=== PATIENT | female | born 1955 | race Caucasian/White ===

== ENCOUNTER 2023-11-06 03:53 | Outpatient (CLI) | payer MEDICARE, SELFPAY ==
[2023-11-06 10:24] LABS: Abs Immature Grans 0.04 10^3/uL (0.0-0.06); Absolute Basophil Count 0.12 10^3/uL (0.0-0.2); Absolute Eosinophil Count 0.42 10^3/uL (0.0-0.7); Absolute Lymphocyte Count 1.88 10^3/uL (1.2-3.4); Absolute Monocyte Count 0.55 10^3/uL (0.1-0.8); Absolute Neutrophil Count 5.18 10^3/uL (1.2-6.7); Basophils % 1.5 %; Eosinophils % 5.1 %; HCT 47.5 % (36.0-46.0); HGB 14.5 g/dL (11.2-15.7); Immature Grans % 0.5 %; MCHC 30.5 % (32.0-36.0); MCV 85 fL (80-95); MPV 10.6 fL (8.0-11.0); Monocytes % 6.7 %; Neutrophils % 63.2 %; Platelet Count 261 10^3/uL (130-400); RBC 5.58 10^6/uL (3.93-5.22); RDW 15.4 % (11.7-14.6); WBC 8.19 10^3/uL (4.4-10.8)
[2023-11-06 10:46] LABS: ALT 14 U/L (14-59); AST 17 U/L (15-37); Albumin 3.2 g/dL (3.4-5.0); Alkaline Phosphatase 116 U/L (46-116); Anion Gap 9.7 mmol/L (3-11); BUN 10 mg/dL (7-18); Bilirubin, Total 0.35 mg/dL (0.2-1.0); CO2 23.3 mmol/L (21.0-32.0); CREATININE 1.1 mg/dL (0.55-1.02); Calcium 9.2 mg/dL (8.5-10.1); Chloride 108 mmol/L (98-107); Estimated GFR 55.07 (mL/min/1.73m2); FREE T4 1.18 ng/dL (0.76-1.46); Glucose 128 mg/dL (74-106); Magnesium 2.3 mg/dL (1.8-2.4); Potassium 4.4 mmol/L (3.5-5.1); Sodium 141 mmol/L (136-145); TSH 3.44 uIU/Ml (0.36-3.74); Total Protein 7.3 g/dL (6.4-8.2)
== END 2023-11-06 03:54 | disposition home or self-care (01) ==
LOC: LBO 03:53
PROVIDERS: Visit Provider Internal Medicine Medical Oncology
DX: Z79.899 Other long term (current) drug therapy (principal); C34.31 Malignant neoplasm of lower lobe, right bronchus or lung
CPT/HCPCS: 36415; 80053; 83735; 84439; 84443; 85025

== ENCOUNTER 2023-11-27 01:54 | Outpatient (CLI) | payer MEDICARE, SELFPAY ==
[2023-11-27 12:39] LABS: Abs Immature Grans 0.04 10^3/uL (0.0-0.06); Absolute Basophil Count 0.11 10^3/uL (0.0-0.2); Absolute Eosinophil Count 0.27 10^3/uL (0.0-0.7); Absolute Lymphocyte Count 1.73 10^3/uL (1.2-3.4); Absolute Monocyte Count 0.65 10^3/uL (0.1-0.8); Basophils % 1.6 %; Eosinophils % 3.9 %; HCT 43.8 % (36.0-46.0); HGB 13.3 g/dL (11.2-15.7); Immature Grans % 0.6 %; Lymphocytes % 25.1 %; MCH 26.2 pg (27.0-33.0); MCHC 30.4 % (32.0-36.0); MCV 86 fL (80-95); MPV 9.1 fL (8.0-11.0); Monocytes % 9.4 %; Neutrophils % 59.4 %; Platelet Count 280 10^3/uL (130-400); RBC 5.07 10^6/uL (3.93-5.22); RDW 15.7 % (11.7-14.6); RDW-SD 47.8 fL
[2023-11-27 13:15] LABS: ALT 22 U/L (14-59); AST 19 U/L (15-37); Alkaline Phosphatase 112 U/L (46-116); Anion Gap 6.7 mmol/L (3-11); BUN 12 mg/dL (7-18); Bilirubin, Total 0.29 mg/dL (0.2-1.0); CO2 27.3 mmol/L (21.0-32.0); CREATININE 1.1 mg/dL (0.55-1.02); Calcium 9.4 mg/dL (8.5-10.1); Chloride 103 mmol/L (98-107); Estimated GFR 55.07 (mL/min/1.73m2); FREE T4 1.12 ng/dL (0.76-1.46); Glucose 129 mg/dL (74-106); Magnesium 2.2 mg/dL (1.8-2.4); Potassium 4.3 mmol/L (3.5-5.1); Sodium 137 mmol/L (136-145); TSH 2.62 uIU/Ml (0.36-3.74); Total Protein 7.1 g/dL (6.4-8.2)
== END 2023-11-27 01:55 | disposition home or self-care (01) ==
LOC: LBO 01:54
PROVIDERS: Visit Provider Internal Medicine Medical Oncology
DX: Z79.899 Other long term (current) drug therapy (principal); C34.31 Malignant neoplasm of lower lobe, right bronchus or lung
CPT/HCPCS: 36415; 80053; 83735; 84439; 84443; 85025

== ENCOUNTER 2023-12-18 03:23 | Outpatient (CLI) | payer MEDICARE, SELFPAY ==
[2023-12-18 10:53] LABS: Abs Immature Grans 0.06 10^3/uL (0.0-0.06); Absolute Basophil Count 0.03 10^3/uL (0.0-0.2); Absolute Eosinophil Count 0.06 10^3/uL (0.0-0.7); Absolute Lymphocyte Count 1.58 10^3/uL (1.2-3.4); Absolute Monocyte Count 0.66 10^3/uL (0.1-0.8); Absolute Neutrophil Count 3.02 10^3/uL (1.2-6.7); Basophils % 0.6 %; Eosinophils % 1.1 %; HGB 12.7 g/dL (11.2-15.7); Immature Grans % 1.1 %; Lymphocytes % 29.2 %; MCH 27.2 pg (27.0-33.0); MCV 88 fL (80-95); MPV 8.4 fL (8.0-11.0); Monocytes % 12.2 %; Neutrophils % 55.8 %; Platelet Count 241 10^3/uL (130-400); RBC 4.67 10^6/uL (3.93-5.22); RDW 17.5 % (11.7-14.6); RDW-SD 50.6 fL; WBC 5.41 10^3/uL (4.4-10.8)
[2023-12-18 11:09] LABS: ALT 44 U/L (14-59); AST 35 U/L (15-37); Albumin 3.3 g/dL (3.4-5.0); Alkaline Phosphatase 126 U/L (46-116); Anion Gap 7.3 mmol/L (3-11); BUN 15 mg/dL (7-18); Bilirubin, Total 0.26 mg/dL (0.2-1.0); CO2 27.7 mmol/L (21.0-32.0); CREATININE 1.1 mg/dL (0.55-1.02); Calcium 9.3 mg/dL (8.5-10.1); Chloride 104 mmol/L (98-107); Estimated GFR 55.07 (mL/min/1.73m2); Glucose 111 mg/dL (74-106); Magnesium 2.1 mg/dL (1.8-2.4); Potassium 4.3 mmol/L (3.5-5.1); Sodium 139 mmol/L (136-145); Total Protein 7.5 g/dL (6.4-8.2)
[2023-12-18 11:19] LABS: FREE T4 0.96 ng/dL (0.76-1.46); TSH 2.92 uIU/Ml (0.36-3.74)
== END 2023-12-18 03:24 | disposition home or self-care (01) ==
LOC: LBO 03:23
PROVIDERS: Visit Provider Internal Medicine Medical Oncology
DX: Z79.899 Other long term (current) drug therapy (principal)
CPT/HCPCS: 36415; 80053; 83735; 84439; 84443; 85025

== ENCOUNTER 2024-01-08 11:22 | Outpatient (CLI) | payer MEDICARE, SELFPAY ==
--- OUTSIDE RECORDS SUMMARY | 2024-01-08 11:25 | XMS_ITS | Encounter Summary ---
Author Organization [facility] Address [address] [place] [id number] Care Team Providers Care Clerical Supervisor Name Role Phone Unavailable Primary Care Provider Unavailabl e Reason for Referral * (Routine/Next Available) - Receiving Office to Obtain Authorization Specialty Diagnoses / Procedures Referred By Contac t Referred To Contact Procedures CT OUTSIDE IMAGES CHEST Imaging, External Referral ID Status Reason Start Date Expiration Date Visits Requested Visits Authorized [id number] Receiving Office to Obtain Authorization 11/07/2023 1 1 Reason for Visit * (Routine/Next Available) - Receiving Office to Obtain Authorization Specialty Diagnoses / Procedures Referred By Contac t Referred To Contact Procedures CT OUTSIDE IMAGES CHEST Imaging, External Referral ID Status Reason Start Date Expiration Date Visits Requested Visits Authorized [id number] Receiving Office to Obtain Authorization 11/07/2023 1 1 Encounter Details Date Type Department Care Team (Latest Contact Info) Description 09/19/2023 - 09/19/2023 23:59 EDT Hospital Encounter [facility] Secondary Reads [place] Discharge Disposition: Home or Self Care Social History Tobacco Use Types Packs/Day Years Used Date Smoking Tobacco: Never Assessed Sex and Gender Information Value Date Recorded Sex Assigned at Not on file Gender Identity Female 11/30/2023 12:00 EDT Sexual Orientation Not on file documented as of this encounter Discharge Disposition Disposition Code Departure Means Destination Home or Self Care documented in this encounter Plan of Treatment Not on file documented as of this encounter Procedures Procedure Name Priority Date/Time Associated Diagnosis Comments CT OUTSIDE IMAGES CHEST Routine 09/19/2023 19:32 EDT documented in this encounter Results * CT OUTSIDE IMAGES CHEST (09/19/2023 19:32 EDT) Narrative 11/07/2023 19:33 EDT This is a non-reportable exam. External Imaging IMG OTHER IMAGING OR DERABLES documented in this encounter Visit Diagnoses Not on filedocumented in this encounter
--- OUTSIDE RECORDS SUMMARY | 2024-01-08 11:25 | XMS_ITS | Clinical Summary ---
Author Organization [facility] Address [facility] [place] [address] Care Team Providers Care Molding Machine Setter Name Role Phone Ariella Hollis APRN Primary Care Provide r Allergies No known active allergies Medications Medication Sig Dispensed Refills Start Date End Date Status albuteroL 90 mcg/actuation inhaler (HFA) Inhale 2 puffs into the lungs every 6 hours as needed for Wheezing or Shortness of Breath. Use with Spacer Active predniSONE (Deltasone) 5 mg tablet Take 5 mg by mouth as needed (takes when cough gets worse). Unsure of dosing off the top of her head Active umeclidinium-vilan teroL (Anoro Ellipta) 62.5-25 mcg/actuation inhaler (DPI) Inhale 1 puff into the lungs daily. 1 each 3 10/18/2023 Active prochlorperazine (Compazine) 10 mg tabletIndications: Chemotherapy-induc ed nausea Take 1 tablet by mouth every 6 hours as needed for Nausea. 30 tablet 3 11/06/2023 Active folic acid (Vitamin B9) 1 mg tabletIndications: Primary malignant neoplasm of right lower lobe of lung Take 1 tablet by mouth daily. 90 tablet 3 11/06/2023 Active apixaban (Eliquis) 5 mg tablet Take 1 tablet by mouth 2 times daily for 210 days. 60 tablet 6 11/27/2023 06/24/2024 Active hydrocortisone 2.5 % Cream Apply topically 2 times daily. 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 09/30/2023 Encounters Date Type Department Care Team Description 01/08/2024 1:30 PM EDT Infusion Hematology Oncology at [address] [phone] 01/08/2024 1:00 PM EDT Office Visit Hematology/Oncolo gy at [address] [phone] Antolin Croft MD LaRoza, Stephanie A, VENEER STAPLER Primary malignant neoplasm of right lower lobe of lung 01/07/2024 Travel 01/02/2024 2:00 PM EDT Ancillary Procedure Radiology Library at [facility] [place] [address] Candice Erickson, VENEER STAPLER 01/02/2024 Interpretation Only Radiology Library at [facility] [place] [address] Candice Erickson, VENEER STAPLER 12/28/2023 Orders [place] [address] Soto Gilbert MD 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; Primary malignant neoplasm of right lower lobe of lung 12/26/2023 Orders [place] [address] Soto Gilbert MD Primary malignant neoplasm of right lower lobe of lung; 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 12/18/2023 12:00 PM EDT Infusion Hematology Oncology at [address] [phone] High risk medication use; Primary malignant neoplasm of right lower lobe of lung 12/18/2023 11:30 AM EDT Office Visit Hematology/Oncolo gy at [address] [phone] Antolin Croft MD LaRoza, Stephanie A, APRN Primary malignant neoplasm of right lower lobe of lung 12/18/2023 Notes Only Hematology/Oncolo gy at [address] [phone] Jana Moore, RATE ANALYST 12/18/2023 Travel 11/27/2023 2:00 PM EDT Infusion Hematology Oncology at [address] [phone] High risk medication use; Primary malignant neoplasm of right lower lobe of lung 11/27/2023 1:30 PM EDT Office Visit Hematology/Oncolo gy at [address] [phone] Antolin Croft MD LaRoza, Stephanie A, CAROLEE Primary malignant neoplasm of right lower lobe of lung; Pulmonary embolus, right; Drug dermatitis 11/27/2023 Travel 11/17/2023 Notes Only Hematology [place] [address] Candice Freeman RN 11/10/2023 Telephone Hematology/Oncolo gy at [address] [phone] Juhi Lin RN 11/09/2023 2:55 PM EDT Ancillary Procedure Radiology Library at [facility] [place] [phone] Lenard Ramon MD 11/09/2023 Interpretation Only Radiology Library at [facility] [place] [phone] Lenard Ramon MD 11/09/2023 Telephone Hematology/Oncolo gy at [address] [phone] Juhi Lin, RN 11/06/2023 12:00 PM EDT Infusion Hematology Oncology at [address] [phone] High risk medication use; Primary malignant neoplasm of right lower lobe of lung 11/06/2023 11:30 AM EDT Office Visit Hematology/Oncolo gy at [address] [phone] Antolin Croft MD LaRoza, Stephanie A, CAROLEE Primary malignant neoplasm of right lower lobe of lung; 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; Chemotherapy-induced nausea 11/06/2023 Notes Only Hematology/Oncolo gy at [address] [phone] Jana Moore, LANNY 11/06/2023 Travel 11/03/2023 Telephone Revenue Management Division [place] [phone] Jayne Manriquez Prior Authorization (CGAT GENETIC TESTING) 11/03/2023 Telephone [place] [address] Jayne Manriquez Prior Authorization (CGAT GENETIC TESTING) 10/31/2023 Patient Outreach Hematology and Oncology at [place] [phone] Mary Kay Palomino 10/25/2023 Orders Only Hematology [place] [address] Antolin Croft MD Primary malignant neoplasm of right lower lobe of lung; High risk medication use 10/25/2023 Telephone Hematology [place] [address] Jihan Araujo, RN 10/23/2023 Telephone [place] [address] Eri Barreto MD 10/19/2023 2:00 PM EDT Office Visit Radiation Oncology at [address] [phone] Olegario King MD 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 10/19/2023 Travel 10/18/2023 6:14 AM EDT - 10/18/2023 11:59 PM EDT Hospital Encounter Laboratory [place] [phone] Discharge Disposition: Home 10/18/2023 Orders [place] [address] Gay Wong, RN 10/18/2023 Orders [place] [address] Lenard Ramon MD 10/18/2023 [place] [address] Gay Wong RN 10/17/2023 2:00 PM EDT Office Visit [place] [address] Soto Gilbert MD Primary malignant neoplasm of right lower lobe of lung; Essential hypertension; Dyspnea on exertion; 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 10/17/2023 Travel 10/16/2023 [place] [address] Reema Byers 10/10/2023 Telephone Radiation Oncology at [address] [phone] Ashley Kruger from Last 3 Months Family History Medical History Relation Comments Stomach Cancer Brother 1 Brain Cancer Brother 2 Myocardial Infarction Father Myocardial Infarction Sister Relation Status Comments Brother 1 Brother 2 Alive Father Sister Social History Tobacco Use Types Packs/Day Years Used Date Smoking Tobacco: Former Cigarettes 1 51 S tarted: 1970 Smokeless Tobacco: Never Tobacco Cessation:Counseling Given: Not Answered Alcohol Use Standard Drinks/Week Comments Not Currently 0 (1 standard drink = 0.6 oz pur e alcohol) B1300 Health Literacy Answer Date Recor ded How often do you need to hav e someone help you when you read instructions, pamphlets, or other written material from your doctor or pharmacy? Never 10/19/2023 [facility] Utilities Answer Date Recorded In the past 12 months has th e electric, gas, oil, or water company threatened to shut off services in your home? No 10/19/2023 Overall Financial Resource Strain (CARDIA) Answe r Date Recorded How hard is it for you to pa y for the very basics like food, housing, medical care, and heating? Somewhat hard 10/19/2023 Hunger Vital Sign Answer Date Recorded Within the past 12 months, y ou worried that your food would run out before you got the money to buy more. Sometimes true Within the past 12 months, t he food you bought just didn't last and you didn't have money to get more. Patient declined 03/2023 PRAPARE - Transportation Answer Date Re corded In the past 12 months, has l ack of transportation kept you from medical appointments or from getting medications? No 03/2023 In the past 12 months, has l ack of transportation kept you from meetings, work, or from getting things needed for daily living? No 10/19/2023 Housing Stability Vital Sign Answer Davon e Recorded In the last 12 months, was t here a time when you were not able to pay the mortgage or rent on time? No 10/19/2023 Number of Times Moved in the Last Year Not on fi le 10/19/2023 At any time in the past 12 m [facility], were you homeless or living in a fci (including now)? No 10/19/2023 IPV Inpatient Questions Answer Date Recorded Does Anyone Try to Keep You From Having Contact with Others or Doing Things Outside Your Home? no 09/25/2023 Feels Threatened by Someone no 10/2023 Feels Unsafe at Home or Work/School no 09/25/2023 Physical Signs of Abuse Present no 09/25/2023 Sex and Gender Information Value Date Recorded Sex Assigned at Not on file Gender Identity Not on file Sexual Orientation Not on file Last Filed Vital Signs Vital Sign Reading Time Taken Comments Blood Pressure 184/70 12/18/2023 11:29 AM EDT Pulse 74 12/18/2023 11:29 AM EDT Temperature 36.5 ??C (97.7 ??F) 12/18/2023 11:29 AM E DT Respiratory Rate 18 12/18/2023 11:29 AM EDT Oxygen Saturation 97% 12/18/2023 11:29 AM EDT Inhaled Oxygen Concentration - - Weight 89.4 kg (197 lb) 12/18/2023 11:29 AM EDT Height 164.1 cm (5' 4.61) 12/18/2023 11:29 AM E DT Body Mass Index 33.18 12/18/2023 11:29 AM EDT Plan of Treatment Upcoming Encounters Date Type Department Care Team (Late st Contact Info) Description 01/08/2024 1:00 PM EDT Office Visit Hematology/Oncology at [address] [phone] Antolin Croft MD [facility] DR HEMATOLOGY [place] [address] Candice Erickson APRN [address] [place] [address] DR HEMATOLOGY AND ONCOLOGY [place], [place] [phone] Primary malignant neoplasm of right lower lobe of lung 01/08/2024 1:30 PM EDT Infusion Hematology Oncology at [address] [phone] 01/30/2024 9:[address] [place] [phone] Soto Gilbert MD [facility] [place] [address] 01/30/2024 10:30 AM EST Appointment [place] [phone] Soto Gilbert MD [facility] [place] [address] 01/30/2024 11:00 AM EST Appointment [place] [phone] Soto Gilbert MD [facility] DR [place] [address] 01/30/2024 11:30 AM EST Appointment [place] [phone] Soto Gilbert MD [facility] [place] [address] 01/30/2024 12:00 PM EST Appointment [place] [phone] Soto Gilbert MD [facility] DR [place] [address] 01/30/2024 2:30 PM EST Appointment [place] [phone] Health Maintenance Due Date Last Done Comments CT Colonography 1955 Colonoscopy 1955 Colorectal Cancer Screening 1955 FIT DNA 1955 FIT 1955 Sigmoidoscopy (10 year) with FIT yearly 1955 Sigmoidoscopy 1955 Hepatitis C Screening 1974 Lipid Screening 1974 Tetanus/Diphtheria/Pertussis Vaccines (1 - Tdap) 10/20 Breast Cancer Share Decision Needed 1996 Breast Cancer screening 1996 Zoster vaccine (1 of 2) 2006 Bone Density Scan 2021 Pneumoccocal Vaccine: 65+ (1 of 1 - PCV) 2021 Covid-19 Vaccine (1 - 2022-24 season) 2023 Influenza (Flu) vaccine (1 o f 1 - Influenza standard series) 11/19/2023 Diabetes Screening (HgbA1C or Glucose) 08/28/2026 HPV test Discontinued 07/21/2014 PAP Smear Discontinued 07/21/2014 Procedures Procedure Name Priority Date/Time Associated Diagnosis Comments CT SCAN (SCAN) 01/08/2024 12:00 AM EDT FILM LIBRARY STORAGE ONLY CT CHEST Routine 01/02/2024 2:00 PM EDT LAB SCAN 12/18/2023 12:00 AM EDT LAB SCAN 12/18/2023 12:00 AM EDT LAB SCAN 11/27/2023 12:00 AM EDT FILM LIBRARY STORAGE ONLY CT CHEST Routine 11/09/2023 2:55 PM EDT EEG SCAN 11/09/2023 12:00 AM EDT LAB SCAN 11/09/2023 12:[address] SCAN (SCAN) 11/09/2023 12:[address] SCAN (SCAN) 11/09/2023 12:00 AM EDT LAB SCAN 11/06/2023 12:00 AM EDT PFT SCAN 10/09/2023 12:00 AM EDT PFT SCAN 10/09/2023 12:00 AM EDT COMPREHENSIVE METABOLIC PANEL STAT 08/29/2023 11:11 AM EDT Adenocarcinoma of right lung HPV Routine 07/21/2014 12:00 PM EDT HVAC ENGINEERING TECHNICIAN CYTOLOGY FINAL REPORT Routine 07/21/2014 12:00 PM EDT from Last 3 Months or Most Recently Relevant to Health Maintenance Results * Scan Doc: CT Scan (01/08/2024 12:00 AM EDT) Only the most recent of3 resultswithin the time period is included. Anatomical Region Laterality Modality Other Narrative 01/08/2024 12:00 AM EDT Ordered by an unspecified provider. Scanning Provider MEDIA MGR SCAN EXT O RDR/RSLT * Film Library- Storage Only CT Chest (01/02/2024 2:00 PM EDT) Only the most recent of2 resultswithin the time period is included. 01/06/2024 9:48 PM EDT Narrative RAD - 01/06/2024 9:48 PM EDT This exam is auto-finalizing. It's purpose is for storage only. Candice Erickson APRN IMG FILM LIBRARY ORDERABLES [place], [place] * Scan Doc: Lab (12/18/2023 12:00 AM EDT) Only the most recent of5 resultswithin the time period is included. Narrative 12/18/2023 12:00 AM EDT Ordered by an unspecified provider. Scanning Provider MEDIA MGR SCAN EXT O RDR/RSLT * Scan Doc: EEG (11/09/2023 12:00 AM EDT) Narrative 11/09/2023 12:00 AM EDT Ordered by an unspecified provider. Scanning Provider MEDIA MGR SCAN EXT O RDR/RSLT * Scan Doc: PFT (10/09/2023 12:00 AM EDT) Narrative 10/09/2023 12:00 AM EDT Ordered by an unspecified provider. Scanning Provider MEDIA MGR SCAN EXT O RDR/RSLT * Scan Doc: PFT (10/09/2023 12:00 AM EDT) Narrative 10/09/2023 12:00 AM EDT Ordered by an unspecified provider. Scanning Provider MEDIA MGR SCAN EXT O RDR/RSLT * Comprehensive metabolic panel (non-fasting) (08/29/2023 11:11 AM EDT) [facility] Signature Glucose 131 65 - 199 mg/dL [facility] Comment:Diabetes: >=200 mg/d L plus symptoms Blood Urea Nitrogen 14 8 - 18 mg/dL [facility] Creatinine 1.02 0.70 - 1.20 mg/dL [facility] Sodium 139 135 - 145 mmol/L [facility] Potassium 4.2 3.5 - 5.0 mmol/L [facility] Comment: Please note: ??Patients with WBC >100,000 may have falsely elevated Potassium levels. ??For accurate Potassium quantification in these patients send serum separator tube (gold top) for subsequent determinations. ??Contact the Clinical Chemistry Laboratory if there are any questions. Chloride 103 98 - 107 mmol/L [facility] Carbon Dioxide 25 22 - 31 mmol/L [facility] Anion Gap 11 5 - 15 mmol/L [facility] Calcium 9.2 8.5 - 10.5 mg/dL [facility] Protein, Total 7.1 6.1 - 8.0 g/dL [facility] Albumin 3.9 3.2 - 5.2 g/dL [facility] Aspartate Aminotransferase 17 0 - 30 unit/L [facility] Alanine Aminotransferase 16 0 - 30 unit/L [facility] Alkaline Phosphatase 99 35 - 105 unit/L [facility] Bilirubin, Total 0.3 0.2 - 1.3 mg/dL [facility] Est Glomerular Filtration Rate 61 >=60 mL/min/1. 73 m?? [facility] Comment: This patient's estimated GFR was calculated using the 2020 CKD-EPI equation. The estimated GFR can vary from the measured GFR by up to 30% in the absence of rapidly changing kidney function. Assessment of the estimated GFR is not appropriate when creatinine concentrations are rapidly changing. For clinical situations in which a more precise estimate of GFR is necessary, consider alternative methods of GFR estimation such as a 24-hour urine creatinine clearance. Assignment of CKD stage 1-5 for patients with an eGFR near the transition point between stages may be based on clinical assessment of muscle mass and symptoms in addition to eGFR. Blood 08/29/2023 11:1 1 AM EDT 08/29/2023 11:27 AM EDT Narrative Resulting Agency Comment Spec In Lab Erlinda Barreto APRN CHEMISTRY ORDERABL ES Performing Organization Address [facility] Co de Phone Number [facility] [place] [address] * HPV (07/21/2014 12:00 PM EDT) HPV16 NEGATIVE [facility] HPV 18 NEGATIVE [facility] HPV Other HR NEGATIVE [facility] HPV Interpretation Mercedes Lisette?? HPV test NEGATIVE for high-risk HPV *. It is recommended that patients with ASCUS cytology and a negative test for high-risk HPV undergo further evaluation according to current practice guidelines. ??* Testing negative for high risk HPV means that the specimen is negative for the following 14 types tested: ??types 16, 18, 31, 33, 35, 39, 45, 51, 52, 56, 58, 59, 66, and 68. ??The test is not intended to detect low risk HPV types. Specimen: HPV Testing - Cytology Liquid Based Prep [facility] Cervical swab (specimen) 07/21/2014 12:00 PM EDT 07/22/2014 2:21 PM EDT Narrative Resulting Agency Comment Spec In Lab Rose RAJAN PATHOLOGY/CYTOLOGY O RDERABLES Performing Organization Address [facility] Co de Phone Number [facility] * Research Test Engine Operator Cytology Final Report (07/21/2014 12:00 PM EDT) Research Test Engine Operator Cytology Final Report ? [facility] ? Provider: ?? ROSE BALDWIN ? Pt. Name: ?? ALTHEA SALMON ? Acc #: ?[id number] ?Pt. ? Col Date: ?? 07/21/2014 ?/Sex: ?1955,(58 years),Female ? Rec Date: ?? 07/21/2014 ?LOC: ?[facility] ? CYTOPATHOLOGY: ??HVAC ENGINEERING TECHNICIAN ? ---Adequacy--- ? Specimen submitted is satisfactory. ? Endocervical component present. ? ---Cytopathologic Diagnosis--- ? NORMAL ? Negative for Intraepithelial Lesion or Malignancy (NILM). ? 07/25/14 ?? Screened by: ??REP ? 07/25/14 ?? Verified by: ??Proskovec, CT(ASCP), Marie E. - Market Superintendent ? ---Comment--- ? Please also see concurrent HPV test result. ? ---Clinical Information--- ? HPV Option: ? Concurrent HPV ? Preparation: ?Liquid Based Pap ? Specimen Source: ?Cervical Endocervical LBP ? LMP: ?CASH MANAGER-approx 7 yrs ago ? Hormones?: ?No ? Hysterectomy?: ?No ?: ?No ?: ?No ? I.U.D.?: ?No ? Pelvic Radiation: ? No ? Prior HVAC ENGINEERING TECHNICIAN Therapy?: ? No ? Hist Abnl Pap/Biopsy?: ??No ? Hist of HPV Vaccine?: ?? (not provided) ? Hist of Smoking?: ? (not provided) ? Hist of DRE exposure?: ??(not provided) ? Clinical Data, Significant Therapy and Clinical Impression: ?Cervix is friable on exam ?No record of prior pap ?Pt estimates > 15yrs ago ? This Pap Test has been evaluated with the assistance of the ThinPrep Pap ? Test Imaging System. ? Note: ? The Pap test is a screening test for cervical cancer with an inherent ? false-negative rate dependent upon several variables. ??For further ? information please contact the [facility] Laboratory. ? [facility] ? Provider: ?? ROSE BALDWIN ? Pt. Name: ?? ALTHEA SALMON ? Acc #: ?[id number] ?Pt. ? Col Date: ?? 07/21/2014 ?/Sex: ?1955,(58 years),Female ? Rec Date: ?? 07/21/2014 ?LOC: ?[facility] ? CYTOPATHOLOGY: ??HVAC ENGINEERING TECHNICIAN ? Reference: ??Benedict CS. ??Edger Operator of Pap Smear Results. ??In: ? Shaina BS, Melo HH, ed. ??The Pap Smear. ??[place]: ??You, 2002: ? 71-77. DIEGO KOCH 07/21/2014 12:0 0 PM EDT Rose RAJAN PATHOLOGY/CYTOLOGY O RDERABLES DIEGO CHANDLERIUM from Last 3 Months or Most Recently Relevant to Health Maintenance Advance Directives Documents on File Type Date Recorded Patient Sole Leveling Machine Operator Expl anation Advance Directives and Living Will 10/25/2023 2:55 PM Personal Sole Leveling Machine Operator 10/24/2023 1:53 PM Isabelle Quiroz - Daughter Care Teams Molding Machine Setter Relationship Specialty Start Date End Date Ariella Hollis APRN [address] [place] [address] PCP - General Family Medicine 09/26/23
--- OUTSIDE RECORDS SUMMARY | 2024-01-08 11:25 | XMS_ITS | Encounter Summary ---
Author Organization [facility] [place] [address] Care Team Providers Care Performance Architect Name Role Phone BunnyAriella APRN Primary Care Provide r Encounter Details Date Type Department Care Team (Late st Contact Info) Description 01/02/2024 2:00 PM EDT Ancillary Procedure Radiology Library at [facility] ARNALDO Guerrero [phone] Candice Erickson APRN [address] [place] [address] DR [place] [address] Social History Tobacco Use Types Packs/Day Years Used Date Smoking Tobacco: Former Cigarettes 1 51 S tarted: 1970 Smokeless Tobacco: Never Alcohol Use Standard Drinks/Week Comments Not Currently 0 (1 standard drink = 0.6 oz pur e alcohol) B1300 Health Literacy Answer Date Recor ded How often do you need to hav e someone help you when you read instructions, pamphlets, or other written material from your doctor or pharmacy? Never 10/19/2023 [facility] Utilities Answer Date Recorded In the past 12 months has e electric, gas, oil, or water company [...] any time in the past 12 m onths, were you homeless or living in a skilled nursing (including now)? No 10/19/2023 IPV Inpatient Questions [...] on file Sexual Orientation Not on file documented as of this encounter Plan of Treatment Upcoming Encounters Date Type Department Care Team (Late st Contact Info) Description 01/08/2024 1:00 PM EDT Office Visit Hematology/Oncology at [address] [phone] Antolin Croft MD [facility] DR [place] [address] Candice Erickson APRN [address] [place] [address] DR HEMATOLOGY AND ONCOLOGY [place], [place] [id number] Primary malignant neoplasm of right lower lobe of lung 01/08/2024 1:30 PM EDT Infusion Hematology Oncology at [address] [address] 01/30/2024 9:[address] Scan at [place] [phone] Soto Gilbert MD [facility] [place] [address] 01/30/2024 10:30 AM EST Appointment Nuclear Medicine at [place] [phone] Soto Gilbert MD [facility] [place] [address] 01/30/2024 11:00 AM EST Appointment Nuclear Medicine at [place] [phone] Soto Gilbert MD [facility] [place] [address] 01/30/2024 11:30 AM EST Appointment [place] [phone] Soto Gilbert MD [facility] [place] [address] 01/30/2024 12:00 PM EST Appointment [place] [phone] Soto Gilbert MD [facility] [place] [address] 01/30/2024 2:30 PM EST Appointment Pulmonology [place] [phone] documented as of this encounter Procedures Procedure Name Priority Date/Time Associated Diagnosis Comments FILM LIBRARY STORAGE ONLY CT CHEST Routine 01/02/2024 2:00 PM EDT documented in this encounter Results * Film Library- Storage Only CT Chest (01/02/2024 2:00 PM EDT) 01/06/2024 9:48 PM EDT Narrative [facility] - 01/06/2024 9:48 PM EDT This exam is auto-finalizing. It's purpose is for storage only. Candice Erickson APRN IMFarooq FILM LIBRARY ORDERABLES Performing Organization Address City/State/[facility] Co de Phone Number [place], [place] documented in this encounter Visit Diagnoses Not on filedocumented in this encounter Care Teams Performance Architect Relationship Specialty Start Date End Date Ariella Hollis APRN [address] [place] [address] PCP - General Family Medicine 09/26/23 documented as of this encounter
--- OUTSIDE RECORDS SUMMARY | 2024-01-08 11:25 | XMS_ITS | Referral Summary ---
Author Organization [facility] Address [address] [place] [address] Care Team Providers Care Cytology Manager Name Role Phone Nancy Bo MD Primary Care Provider Carena ble Active Problems Patient Care Coordination No te Formatting of this note migh t be different from the original. Patient has given permission for [facility] to verbally discuss the following information with Isabelle Quiroz who has the following relationship to the patient is her daughter. Scheduling/Appt/Billing/Payment Information (does not include clinical information unless specifically indicated with separate option) Medical Information including symptoms, diagnosis, medications, test results and treatment plan (does not include Mental Health unless specifically indicated with separate option) Mental Health (Behavioral,Psychiatric,Chemical Dependency) health information, including my symptoms, diagnosis, medications and treatment plan Permission remains in effect until the patient elects to revoke it. No additional problems on file Social History Tobacco Use Types Packs/Day Years Used Date Smoking Tobacco: Never Assessed Sex and Gender Information Value Date Recorded Sex Assigned at Not on file Gender Identity Female 11/30/2023 12:00 EDT Sexual Orientation Not on file Plan of Treatment Not on file Care Teams Cytology Manager Relationship Specialty Start Date End Date Nancy Bo MD [place], [place] PCP - General 11/30/23
--- OUTSIDE RECORDS SUMMARY | 2024-01-08 11:25 | XMS_ITS | Encounter Summary ---
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 lower lobe of lung Procedures NM [place] PET CT Skull Base to Mid-thigh Soto Gilbert MD [facility] [place] [address] [place] [address] Referral ID Status Reason Start Date Expiration Date Visits Requested Visits Authorized [id number] New Request Specialty Service Requested 06/27/2025 1 1 Encounter Details Date Type Department Care Team (Late st Contact Info) Description 12/28/2023 Orders Only [place] [phone] Soto Gilbert MD [facility] [place] [address] 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 Never 10/19/2023 [facility] Utilities Answer Date Recorded In the past [...] any time in the past 12 m [facility], were you homeless or living in a mcc (including now)? No 10/19/2023 [facility] IPV Inpatient Questions Answer Date Recorded Does [...] 1:00 PM EDT Office Visit Hematology/Oncology at [address] [phone] Antolin Croft MD [facility] DR [place] [address] Candice Erickson APRN [address] [place] [address] DR HEMATOLOGY AND ONCOLOGY [place], [place] [address] Primary malignant neoplasm of right lower lobe of lung 01/08/2024 1:30 PM EDT Infusion Hematology Oncology at [address] [phone] 01/30/2024 9:[address] [place] [phone] Soto Gilbert MD [facility] [place] [address] 01/30/2024 10:30 AM EST Appointment [place] [phone] Soto Gilbert MD [facility] [place] [address] 01/30/2024 11:00 AM EST Appointment [place] [phone] Soto Gilbert MD [facility] [place] [address] 01/30/2024 11:30 AM EST Appointment [place] [phone] Soto Gilbert MD [facility] [place] [address] 01/30/2024 12:00 PM EST Appointment [place] [phone] Soto Gilbert MD [facility] [place] [address] 01/30/2024 2:30 PM EST Appointment [place] [phone] Scheduled Orders Name Type Priority Associated Diagnoses Orde r Schedule NM [place] PET CT Skull Base to Mid-thigh Imaging Routine 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 of right lower lobe of lung Expected: 12/28/2023, Expires: 06/28/2024 documented as of this encounter Visit Diagnoses Diagnosis 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
--- OUTSIDE RECORDS SUMMARY | 2024-01-08 11:25 | XMS_ITS | Encounter Summary ---
Author Organization [facility] Estela salazarabdirashid [place] [address] Care Team Providers Care Bell Clerk Name Role Phone Bunny, Ariellamonie Rodriguez APRN Primary Care Provide r Encounter Details Date Type Department Care Team (Late st Contact Info) Description 01/08/2024 1:00 PM EDT Office Visit Hematology/Oncology at [address] [phone] Antolin Croft MD [facility] DR HEMATOLOGY [place] [address] Candice Erickson APRN [address] [place] [address] DR HEMATOLOGY AND ONCOLOGY [place], [place] [id number] Primary malignant neoplasm of right lower lobe [...] from your doctor or pharmacy? Never 10/19/2023 [facility] Utilities Answer Date Recorded In the [...] any time in the past 12 m [facility], were you homeless or living in a snf (including now)? No 10/19/2023 IPV Inpatient Questions [...] Team (Late st Contact Info) Description 01/08/2024 1:30 PM EDT Infusion Hematology Oncology at [address] [phone] 01/30/2024 9:[address] [place] [address] Soto Gilbert MD [facility] DR [place] [address] 01/30/2024 10:30 AM EST Appointment [place] [phone] Soto Gilbert MD [facility] [place] [address] 01/30/2024 11:00 AM EST Appointment Nuclear Medicine at [place] [phone] Soto Gilbert MD [facility] DR [place] [address] 01/30/2024 11:30 AM EST Appointment [place] [phone] Soto Gilbert MD [facility] DR [place] [address] 01/30/2024 12:00 PM EST Appointment [place] [phone] Soto Gilbert MD [facility] DR [place] [address] 01/30/2024 2:30 PM EST Appointment [place] [phone] documented as of this encounter Visit Diagnoses Diagnosis Primary malignant neoplasm of right lower lobe of lung Malignant neoplasm of lower lobe, bronchus, or lung documented in this encounter Care Teams Bell Clerk Relationship Specialty Start Date End Date Ariella Hollis APRN [address] [place] [address] PCP - General Family Medicine 09/26/23 documented as of this encounter
--- OUTSIDE RECORDS SUMMARY | 2024-01-08 11:25 | XMS_ITS | Continuity of Care Document ---
Author Organization [facility] Address [address] [place] [address] Care Team Providers Care Employment Law Attorney Name Role Phone VARINDER RIVERA MD Primary Care Physician Encounter [facility] NBR [id number] Date(s): 10/05/23 - 10/05/[address] [phone] Encounter Diagnosis Malignant neoplasm of unspecified part of right bronchus or lung(Final) - Discharge Disposition: Home or Self Care Attending Physician: MAINOR WOODS Admitting Physician: MAINOR WOODS Referring Physician: MAINOR OWODS Patient Care team information Care Team Personnel Name: VARINDER RIVERA MD Position: No Access Member Role: Primary Care Physician Address: Address: [address] [place] [id number]
--- OUTSIDE RECORDS SUMMARY | 2024-01-08 11:25 | XMS_ITS | Encounter Summary ---
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 Procedures NM PET CT Skull Base to Mid-thigh Soto Gilbert MD [facility] [place] [address] [facility] [place] [address] Referral ID Status Reason Start Date Expiration Date Visits Requested Visits Authorized [id number] New Request Specialty Service Requested 12/26/2023 06/25/2025 1 1 * Diagnostic Test (Routine) - New Request Specialty Diagnoses / Procedures Referred By Contac t Referred To Contact Radiology Diagnoses 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 Procedures CT Chest w Contrast Soto Gilbert MD [facility] [place] [address] [facility] [place] [address] Referral ID Status Reason Start Date Expiration Date Visits Requested Visits Authorized [id number] New Request Specialty Service Requested 12/26/2023 06/25/2025 1 1 Encounter Details Date Type Department Care Team (Late st Contact Info) Description 12/26/2023 Orders Only Thoracic Surgery at [facility] [place] [address] Soto Gilbert MD [facility] [place] [address] Primary malignant neoplasm of right lower lobe of lung; 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 Never 10/19/2023 [facility] Utilities Answer Date Recorded In the [...] time in the past 12 m [facility], were you homeless or living in a fdc (including now)? No 10/19/2023 IPV Inpatient Questions [...] 1:00 PM EDT Office Visit Hematology/Oncology at [address] [phone] Antolin Croft MD [facility] DR HEMATOLOGY [place] [address] Candice Erickson APRN [address] [place] [address] DR HEM[place] [address] Primary malignant neoplasm of right lower lobe of lung 01/08/2024 1:30 PM EDT Infusion Hematology Oncology at [address] [phone] 01/30/2024 9:[address] [place] [phone] Soto Gilbert MD [facility] [place] [address] 01/30/2024 10:30 AM EST Appointment [place] [phone] Soto Gilbert MD [facility] [place] [address] 01/30/2024 11:00 AM EST Appointment [place] [address] Soto Gilbert MD [facility] [place] [address] 01/30/2024 11:30 AM EST Appointment [place] [address] Soto Gilbert MD [facility] [place] [address] 01/30/2024 12:00 PM EST Appointment [place] [address] Soto Gilbert MD [facility] [place] [address] 01/30/2024 2:30 PM EST Appointment [place] [address] Scheduled Orders Name Type Priority Associated Diagnoses Orde r Schedule CT Chest w Contrast Imaging Routine 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 Expected: 12/26/2023, Expires: 06/26/[address] Skull Base to Mid-thigh Imaging Routine 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 Expected: 12/26/2023, Expires: 06/26/2024 Common Pulmonary Function Test PFT Routine 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 Expected: 12/26/2023, Expires: 06/26/2024 CBC (with Diff) Lab Routine 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 Expected: 12/26/2023, Expires: 03/27/2024 Comprehensive metabolic panel Non-fasting Lab STAT 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 Expected: 12/26/2023, Expires: 03/27/2024 documented as of this encounter Visit Diagnoses Diagnosis Primary malignant neoplasm of right lower lobe of lung Malignant neoplasm of lower lobe, bronchus, or lung 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
--- OUTSIDE RECORDS SUMMARY | 2024-01-08 11:25 | XMS_ITS | Encounter Summary ---
Author Organization [facility] Address [facility] Estela [place] [address] Care Team Providers Care Building Insulation Supervisor Name Role Phone Ariella Hollis APRN Primary Care Provide r Reason for Visit * Treatment/Therapy Plan Authorization (Routine) - Authorized Specialty Diagnoses / Procedures Referred By Contac t Referred To Contact Hematology and Oncology Diagnoses High risk medication use Primary malignant neoplasm of right lower lobe of lung Procedures INFUSION Antolin Croft MD [facility] DR [place] [address] Stj Hem Onc Infusion [address] [place] [phone] Referral ID Status Reason Start Date Expiration Date V isits Requested Visits Authorized [id number] Authorized 10/25/2023 10/24/2024 1 99 Encounter Details Date Type Department Care Team (Late st Contact Info) Description 01/08/2024 1:30 PM EDT Infusion Hematology Oncology at [address] [phone] Social History Tobacco Use Types Packs/Day Years [...] from your doctor or pharmacy? Never 10/19/2023 [facility] Utilities Answer Date Recorded In the past [...] any time in the past 12 m [facility], were you homeless or living in a long term (including now)? No 10/19/2023 IPV Inpatient Questions [...] 1:00 PM EDT Office Visit Hematology/Oncology at [address] [phone] [facility] HEMATOLOGY AND ONCOLOGY [place] [phone] Candice Erickson MANAGER OF SECURITY [address] [place] [address] DR HEMATOLOGY [place] [address] Primary malignant neoplasm of right lower lobe of lung 01/30/2024 9:[address] [place] [place] [phone] [facility] [place] [address] 01/30/2024 10:30 AM EST Appointment Nuclear Medicine at [place] [phone] [facility] [place] [address] 01/30/2024 11:00 AM EST Appointment Nuclear Medicine at [place] [phone] [facility] [place] [address] 01/30/2024 11:30 AM EST Appointment [place] [phone] [facility] [place] [address] 01/30/2024 12:00 PM EST Appointment [place] [phone] [facility] [place] [address] 01/30/2024 2:30 PM EST Appointment [place] [address] documented as of this encounter Visit Diagnoses Not on filedocumented in this encounter Care Teams Building Insulation Supervisor Relationship Specialty Start Date End Date Ariella Hollis APRN [address] [place] [address] PCP - General Family Medicine 09/26/23 documented as of this encounter
--- OUTSIDE RECORDS SUMMARY | 2024-01-08 11:25 | XMS_ITS | Encounter Summary ---
Author Organization [facility] [place] [address] Care Team Providers Care Automotive Buyer Name Role Phone Bunny, Ariella Rodriguez APRN Primary Care Provide r Encounter Details Date Type Department Care Team (Late st Contact Info) Description 01/02/2024 Interpretation Only Radiology Library at [facility] [place] [phone] Candice Erickson APRN [address] [place] [address] DR HEMATOLOGY AND ONCOLOGY [place], [place] [address] Social History Tobacco Use Types Packs/Day Years [...] from your doctor or pharmacy? Never 10/19/2023 [facility] Utilities Answer Date Recorded In the past 12 months has [employer] electric, gas, oil, or water company threatened [...] were you homeless or living in a penitentiary (including now)? No 10/19/2023 IPV Inpatient Questions [...] 1:00 PM EDT Office Visit Hematology/Oncology at [address] [phone] Antolin Croft MD [facility] DR HEMATOLOGY [place] [address] Candice Erickson APRN [address] [place] [address] DR HEMATOLOGY AND ONCOLOGY [place], [place] [id number] Primary malignant neoplasm of right lower lobe of lung 01/08/2024 1:30 PM EDT Infusion Hematology Oncology at [address] [phone] 01/30/2024 9:[address] [place] [place] [phone] Soto Gilbert MD [facility] DR [place] [address] 01/30/2024 10:30 AM EST Appointment [place] [phone] Soto Gilbert MD [facility] DR [place] [address] 01/30/2024 11:00 AM EST Appointment [place] [phone] Soto Gilbert MD [facility] DR [place] [address] 01/30/2024 11:30 AM EST Appointment [place] [phone] Soto Gilbert MD [facility] DR [place] [address] 01/30/2024 12:00 PM EST Appointment [place] [phone] Soto Gilbert MD [facility] DR [place] [address] 01/30/2024 2:30 PM EST Appointment [place] [phone] documented as of this encounter Procedures Procedure Name Priority Date/Time Associated Diagnosis Comments FILM LIBRARY STORAGE ONLY CT CHEST Routine 01/02/2024 2:00 PM EDT documented in this encounter Results * Film Library- Storage Only CT Chest (01/02/2024 2:00 PM EDT) 01/06/2024 9:48 PM EDT Narrative [facility] - 01/06/2024 9:48 PM EDT This exam is auto-finalizing. It's purpose is for storage only. Candice Erickson CHART CHANGER IMG FILM LIBRARY ORDERABLES Performing Organization Address City/State/[facility] Co de Phone Number [place], [place] documented in this encounter Visit Diagnoses Not on filedocumented in this encounter Care Teams Automotive Buyer Relationship Specialty Start Date End Date Ariella Hollis APRN [address] [place] [address] PCP - General Family Medicine 09/26/23 documented as of this encounter
--- OUTSIDE RECORDS SUMMARY | 2024-01-08 11:25 | XMS_ITS ---
Author Organization [facility] [place] [address] Care Team Providers Care Center Lead Consultant Name Role Phone Ariella Hollis CAROLEE Primary Care Provide r Active Problems Problem Noted Date Diagnosed Date High risk medication use 10/25/2023 Dyspnea on exertion 10/19/2023 Primary malignant neoplasm of right lower lobe o f lung 09/30/2023 Cancer Staging:Clinical:Stage IA3(cT1c, cN0, cM0) - Signed by Eri Barreto MD on 10/19/2023 Pathologic:Stage IIIA(pT4, pN0, cM0) - Signed by Eri Barreto MD on 10/19/2023 Primary malignant neoplasm of bronchus of left u pper lobe 09/30/[address] [facility] AMB ONC NONSMALL CELL LUNG CANCER - CARBOplatin / PEMEtrexed / PEMBROLIZUMAB* Plan Start Date:11/06/2023 Plan Provider:Antolin Croft MD Linked Problems High risk medication usePrim poncho malignant neoplasm of right lower lobe of lung Treatment Medications Current Day (Day 1 , Cycle 4 - Planned for 01/08/2024) CARBOplatin (Paraplatin) in 150 mL infusionpembrolizumab (Keytruda) in sodium chloride 0.9% 100 mL infusionPEMEtrexed (Alimta) in sodium chloride 0.9% 100 mL infusion CARBOplatin (Paraplatin) 488 mg in dextrose 5% 298.8 mL infusionpembrolizumab (Keytruda) 200 mg in sodium chloride 0.9% 108 mL infusionPEMEtrexed disodium (Alimta) 1,000 mg in sodium chloride 0.9% 140 mL infusion Past Plans No past plan information found. Radiation Treatments * No radiation treatments are documented for this patient in [facility]. Treatments may have been administered in another system.
--- OUTSIDE RECORDS SUMMARY | 2024-01-08 11:25 | XMS_ITS | Encounter Summary ---
Author Organization [facility] Address [facility] [place] [address] Care Team Providers Care Sustainability Communicator Name Role Phone BunnyAriella mccarthy Michael ZARCO Primary Care Provide r Encounter Details Date Type Department Care Team (Latest Contact Info) Description 01/07/2024 Travel Social History Tobacco Use Types Packs/Day Years [...] doctor or pharmacy? Never 10/19/2023 [facility] Utilities Answer Date Recorded In the [...] any time in the past 12 m [facility], were you homeless or living [...] 1:00 PM EDT Office Visit Hematology/Oncology at [address] [phone] Antolin Croft MD [facility] [place] [address] Candice Erickson APRN [address] [place] [address] [place] [address] Primary malignant neoplasm of right lower lobe of lung 01/08/2024 1:30 PM EDT Infusion Hematology Oncology at [address] [phone] 01/30/2024 9:[address] [place] [place] [phone] Soto Gilbert MD [facility] [place] [address] 01/30/2024 10:30 AM EST Appointment Nuclear Medicine at [place] [phone] Soto Gilbert MD [facility] [place] [address] 01/30/2024 11:00 AM EST Appointment Nuclear Medicine at [place] [phone] Soto Gilbert MD [facility] [place] [address] 01/30/2024 11:30 AM EST Appointment Nuclear Medicine at [place] [phone] Soto Gilbert MD [facility] [place] [address] 01/30/2024 12:00 PM EST Appointment Nuclear Medicine at [place] [phone] Soto Gilbert MD [facility] [place] [address] 01/30/2024 2:30 PM EST Appointment Pulmonology at [place] [phone] documented as of this encounter Visit Diagnoses Not on filedocumented in this encounter Care Teams Sustainability Communicator Relationship Specialty Start Date End Date Ariella Hollis APRN [facility] [place] [address] PCP - General Family Medicine 09/26/23 documented as of this encounter
--- OUTSIDE RECORDS SUMMARY | 2024-01-08 11:25 | XMS_ITS | Clinical Summary ---
Author Organization [facility] Address [address] [place] [address] Care Team Providers Care Steward/Stewardess Room Name Role Phone Nancy Bo MD Primary Care Provider Unavaila ble Active Problems Patient Care Coordination No te Formatting of this note migh t be different from the original. Patient has given permission for [facility] to verbally discuss the following information with [...] Orientation Not on file Plan of Treatment Health Maintenance Due Date Last Done Comments Hepatitis C Screen 1955 RSV Immunization ( o r 60+ Years) (1 - 1-dose 60+ series) 2016 Fall Risk Screening 2021 COVID-19 Vaccine (2022-24 season) 2023 Care Teams Steward/Stewardess Room Relationship Specialty Start Date End Date Nancy Bo MD [place] PCP - General 11/30/23
--- OUTSIDE RECORDS SUMMARY | 2024-01-08 11:26 | XMS_ITS | Encounter Summary ---
Author Organization [facility] Address [facility] [place] [address] Care Team Providers Care Owner Oral Surgeon Name Role Phone Ariella Hollis CAROLEE Primary Care Provide r Encounter Details Date Type Department Care Team (Late st Contact Info) Description 10/18/2023 Orders [place] [phone] Lenard Ramon MD [facility] DR [place] [address] Social History Tobacco Use Types Packs/Day Years [...] from your doctor or pharmacy? Never 10/19/2023 [facility] Utilities Answer Date Recorded In the past [...] any time in the past 12 m ont, were you homeless or living in a retirement (including now)? No 10/19/2023 IPV Inpatient Questions [...] 1:00 PM EDT Office Visit Hematology/Oncology at [address] [phone] Antolin Croft MD [facility] DR HEMATOLOGY [place] [address] Candice Erickson APRN [address] [place] [address] DR HEMATOLOGY AND ONCOLOGY [place], [place] [id number] Primary malignant neoplasm of right lower lobe of lung 01/08/2024 1:30 PM EDT Infusion Hematology Oncology at [address] [phone] 01/30/2024 9:[address] Scan at [place] [phone] Soto Gilbert MD [facility] DR [place]AC[place] [address] 01/30/2024 10:30 AM EST Appointment Nuclear Medicine at [place] [phone] Soto Gilbert MD [facility] DR [place] [address] 01/30/2024 11:00 AM EST Appointment Nuclear Medicine at [place] [phone] Soto Gilbert MD [facility] DR [place] [address] 01/30/2024 11:30 AM EST Appointment [place] [phone] Soto Gilbert MD [facility] DR [place] [address] 01/30/2024 12:00 PM EST Appointment [place] [phone] Soto Gilbert MD [facility] DR [place] [address] 01/30/2024 2:30 PM EST Appointment [place] [phone] documented as of this encounter Visit Diagnoses Not on filedocumented in this encounter Care Teams Owner Oral Surgeon Relationship Specialty Start Date End Date Ariella Hollis APRN [address] [place] [id number] PCP - General Family Medicine 09/26/23 documented as of this encounter
--- OUTSIDE RECORDS SUMMARY | 2024-01-08 11:26 | XMS_ITS | Encounter Summary ---
Author Organization [facility] [place] [address] Care Team Providers Care Sheeter Helper Name Role Phone Ariella Hollis CAROLEE Primary Care Provide r Encounter Details Date Type Department Care Team (Late st Contact Info) Description 11/09/2023 2:55 PM EDT Ancillary Procedure Radiology Library at [place] [phone] Backer, Lenard Palmer MD [facility] [address] Social History Tobacco Use Types Packs/Day Years [...] from your doctor or pharmacy? Never 10/19/2023 [facility] Utilities Answer Date Recorded In [...] were you homeless or living in a group home (including now)? No 10/19/2023 [facility] IPV Inpatient [...] 1:00 PM EDT Office Visit Hematology/Oncology at [address] [phone] Antolin Croft MD [facility] [place] [address] Candice Erickson APRN [address] [place] [address] DR HEMATOLOGY AND ONCOLOGY [place], [place] [phone] Primary malignant neoplasm of right lower lobe of lung 01/08/2024 1:30 PM EDT Infusion Hematology Oncology at [address] [phone] 01/30/2024 9:[address] Scan at [place] [phone] Soto Gilbert MD [facility] [place] [address] 01/30/2024 10:30 AM EST Appointment Nuclear Medicine at [place] [phone] Soto Gilbert MD [facility] [place] [address] 01/30/2024 11:00 AM EST Appointment Nuclear Medicine at [place] [phone] Soto Gilbert MD [facility] [place] [address] 01/30/2024 11:30 AM EST Appointment [place] [phone] Soto Gilbert MD [facility] [place] [address] 01/30/2024 12:00 PM EST Appointment [place] [phone] Soto Gilbert MD [facility] [place] [address] 01/30/2024 2:30 PM EST Appointment [place] [phone] documented as of this encounter Procedures Procedure Name Priority Date/Time Associated Diagnosis Comments FILM LIBRARY STORAGE ONLY CT CHEST Routine 11/09/2023 2:55 PM EDT documented in this encounter Results * Film Library- Storage Only CT Chest (11/09/2023 2:55 PM EDT) 12/03/2023 7:03 AM EDT Narrative [facility] - 12/03/2023 7:03 AM EDT This exam is auto-finalizing. It's purpose is for storage only. Lenard Ramon MD IMG FILM LIBRARY ORD ERABLES Performing Organization Address City/State/[facility] Co de Phone Number [place], [place] documented in this encounter Visit Diagnoses Not on filedocumented in this encounter Care Teams Sheeter Helper Relationship Specialty Start Date End Date Ariella Hollis APRN [address] [place] [address] PCP - General Family Medicine 09/26/23 documented as of this encounter
--- OUTSIDE RECORDS SUMMARY | 2024-01-08 11:26 | XMS_ITS | Encounter Summary ---
Author Organization [facility] Address [facility] [place] [address] Care Team Providers Care Supervising Nurse Name Role Phone Ariella Hollis APRN Primary Care Provide r Reason for Visit * Reason Comments Chemotherapy [id number]-Kfv/Pem/Carbo + Vit B12 * Treatment/Therapy Plan Authorization (Routine) - Authorized Specialty Diagnoses / Procedures Referred By Contberny t Referred To Contact Hematology and Oncology Diagnoses High risk medication use Primary malignant neoplasm of right lower lobe of lung Procedures INFUSION Antolin Croft MD [facility] DR HEMATOLOGY [place] [address] Stj Hem Onc Infusion [address] [place] [phone] Referral ID Status Reason Start Date Expiration Date V isits Requested Visits Authorized [id number] Authorized 10/25/2023 10/24/2024 1 99 Encounter Details Date Type Department Care Team (Late st Contact Info) Description 11/06/2023 12:00 PM EDT Infusion Hematology Oncology at [address] [phone] High risk medication use; Primary malignant neoplasm [...] from your doctor or pharmacy? Never 10/19/2023 [facility] Utilities Answer Date Recorded In the [...] any time in the past 12 m [facility], were you homeless or living in a fpc (including now)? No 10/19/2023 IPV Inpatient Questions [...] on file documented as of this encounter Progress Notes * Audelia Peralta RN - 11/06/2023 12:00 PM EDT INFUSION THERAPY ADMINISTRATION NOTES DIAGNOSIS: Lung CA CYCLE #: C1D1- Carbo/Pem/Pem REASON FOR VISIT: Initiation of Chemotherapy SUBJECTIVE Althea offers no complaints. She is accompanied by her daughter, Isabelle. Althea was seen by CAROLEE Bynum prior to infusion and found ready to treat. OBJECTIVE LAB DATA: Drawn today at [facility] and [facility] for treatment. ANC 5.18; Plt 261; Cr 1.1 IV ACCESS: PIV Pre administration: Chemotherapy orders independently verified for drug name, route, and dosage per patient's height, weight and BSA by Audelia Peralta RN & on-site [facility]. REACTIONS (DESCRIPTION, TIME, INTERVENTION AND EFFECTIVENESS) none ASSESSMENT Althea was awake, alert and tolerated treatment well. PIV flushed with NS and discontinued prior to dismissal. Pt. chemo teaching instructions included: During clinic hours (8am-5pm Monday-Monday): pt. can call [phone] with questions or concerns. After clinic hours (5pm-8am Monday-Monday and weekends) pt can call [phone] and ask for the mangle catcher/oncologist building contractor. Althea Salmon verbalized understanding of potential chemotherapy side effects and home care including but not limited to- handwashing to prevent infection, signs and symptoms of low blood counts (fever, fatigue, bleeding), to call with a fever of 100.4 or greater, any significant constipation/diarrhea, importance of nutrition and fluid intake (drinking at least 32-64 ounces of non-caffeinated beverages/day), mouth care. Althea Salmon verbalized understanding of how to take prescription medications given for home use after chemotherapy. PLAN Return to clinic per routine. documented in this encounter Plan of Treatment Upcoming Encounters Date Type Department Care Team (Late st Contact Info) Description 01/08/2024 1:00 PM EDT Office Visit Hematology/Oncology at [address] [phone] Antolin Croft MD [facility] DR HEMATOLOGY [place] [address] [address] HEMATOLOGY AND ONCOLOGY [place], [place] [phone] Primary malignant neoplasm of right lower lobe of lung 01/08/2024 1:30 PM EDT Infusion Hematology Oncology at [address] [phone] 01/30/2024 9:[address] [place] [place] [phone] Soto Gilbert MD [facility] [place] [address] 01/30/2024 10:30 AM EST Appointment Nuclear Medicine at [place] [phone] Soto Gilbert MD [facility] [place] [address] 01/30/2024 11:00 AM EST Appointment Nuclear Medicine at [place] [phone] Soto Gilbert MD [facility] [place] [address] 01/30/2024 11:30 AM EST Appointment [place] [phone] Soto Gilbert MD [facility] [place] [address] 01/30/2024 12:00 PM EST Appointment [place] [phone] Soto Gilbert MD [facility] [place] [address] 01/30/2024 2:30 PM EST [place]ointment [place] [phone] documented as of this encounter Visit Diagnoses Diagnosis High risk medication use Encounter for long-term (current) use of other medications Primary malignant neoplasm of right lower lobe of lung Malignant neoplasm of lower lobe, bronchus, or lung Primary malignant neoplasm of right lower lobe of lung Malignant neoplasm of lower lobe, bronchus, or lung documented in this encounter Administered Medications Inactive Administered Medications - up to 3 most recent administrations Medication Order MAR Action Action Date Dose Rate Site aprepitant (Cinvanti) (7.2 mg/mL) injection emulsion 130 mg 130 mg, Intravenous, Administer over 2 Minutes, ONCE, 1 dose, On Mon11/06/23 at 1230, Alternative administration of IV push over 2 minutes is a recommendation from the rope cutter. Administer prior to chemotherapy., Routine Given 11/06/2023 1:16 PM EDT 130 mg CARBOplatin (Paraplatin) 488 mg in dextrose 5% 298.8 mL infusion 488 mg (rounded from 487.5 mg, Target AUC = 5), Intravenous, ONCE, 1 dose, On Mon11/06/23 at 1330, Administer over 30 Minutes, Warning Vesicant/Irritant Medication New Bag 11/06/2023 2:42 PM EDT 488 mg 597.6 mL/hr cyanocobalamin (Vitamin B-12) (1,000 mcg/mL) injection 1,000 mcg 1,000 mcg, Subcutaneous, ONCE, 1 dose, On Mon11/06/23 at 1230, Administer prior to PEMEtrexed. Recommended dose is 1,000 mcg every 9 weeks. Confirm last date of Vitamin B12 administration., Routine Given 11/06/2023 1:22 PM EDT 1,000 mcg Left Arm dexAMETHasone (Decadron) (10 mg/mL) injection 10 mg 10 mg, Intravenous, ONCE, 1 dose, On Mon11/06/23 at 1300, Administer prior to chemotherapy Given 11/06/2023 1:14 PM EDT 10 mg palonosetron (Aloxi) (0.05 mg/mL) injection 0.25 mg 0.25 mg, Intravenous, ONCE, 1 dose, On Mon11/06/23 at 1230, Administer over 30 seconds., Routine Given 11/06/2023 1:13 PM EDT 0.25 mg pembrolizumab (Keytruda) 200 mg in sodium chloride 0.9% 108 mL infusion 200 mg, Intravenous, ONCE, 1 dose, On Mon11/06/23 at 1330, Administer over 30 Minutes, Flush Line with NS after each dose, This agent is restricted to outpatient use. Is this drug being given as an outpatient? Yes New Bag 11/06/2023 1:45 PM EDT 200 mg 216 mL/hr PEMEtrexed disodium (Alimta) 1,000 mg in sodium chloride 0.9% 140 mL infusion 1,000 mg (rounded from 1,025 mg = 500 mg/m2/dose ? 2.05 m2 Treatment Plan BSA from Recorded weight), Intravenous, ONCE, 1 dose, On Mon11/06/23 at 1330, Administer over 10 Minutes New Bag 11/06/2023 2:25 PM EDT 1,000 mg 840 mL/hr documented in this encounter Care Teams Supervising Nurse Relationship Specialty Start Date End Date Ariella Hollis APRN [address] [place] [address] PCP - General Family Medicine 09/26/23 documented as of this encounter
--- OUTSIDE RECORDS SUMMARY | 2024-01-08 11:26 | XMS_ITS | Encounter Summary ---
Author Organization [facility] Address [facility] [place] [address] Care Team Providers Care Health Insurance Specialist Name Role Phone BunnyAriella APRN Primary Care Provide r Encounter Details Date Type Department Care Team (Late st Contact Info) Description 11/09/2023 Telephone Hematology/Oncology at [address] [phone] Juhi Lin, RN Social History Tobacco Use Types Packs/Day Years [...] from your doctor or pharmacy? Never 10/19/2023 [facility] Utilities Answer Date Recorded In the past 12 months has [employer] gas, oil, or water [employer] threatened to shut off services in your [...] any time in the past 12 m [facility], were you homeless or living in a usp (including now)? No 10/19/2023 [facility] IPV Inpatient [...] on file documented as of this encounter Miscellaneous Notes * Telephone Encounter - Jhui Lin RN - 11/09/2023 9:29 AM EDT ----- Message from Shanice Dooley RN sent at 11/06/2023 1:11 PM EDT ----- Regarding: check in Nursing, please check in to see how she tolerated C1 and ensure she's taking her folic acid as well. RN Follow-Up Note Diagnosis: NSCLC Treatment: Received C1D1 Carbo/Pemetrexed/Pembrolizumab on 11/05 Reason for Call: Post-chemo call Assessment: Spoke with Althea who reports that she is having a lot of right-sided pain, in her mid-back in the lung. Reports that it is worse with deep breath. Rates pain as 9/10, I have a hard time breathing. Pain is new, started last night. Previous pain has been heavy or aching but this pain is different sharp, feels like a andres horse. Worse when she lays down, some relief when she sits up. No fever. Reports a little bit of a cough, which is not new or worse. Some dyspnea at baseline, doesn't think it is worse but admits that she hasn't gotten up and walkedaround yet. Reports that she is taking Tylenol 500mg tablets - taking 3 (1500mg) every 4 hours starting last night. States that this helps some but minimally. No pain elsewhere. Denies nausea/vomiting. Appetite is ok. Bowels - no constipation or diarrhea. Recommendations/Plan: Discuss with Dr. Croft. Would like patient to go to ED for evaluation and rule out PE. Call to Althea and instructed to go to ED. She agrees and will go to [facility]. Call placed to [facility] ED, spoke with Eladia with hand off report, requested work-up including rule out PE. Faxed demographics, meds/allergies list, last MD note and this phone note to ED [phone]. Nursing to follow-up on ED evaluation and update Dr. Croft. documented in this encounter Plan of Treatment Upcoming Encounters Date Type Department Care Team (Late st Contact Info) Description 01/08/2024 1:00 PM EDT Office Visit Hematology/Oncology at [address] [phone] Antolin Croft MD [facility] DR [place] [address] Candice Erickson APRN [address] [place] [address] DR HEMATOLOGY [place] [address] Primary malignant neoplasm of right lower lobe of lung 01/08/2024 1:30 PM EDT Infusion Hematology Oncology at [address] [phone] 01/30/2024 9:[address] [place] [place] [phone] Soto Gilbert MD [facility] [place] [address] 01/30/2024 10:30 AM EST Appointment [place] [phone] Soto Gilbert MD [facility] [place] [address] 01/30/2024 11:00 AM EST Appointment [place] [phone] Soto Gilbert MD [facility] [place] [address] 01/30/2024 11:30 AM EST Appointment [place] [phone] Soto Gilbert MD [facility] [place] [address] 01/30/2024 12:00 PM EST Appointment [place] [phone] Soto Gilbert MD [facility] [place] [address] 01/30/2024 2:30 PM EST Appointment [place] [phone] documented as of this encounter Visit Diagnoses Not on filedocumented in this encounter Care Teams Health Insurance Specialist Relationship Specialty Start Date End Date Ariella Hollis APRN [address] [place] [id number] PCP - General Family Medicine 09/26/23 documented as of this encounter
--- OUTSIDE RECORDS SUMMARY | 2024-01-08 11:26 | XMS_ITS | Encounter Summary ---
[place] [address] Care Team Providers Care Telecommunications Cable Jointer Name Role Phone BunnyAriella mccarthy Michael ZARCO Primary Care Provide r Reason for Visit * Reason Onset Date Comments Prior Authorization 11/03/2023 [facility] GENETIC TESTING Encounter Details Date Type Department Care Team (Late st Contact Info) Description 11/03/2023 Telephone [place] [phone] Jayne Manriquez Prior Authorization ([facility] GENETIC TESTING) Social History Tobacco Use Types Packs/Day Years [...] from your doctor or pharmacy? Never 10/19/2023 [facility] Utilities Answer Date Recorded In the past 12 months has e CPower, gas, oil, or water [employer] threatened to shut off services in your [...] any time in the past 12 m [facility], were you homeless or living in a half-way (including now)? No 10/19/2023 [facility] IPV Inpatient [...] encounter Miscellaneous Notes * Telephone Encounter - Jayne Manriquez Lucero - 11/03/2023 1:45 PM EDT Images from the original note were not included. NO PATIENT ACTION NEEED_VOICEMAIL OR AUTHORIZATIOON_INFORMATIONAL ONLY Molecular cancer testing: CPT 77370 (covered or authorization or submitted). I received an e-mail from Jacklyn in [employer] ([facility]) requesting coverage review. Insurance Verified: MEDICARE/AARP SUPPLEMENT Insurance Effective To/From Dates: 06/18/2017 TO CURRENT [employer] Vendor: NA Authorization number: NOT NEEDED Validity Dates: NA CGAT list date: 09/26/23 Tissue Obtained On: 09/19/23 Ordered On: 09/22/23 Lab: [facility] CPT/Description: 91252 -greater than 51 ICD-10/Description: C34.91 NSCLC of right lung Ordering Provider: Lenard Ramon MD Call Reference Number: PRABHAKAR Spoke With: NA Phone Number: NA Financially Cleared: YES [employer] Insurance Contact Information [employer] Insurance Name: NA Insurance Phone Number: NA Insurance Fax Number: NA Additional Clinical Required Y/N?: N Notes - Response History shows Medicare coverage active and AARP supplemental. [employer] portal indicates no prior auth req for above CPT code completed outpatient. e-mail to Jacklyn with above info documented in this encounter Plan of Treatment Upcoming Encounters Date Type Department Care Team (Late st Contact Info) Description 01/08/2024 1:00 PM EDT Office Visit Hematology/Oncology at [address] [phone] Antolin Croft MD [facility] [place] [address] Candice Erickson APRN [address] [place] [address] DR HEMATOLOGY [place] [address] Primary malignant neoplasm of right lower lobe of lung 01/08/2024 1:30 PM EDT Infusion Hematology Oncology at [address] [phone] 01/30/2024 9:[address] [place] [phone] Soto Gilbert MD [facility] [place] [address] 01/30/2024 10:30 AM EST Appointment [place] [phone] Soto Gilbert MD [facility] [place] [address] 01/30/2024 11:00 AM EST Appointment [place] [phone] Soto Gilbert MD [facility] [place] [address] 01/30/2024 11:30 AM EST Appointment [place] [phone] Soto Gilbert MD [facility] [place] [address] 01/30/2024 12:00 PM EST Appointment [place] [phone] Soto Gilbert MD [facility] [place] [address] 01/30/2024 2:30 PM EST Appointment [place] [phone] documented as of this encounter Visit Diagnoses Not on filedocumented in this encounter Care Teams Telecommunications Cable Jointer Relationship Specialty Start Date End Date Ariella Hollis APRN [address] [place] [id number] PCP - General Family Medicine 09/26/23 documented as of this encounter
--- OUTSIDE RECORDS SUMMARY | 2024-01-08 11:26 | XMS_ITS | Encounter Summary ---
Author Organization [facility] Address [facility] [place]ran [place] [address] Care Team Providers Care It Communications Manager Name Role Phone BunnyAriella mccarthy Michael ZARCO Primary Care Provide r Encounter Details Date Type Department Care Team (Latest Contact Info) Description 12/18/2023 Travel Social History Tobacco Use Types Packs/Day [...] from your doctor or pharmacy? Never 10/19/2023 [facility] Utilities Answer Date Recorded In the past [...] any time in the past 12 m [facility], were you homeless or living in a custodial (including now)? No 10/19/2023 IPV Inpatient Questions [...] 1:00 PM EDT Office Visit Hematology/Oncology at [address] [phone] Antolin Croft MD [facility] [address] [place] [address] Candice Erickson APRN [address] [place] [address] [place] [address] Primary malignant neoplasm of right lower lobe of lung 01/08/2024 1:30 PM EDT Infusion Hematology Oncology at [address] [phone] 01/30/2024 9:[address] [place] [address] Soto Gilbert MD [facility] [place] [address] 01/30/2024 10:30 AM EST Appointment Nuclear Medicine at [place] [phone] Soto Gilbert MD [facility] [place] [address] 01/30/2024 11:00 AM EST Appointment Nuclear Medicine at [place] [phone] Soto Gilbert MD [facility] [place] [address] 01/30/2024 11:30 AM EST Appointment Nuclear Medicine at [place] [phone] Soto Gilbert MD [facility] [place] [address] 01/30/2024 12:00 PM EST Appointment Nuclear Medicine at [place] [phone] Soto Gilbert MD [facility] [place] [address] 01/30/2024 2:30 PM EST Appointment Pulmonology at [place] [address] documented as of this encounter Visit Diagnoses Not on filedocumented in this encounter Care Teams It Communications Manager Relationship Specialty Start Date End Date Ariella Hollis APRN [facility] [place] [address] PCP - General Family Medicine 09/26/23 documented as of this encounter
--- OUTSIDE RECORDS SUMMARY | 2024-01-08 11:26 | XMS_ITS | Encounter Summary ---
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 Procedures Simulation for Radiation Therapy Planning Eri Barreto MD [facility] [place] [address] [facility] Rad Onc Office [address] [place] [phone] Referral ID Status Reason Start Date Expiration Date Visits Requested Visits Authorized [id number] Authorized Consult, Test & Treat 10/19/2023 10/18/2024 2 2 Reason for Visit * Consultation (Routine) - Closed Specialty Diagnoses / Procedures Referred By Contac t Referred To Contact Radiation Oncology Diagnoses 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 Antolin Croft MD [facility] [place] [address] [facility] Rad Onc Treatment [address] [place] [phone] Referral ID Status Reason Start Date Expiration Date V isits Requested Visits Authorized [id number] Closed Consult, Test & Treat 10/05/2023 10/04/2024 1 1 Encounter Details Date Type Department Care Team (Late st Contact Info) Description 10/19/2023 2:00 PM EDT Office Visit Radiation Oncology at [address] [phone] Olegario King MD [facility] RADIATION ONCOLOGY [facility] [place] [address] Primary malignant neoplasm of bronchus [...] from your doctor or pharmacy? Never 10/19/2023 [facility] Utilities Answer Date Recorded In the past 12 months has th e [employer], gas, oil, or water [employer] threatened to shut off services in your [...] were you homeless or living in a detention (including now)? No 10/19/2023 [facility] IPV Inpatient [...] on file documented as of this encounter Last Filed Vital Signs Vital Sign Reading Time Taken Comments Blood Pressure 153/74 10/19/2023 1:47 PM EDT Pulse 76 10/19/2023 1:47 PM EDT Temperature 37 ??C (98.6 ??F) 10/19/2023 1:47 PM EDT Respiratory Rate 18 10/19/2023 1:47 PM EDT Oxygen Saturation 93% 10/19/2023 1:47 PM EDT Inhaled Oxygen Concentration - - Weight 92.5 kg (204 lb) 10/19/2023 1:47 PM EDT Height - - Body Mass Index 34.36 10/17/2023 1:59 PM EDT documented in this encounter Progress Notes * Eri Barreto MD - 10/19/2023 2:00 PM EDT Images from the original note were not included. Radiation Oncology Consult Note [facility] PATIENT IDENTIFICATION: PATIENT NAME: Althea Salmon DATE OF : 1955 REFERRING PROVIDER: Dr. Croft PRIMARY CARE PROVIDER: Ariella Hollis APRN REASON FOR CONSULTATION: Cancer Staging Primary malignant neoplasm of right lower lobe of lung Staging form: Lung, AJCC 8th Edition - Clinical: Stage IA3 (cT1c, cN0, cM0) - Signed by Eri Barreto MD on 10/19/2023 - Pathologic: Stage IIIA (pT4, pN0, cM0) - Signed by Eri Barreto MD on 10/19/2023 DATE OF SERVICE: 10/19/2023 HISTORY OF PRESENT ILLNESS: Althea Salmon is a 67 y.o. female with significant smoking history ([id number], quit 2020), nowpresenting with a 7.4cm RLL ([id number], stage IIIA) and a 2.5cm MARISSA NSCLC ([id number], stage IA3). She first presented in Spring 2023 with acute onset dyspnea and cough. She went to [facility] where she underwent chest x-ray which showed an abnormality in the RLL. CT chest showed a RLL lung mass and a left- sided lung nodule. Bronchoscopy EBUS/TBNA on 08/10/23 identified an obstructed RLL bronchus s/p debulking w/ pathology consistent with adenocarcinoma. At that time, 11L and 7 LN stations were negative, and 4R was non-diagnostic. PET/CT on 08/24/23 showed a large FDG-avid mass in the RLL and in the MARISSA. FDG- avid nodular left adrenal thickening was noted. She underwent EUS on 09/07/23 which sampled the left adrenal thickening, which did not identify malignancy. EBUS on 09/19/23 identified adenocarcinoma (TPS <1%) in the MARISSA lesion with lymph node stations 11L, 4L, and 7 negative for malignancy. MRI brain on 09/25/23 showed no evidence of metastatic disease. Her case was discussed at CTOP on 09/26/23 with impression that these two masses were likely synchronous primaries with recommendation fo induction chemoimmunotherpy with followed by surgery to addressthe right-sided tumor and consider SBRT to MARISSA lesion. Alternatively, if felt not to be operable can didate, could considered definitive chemo/RT to the RLL lesion. She met with Dr. Croft on 10/03/23, where they discussed CTOP recommendations and the role of systemic therapy. PFTs on 10/09/23 revealed as FEV1 of 51% and DLCO of 75%. The report noted the spirometry was consistent with moderate obstructive ventilatory defect and her diffusion capacity was mildly decreased. She met with Dr. Gilbert yesterday where they discussed surgery. Where she was told that at this time she is possibly a surgical candidate. They discussed losing weight and improving breathing while receiving induction therapy with revaluation for surgery following chemoimmunotherapy. REVIEW OF SYSTEMS: On further questioning, she reports feeling okay overall. She denies pain. She has shortness of breath with exercise, but at rest has no difficulty breathing. She has never been on oxygen. She thinks she could walk up a couple of flights of stairs, but would need a break due to SOB at the top. She has a productive cough for which she takes prednisone prn. She denies hemoptysis. She endorses good appetite. No recent weight loss. 10/19/2023 12:59 PM REVIEW OF SYSTEMS Constitutional Fatigue, lack of energy Ear / nose / throat / mouth Dry mouth Hoarseness Sore throat Eyes Blurry vision Respiratory Wheezing Cough Thick mucous or spit (Sputum or Phlegm) Shortness of breath Other respiratory symptoms (lungs, breathing) Cardiovascular Chest tightness Gastrointestinal Feeling bloated Skin, hair Sweats Musculoskeletal None of the above Neurological Muscular weakness Genitourinary Frequent urination A comprehensive 14 point review of systems was conducted with this patient and is otherwise negative except as documented above. PAST MEDICAL AND SURGICAL HISTORY: Past Medical History: Diagnosis Date Anemia COPD (chronic obstructive pulmonary disease) Past Surgical History: Procedure Laterality Date KNEE SURGERY PRG UNLISTED MRI PROCEDURE N/A 09/25/2023 MRI WITH ANESTHESIA (WRVU *) performed by MARA ANESTHESIAARABELLA at [facility] EBUS GUIDED SAMPL 3/> NODE STATION/STRUX N/A 08/10/2023 BRONCH, W ENDOBRONCHIAL ULTRASOUND (EBUS) GUIDED SAMPLING, 3+ NODES (WRVU 4.96) performed by Lenard Ramon MD at [facility] ENDOSCOPY PRO [facility] EBUS GUIDED SAMPL 3/> NODE STATION/STRUX N/A 09/19/2023 BRONCH, W ENDOBRONCHIAL ULTRASOUND (EBUS) GUIDED SAMPLING, 3+ NODES (WRVU 4.96) performed by Lenard Ramon MD at [facility] MAIN OR [facility] EBUS DX/TX INTERVENTION PERPH LES N/A 08/10/2023 BRONCH, W EBUS DURING INTERVENTION FOR PERIPH LESION (WRVU 1.4) performed by Lenard Ramon MD at [facility] ENDOSCOPY PRO BRONCHOSCOPY RIGID FLEX W COMPUTER ASSIST IMG NAVIGATION N/A 09/19/2023 BRONCHOSCOPY,RIGID OR FLEX,WITH IMAGE GUIDANCE ( ROBOT / ION ) (WRVU 2) performed by Yoseph Ramon MD at [facility] MAIN OR PRO BRONCHOSCOPY, TRANSBRON ASPIR BX N/A 08/10/2023 BRONCHOSCOPY W/TRANSBRONCHIAL NEEDLE ASPIRATION BX,FLEXIBLE (WRVU 3.75) performed by Yoseph Ramon MD at [facility] ENDOSCOPY PRO BRONCHOSCOPY, TRANSBRONCH BIOPSY N/A 08/10/2023 BRONCHOSCOPY (FLEXIBLE OR RIGID) W\TRANSBRONC BX (WRVU 3.55) performed by Lenard Ramon MD at [facility] ENDOSCOPY PRO BRONCHOSCOPY, TREAT STENOSIS 08/10/2023 BRONCHOSCOPY W/ DESTRUCTION TUMOR, RELIEF STENOSIS W/LASER, CRYOTHERAPY (WRVU 5.02) performed by Lenard Ramon MD at [facility] ENDOSCOPY PRO [facility] ENDOSCOPY W/US FN BX N/A 09/07/2023 EGD, W US GUIDED FINE NEEDLE ASPIRATION/BIOPSY (WRVU 4.16) performed by Ming Eldridge MD at [facility] ENDOSCOPY CONTRAINDICATIONS TO RADIATION THERAPY: None Prior Radiation to this Site: No Active Connective Tissue Disease (Lupus or Scleroderma) No No MEDICATIONS: Medications 10/19/23 1432 Medication Sig Taking? umeclidinium-vilanteroL (Anoro Ellipta) 62.5-25 mcg/actuation inhaler (DPI) Inhale 1 puff into the lungs daily. Yes predniSONE (Deltasone) 5 mg tablet Take 5 mg by mouth as needed (takes when cough gets worse). Unsure of dosing off the top of her head Yes albuteroL 90 mcg/actuation inhaler (HFA) Inhale 2 puffs into the lungs every 6 hours as needed for Wheezing or Shortness of Breath. 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 General: alert, appears stated age, and in no distress sitting in exam room with daughter (Isabelle) at side. Lungs: clear to auscultation, decreased breath sounds on the LEFT. No increased work of breathing. TODAY'S PERFORMANCE STATUS: KPS Score ECOG Grade Definition 90-100 0 Fully active, able to carry on all pre-disease performance without restriction XX 70-80 1 Restricted in physically strenuous activity but ambulatory and able to carry out work ofa light or sedentary nature, e.g., light house work, office work 50-60 2 Ambulatory and capable of all selfcare but unable to carry out any work activities; up and about more than 50% of waking hours 30-40 3 Capable of only limited selfcare; confined to bed or chair more than 50% of waking hours 10-20 4 Completely disabled; cannot carry on any selfcare; totally confined to bed or chair IMAGING REVIEW: 08/24/23 PET/CT 1. A large FDG-avid mass in the right lower lobe, most likely malignant. An additional FDG-avid mass in the left upper lobe, also likely malignant. Possible metastatic adenopathy in the subcarinal/right infrahilar station. 2. FDG-avid nodular left adrenal thickening, suspicious for adrenal metastasis. Right adrenal nodular thickening is seen to better on prior CT, and is probably too small to be resolved on PET. 3. Misregistration and motion reduces sensitivity. 4. Fibrous appearance of the uterus. Nonavid soft tissue in the left adnexa, nonspecific. Suggest correlation with pelvic ultrasound. Social Problems Specialist Images: CT chest 09/19/23 1. Similar appearance of a large right lower lobe mass which partially encases and narrows the right lower lobe bronchus, highly suspicious for malignancy. 2. Similar size and appearance of a left upper lobe lesion, which is also suspicious for malignancybut it is unclear if this is a second primary versus a site of metastatic disease. 3. Additional sub-5 mm left upper lobe pulmonary nodules. 4. Scattered groundglass opacities throughout the right lower lobe, concerning for malignant spreador postobstructive infection. Unchanged size and number of previously seen nonenlarged subcarinal FDG avid lymph nodes which could represent metastatic disease versus reactive nodes. 5. Similar bilateral adrenal gland hypertrophy, left greater than right. The left adrenal hypertrophy/nodularity was previously FDG avid and is suspicious for metastatic disease. Social Problems Specialist Images: 09/25/23 MRI brain No metastatic disease. PATHOLOGY REVIEW: Source: RLL mass Provider / Location: Dr. Muñoz/[facility] Date: 08/10/23 Histology / Grade Adenocarcinoma Other TPS 3-5%, TTF1 positive, p40 negative 11L and 7 negative, 4R non-diagnostic Source: MARISSA mass Provider / Location: Dr. Ramon/[facility] Date: 09/19/23 Histology / Grade Adenocarcinoma with glandular and focal papillary features Other TPS <1%, TTF1 positive, P40 negative 11L, 4L, 7 LN stations negative ASSESSMENT / PLAN: Althea Salmon is a 67 y.o. female with significant smoking h/o [id number] (quit in 2020), now presenting with a 7.4cm RLL ([id number], stage IIIA) and a 2.5cm MARISSA NSCLC ([id number], stage IA3). CTOP recommendations included SBRT to the MARISSA mass with either induction chemotherapy w/ surgery ordefinitive chemoradiotherapy to the RLL mass. Althea met with Dr. Gilbert yesterday to discuss the surgical option and understands that the plan will be to optimize her prior to surgery (while undergoing induction systemic therapy) with the goal to have her to lose weight and improve lung function prior to re-evaluation for surgery. We did discuss definitive chemoradiation as an alternative, but given that she lives 1.5 hours away from [facility], and this would require 6 weeks of treatment, she would prefer to do surgery if it possible. Dr. Gilbert also ordered a stress test to determine surgical candidacy. While she is finishing pre-operative testing, we can begin treatment of the MARISSA lesion. Given plansfor surgery, I agree with tumor board recommendations for SBRT to the MARISSA. We discussed the logistics of radiation planning and delivery including CT simulation at [facility] and delivering radiotherapy inone fraction. We discussed possible acute side-effects including, but not limited to, fatigue, cough, and SOB. We discussed possible late effects including, but not limited to, radiation pneumonitis,lung scaring with possible decrease in lung capacity, chronic cough, chest wall pain, rib fracture,and risk of secondary malignancy. Informed written consent was signed by Althea. Plan for CT simulation in the next week or two in [place]. Plan for SBRT to MARISSA lesion in [facility]. All of Althea's questions were answered to her fullest satisfaction, and we have provided her with our contact information should any further questions or concerns arise. SUMMARY OF PLAN / RECOMMENDATION: Intent of therapy: curative Clinical Trial Availability: No CT simulation next week or two SBRT to MARISSA Salvatore Barreto MD, MS PGY5 n Radiation Oncology Attestation of PGY-5 Resident Documentation I have seen the patient in person and reviewed the resident's accompanying history and physical examination, and I agree with the details as written. The assessment and plan were formulated in discussion with me and I agree with them as documented. Pertinent History: Althea Salmon is a 68 y.o. woman, current non-smoker (quit smoking in 2020) diagnosed with b/l lung cancers: large RLL lung cancer and smaller MARISSA lung cancer. Mediastinal and hilar Lns are negative for metastases so the two lesions are presumed to be separate primary cancers. Objectively she has good PFTs, but is likely deconditioned explaining her subjective report of moderate to severe MARIE. No prior radiation therapy. Discussion points: She has two cancers diagnosed simultaneously Treatment plan for RLL cancer is to get induction chemo/immunotherapy and then surgery (no radiation therapy planned) Treatment plan for MARISSA lung cancer is SBRT/SABR since she would not tolerate b/l lung surgery. Plan: Will arrange for simulation/treatment planning for the MARISSA cancer. Plan will be to do that treatment prior to chemo/immunotherapy start. Olegario King MD [facility] Radiation Oncology * Neema Balbuena RN - 10/19/2023 2:00 PM EDT RADIATION ONCOLOGY NURSING INITIAL NURSING ASSESSMENT Chief complaint: Lung CA NPW ADVANCE DIRECTIVES: did not discuss today PRESENTING SYSTEMS and PATHOLOGY: Cough, thick phlegm. Takes prednisone PRN for breathing REVIEW OF SYSTEMS: see questionnaire Medical history: Past Medical History: Diagnosis Date Anemia COPD (chronic obstructive pulmonary disease) Surgical history: Past Surgical History: Procedure Laterality Date KNEE SURGERY PRG UNLISTED MRI PROCEDURE N/A 09/25/2023 MRI WITH ANESTHESIA (WRVU *) performed by MARA, [facility] EBUS GUIDED SAMPL 3/> NODE STATION/STRUX N/A 08/10/2023 BRONCH, W ENDOBRONCHIAL ULTRASOUND (EBUS) GUIDED SAMPLING, 3+ NODES (WRVU 4.96) performed by Lenard Ramon MD at [facility] ENDOS[facility] EBUS GUIDED SAMPL 3/> NODE STATION/STRUX N/A 09/19/2023 BRONCH, W ENDOBRONCHIAL ULTRASOUND (EBUS) GUIDED SAMPLING, 3+ NODES (WRVU 4.96) performed by Lenard Ramon MD at [facility] MAIN OR [facility] EBUS DX/TX INTERVENTION PERPH LES N/A 08/10/2023 BRONCH, W EBUS DURING INTERVENTION FOR PERIPH LESION (WRVU 1.4) performed by Lenard Ramon MD at [facility] ENDOSCOPY PRO BRONCHOSCOPY RIGID FLEX W COMPUTER ASSIST IMG NAVIGATION N/A 09/19/2023 BRONCHOSCOPY,RIGID OR FLEX,WITH IMAGE GUIDANCE ( ROBOT / ION ) (WRVU 2) performed by Yoseph Ramon MD at [facility] MAIN OR PRO BRONCHOSCOPY, TRANSBRON ASPIR BX N/A 08/10/2023 BRONCHOSCOPY W/TRANSBRONCHIAL NEEDLE ASPIRATION BX,FLEXIBLE (WRVU 3.75) performed by Yoseph Ramon MD at [facility] ENDOSCOPY PRO BRONCHOSCOPY, TRANSBRONCH BIOPSY N/A 08/10/2023 BRONCHOSCOPY (FLEXIBLE OR RIGID) W\TRANSBRONC BX (WRVU 3.55) performed by Lenard Ramon MD at [facility] ENDOSCOPY PRO BRONCHOSCOPY, TREAT STENOSIS 08/10/2023 BRONCHOSCOPY W/ DESTRUCTION TUMOR, RELIEF STENOSIS W/LASER, CRYOTHERAPY (WRVU 5.02) performed by Lenard Ramon MD at [facility] ENDOSCOPY PRO [facility] ENDOSCOPY W/US FN BX N/A 09/07/2023 EGD, W US GUIDED FINE NEEDLE ASPIRATION/BIOPSY (WRVU 4.16) performed by Ming Eldridge MD at [facility] ENDOS[facility] Social History: Driving from [facility] (1.5 hours) Lives with - Roommate 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 Former smoker quit in 2020 Social History Socioeconomic History Marital status: Single Spouse name: Not on file Number of children: Not on file Years of education: Not on file Highest education level: Not on file Occupational History Not on file Tobacco Use Smoking status: Former Average packs/day: 1 pack/day for 51.0 years (51.0 ttl pk-yrs) Types: Cigarettes Start date: 1969 Smokeless tobacco: Never Vaping Use Vaping status: Never Used Substance and Sexual Activity Alcohol use: Not Currently Drug use: Never Sexual activity: Not on file Other Topics Concern Not on file Social History Narrative Not on file Social Determinants of Health Financial Resource Strain: Medium Risk (10/19/2023) Overall Financial Resource Strain (CARDIA) Difficulty of Paying Living Expenses: Somewhat hard Food Insecurity: Food Insecurity Present (10/19/2023) Hunger Vital Sign Worried About Running Out of Food in the Last Year: Sometimes true Ran Out of Food in the Last Year: Patient declined Transportation Needs: No Transportation Needs (10/19/2023) PRAPARE - Transportation Lack of Transportation (Medical): No Lack of Transportation (Non-Medical): No Physical Activity: Not on file Intimate Partner Violence: Not At Risk (09/25/2023) IPV Inpatient Questions Prevent Contact with Others: no Feels Threatened by Someone: no Feels Unsafe at Home: no Physical Signs of Abuse Present: no Housing Stability: Unknown (10/19/2023) Housing Stability Vital Sign Unable to Pay for Housing in the Last Year: No Number of Times Moved in the Last Year: Not on file Homeless in the Last Year: No Family History of cancer: Family History Problem Relation Age of Onset Myocardial Infarction Father Myocardial Infarction Sister Stomach Cancer Brother Brain Cancer Brother Prior Radiotherapy: No Site: Date: Facility: Prior Chemotherapy: No Drug: Oncologist- LastTreatment: RADIATION SPECIFIC REVIEW: NO: YES: Claustrophobia or requires sedation for MRIs X Allergy to CT or MRI contrast agent or iodine or shellfish X Diabetic and on metformin X Metal in body, implanted device, worked with metal, body piercings,braces X hearing device X Dentures X Pacemaker X Difficulty breathing while lying flat Sometimes H/O Sclera derma X Currently X Active lupus X Kidney problems/creatinine X Balance difficulty: No At risk for fall: No If yes, actions implemented to prevent fall: Patient/family instructed to avoid independent ambulation. Use wheelchair and ask for assistance of staff while in the clinic. ADL [ X ] no limits [ ] needs dressing assistance [ ] needs meal assistance Assistive device:[ X ]none [ ]cane [ ]walker [ ]wheelchair [ ]other: explain PAIN ASSESSMENT: [ 0 ] out of 10 Location: Description: [ ] Dull [ ] Sharp [ ] Burning [ ] Throbbing [ ] Radiating [ ] Continuous [ ]Intermittent Aggravating Factors: [ ] Movement [ ] Position [ ]Immobility [ ]Other Alleviating Factors: [ ]Medication [ ] Positioning [ ] Other Current Pain Management Plan: [ ]Satisfied [ ] Not satisfied SOCIAL ASSESSMENT: See EDH social assessment information entered. Support Systems: Daughter transportation plan: [X ]private vehicle [ ] RCT needs Social Work referral [ ] Unknown at this time needs Social Work referral Barriers to treatment: None Referrals/Interventions: Will see GAS SCRUBBER OPERATOR per routine during SIM appointment. TEACHING: Learning Assessment Does the primary learner have any barriers to learning?: No Barriers How does the primary learner prefer to learn new concepts?: Pictures/Video Education material provided: Will be provided during SIM appointment per routine documented in this encounter Plan of Treatment Upcoming Encounters Date Type Department Care Team (Late st Contact Info) Description 01/08/2024 1:00 PM EDT Office Visit Hematology/Oncology at [address] [phone] Antolin Croft MD [facility] DR [place] [address] Candice Erickson APRN [address] [place] [address] DR HEMATOLOGY AND ONCOLOGY [place], [place] [id number] Primary malignant neoplasm of right lower lobe of lung 01/08/2024 1:30 PM EDT Infusion Hematology Oncology at [address] [phone] 01/30/2024 9:[address] Scan at [place] [phone] Soto Gilbert MD [facility] [place] [address] 01/30/2024 10:30 AM EST Appointment Nuclear Medicine at [place] [phone] Soto Gilbert MD [facility] [place] [address] 01/30/2024 11:00 AM EST Appointment Nuclear Medicine at [place] [phone] Soto Gilbert MD [facility] [place] [address] 01/30/2024 11:30 AM EST Appointment [place] [phone] Soto Gilbert MD [facility] [place] [address] 01/30/2024 12:00 PM EST Appointment [place] [phone] Soto Gilbert MD [facility] [place] [address] 01/30/2024 2:30 PM EST Appointment [place] [phone] Scheduled Orders Name Type Priority Associated Diagnoses Orde r Schedule Simulation for Radiation Therapy Planning Radiation Oncology Routine 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
--- OUTSIDE RECORDS SUMMARY | 2024-01-08 11:26 | XMS_ITS | Encounter Summary ---
Author Organization [facility] [place] [address] Care Team Providers Care Sas Programmer Remote Name Role Phone BunnyAriella mccarthy Michael ZARCO Primary Care Provide r Encounter Details Date Type Department Care Team (Late st Contact Info) Description 11/17/2023 Notes Only Hematology and Oncology at [facility] [place] [phone] Candice Freeman RN Social History Tobacco Use Types Packs/Day [...] from your doctor or pharmacy? Never 10/19/2023 [facility] Utilities Answer Date Recorded In the past [address] [facility] [employer], gas, oil, or water [email or web address] threatened to shut off services in your [...] were you homeless or living in a alf (including now)? No 10/19/2023 [facility] IPV Inpatient [...] as of this encounter Progress Notes * Candice Freeman RN - 11/17/2023 12:14 PM EDT RESEARCH NURSE TELEPHONE NOTE [id number]: LEADER Neoadjuvant Screening Trial: LCMC4 Evaluation of Actionable EaRly Stage Lung Cancer Date: 11/17/2023 Time: 12:15 PM Reason for call: Incomplete consent form Telephone call to Althea to discuss trial eligibility. Althea was given leader consent form to take home and review on 10/16. Patient returned consent form to [facility] RN during chemotherapy visit. Consent was signed by patient, but not by anyone else. RN reviewed that we are required to witness consent form signatures in person. ICF needs to be signed by patient and MD student records specialist. Althea verbalizes understanding of this and is aware she was not enrolled on clinical trial. documented in this encounter Plan of Treatment Upcoming Encounters Date Type Department Care Team (Delmar nieves Contact Info) Description 01/08/2024 1:00 PM EDT Office Visit Hematology/Oncology at [address] [phone] Antolin Croft MD [facility] DR [place] [address] Candice Erickson APRN [address] [place] [address] DR HEMATOLOGY AND ONCOLOGY [place], [place] [id number] Primary malignant neoplasm of right lower lobe of lung 01/08/2024 1:30 PM EDT Infusion Hematology Oncology at [address] [phone] 01/30/2024 9:[address] [place] [place] [phone] Soto Gilbert MD [facility] [place] [address] 01/30/2024 10:30 AM EST Appointment [place] [phone] Soto Gilbert MD [facility] [place] [address] 01/30/2024 11:00 AM EST Appointment [place] [phone] Soto Gilbert MD [facility] [place] [address] 01/30/2024 11:30 AM EST Appointment [place] [phone] Soto Gilbert MD [facility] [place] [address] 01/30/2024 12:00 PM EST Appointment [place] [phone] Soto Gilbert MD [facility] DR THORACIC SURGERY [place], [place] [phone] 01/30/2024 2:30 PM EST [place] [phone] documented as of this encounter Visit Diagnoses Not on filedocumented in this encounter Care Teams Sas Programmer Remote Relationship Specialty Start Date End Date Ariella Hollis APRN [address] [place] [address] PCP - General Family Medicine 09/26/23 documented as of this encounter
--- OUTSIDE RECORDS SUMMARY | 2024-01-08 11:26 | XMS_ITS | Encounter Summary ---
Author Organization [facility] [place] [address] Care Team Providers Care Willow Machine Tender Name Role Phone Bunny, Ariella Rodriguez APRN Primary Care Provide r Encounter Details Date Type Department Care Team (Late st Contact Info) Description 11/06/2023 Notes Only Hematology/Oncology at [address] [phone] Jana Moore, FICTION AND NONFICTION AUTHOR OFFICE OF CARE MANAGEMENT Social History Tobacco Use Types Packs/Day Years [...] from your doctor or pharmacy? Never 10/19/2023 [facility] Utilities Answer Date Recorded In the past 12 months has [employer], gas, oil, or water [employer] threatened to shut off services in your [...] any time in the past 12 m [facility], were you homeless or living in [...] as of this encounter Progress Notes * Jana Moore, FICTION AND NONFICTION AUTHOR - 11/06/2023 1:43 PM EDT Reason for Referral: Brief assessment of social and emotional needs. Met with Althea and her daughter Isabelle during her first infusion today to introduce myself and role of high school social science teacher to assess/address barriers to getting to and through treatments; address support needs and connect with communityservices and resources as needed. Family/Social Supports: Althea identified her daughter Isabelle as her primary support. She also identified her roommate and her mother as other supports. Althea has 2 other daughters - one is local and the other is not. Living Situation/Daily Activities/Transportation: Althea indicated she is able to manage her daily chores and activities. Her daughter drives her to her appointment. Althea has mileage reimbursement through her Managed Medicaid and she has the information about this. Work/Finances/Insurance: Althea is retired from [email or web address]. She has Medicare and [facility] Managed Medicaid. She did not indicate and financial concerns. She may have some question/concerns re out f pocket medical expenses. Gave her the contact information to [employer] should she need to contact them. Advance Directives: Althea has completed her advance directive and a copy is in her record. Utilization of Community Resources: None at this time. Gave Althea information about the [employer] Yellow Pages that covers her area. Adjustment to Illness/Mental Health Concerns: Althea shared she has seen a counselor in the past. With the of her brother she shared bad memories have surfaced. Suggested she connect with the Behavioral Health Specialist at her PCP office as a first step. She is agreeable to this plan. Offeredsupport. Identified Needs: May have financial needs Referrals: Suggested the [employer] as a resource. Social Work Interventions: Brief assessment Supportive Counseling Financial resources Transportation resources Community Resource Plan: Informed Althea of FICTION AND NONFICTION AUTHOR availability and contact information. Will follow to assess/address psychosocial needs. LANNY Funk, LABORER [employer]ARN, OSW-C Vibrating Screed Operator [facility] documented in this encounter Plan of Treatment Upcoming Encounters Date Type Department Care Team (Late st Contact Info) Description 01/08/2024 1:00 PM EDT Office Visit Hematology/Oncology at [address] [phone] Antolin Croft MD [facility] DR [place] [address] Candice Erickson APRN [address] [place] [address] [place] [address] Primary malignant neoplasm of right lower lobe of lung 01/08/2024 1:30 PM EDT Infusion Hematology Oncology at [address] [phone] 01/30/2024 9:[address] Scan at [place] [phone] Soto Gilbert MD [facility] [place] [address] 01/30/2024 10:30 AM EST Appointment Nuclear Medicine at [place] [phone] Soto Gilbert MD [facility] [place] [address] 01/30/2024 11:00 AM EST Appointment Nuclear Medicine at [address] Soto Gilbert MD [facility] [place] [address] 01/30/2024 11:30 AM EST Appointment Nuclear Medicine at [place] [phone] Soto Gilbert MD [facility] [place] [address] 01/30/2024 12:00 PM EST Appointment Nuclear Medicine at [place] [phone] Soto Gilbert MD [facility] [place] [address] 01/30/2024 2:30 PM EST Appointment Pulmonology at [place] [phone] documented as of this encounter Visit Diagnoses Not on filedocumented in this encounter Care Teams Willow Machine Tender Relationship Specialty Start Date End Date Ariella Hollis APRN [address] [place] [id number] PCP - General Family Medicine 09/26/23 documented as of this encounter
--- OUTSIDE RECORDS SUMMARY | 2024-01-08 11:26 | XMS_ITS | Encounter Summary ---
Author Organization [facility] Address [facility] [place] [address] Care Team Providers Care Clerical Adviser Name Role Phone BunnyAriella APRN Primary Care Provide r Encounter Details Date Type Department Care Team (Late st Contact Info) Description 11/10/2023 Telephone Hematology/Oncology at [address] [phone] Juhi Lin, RN Social History [...] from your doctor or pharmacy? Never 10/19/2023 [facility] Utilities Answer Date Recorded In the past 12 months has [employer], gas, oil, or water [employer] threatened to shut off services in your [...] any time in the past 12 m [facility], were you homeless or living in a mcfp (including now)? No 10/19/2023 DH IPV Inpatient [...] encounter Miscellaneous Notes * Telephone Encounter - Shanice Block RN - 11/13/2023 12:50 PM EDT Call to Althea to see how she is feeling since starting eliquis. She states she is better. She stillhas a little bit of an ache in her chest but it is much better than before. She will follow up withus on 11/26. * Telephone Encounter - Juhi Lin RN - 11/10/2023 12:53 PM EDT Patient sent to ED yesterday at [facility] for new right-sided back/chest pain. RN follow-up with [facility], notes received and scanned into chart. Patient admitted for findings of multiple right-sided PEs. Per notes, patient started on Eliquis and admitted for observation. Dr. Croft updated. Nursing to call on Monday to check in and see how she is feeling. documented in this encounter Plan of Treatment Upcoming Encounters Date Type Department Care Team (Late st Contact Info) Description 01/08/2024 1:00 PM EDT Office Visit Hematology/Oncology at [address] [phone] Antolin Croft MD [facility] DR HEMATOLOGY [place] [address] Candice Erickson APRN [address] [place] [address] DR HEMATOLOGY AND ONCOLOGY [place], [place] [phone] Primary malignant neoplasm of right lower lobe of lung 01/08/2024 1:30 PM EDT Infusion Hematology Oncology at [address] [phone] 01/30/2024 9:[address] [place] [phone] Soto Gilbert MD [facility] [place] [address] 01/30/2024 10:30 AM EST Appointment [place] [phone] Soto Gilbert MD [facility] [place] [address] 01/30/2024 11:00 AM EST Appointment [place] [phone] Soto Gilbert MD [facility] [place] [address] 01/30/2024 11:30 AM EST Appointment [place] [phone] Soto Gilbert MD [facility] [place] [address] 01/30/2024 12:00 PM EST Appointment [place] [phone] Soto Gilbert MD [facility] [place] [address] 01/30/2024 2:30 PM EST Appointment [place] [phone] documented as of this encounter Visit Diagnoses Not on filedocumented in this encounter Care Teams Clerical Adviser Relationship Specialty Start Date End Date Ariella Hollis APRN [facility] [place] [address] PCP - General Family Medicine 09/26/23 documented as of this encounter
--- OUTSIDE RECORDS SUMMARY | 2024-01-08 11:26 | XMS_ITS | Encounter Summary ---
Author Organization [facility] [place] [address] Care Team Providers Care Epic Analyst Name Role Phone Bunny, Ariella Rodriguez APRN Primary Care Provide r Encounter Details Date Type Department Care Team (Late st Contact Info) Description 12/18/2023 Notes Only Hematology/Oncology at [address] [phone] Jana Moore, CHILD CARE COUNSELOR OFFICE OF CARE MANAGEMENT Social History Tobacco [...] from your doctor or pharmacy? Never 10/19/2023 [facility] Utilities Answer Date Recorded In the past 12 months has [id number], gas, oil, or water [employer] threatened to shut off services in your [...] any time in the past 12 m [facility], were you homeless or living in a care home (including now)? No 10/19/2023 DH IPV [...] of this encounter Progress Notes * Jana Moore MSW - 12/18/2023 1:44 PM EDT Follow up with Althea during he infusion visit today. She indicated she is managing day to day. She has support from her daughter Isabelle. LANNY inquired from initial visit discussion if she signed up for mileage reimbursement through her insurance and she stated she did. Inquired if she applied to the [employer] for her area and she did and was awarded financial assistance. (Generally $1250) Inquired if she looking into connecting with the behavioral health specialist at her PCP office and she said she did but is on a waiting list. Althea did not identify any other specific needs at this time. Reminded her of CHILD CARE COUNSELOR availability and will continue to follow for support and resources. Brief assessment Supportive Counseling Financial resources Transportation resources Community Resource documented in this encounter Plan of Treatment Upcoming Encounters Date Type Department Care Team (Late st Contact Info) Description 01/08/2024 1:00 PM EDT Office Visit Hematology/Oncology at [address] [phone] Antolin Croft MD [facility] [place] [address] Candice Erickson APRN [address] [place] [address] DR HEMATOLOGY AND ONCOLOGY [place], [place] [phone] Primary malignant neoplasm of right lower lobe of lung 01/08/2024 1:30 PM EDT Infusion Hematology Oncology at [address] [phone] 01/30/2024 9:[address] [place] [phone] Soto Gilbert MD [facility] [place] [address] 01/30/2024 10:30 AM EST Appointment [place] [phone] Soto Gilbert MD [facility] [place] [address] 01/30/2024 11:00 AM EST Appointment [place] [phone] Soto Gilbert MD [facility] [place] [address] 01/30/2024 11:30 AM EST Appointment [place] [phone] Soto Gilbert MD [facility] [place] [address] 01/30/2024 12:00 PM EST Appointment [place] [phone] Soto Gilbert MD [facility] [place] [address] 01/30/2024 2:30 PM EST Appointment [place] [phone] documented as of this encounter Visit Diagnoses Not on filedocumented in this encounter Care Teams Epic Analyst Relationship Specialty Start Date End Date Ariella Hollis APRN [address] [place] [address] PCP - General Family Medicine 09/26/23 documented as of this encounter
--- OUTSIDE RECORDS SUMMARY | 2024-01-08 11:26 | XMS_ITS | Encounter Summary ---
Author Organization [facility] Address [facility] [place]amran [place] [address] Care Team Providers Care Neurocritical Care Physician Name Role Phone BunnyAriella mccarthy Michael ZARCO Primary Care Provide r Encounter Details Date Type Department Care Team (Latest Contact Info) Description 11/06/2023 Travel Social History Tobacco Use Types Packs/Day [...] from your doctor or pharmacy? Never 10/19/[address] [facility] Utilities Answer Date Recorded In the [...] any time in the past 12 m [facility], were you homeless or living in a senior care (including now)? No 10/19/2023 IPV Inpatient Questions [...] 1:00 PM EDT Office Visit Hematology/Oncology at [address] [phone] Antolin Croft MD [facility] DR [place] [address] Candice Erickson APRN [address] [place] [address] DR [place] [address] Primary malignant neoplasm of right lower lobe of lung 01/08/2024 1:30 PM EDT Infusion Hematology Oncology at [address] [phone] 01/30/2024 9:[address] [place] [place] [address] Soto Gilbert MD [facility] [place] [address] 01/30/2024 10:30 AM EST Appointment Nuclear Medicine at [place] [phone] Soto Gilbert MD [facility] [place] [address] 01/30/2024 11:00 AM EST Appointment Nuclear Medicine at [place] [phone] Soto Gilbert MD [facility] [place] [address] 01/30/2024 11:30 AM EST Appointment Nuclear Medicine at [place] [phone] Soto Gilbert MD [facility] [place] [address] 01/30/2024 12:00 PM EST Appointment Nuclear Medicine at [place] [phone] Soto Gilbert MD [facility] [place] [address] 01/30/2024 2:30 PM EST Appointment Pulmonology at [place] [address] documented as of this encounter Visit Diagnoses Not on filedocumented in this encounter Care Teams Neurocritical Care Physician Relationship Specialty Start Date End Date Ariella Hollis APRN [facility] [place] [address] PCP - General Family Medicine 09/26/23 documented as of this encounter
--- OUTSIDE RECORDS SUMMARY | 2024-01-08 11:26 | XMS_ITS | Encounter Summary ---
Author Organization [facility] Address [facility] [place] [address] Care Team Providers Care Laborer Mine Name Role Phone Ariella Hollis APRN Primary Care Provide r Reason for Visit * Reason Comments Chemotherapy Pembrolizumab/pemetr exed/carboplatin * Treatment/Therapy Plan Authorization (Routine) - Authorized Specialty Diagnoses / Procedures Referred By Jimbo moffett Referred To Contact Hematology and Oncology Diagnoses High risk medication use Primary malignant neoplasm of right lower lobe of lung Procedures INFUSION Antolin Croft MD [facility] [place] [address] Stj Hem Onc Infusion [address] [place] [phone] Referral ID Status Reason Start Date Expiration Date V isits Requested Visits Authorized [id number] Authorized 10/25/2023 10/24/2024 1 99 Encounter Details Date Type Department Care Team (Late st Contact Info) Description 12/18/2023 12:00 PM EDT Infusion Hematology Oncology at [address] [phone] High risk medication use; Primary [...] from your doctor or pharmacy? Never 10/19/2023 [facility] Utilities Answer Date Recorded In the [...] any time in the past 12 m [facility], were you homeless or living in [...] as of this encounter Progress Notes * Neema Balbuena RN - 12/18/2023 12:00 PM EDT INFUSION THERAPY ADMINISTRATION NOTES DIAGNOSIS: Lung CA CYCLE #: [id number]- Carbo/Pem/Pem REASON FOR VISIT: Initiation of Chemotherapy SUBJECTIVE Althea offers no complaints. She is accompanied by her daughter, Isabelle. Althea was seen by provider prior to infusion and found ready to treat. OBJECTIVE LAB DATA: Drawn today at [facility] for treatment. ANC 3.02; Plt 241; Bun15, Cr 1.1 IV ACCESS: PIV - difficult stick Pre administration: Chemotherapy orders independently verified for drug name, route, and dosage per patient's height, weight and BSA by Neema Balbuena, RN & on-site [facility]. REACTIONS (DESCRIPTION, TIME, INTERVENTION AND EFFECTIVENESS) none ASSESSMENT Althea was awake, alert and tolerated treatment well. PIV flushed with NS and discontinued prior to dismissal. PLAN Return to clinic per routine. documented in this encounter Plan of Treatment Upcoming Encounters Date Type Department Care Team (Late st Contact Info) Description 01/08/2024 1:00 PM EDT Office Visit Hematology/Oncology at [address] [phone] [facility] [place] [address] Candice Erickson APRN [address] [place] [address] DR HEMATOLOGY [place] [address] Primary malignant neoplasm of right lower lobe of lung 01/08/2024 1:30 PM EDT Infusion Hematology Oncology at [address] [phone] 01/30/2024 9:[address] [place] [address] [facility] [place] [address] 01/30/2024 10:30 AM EST Appointment [place] [address] [facility] [place] [address] 01/30/2024 11:00 AM EST Appointment [place] [phone] [facility] [place] [address] 01/30/2024 11:30 AM EST Appointment [place] [phone] [facility] [place] [address] 01/30/2024 12:00 PM EST Appointment [place] [phone] [facility] [place] [address] 01/30/2024 2:30 PM EST Appointment [place] [phone] documented as of this encounter Visit Diagnoses [...] over 2 Minutes, ONCE, 1 dose, On Mon12/18/23 at 1230, Alternative administration of IV push over 2 minutes is a recommendation from the parts product analyst. Administer prior to chemotherapy., Routine Given 12/18/2023 1:04 PM EDT 130 mg CARBOplatin (Paraplatin) 488 mg in dextrose 5% 298.8 mL infusion 488 mg (rounded from 487.5 mg, Target AUC = 5), Intravenous, ONCE, 1 dose, On Mon12/18/23 at 1330, Administer over 30 Minutes, Warning Vesicant/Irritant Medication New Bag 12/18/2023 2:09 PM EDT 488 mg 597.6 mL/hr dexAMETHasone (Decadron) tablet 10 mg 10 mg, Oral, ONCE, 1 dose, On Mon12/18/23 at 1300, Administer prior to chemotherapy, Routine Given 12/18/2023 12:23 PM EDT 10 mg palonosetron (Aloxi) (0.05 mg/mL) injection 0.25 mg 0.25 mg, Intravenous, ONCE, 1 dose, On Mon12/18/23 at 1230, Administer over 30 seconds., Routine Given 12/18/2023 1:05 PM EDT 0.25 mg pembrolizumab (Keytruda) 200 mg in sodium chloride 0.9% 108 mL infusion 200 mg, Intravenous, ONCE, 1 dose, On Mon12/18/23 at 1330, Administer over 30 Minutes, Flush Line with NS after each dose, This agent is restricted to outpatient use. Is this drug being given as an outpatient? Yes New Bag 12/18/2023 1:16 PM EDT 200 mg 216 mL/hr PEMEtrexed disodium (Alimta) 1,000 mg in sodium chloride 0.9% 140 mL infusion 1,000 mg (rounded from 1,025 mg = 500 mg/m2/dose ? 2.05 m2 Treatment Plan BSA from Recorded weight), Intravenous, ONCE, 1 dose, On Mon12/18/23 at 1330, Administer over 10 Minutes New Bag 12/18/2023 1:49 PM EDT 1,000 mg 840 mL/hr documented in this encounter Care Teams Laborer Mine Relationship Specialty Start Date End Date Ariella Hollis APRN [address] [place] [address] PCP - General Family Medicine 09/26/23 documented as of this encounter
--- OUTSIDE RECORDS SUMMARY | 2024-01-08 11:26 | XMS_ITS | Encounter Summary ---
Author Organization [facility] Address [facility] [place] [address] Care Team Providers Care Bus Starter Name Role Phone BunnyAriella mccarthy Michael ZARCO Primary Care Provide r Encounter Details Date Type Department Care Team (Latest Contact Info) Description 11/27/2023 Travel Social History Tobacco Use Types Packs/Day [...] from your doctor or pharmacy? Never 10/19/2023 [facility] Utilities Answer Date Recorded In the [...] any time in the past 12 m [facility], were you homeless or living [...] PM EDT Office Visit Hematology/Oncology at [address] [phone] Antolin Crotf MD [facility] DR [place] [address] Candice Erickson APRN [address] [place] [address] [place] [address] Primary malignant neoplasm of right lower lobe of lung 01/08/2024 1:30 PM EDT Infusion Hematology Oncology at [address] [phone] 01/30/2024 9:[address] [place] [phone] Soto Gilbert MD [facility] [place] [address] 01/30/2024 10:30 AM EST Appointment Nuclear Medicine at [place] [phone] Soto Gilbert MD [facility] [place] [address] 01/30/2024 11:00 AM EST Appointment Nuclear Medicine at [place] [phone] Soto Gilbert MD [facility] [place] [address] 01/30/2024 11:30 AM EST Appointment Nuclear Medicine at [place] [phone] Soto Gilbert MD [facility] [place] [address] 01/30/2024 12:00 PM EST Appointment Nuclear Medicine at [place] [phone] Soto Gilbert MD [facility] [place] [address] 01/30/2024 2:30 PM EST Appointment Pulmonology at [place] [address] documented as of this encounter Visit Diagnoses Not on filedocumented in this encounter Care Teams Bus Starter Relationship Specialty Start Date End Date Ariella Hollis [place]N [facility] [place] [address] PCP - General Family Medicine 09/26/23 documented as of this encounter
--- OUTSIDE RECORDS SUMMARY | 2024-01-08 11:26 | XMS_ITS | Encounter Summary ---
Author Organization [facility] [place] [address] Care Team Providers Care Shear Operator Automatic Name Role Phone Ariella Hollis CAROLEE Primary Care Provide r Encounter Details Date Type Department Care Team (Late st Contact Info) Description 11/09/2023 Interpretation Only Radiology Library at [facility] [place] [phone] BackerLenard MD [facility] [place] [address] Social History Tobacco Use Types Packs/Day Years [...] from your doctor or pharmacy? Never 10/19/2023 [facility] Utilities Answer Date Recorded In the past 12 months has [employer] electric, gas, oil, or water [employer] threatened to shut off services in your [...] any time in the past 12 m [facility], were you homeless or living in [...] 1:00 PM EDT Office Visit Hematology/Oncology at [address] [phone] Antolin Croft MD [facility] DR HEMAT[place] [address] Candice Erickson APRN [address] [place] [address] DR HEMATOLOGY AND ONCOLOGY [place], [place] [phone] Primary malignant neoplasm of right lower lobe of lung 01/08/2024 1:30 PM EDT Infusion Hematology Oncology at [address] [phone] 01/30/2024 9:[address] [place] [phone] Soto Gilbert MD [facility] [place] [address] 01/30/2024 10:30 AM EST Appointment [place] [phone] Soto Gilbert MD [facility] [place] [address] 01/30/2024 11:00 AM EST Appointment [place] [phone] Soto Gilbert MD [facility] [place] [address] 01/30/2024 11:30 AM EST Appointment [place] [phone] Soto Gilbert MD [facility] [place] [address] 01/30/2024 12:00 PM EST Appointment [place] [phone] Soto Gilbert MD [facility] [place] [address] 01/30/2024 2:30 PM EST Appointment [place] [phone] documented as of this encounter Procedures Procedure Name Priority Date/Time Associated Diagnosis Comments FILM LIBRARY STORAGE ONLY CT CHEST Routine 11/09/2023 2:55 PM EDT documented in this encounter Results * Film Library- Storage Only CT Chest (11/09/2023 2:55 PM EDT) 12/03/2023 7:03 AM EDT Narrative [facility] - 12/03/2023 7:03 AM EDT This exam is auto-finalizing. It's purpose is for storage only. Lenard Ramon MD IMG FILM LIBRARY ORD ERABLES [place], [place] documented in this encounter Visit Diagnoses Not on filedocumented in this encounter Care Teams Shear Operator Automatic Relationship Specialty Start Date End Date Ariella oHllis APRN [address] [place] [address] PCP - General Family Medicine 09/26/23 documented as of this encounter
--- OUTSIDE RECORDS SUMMARY | 2024-01-08 11:26 | XMS_ITS | Encounter Summary ---
Author Organization [facility] [place] [address] Care Team Providers Care Necktie Maker Name Role Phone BunnyAriella negrete Michael ZARCO Primary Care Provide r Encounter Details Date Type Department Care Team (Late st Contact Info) Description 11/06/2023 11:30 AM EDT Office Visit Hematology/Oncology at [address] [phone] Antolin Croft MD [facility] DR HEMATOLOGY [place] [address] Candice Erickson APRN [address] [place] [address] DR HEMATOLOGY AND ONCOLOGY [place], [place] [phone] Primary malignant neoplasm of right lower lobe of lung; 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 Never 10/19/2023 [facility] Utilities Answer Date Recorded In the past 12 months has [employer] electric, gas, oil, or water company threatened [...] Sign Reading Time Taken Comments Blood Pressure 176/76 11/06/2023 11:26 AM EDT Pulse 74 11/06/2023 11:26 AM EDT Temperature 36.4 ??C (97.5 ??F) 11/06/2023 11:26 AM E DT Respiratory Rate 18 11/06/2023 11:26 AM EDT Oxygen Saturation 95% 11/06/2023 11:26 AM EDT Inhaled Oxygen Concentration - - Weight 91.8 kg (202 lb 6.4 oz) 11/06/2023 11:26 AM EDT Height 164.1 cm (5' 4.61) 11/06/2023 11:26 AM E DT Body Mass Index 34.09 11/06/2023 11:26 AM EDT documented in this encounter Progress Notes * Candice Erickson, HAND TUBE WINDER - 11/06/2023 11:30 AM EDT Images from the original note were not included. Thoracic Oncology [facility] [place] [address] [phone] Althea Salmon is being seen for the evaluation of lung cancer. Assessment & Plan: Althea Salmon is a 68 y.o. female patient with a past medical history significant for 15-rwng-muizmjdagzm history having quit in 2020, and no other previously diagnosed chronic medical conditions 7.6 cm right lower lobe adenocarcinoma of the lung (NGS without actionable mutations; TP53, BRAF D594G, STK 11 alterations noted; TPS 3-5%). She underwent Bronchoscopy EBUS-TBNA on 08/10/2023 which identified an obstructed right lower lobe bronchus status post debulking. At that time station 11 L was negative, 4R was nondiagnostic, and station 7 was negative. She subsequently had further diagnostics with an EUS on 09/07/23 to sample the left adrenal thickening which did not identify malignancy and then on 09.19.23 an EBUS which identified an adenocarcinoma (TPS PD-L1 <1%; NGS pending) in the MARISSA lesion with 11L, 4L and 7 sampled and negative for malignancy. Her case has been discussed at multidisciplinary tumor board and the impression is that these likely represent synchronous primaries given the lack of mediastinal anand involvement. The plan is to treat the R sided cancer first with Induction chemotherapy & immunotherapy x 3-4 cycles (CT chest after C2). She will be treated with carboplatin/pemetrexed/pembrolizumab. She will the be restaged about 4 weeks after completion of chemo (with CT chest and PET) with surgery planned about 4-8 weeks after completion of chemotherapy. SBRT to the L sided mass will be after surgery. Today we spent time reviewed the plan, schedule, and potential adverse effects of chemoimmunotherapy. Plan: - Labs and toxicities assessed and acceptable for treatment. Will start C1 today. - Begin folic acid daily - Reviewed to avoid ibuprofen for 24 hours before and 48 hours after chemotherapy, or avoid altogether. - RTC in 3 weeks for consideration of C2. Candice Dre, HAND TUBE WINDER 11/06/2023 Thoracic Oncology [facility] CC: HPI/Interval History/Subjective: Last seen: 10/03/23 Althea is here today with her daughter Isabelle Has some dyspnea and cough and feels like this may be gradually worsening. Occasionally she will feel her R lung is heavy and begins to ache, over the counter medication has been helpful. Baseline neuropathy in her feet. No recent fevers or infections. No diarrhea, constipation, nausea,or vomiting. No headaches or dizziness. Increasing her activity per Dr. Gilbert's recommendation. Did not get COVID vaccine Has had mammograms in the past. Never had colonoscopy. Social History/Support Network: Home situation: . Lives in mobile home. Roommate. 3 daughters. 8 grandchidlren. Drives. Lives in [place]. Closer to [facility]. 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 Tobacco use:Quit 2020. 45 pk year Alcohol use: None Drug use: None Financial Distress: Social Determinants of Health Financial Resource Strain: [...] (Non-Medical): No Physical Activity: Not on file Housing Stability: Unknown (10/19/2023) Housing Stability Vital Sign Unable to Pay for Housing in the Last Year: No Number of Times Moved in the Last Year: Not on file Homeless in the Last Year: No Intimate Partner Violence: Not At Risk (09/25/2023) DH IPV Inpatient Questions Prevent Contact with Others: no Feels Threatened by Someone: no Feels Unsafe at Home: no Physical Signs of Abuse Present: no Utilities: Not At Risk (10/19/2023) [facility] Utilities Threatened with loss of utilities: No Health Literacy: Adequate Health Literacy (10/19/2023) B1300 Health Literacy Frequency of need for help with medical instructions: Never Likes coin collecting. Likes Fishing. Artwork. service: N/A Family History: Mother- Alive. 89 Father- Dscd. Heart attack. No history of lung cancer Brother of stomach cancer at age 65. No known history of lung cancer Oncology Overview: Staging in progress Presentation: Althea Salmon is a 67 y.o. female patient with a past medical history significant for 82-fdpx-hwri smoking history having quit in 2020, and no other previously diagnosed chronic medical conditions who in the setting of progressive dyspnea and a cough in May presented to her local hospital with a chest x-ray which identified a right lower lobe abnormality which was revealed to be right lower lobe lung mass on subsequent imaging as detailed below. Staging/PreTx Eval: 07.14.23 CT Chest . 08.10.23 Bronchoscopy EBUS-TBNA A complete airway examination was performed from the distal trachea to the subsegmental level in each lobe of both lungs. Pertinent findings include patent distal trachea, RMSt bronchus, RUL bronchus, BI and RML bronchus. The RC1 garfield is rounded. The superior segment of the RLL is 100% obstructedby friable, exophytic, fungating endobronchial tumor. The posterior basilar segment of the RLL is 100% obstructed by extrinsic compression. The remainder of the observed RLL is grossly normal in appearance. EBUS-TBNA (4 sites): The Sam[employer]rico EBUS (EB-530US) scope was inserted, lymph node inspection undertaken and transbronchial needle aspiration obtained from the following sites using the Olympus ViziShot-1 22 gauge TBNA needle: 1) Station 11L (5-10 mm) with 3 passes obtained with KEVIN absent. 2) Station 4R (5 mm and poorly visualized) with 3 passes obtained with KEVIN absent. 3) Station 7 (5 mm) with 3 passes obtained with KEVIN absent. 4) The right lower lobe mass was identified (>20 mm) with 6 passes obtained (including 1 pass for flow) with KEVIN absent. Abundant material was collected in 10% neutral buffered formalin and sent for cytology review. Note, all mediastinal, hilar, lobar and segmental stations are evaluated during the procedure and those not listed were not biopsied due to small lymph node diameter, positive KEVIN on higher anand staging, alternative diagnosis or inability to continue with the procedure. Specifically, Station 4L was not identified, Station 11Rs(superior) was con tiguous with the right lung mass, and stations 11Ri(inferior) and 12R were likewise contiguous withthe right lung mass. Tumor/Tissue Debulking (02806): The superior segment of the right lower lobe (RB6) was accessed andtumor/tissue debulking was performed using 7F ERBE APC straight probe. This was utilized on the forced APC mode at a power of 15 abrams . Application durations were limited to 1-2 second increments. Argon gas flow was maintained at <1 L/min. Hemostasis was achieved post-debulking. Patency of the airway can not be achieved. Topical epinephrine was not administered. Topical cold saline was not administered. 08.24.23 PET scan 1. A large FDG-avid mass in the [...] adnexa, nonspecific. Suggest correlation with pelvic ultrasound. Unexpected finding. 09.07.23 EUS for FNA of the left adrenal 7 Bronchoscopy EBUS-TBNA A complete airway examination was performed from the distal trachea to the subsegmental level in each lobe of both lungs. Pertinent findings include endobronchial obstruction of the superior segment of the RLL as observe at the time of her 08/11/23/ bronchoscopy. No additional sites of endobronchialdisease. 09.25.23 MRI Brain 1. No evidence of metastatic disease. 2. Small left temporal occipital developmental venous anomaly with a small cluster of chronic microbleeds which may reflect associated cavernous malformations with adjacent T2 bright signal which can also be seen in association with a developmental venous anomaly. Pathology: 08/10/23 ADDENDUM DISCUSSION Tissue: Lung, right lower lobe (EBUS-guided FNA) Diagnosis: Adenocarcinoma, consistent with pulmonary primary Tumor Proportion Score (TPS): % Expression: 3-5% DIAGNOSIS Positive for Malignancy DISCUSSION Adenocarcinoma, consistent with pulmonary primary. Cell block was examined. See note. Note: RLL mass which is contiguous with 11R which was NSCLC (N1 disease). Her station 4R was non-diagnostic but small, station 7 lymphocytes and station 11L lymphocytes. 09.07.23 Left adrenal ISCUSSION Adrenal: left (EUS-guided FNA) - Adrenal cortical and medullary tissue present. Metastatic carcinoma is not seen. Sse note. Note: The possibility of a primary adrenal cortical or medullary neoplasm cannot be excluded on the basis of this small sample. The possibility of sampling of normal adrenal gland tissue is also not excluded 09.19.23 EBUS Left lung Tumor Proportion Score (TPS): % Expression: < 1 DISCUSSION Lung, left (EBUS-guided FNA): Compatible with adenocarcinoma. See also the concurrent surgical specimen, [id number]. Molecular testing and PD-L1 immunohistochemistry have been ordered on [id number]. 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 Pertinent details are noted above. Pertinent positives and negative from the Review of Systems are as summarized above in the HPI. Physical Exam: Wt Readings from Last 3 Encounters: 11/06/23 91.8 kg (202 lb 6.4 oz) 10/19/23 92.5 kg (204 lb) 10/17/23 93.3 kg (205 lb 11 oz) Temp Readings from Last 3 Encounters: 11/06/23 36.4 ??C (97.5 ??F) (Temporal) 10/19/23 37 ??C (98.6 ??F) (Temporal) 10/17/23 37.1 ??C (98.8 ??F) (Temporal) BP Readings from Last 3 Encounters: 11/06/23 176/76 10/19/23 153/74 10/17/23 (!) 174/94 Pulse Readings from Last 3 Encounters: 11/06/23 74 10/19/23 76 10/17/23 89 Body surface area is 2.05 meters squared. Wt Readings from Last 3 Encounters: 11/06/23 91.8 kg (202 lb 6.4 oz) 10/19/23 92.5 kg (204 lb) 10/17/23 93.3 kg (205 lb 11 oz) KPS Score ECOG Grade Definition 90-100 0 Fully active, able to carry on all pre-disease performance without restriction X 70-80 1 Restricted in physically strenuous activity but ambulatory and able to carry out work of a light or sedentary nature, e.g., light house [...] selfcare; totally confined to bed or chair Physical Exam Constitutional: General: Not in acute distress. Appearance: Normal appearance. Normal weight. Not ill-appearing, toxic-appearing or diaphoretic. HENT: Head: Atraumatic. Eyes: General: No conjunctival icterus. Right eye: No discharge. Left eye: No discharge. Conjunctiva/sclera: Conjunctivae normal. Pulmonary: Effort: Pulmonary effort is normal. Neurological: General: No focal deficit present. Mental Status: Alert and oriented to person, place, and time. Mental status is at baseline. Psychiatric: Mood and Affect: Mood normal. Behavior: Behavior normal. Thought Content: Thought content normal. Judgment: Judgment normal. Review of Laboratory Data: 11.06.23 WBC 8.19, H?H 14.5/47.5, plt 261,000, ANC 5180, Na 141, K 4.4, Cl 108, CO2 23.3, BUN 10, Creat 1.1,glucose 128, Ca 9.2, Mag 2.3, t bili 0.35, AST 17, ALT 14, alk phos 116, t protein 7.3, albumin 3.2, TSH 3.44, Free T4 1.18 Last 5 CBC Recent Labs 08/29/23 1111 WBC 7.2 HGB 13.8 MCV 85.2 PLATELET 276 NEUTROABS 3.89 Last 5 Lytes Recent Labs 08/29/23 1111 NA 139 K 4.2 CL 103 CO2 25 BUN 14 CREATININE 1.02 Last 5 LFTs Recent Labs 08/29/23 1111 AST 17 ALT 16 ALKPHOS 99 BILITOT 0.3 Last 5 Ca, Mg, Phos Recent Labs 08/29/23 1111 CALCIUM 9.2 Review of Imaging Data: No new data Review of Pathology Data: No new data documented in this encounter Plan of Treatment Upcoming Encounters Date Type Department Care Team (Late st Contact Info) Description 01/08/2024 1:00 PM EDT Office Visit Hematology/Oncology at [address] [phone] Antolin Croft MD [facility] DR HEMATOLOGY [place] [address] Candice Erickson APRN [address] [place] [address] DR HEMATOLOGY [place] [address] Primary malignant neoplasm of right lower lobe of lung 01/08/2024 1:30 PM EDT Infusion Hematology Oncology at [address] [phone] 01/30/2024 9:[address] [place] [place] [phone] Soto Gilbert MD [facility] [place] [address] 01/30/2024 10:30 AM EST Appointment Nuclear Medicine at [place] [phone] Soto Gilbert MD [facility] [place] [address] 01/30/2024 11:00 AM EST Appointment [place] [phone] Soto Gilbert MD [facility] DR [place] [address] 01/30/2024 11:30 AM EST Appointment [place] [phone] Soto Gilbert MD [facility] DR [place] [address] 01/30/2024 12:00 PM EST Appointment [place] [phone] Soto Gilbert MD [facility] [place] [address] 01/30/2024 2:30 PM EST Appointment [place] [phone] documented as of this encounter Visit Diagnoses Diagnosis Primary malignant neoplasm of right lower lobe of lung Malignant neoplasm of lower lobe, bronchus, or lung 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
--- OUTSIDE RECORDS SUMMARY | 2024-01-08 11:26 | XMS_ITS | Encounter Summary ---
Author Organization Formerly [facility] Address [facility] [place] [address] Care Team Providers Care Drier And Grinder Tender Name Role Phone Ariella Hollis APRN Primary Care Provide r Reason for Visit * Reason Comments Chemotherapy [id number]/Pem/Pem * Treatment/Therapy Plan Authorization (Routine) - Authorized Specialty Diagnoses / Procedures Referred By Contac t Referred To Contact Hematology and Oncology Diagnoses High risk medication use Primary malignant neoplasm of right lower lobe of lung Procedures INFUSION Antolin Croft MD [facility] [address] [place] [address] Stj Hem Onc Infusion [address] [place] [phone] Referral ID Status Reason Start Date Expiration Date V isits Requested Visits Authorized [id number] Authorized 10/25/2023 10/24/2024 1 99 Encounter Details Date Type Department Care Team (Late st Contact Info) Description 11/27/2023 2:00 PM EDT Infusion Hematology Oncology at [address] [phone] High risk medication use; Primary [...] from your doctor or pharmacy? Never 10/19/2023 [facility] Utilities Answer Date Recorded In [...] any time in the past 12 m [facility], were you homeless or living in [...] Progress Notes * Audelia Peralta RN - 11/27/2023 2:00 PM EDT INFUSION THERAPY ADMINISTRATION NOTES DIAGNOSIS: Lung CA CYCLE #: [id number] Carbo/Pem/Pem REASON FOR VISIT: Initiation of Chemotherapy SUBJECTIVE Althea offers no complaints. She is accompanied by her daughter, Isabelle. Althea was seen by provider prior to infusion and found ready to treat. OBJECTIVE LAB DATA: Drawn today at [facility] and [facility] for treatment. ANC 4.1; Plt 280; Cr 1.1 IV ACCESS: PIV Pre administration: Chemotherapy orders independently verified for drug name, route, and dosage per patient's height, weight and BSA by Audelia Peralta RN & on-site [facility]. REACTIONS (DESCRIPTION, TIME, INTERVENTION AND EFFECTIVENESS) none ASSESSMENT Althea was awake, alert and tolerated treatment well. PIV flushed with NS and discontinued prior to dismissal. PLAN Return to clinic per routine. documented in this encounter Plan of Treatment Upcoming Encounters Date Type Department Care Team (Late st Contact Info) Description 01/08/2024 1:00 PM EDT Office Visit Hematology/Oncology at [address] [phone] Antolin Croft MD [facility] DR [place] [address] Candice Erickson APRN [address] [place] [address] DR HEMATOLOGY [place] [address] Primary malignant neoplasm of right lower lobe of lung 01/08/2024 1:30 PM EDT Infusion Hematology Oncology at [address] [phone] 01/30/2024 9:[address] [place] [phone] Soto Gilbert MD [facility] [place] [address] 01/30/2024 10:30 AM EST Appointment [place] [address] Soto Gilbert MD [facility] [place] [address] 01/30/2024 11:00 AM EST Appointment [place] [phone] Soto Gilbert MD [facility] [place] [address] 01/30/2024 11:30 AM EST Appointment [place] [phone] Soto Gilbert MD [facility] [place] [address] 01/30/2024 12:00 PM EST Appointment [place] [phone] Soto Gilbert MD [facility] [place] [address] 01/30/2024 2:30 PM EST Appointment [place] [phone] documented as of this encounter Visit Diagnoses [...] over 2 Minutes, ONCE, 1 dose, On 11/27/23 at 1430, Alternative administration of IV push over 2 minutes is a recommendation from the branch operations coordinator. Administer prior to chemotherapy., Routine Given 11/27/2023 2:55 PM EDT 130 mg CARBOplatin (Paraplatin) 488 mg in dextrose 5% 298.8 mL infusion 488 mg (rounded from 487.5 mg, Target AUC = 5), Intravenous, ONCE, 1 dose, On Mon11/27/23 at 1530, Administer over 30 Minutes, Warning Vesicant/Irritant Medication New Bag 11/27/2023 3:54 PM EDT 488 mg 597.6 mL/hr dexAMETHasone (Decadron) tablet 10 mg 10 mg, Oral, ONCE, 1 dose, On Mon11/27/23 at 1500, Administer prior to chemotherapy, Routine Given 11/27/2023 2:54 PM EDT 10 mg palonosetron (Aloxi) (0.05 mg/mL) injection 0.25 mg 0.25 mg, Intravenous, ONCE, 1 dose, On Mon11/27/23 at 1430, Administer over 30 seconds., Routine Given 11/27/2023 2:55 PM EDT 0.25 mg pembrolizumab (Keytruda) 200 mg in sodium chloride 0.9% 108 mL infusion 200 mg, Intravenous, ONCE, 1 dose, On Mon11/27/23 at 1530, Administer over 30 Minutes, Flush Line with NS after each dose, This agent is restricted to outpatient use. Is this drug being given as an outpatient? Yes New Bag 11/27/2023 3:01 PM EDT 200 mg 216 mL/hr PEMEtrexed disodium (Alimta) 1,000 mg in sodium chloride 0.9% 140 mL infusion 1,000 mg (rounded from 1,025 mg = 500 mg/m2/dose ? 2.05 m2 Treatment Plan BSA from Recorded weight), Intravenous, ONCE, 1 dose, On Mon11/27/23 at 1530, Administer over 10 Minutes New Bag 11/27/2023 3:38 PM EDT 1,000 mg 840 mL/hr documented in this encounter Care Teams Drier And Grinder Tender Relationship Specialty Start Date End Date Ariella Hollis APRN [address] [place] [address] PCP - General Family Medicine 09/26/23 documented as of this encounter
--- OUTSIDE RECORDS SUMMARY | 2024-01-08 11:26 | XMS_ITS | Encounter Summary ---
Author Organization [facility] [place] [address] Care Team Providers Care Mine Car Mechanic Name Role Phone BunnyAriella mccarthy Michael ZARCO Primary Care Provide r Encounter Details Date Type Department Care Team (Late st Contact Info) Description 10/23/2023 Telephone [place] [phone] Eri Barreto MD [facility] [place] [address] Social History Tobacco Use Types Packs/Day Years [...] from your doctor or pharmacy? Never 10/19/2023 [facility] Utilities Answer Date Recorded In the past 12 months has [employer], gas, oil, or water [employer] threatened to shut off services in your [...] any time in the past 12 m [facility], were you homeless or living in a snf (including now)? No 10/19/2023 [facility] IPV Inpatient [...] encounter Miscellaneous Notes * Telephone Encounter - Eri Barreto MD - 10/23/2023 11:12 AM EDT Images from the original note were not included. Radiation Oncology Phone Followup Note [facility] PATIENT NAME: Althea Salmon DATE OF : 1955 PRIMARY CARE PROVIDER: Ariella Hollis APRN DATE OF SERVICE: 10/23/2023 PATIENT SUMMARY: Althea Salmon is a 68 y.o. 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 I am calling her today to discuss timing of treatment. INTERVAL SUBJECTIVE HISTORY: Since last seen, reports no overall changes to her health status. INTERVAL OBJECTIVE HISTORY: No changes. ASSESSMENT / PLAN: In Dr. Ku's note from 10/16, he discussed receiving treatment for the RLL lesion first (neoadjuvant chemotherapy and then surgery) followed by SBRT to MARISSA. On 10/18 during her consult with Dr. King, we discussed SBRT first as if she is deemed not a surgical candidate, giving SBRT first doesn't stop her from receiving definitive chemoRT to the RLL at a later time-point and if we wait until afterneoadjuvant chemotherapy (if she is a surgical candidate) the MARISSA lesion make be difficult to target. We explained this to Althea on 10/18, and she was agreeable to SBRT first while she continues her pre-operative work-up including stress test. As there is some confusion with sequencing, and Dr. Ku is currently away, we will plan to hold off of CT simulation until we can discuss with Dr. Ku. Althea is agreeable to this plan but re-stated her wish to undergo SBRT first. Additionally, she notes concern with repeated trips down to [place] given the financial burden of travel and the numerous appointments which she feels could be scheduled on the same day. All of Althea's questions were answered to her fullest satisfaction, and we have provided her with our contact information should any further questions or concerns arise. Salvatore Barreto MD, MS PGY5 documented in this encounter Plan of Treatment Upcoming Encounters Date Type Department Care Team (Late st Contact Info) Description 01/08/2024 1:00 PM EDT Office Visit Hematology/Oncology at [address] [phone] Antolin Croft MD [facility] [address] [place] [address] Candice Erickson APRN [address] [place] [address] DR HEMATOLOGY AND ONCOLOGY [place], [place] [address] Primary malignant neoplasm of right lower lobe of lung 01/08/2024 1:30 PM EDT Infusion Hematology Oncology at [address] [phone] 01/30/2024 9:[address] Scan at [place] [phone] Soto Gilbert MD [facility] [place] [address] 01/30/2024 10:30 AM EST Appointment Nuclear Medicine at [place] [phone] Soto Gilbert MD [facility] [place] [address] 01/30/2024 11:00 AM EST Appointment Nuclear Medicine at [place] [phone] Soto Gilbert MD [facility] [place] [address] 01/30/2024 11:30 AM EST Appointment [place] [phone] Soto Gilbert MD [facility] [place] [address] 01/30/2024 12:00 PM EST Appointment [place] [phone] Soto Gilbert MD [facility] [place] [address] 01/30/2024 2:30 PM EST Appointment [place] [phone] documented as of this encounter Visit Diagnoses Not on filedocumented in this encounter Care Teams Mine Car Mechanic Relationship Specialty Start Date End Date Ariella Hollis APRN [address] [place] [address] PCP - General Family Medicine 09/26/23 documented as of this encounter
--- OUTSIDE RECORDS SUMMARY | 2024-01-08 11:26 | XMS_ITS | Encounter Summary ---
Author Organization [facility] Address [facility] [place] [address] Care Team Providers Care Brush Material Preparer Name Role Phone BunnyAriella mccarthy Michael ZARCO Primary Care Provide r Encounter Details Date Type Department Care Team (Latest Contact Info) Description 10/19/2023 Travel Social History Tobacco Use Types Packs/Day [...] from your doctor or pharmacy? Never 10/19/2023 [facility] Utilities Answer Date Recorded In the past [...] in a usp (including now)? No 10/19/2023 IPV Inpatient Questions [...] PM EDT Office Visit Hematology/Oncology at [address] [phone] Antolin Croft MD [facility] DR HEMATOLOGY [place] [address] Candice Erickson APRN [address] [place] [address] DR HEMATOLOGY [place] [address] Primary malignant neoplasm of right lower lobe of lung 01/08/2024 1:30 PM EDT Infusion Hematology Oncology at [address] [phone] 01/30/2024 9:[address] [place] [address] Soto Gilbert MD [facility] [place] [address] 01/30/2024 10:30 AM EST Appointment Nuclear Medicine at [place] [phone] Soto Gilbert MD [facility] [place] [address] 01/30/2024 11:00 AM EST Appointment Nuclear Medicine at [place] [phone] Soto Gilbert MD [facility] [place] [address] 01/30/2024 11:30 AM EST Appointment Nuclear Medicine at [place] [phone] Soto Gilbert MD [facility] [place] [address] 01/30/2024 12:00 PM EST Appointment Nuclear Medicine at [place] [phone] Soto Gilbert MD [facility] [place] [address] 01/30/2024 2:30 PM EST Appointment Pulmonology at [place] [address] documented as of this encounter Visit Diagnoses Not on filedocumented in this encounter Care Teams Brush Material Preparer Relationship Specialty Start Date End Date Ariella Hollis APRN [facility] [place] [address] PCP - General Family Medicine 09/26/23 documented as of this encounter
--- OUTSIDE RECORDS SUMMARY | 2024-01-08 11:26 | XMS_ITS | Encounter Summary ---
Author Organization [facility] [place] [address] Care Team Providers Care Screen Operator Name Role Phone BunnyAriella mccarthy Michael ZARCO Primary Care Provide r Encounter Details Date Type Department Care Team (Late st Contact Info) Description 10/18/2023 Orders Only Pulmonology at [facility] [place] [phone] Gay Wong, RN Social History Tobacco Use Types Packs/Day [...] Recorded In the past 12 months has [employer], gas, oil, or water [employer] threatened to shut off services in your [...] any time in the past 12 m [facility], were you homeless or living in a care home (including now)? No 10/19/2023 IPV Inpatient Questions [...] 1:00 PM EDT Office Visit Hematology/Oncology at [address] [phone] Antolin Croft MD [facility] DR HEMAT[place]Y [place] [address] Candice Erickson APRN [address] [place] [address] DR HEMATOLOGY [place] [address] Primary malignant neoplasm of right lower lobe of lung 01/08/2024 1:30 PM EDT Infusion Hematology Oncology at [address] [phone] 01/30/2024 9:[address] [place] [place] [phone] Soto Gilbert MD [facility] [place] [address] 01/30/2024 10:30 AM EST Appointment Nuclear Medicine at [place] [phone] Soto Gilbert MD [facility] [place] [address] 01/30/2024 11:00 AM EST Appointment [place] [phone] Soto Gilbert MD [facility] [place] [address] 01/30/2024 11:30 AM EST Appointment [place] [phone] Soto Gilbert MD [facility] [place] [address] 01/30/2024 12:00 PM EST Appointment [place] [phone] Soto Gilbert MD [facility] [place] [address] 01/30/2024 2:30 PM EST Appointment [place] [phone] documented as of this encounter Visit Diagnoses Not on filedocumented in this encounter Care Teams Screen Operator Relationship Specialty Start Date End Date Ariella Hollis APRN [address] [place] [address] PCP - General Family Medicine 09/26/23 documented as of this encounter
--- OUTSIDE RECORDS SUMMARY | 2024-01-08 11:26 | XMS_ITS | Encounter Summary ---
Author Organization [facility] [place] [address] Care Team Providers Care Manager Mechanical Maintenance Name Role Phone Bunny, Ariella Rodriguez APRN Primary Care Provide r Encounter Details Date Type Department Care Team (Latest Contact Info) Description 10/18/2023 6:14 AM EDT - 10/18/2023 11:59 PM EDT [place] [phone] Discharge Disposition: Home Social History Tobacco Use Types Packs/Day Years [...] from your doctor or pharmacy? Never 10/19/2023 [facility] Utilities Answer Date Recorded In the past 12 months has [employer], gas, oil, or water [employer] threatened to shut off services in your [...] any time in the past 12 m [facility], were you homeless or living in a long term (including now)? No 10/19/2023 DH IPV Inpatient [...] on file documented as of this encounter Medications at Time of Discharge Medication Sig Dispensed Refills Start Date End Date umeclidinium-vilanteroL (Anoro Ellipta) 62.5-25 mcg/actuation inhaler (DPI) Inhale 1 puff into the lungs daily. 1 each 3 10/18/2023 predniSONE (Deltasone) 5 mg tablet Take 5 mg by mouth as needed (takes when cough gets worse). Unsure of dosing off the top of her head albuteroL 90 mcg/actuation inhaler (HFA) Inhale 2 puffs into the lungs every 6 hours as needed for Wheezing or Shortness of Breath. Use with Spacer documented as of this encounter Plan of Treatment Upcoming Encounters Date Type Department Care Team (Late st Contact Info) Description 01/08/2024 1:00 PM EDT Office Visit Hematology/Oncology at [address] [phone] Antolin Croft MD [facility] DR [place] [address] Candice Erickson [address] HEMATOLOGY [place] ONCOLOGY [place], [place] [address] Primary malignant neoplasm of right lower lobe of lung 01/08/2024 1:30 PM EDT Infusion Hematology Oncology at [address] [phone] 01/30/2024 9:[address] Scan at [place] [phone] Soto Gilbert MD [facility] [place] [address] 01/30/2024 10:30 AM EST Appointment Nuclear Medicine at [place] [phone] Soto Gilbert MD [facility] [place] [address] 01/30/2024 11:00 AM EST Appointment Nuclear Medicine at [place] [phone] Soto Gilbert MD [facility] [address] 01/30/2024 11:30 AM EST Appointment [place] [phone] Soto Gilbert MD [facility] [place] [address] 01/30/2024 12:00 PM EST Appointment [place] [phone] Soto Gilbert MD [facility] [place] [address] 01/30/2024 2:30 PM EST Appointment [place] [phone] documented as of this encounter Visit Diagnoses Not on filedocumented in this encounter Care Teams Manager Mechanical Maintenance Relationship Specialty Start Date End Date Ariella Hollis APRN [address] [place] [address] PCP - General Family Medicine 09/26/23 documented as of this encounter
--- OUTSIDE RECORDS SUMMARY | 2024-01-08 11:26 | XMS_ITS | Encounter Summary ---
Author Organization [facility] [place] [address] Care Team Providers Care Learning Center Coordinator Name Role Phone Bunny, Ariella Rodriguez APRN Primary Care Provide r Encounter Details Date Type Department Care Team (Late st Contact Info) Description 10/31/2023 Patient Outreach Hematology and Oncology at [facility] [place] [phone] Mary Kay Palomino Social History Tobacco Use Types Packs/Day Years [...] from your doctor or pharmacy? Never 10/19/2023 [facility] Utilities Answer Date Recorded In the past 12 months has [facility] [employer], gas, oil, or water [employer] threatened to shut off services in your [...] time in the past 12 m [facility], were you homeless or living in a half-way (including now)? No 10/19/2023 IPV Inpatient Questions [...] encounter Miscellaneous Notes * Telephone Encounter - Mary Kay Palomino - 10/31/2023 9:52 AM EDT [facility] Physician spoke to Althea to review her responses to SDOH+ screening. Sheis worried about gas expensed due to appts/treatment schedule at [facility] and [facility]. She now has the forms for Medicaid hardship mileage reimbursement. But she will have to wait for reimbursement. I have sent her two $25 gas cards. To tide her over till she gets assistance from Medicaid. We chatted about food insecurity. She said she is all set now. Briefly offered food pantry offerings in her local area and [facility] food pantry. She declined. No further outreach at this time. Mary Kay Palomino documented in this encounter Plan of Treatment Upcoming Encounters Date Type Department Care Team (Late Contact Info) Description 01/08/2024 1:00 PM EDT Office Visit Hematology/Oncology at [address] [phone] Antolin Croft MD [facility] DR [place]EMAT[place] [address] Candice Erickson APRN [address] [place] [address] DR HEMATOLOGY AND ONCOLOGY [place], [place] [address] Primary malignant neoplasm of right lower lobe of lung 01/08/2024 1:30 PM EDT Infusion Hematology Oncology at [address] [phone] 01/30/2024 9:[address] [place] [phone] Soto Gilbert MD [facility] [place] [address] 01/30/2024 10:30 AM EST Appointment [place] [phone] Soto Gilbert MD [facility] [place] [address] 01/30/2024 11:00 AM EST Appointment [place] [phone] Soto Gilbert MD [facility] [place] [address] 01/30/2024 11:30 AM EST Appointment [place] [phone] Soto Gilbert MD [facility] [place] [address] 01/30/2024 12:00 PM EST Appointment [place] [phone] Soto Gilbert MD [facility] [place] [address] 01/30/2024 2:30 PM EST Appointment [place] [phone] documented as of this encounter Visit Diagnoses Not on filedocumented in this encounter Care Teams Learning Center Coordinator Relationship Specialty Start Date End Date Ariella Hollis APRN [address] [place] [address] PCP - General Family Medicine 09/26/23 documented as of this encounter
--- OUTSIDE RECORDS SUMMARY | 2024-01-08 11:26 | XMS_ITS | Encounter Summary ---
Author Organization [facility] [place] [address] Care Team Providers Care Student Records Coordinator Name Role Phone BunnyAriella mccarthy Michael ZARCO Primary Care Provide r Encounter Details Date Type Department Care Team (Late st Contact Info) Description 10/25/2023 Orders Only Hematology [place] [address] Antolin Croft MD [facility] DR [place] [address] Primary malignant neoplasm of right lower lobe of lung; High risk medication use Social History Tobacco Use Types Packs/Day Years [...] from your doctor or pharmacy? Never 10/19/2023 [facility] Utilities Answer Date Recorded In the past 12 months has [employer] electric, gas, oil, or water company threatened [...] time in the past 12 m [facility], were you homeless or living in [...] 1:00 PM EDT Office Visit Hematology/Oncology at [address] [phone] Antolin Croft MD [facility] DR [place] [address] Candice Erickson APRN [address] [place] [address] DR HEMATOLOGY AND ONCOLOGY [place], [place] [phone] Primary malignant neoplasm of right lower lobe of lung 01/08/2024 1:30 PM EDT Infusion Hematology Oncology at [address] [phone] 01/30/2024 9:[address] [place] [phone] Soto Gilbert MD [facility] [place] [address] 01/30/2024 10:30 AM EST Appointment Nuclear Medicine at [place] [phone] Soto Gilbert MD [facility] [place] [address] 01/30/2024 11:00 AM EST Appointment Nuclear Medicine at [place] [phone] Soto Gilbert MD [facility] [place] [address] 01/30/2024 11:30 AM EST Appointment Nuclear Medicine at [place] [phone] Soto Gilbert MD [facility] [place] [address] 01/30/2024 12:00 PM EST Appointment [place] [phone] Soto Gilbert MD [facility] [place] [address] 01/30/2024 2:30 PM EST Appointment [place] [phone] Scheduled Orders Name Type Priority Associated Diagnoses Orde r Schedule Magnesium Lab STAT Primary malignant neoplasm of right lower lobe of lung Once a week for 48 Occurrences starting 10/25/2023 until 10/24/2024 Comprehensive metabolic panel Lab STAT Primary malignant neoplasm of right lower lobe of lung Once a week for 48 Occurrences starting 10/25/2023 until 10/24/2024 CBC (with Diff) Lab STAT Primary malignant neoplasm of right lower lobe of lung Once a week for 48 Occurrences starting 10/25/2023 until 10/24/2024 TSH Lab Routine Primary malignant neoplasm of right lower lobe of lung High risk medication use Every 3 weeks for 24 Occurrences starting 10/25/2023 until 10/24/2024 T4, free Lab Routine Primary malignant neoplasm of right lower lobe of lung High risk medication use Every 3 weeks for 24 Occurrences starting 10/25/2023 until 10/24/2024 documented as of this encounter Visit Diagnoses Diagnosis Primary malignant neoplasm of right lower lobe of lung Malignant neoplasm of lower lobe, bronchus, or lung High risk medication use Encounter for long-term (current) use of other medications Primary malignant neoplasm of right lower lobe of lung Malignant neoplasm of lower lobe, bronchus, or lung documented in this encounter Care Teams Student Records Coordinator Relationship Specialty Start Date End Date Ariella Hollis APRN [address] [place] [address] PCP - General Family Medicine 09/26/23 documented as of this encounter
--- OUTSIDE RECORDS SUMMARY | 2024-01-08 11:26 | XMS_ITS | Encounter Summary ---
[place] [address] Care Team Providers Care Silver Solderer Name Role Phone BunnyArielal mccarthy Michael ZARCO Primary Care Provide r Reason for Visit * Reason Onset Date Comments Prior Authorization 11/03/2023 [employer] Encounter Details Date Type Department Care Team (Late st Contact Info) Description 11/03/2023 Telephone [place] [phone] Jayne Manriquez Prior Authorization ([employer] GENETIC TESTING) [...] from your doctor or pharmacy? Never 10/19/2023 [facility] Utilities Answer Date Recorded In the past 12 months has e [employer], gas, oil, or water [employer] threatened to shut off services in your [...] any time in the past 12 m [facility], were you homeless or living in a fdc (including now)? No 10/19/2023 [facility] IPV Inpatient [...] Encounter - Jayne Manriquez Lucero - 11/03/2023 2:53 PM EDT Images from the original note were not included. NO PATIENT ACTION NEEED_VOICEMAIL OR AUTHORIZATION_INFORMATIONAL ONLY Molecular cancer testin (covered or authorization or submitted). I received an e-mail from Jacklyn in [employer] ([employer]AT) requesting coverage review. Insurance Verified: [employer]-Secondary to Medicare Insurance Effective To/From Dates: 08/04/23 to current [employer] Vendor: [employer] Authorization number: PENDING [id number] Validity Dates: PENDING CGAT list date: 09/26/23 Tissue Obtained On: 09/19/23 Ordered On: 09/22/23 Lab: [facility] CPT/Description: 37594 - GREATER THAN 51 GENES ICD-10/Description: C34.91 NSCLC of right lung Ordering Provider: Lenard Ramon MD - Call Reference Number: NA Spoke With: NA Phone Number: NA Financially Cleared: PENDING PSC Insurance Contact Information PSC Insurance Name: ARNALDO GLASS Insurance Insurance Additional Clinical Required Y/N?: N Notes - [employer] req prior auth as secondary ins. Entered info above on [employer] portal, auth pending Em to Jacklyn with above info. documented in this encounter Plan of Treatment Upcoming Encounters Date Type Department Care Team (Late st Contact Info) Description 01/08/2024 1:00 PM EDT Office Visit Hematology/Oncology at [address] [phone] Antolin Croft MD [facility] DR HEMATOLOGY [place] [address] Candice Erickson APRN [address] [place] [address] DR HEMATOLOGY AND ONCOLOGY [place], [place] [phone] Primary malignant neoplasm of right lower lobe of lung 01/08/2024 1:30 PM EDT Infusion Hematology Oncology at [address] [phone] 01/30/2024 9:[address] [place] [place] [phone] Soto Gilbert MD [facility] DR [place] [address] 01/30/2024 10:30 AM EST Appointment [place] [phone] Soto Gilbert MD [facility] DR [place] [address] 01/30/2024 11:00 AM EST Appointment [place] [phone] Soto Gilbert MD [facility] DR [place] [address] 01/30/2024 11:30 AM EST Appointment [place] [phone] Soto Gilbert MD [facility] DR [place] [address] 01/30/2024 12:00 PM EST Appointment [place] [phone] Soto Gilbert MD [facility] DR [place] [address] 01/30/2024 2:30 PM EST Appointment [place] [phone] documented as of this encounter Visit Diagnoses Not on filedocumented in this encounter Care Teams Silver Solderer Relationship Specialty Start Date End Date Ariella Hollis APRN [address] [place] [address] PCP - General Family Medicine 09/26/23 documented as of this encounter
--- OUTSIDE RECORDS SUMMARY | 2024-01-08 11:26 | XMS_ITS | Encounter Summary ---
Author Organization [facility] Estela salazarabdirashid [place] [address] Care Team Providers Care Can Closing Machine Tender Name Role Phone BunnyAriella negrete Michael ZARCO Primary Care Provide r Encounter Details Date Type Department Care Team (Late st Contact Info) Description 11/27/2023 1:30 PM EDT Office Visit Hematology/Oncology at [address] [phone] Antolin Croft MD [facility] DR [place] [address] Candice Erickson APRN [address] [place] [address] DR HEMATOLOGY AND ONCOLOGY [place], [place] [phone] Primary malignant neoplasm of right lower lobe of lung; Pulmonary embolus, right; Drug dermatitis Social History Tobacco Use Types Packs/Day Years [...] from your doctor or pharmacy? Never 10/19/2023 [facility] Utilities Answer Date Recorded In [...] any time in the past 12 m [facility], were you homeless or living in a assisted (including now)? No 10/19/2023 [facility] IPV Inpatient [...] Sign Reading Time Taken Comments Blood Pressure 134/67 11/27/2023 1:18 PM EDT Pulse 91 11/27/2023 1:18 PM EDT Temperature 36.5 ??C (97.7 ??F) 11/27/2023 1:18 PM ED T Respiratory Rate 18 11/27/2023 1:18 PM EDT Oxygen Saturation 96% 11/27/2023 1:18 PM EDT Inhaled Oxygen Concentration - - Weight 90.2 kg (198 lb 12.8 oz) 11/27/2023 1:18 PM EDT Height 164.1 cm (5' 4.61) 11/27/2023 1:18 PM ED T Body Mass Index 33.49 11/27/2023 1:18 PM EDT documented in this encounter Progress Notes * Antolin Croft MD - 11/27/2023 1:30 PM EDT Images from the original note were not included. Hematology & Medical Oncology [address] [phone] Althea Salmon is being seen for the evaluation of lung cancer. Assessment & Plan: Althea Salmon is a 68 y.o. female patient with a past medical history significant for 63-pnmq-phkrgbvoczg history having quit in 2020, and no [...] identified an adenocarcinoma (TPS PD-L1 <1%; NGS TP53, STK11) in the MARISSA lesion with 11L, 4L [...] L sided mass will be after surgery. She began C1 carboplatin/pemetrexed/pembrolizumab on 11.06.23 Plan: - Labs and toxicities assessed and acceptable for treatment. - RTC in 3 weeks for consideration of C3 - Plan for 4 cycles and then restage and reassess for possible surgery # RUL segmental PE - Dx'd 11.09.23 after C1 - Continue apixaban 5mg BID during cancer treatment- script ordered today # Immune mediated dermatitis- pic below -Topica steroid course Antolin Croft MD, [place] 11/27/2023 Medical Oncology & Hematology [facility] CC: HPI/Interval History/Subjective: Last seen: 10/03/23 Althea is here today with her daughter Isabelle Breathing is better following diagnosis of PE Some rash on the front torso - pruritic. No diarrhea Eating ok No nausea No fevers or infections Has some dyspnea and cough and feels [...] 3 daughters. 8 grandchidlren. Drives. Lives in [place]. Closer to [facility]. 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 Tobacco use:Quit 2020. 45 pk [...] Present: no Utilities: Not At Risk (10/19/2023) [facility] Utilities Threatened with loss of [...] with a past medical history significant for 92-odms-fsyz smoking history having quit in 2020, and [...] normal in appearance. EBUS-TBNA (4 sites): The [employer] EBUS (EB-530US) scope was inserted, lymph node [...] contiguous withthe right lung mass. Tumor/Tissue Debulking (91600): The superior segment of the right lower [...] adenocarcinoma. See also the concurrent surgical specimen, [id number]. Molecular testing and PD-L1 immunohistochemistry have been ordered on [id number]. 11L negative for malignancy, lymphocytes identified 4L negative for malignancy, lymphocytes identified 7 negative for malignancy, lymphocytes identified 6 Molecular Data: 08.10.23 RLL specimen Treatment Course: 11.06.23 C1 Carboplatin / pemetrexed / pembrolizumab 11/06/2023 1:22 PM 11/06/2023 1:45 PM 11/06/2023 2:25 PM 11/06/2023 2:42 PM ONCBCN ONCOLOGY (AMB) Day, Cycle Day 1, Cycle 1 CARBOplatin (Paraplatin) IV 488 mg cyanocobalamin (Vitamin B-12) 1,000 mcg/mL SubQ 1,000 mcg pembrolizumab 25 mg/mL (Keytruda) IV 200 mg PEMEtrexed disodium (Alimta) IV 500 mg/m2/dose = 1,000 mg Patient Active Problem List Diagnosis Date Noted [...] Exam: Wt Readings from Last 3 Encounters: 11/27/23 90.2 kg (198 lb 12.8 oz) 11/06/23 91.8 kg (202 lb 6.4 oz) 10/19/23 92.5 kg (204 lb) Temp Readings from Last 3 Encounters: 11/27/23 36.5 ??C (97.7 ??F) (Temporal) 11/06/23 36.4 ??C (97.5 ??F) (Temporal) 10/19/23 37 ??C (98.6 ??F) (Temporal) BP Readings from Last 3 Encounters: 11/27/23 134/67 11/06/23 176/76 10/19/23 153/74 Pulse Readings from Last 3 Encounters: 11/27/23 91 11/06/23 74 10/19/23 76 Body surface area is 2.03 meters squared. Wt Readings from Last 3 Encounters: 11/27/23 90.2 kg (198 lb 12.8 oz) 11/06/23 91.8 kg (202 lb 6.4 oz) 10/19/23 92.5 kg (204 lb) KPS Score ECOG Grade Definition 90-100 0 [...] Judgment: Judgment normal. Review of Laboratory Data: 9.9.24 Sodium 137 potassium 4.3 chloride 103 BUN 12 creatinine 1.1 which is stable glucose 129 calcium 9.4magnesium 2.2 total bilirubin 0.29 AST 19 ALT 22 alk phos 112 albumin 3.0 down from 3.2 TSH within normal limits at 2.62 Free T41.12 White blood cell count 6.90 hemoglobin 13.3 platelet count 280,000 absolute neutrophil count 4.10 8.19.24 WBC 8.19, H?H 14.5/47.5, plt 261,000, ANC [...] 1:00 PM EDT Office Visit Hematology/Oncology at [address] [phone] Antolin Croft MD [facility] [place] [address] Candice Erickson APRN [address] [place] [address] DR HEMATOLOGY AND ONCOLOGY [place], [place] [phone] Primary malignant neoplasm of right lower lobe of lung 01/08/2024 1:30 PM EDT Infusion Hematology Oncology at [address] [phone] 01/30/2024 9:[address] [place] [phone] Soto Gilbert MD [facility] [place] [address] 01/30/2024 10:30 AM EST Appointment [place] [phone] Soto Gilbert MD [facility] [place] [address] 01/30/2024 11:00 AM EST Appointment [place] [phone] Soto Gilbert MD [facility] [place] [address] 01/30/2024 11:30 AM EST Appointment [place] [phone] Soto Gilbert MD [facility] [place] [address] 01/30/2024 12:00 PM EST Appointment [place] [phone] Soto Gilbert MD [facility] [place] [address] 01/30/2024 2:30 PM EST Appointment [place] [phone] documented as of this encounter Visit Diagnoses Diagnosis Primary malignant neoplasm of right lower lobe of lung Malignant neoplasm of lower lobe, bronchus, or lung Pulmonary embolus, right Other pulmonary embolism and infarction Drug dermatitis Dermatitis due to drugs and medicines taken internally Primary malignant neoplasm of right lower lobe of lung Malignant neoplasm of lower lobe, bronchus, or lung documented in this encounter Care Teams Can Closing Machine Tender Relationship Specialty Start Date End Date Ariella Hollis APRN [address] [place] [address] PCP - General Family Medicine 09/26/23 documented as of this encounter
--- OUTSIDE RECORDS SUMMARY | 2024-01-08 11:26 | XMS_ITS | Encounter Summary ---
Author Organization [facility] [place] [address] Care Team Providers Care Engineer Second Assistant Name Role Phone BunnyAriella APRN Primary Care Provide r Encounter Details Date Type Department Care Team (Late st Contact Info) Description 10/25/2023 Telephone Hematology and Oncology at [facility] [place] [phone] Jihan Araujo, RN Social History Tobacco Use Types Packs/Day [...] from your doctor or pharmacy? Never 10/19/2023 [facility] Utilities Answer Date Recorded In the past 12 months has [facility] [employer], gas, oil, or water [employer] threatened to shut off services in [...] in a fpc (including now)? No 10/19/2023 DH IPV Inpatient [...] encounter Miscellaneous Notes * Telephone Encounter - Jihan Araujo RN - 10/25/2023 2:05 PM EDT Message received from community youth secretary: Althea called with concerns that she has not heard anything about a plan for treatments and would like to speak with someone about this. She can be reached at [phone]. She will not be available this afternoon from 2:00 to 4:00. Discussed with Dr. Croft who confirmed the plan will be as follows. Induction chemotherapy & immunotherapy starting 11/05 x 3-4 cycles. She will be treated with carboplatin/pemetrexed/pembrolizumab. Restaging about 4 weeks after completion of chemo with surgery planned about 4-8 weeks after completion of chemotherapy. SBRT will be after surgery. Call placed to pt to discuss. Reviewed plan as outlined above. Pt states she was feeling anxious/confused as to what plan was as she initially thought she was starting with radiation. Let her know that Dr. Croft just spoke with Dr. King & confirmed this was now the plan going forward. She is currently scheduled to see Dr. Croft 11/05 @ 7940. Let her know she will need labs prior & she will be scheduled to start her infusion the same day. Quincy from [facility] will be contacting her with appointment times. Pt requests that this information be sent to her on [facility] & would also like information about the medication she will be receiving. Encouraged her to call back to navigator if she has any questions or concerns going forward & provided her with contact number. Pt in agreement & did not have further questions at this time. documented in this encounter Plan of Treatment Upcoming Encounters Date Type Department Care Team (Late st Contact Info) Description 01/08/2024 1:00 PM EDT Office Visit Hematology/Oncology at [address] [phone] Antolin Croft MD [facility] DR [place] [address] Candice Erickson APRN [address] [place] [address] [place] [address] Primary malignant neoplasm of right lower lobe of lung 01/08/2024 1:30 PM EDT Infusion Hematology Oncology at [address] [phone] 01/30/2024 9:[address] [place] [phone] Soto Gilbert MD [facility] [place] [address] 01/30/2024 10:30 AM EST Appointment [place] [phone] Soto Gilbert MD [facility] [place] [address] 01/30/2024 11:00 AM EST Appointment [place] [phone] Soto Gilbert MD [facility] [place] [address] 01/30/2024 11:30 AM EST Appointment [place] [phone] Soto Gilbert MD [facility] [place] [address] 01/30/2024 12:00 PM EST Appointment [place] [phone] Soto Gilbert MD [facility] [place] [address] 01/30/2024 2:30 PM EST Appointment [place] [phone] documented as of this encounter Visit Diagnoses Not on filedocumented in this encounter Care Teams Engineer Second Assistant Relationship Specialty Start Date End Date Ariella Hollis APRN [address] [place] [address] PCP - General Family Medicine 09/26/23 documented as of this encounter
--- OUTSIDE RECORDS SUMMARY | 2024-01-08 11:26 | XMS_ITS | Encounter Summary ---
Author Organization [facility] Address [facility] [place] [address] Care Team Providers Care [facility] Sales Manager Name Role Phone Bunny, Ariella Rodriguez APRN Primary Care Provide r Reason for Referral * Diagnostic Test (Routine) - New Request Specialty Diagnoses / Procedures Referred By Lilianeac t Referred To Contact Radiology Diagnoses Primary malignant neoplasm of right lower lobe of lung Procedures CT Chest w Contrast Candice Erickson APRN [address] [place] [address] DR HEMATOLOGY [place] [address] Referral ID Status Reason Start Date Expiration Date Visits Requested Visits Authorized [id number] New Request Specialty Service Requested 12/18/2023 06/16/2025 1 1 Encounter Details Date Type Department Care Team (Late st Contact Info) Description 12/18/2023 11:30 AM EDT Office Visit Hematology/Oncology at [address] [phone] Antolin Croft MD [facility] [place] [address] Candice Erickson [address] HEMATOLOGY AND ONCOLOGY [place], [place] [phone] Primary malignant neoplasm of right lower lobe [...] doctor or pharmacy? Never 10/19/2023 [facility] Utilities Answer Date Recorded In the [...] any time in the past 12 m [facility], were you homeless or living in a correction (including now)? No 10/19/2023 [facility] IPV Inpatient [...] Mass Index 33.18 12/18/2023 11:29 AM EDT documented in this encounter Progress Notes * Candice Erickson, CAROLEE - 12/18/2023 11:30 AM EDT Images from the original note were not included. Hematology & [place] [address] Althea Salmon is being seen for the evaluation of lung cancer. Assessment & Plan: Althea Salmon is a 68 y.o. female patient with a past medical history significant for 50-ilaw-msngxnvguui history having quit in 2020, and no [...] She began C1 carboplatin/pemetrexed/pembrolizumab on 11.06.23 Plan: Images from her scan after C1 are now available, and they do show that her primary lesions and some nodules are larger. However, there is some question if this could be pseudo progression, or if some of this progression happened in the delay that existed as it took 4-6 weeks for her to get started on therapy. - It is reassuring that her dyspnea and cough are gone, as is the heaviness in her R lung. - Labs and toxicities assessed and acceptable for treatment, proceed with C3 today. - Since she has done so well, we will attempt to have her get C4 in 3 weeks. We will also plan a repeat CT chest prior to return - Plan for 4 cycles and then restage and reassess for possible surgery # RUL segmental PE - Dx'd 11.09.23 after C1 - Continue apixaban 5mg BID during cancer treatment- script ordered today # Immune mediated dermatitis- pic below, this is improving -Topical steroid course/ home kristel Erickson, [employer] [employer] 12/18/23 Medical Oncology & Hematology [facility] CC: HPI/Interval History/Subjective: Last seen 11/27/2023 Althea is here today with her daughter Isabelle Breathing is better following diagnosis of PE. Her dyspnea and cough are much improved, and her heaviness in her R lung is gone, these are all reassuring signs. Some rash on the front torso is much better, she's tried a few different creams and desetin + aloe have been the most helpful, see progress photo below. No diarrhea Eating ok No nausea No fevers or infections Baseline neuropathy in her feet. No recent fevers or infections. No diarrhea, constipation, nausea,or vomiting. No headaches or dizziness. Increasing her activity per Dr. Gilbert's recommendation. Did not get COVID vaccine Has had mammograms in the past. Never had colonoscopy. Social History/Support Network: Home situation: . Lives in mobile home. Roommate. 3 daughters. 8 grandchidlren. Drives. Lives in [place]. Closer to [facility]. 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 Tobacco use:Quit 2020. 45 pk [...] Utilities: Not At Risk (10/19/2023) [facility] Utilities Threatened with loss of utilities: No [...] with a past medical history significant for 91-mieq-bqvl smoking history having quit in 2020, and [...] normal in appearance. EBUS-TBNA (4 sites): The Sense of Skin EBUS (EB-530US) scope was inserted, lymph node [...] contiguous withthe right lung mass. Tumor/Tissue Debulking (54356): The superior segment of the right lower [...] EUS for FNA of the left adrenal 7.05.13 Bronchoscopy EBUS-TBNA A complete airway examination was [...] station 7 lymphocytes and station 11L lymphocytes. 6.20.24 Left adrenal ISCUSSION Adrenal: left (EUS-guided FNA) [...] adenocarcinoma. See also the concurrent surgical specimen, [id number]. Molecular testing and PD-L1 immunohistochemistry have been ordered on [id number]. 11L negative for malignancy, lymphocytes identified 4L negative for malignancy, lymphocytes identified 7 negative for malignancy, lymphocytes identified 6 Molecular Data: 08.10.23 RLL specimen Treatment Course: 11.06.23 C1 Carboplatin / pemetrexed / pembrolizumab 11.09.23 CT Chest 11/27/23 C2 12/18/23 C3 11/06/2023 2:42 PM 11/27/2023 3:01 PM 11/27/2023 3:38 PM 11/27/2023 3:54 PM 12/18/2023 1:16 PM 12/18/2023 1:49 PM 12/18/2023 2:09 PM ONCBCN ONCOLOGY (AMB) Day, Cycle Day 1, Cycle 2 Day 1, Cycle 3 CARBOplatin (Paraplatin) IV 488 mg 488 mg 488 mg pembrolizumab 25 mg/mL (Keytruda) IV 200 mg 200 mg PEMEtrexed disodium (Alimta) IV 500 mg/m2/dose = 1,000 mg 500 mg/m2/dose = 1,000 mg Patient Active [...] Exam: Wt Readings from Last 3 Encounters: 12/18/23 89.4 kg (197 lb) 11/27/23 90.2 kg (198 lb 12.8 oz) 11/06/23 91.8 kg (202 lb 6.4 oz) Temp Readings from Last 3 Encounters: 12/18/23 36.5 ??C (97.7 ??F) (Temporal) 11/27/23 36.5 ??C (97.7 ??F) (Temporal) 11/06/23 36.4 ??C (97.5 ??F) (Temporal) BP Readings from Last 3 Encounters: 12/18/23 184/70 11/27/23 134/67 11/06/23 176/76 Pulse Readings from Last 3 Encounters: 12/18/23 74 11/27/23 91 11/06/23 74 Body surface area is 2.02 meters squared. Wt Readings from Last 3 Encounters: 12/18/23 89.4 kg (197 lb) 11/27/23 90.2 kg (198 lb 12.8 oz) 11/06/23 91.8 kg (202 lb 6.4 oz) KPS Score ECOG Grade Definition 90-100 [...] Content: Thought content normal. Judgment: Judgment normal. 11/27/23 12/18/23 Review of Laboratory Data: 12/18/23 WBC 5.41, H/H 12.7/41, plt 241,000, ANC 3020, Na 139, K 4.3, Cl 104, CO2 27.7, BUN 15, Creat 1.1, glucose 111, Ca 9.3, Mag 2.1, t bili 0.26, AST 35, ALT 44, alk phos 126, t protein 7.5, albumin 3.3, TSH 2.92, Free T4 0.96 9.9.24 Sodium 137 potassium 4.3 chloride 103 [...] 1:00 PM EDT Office Visit Hematology/Oncology at [address] [phone] Antolin Croft MD [facility] [place] [address] Candice Erickson APRN [address] [place] [address] DR HEMATOLOGY AND ONCOLOGY [place], [place] [phone] Primary malignant neoplasm of right lower lobe of lung 01/08/2024 1:30 PM EDT Infusion Hematology Oncology at [address] [phone] 01/30/2024 9:[address] [place] [place] [phone] Soto Gilbert MD [facility] [place] [address] 01/30/2024 10:30 AM EST Appointment [place] [phone] Soto Gilbert MD [facility] [place] [address] 01/30/2024 11:00 AM EST Appointment [place] [phone] Soto Gilbert MD [facility] [place] [address] 01/30/2024 11:30 AM EST Appointment [place] [phone] Soto Gilbert MD [facility] [place] [address] 01/30/2024 12:00 PM EST Appointment [place] [phone] Soto Gilbert MD [facility] [place] [address] 01/30/2024 2:30 PM EST [place] [phone] Scheduled Orders Name Type Priority Associated Diagnoses Orde r Schedule CT Chest w Contrast Imaging Routine Primary malignant neoplasm of right lower lobe of lung Expected: 01/01/2024 (Approximate), Expires: 06/16/2024 documented as of this encounter Visit Diagnoses Diagnosis Primary malignant neoplasm of right lower lobe of lung Malignant neoplasm of lower lobe, bronchus, or lung Primary malignant neoplasm of right lower lobe of lung Malignant neoplasm of lower lobe, bronchus, or lung documented in this encounter Care Teams [facility] Sales Manager Relationship Specialty Start Date End Date Ariella Hollis APRN [address] [place] [address] PCP - General Family Medicine 09/26/23 documented as of this encounter
--- OUTSIDE RECORDS SUMMARY | 2024-01-08 11:27 | XMS_ITS | Encounter Summary ---
[place] [address] Care Team Providers Care Cath Lab Name Role Phone Avery Castro Primary Care Provider [phone] Reason for Visit * Auth/Cert (Routine) Specialty Diagnoses / Procedures Referred By Jimbo t Referred To Contact Diagnoses Lung cancer Newly diagnosed advanced stage primary lung cancer Procedures PRG UNLISTED MRI PROCEDURE PRO ANES, CAT/MRI SCAN, RADIATN THERAPY MRI WITH ANESTHESIA (WRVU *) Marva Burch MD [facility] [place] [address] [facility] Referral ID Status Reason Start Date Expiration Date Visits Re quested Visits Authorized [id number] 1 1 Encounter Details Date Type Department Care Team (Late st Contact Info) Description 09/25/2023 2:12 PM EDT [place] [phone] Marva Burch MD [facility] [place] [address] Anesthesia Record Procedure Summary Procedure Name Responsible Anesthesiologist Anesthesia Start Time Anesthesia Stop Time MRI WITH ANESTHESIA (WRVU *) (Brain) Marva Burch MD 09/25/23 1412 09/25/23 1513 Events Date Time Event Comment 09/25/2023 1318 1412 AN Verify 1412 Start 1412 An Start Data 1416 An Induction 1418 An Intubation 1419 Anesthesia Ready 1421 An Data Art HR from EKG wit h interference, HR from pulse ox reading 60-70 beats per minute. 1429 Procedure Start MRI start 1502 Procedure Stop 1506 Extubation/LMA Out 1509 an stop data 1512 Recovery or ICU Handoff Izzy ent care was transferred to the destination unit staff after review of the patient's medical history, current anesthetic/surgical status and plan, according to the Provider Handoff Checklist. Pt taken to SDP via stretcher on 6L O2 via facemask. VSS, SV, airway patent, resting comfortably. Bedside report given to SDP RN of record, all questions answered, SDP RN accepts patient as is. Lenka Engle CRNA 1513 Stop Meds Name Total lidocaine IV 100 mg propofoL 200 mg PHENYLephrine 400 mcg ePHEDrine 15 mg ondansetron 4 mg lactated ringers infusion 0 mL * Agents No agents on file. * Blood No blood administrations on file. Lines, Drains, and Airways Type Details Placement Removal Incision 09/19/23; 0931 09/19/23 0931 by Jane Edwards RN PIV 09/25/23; 1325; ubyy-gqf-vxmmdd catheter system; 22 gauge; metacarpal vein (top of hand), left; Anatomical Landmarks; Benitez Malhotra RN; distraction, topical anesthetic spray applied, tolerated well, appears comfortable; 09/25/23; 1553 09/25/23 1325 by Benitez Mansfield RN 09/25/23 1553 by Erendira Caldera, DONATO Supraglottic Mask Ventilation: No t Attempted (0); LMA Type: iGel; LMA Size: 4; Inserted by: Luz Engle CRNA; Removal Date: 09/25/23; Removal Time: 1509 09/25/23 1418 by Lenka Engle CRNA 09/25/23 1509 by Lenka Engle CRNA documented in this encounter Social History Tobacco Use Types Packs/Day Years Used Date Smoking Tobacco: Former Cigarettes Smokeless Tobacco: Never Alcohol Use Standard Drinks/Week Comments Not Currently 0 (1 standard drink = 0.6 oz pur e alcohol) IPV Inpatient Questions Answer Date Recorded Does [...] on file documented as of this encounter OR Notes * Anesthesia Postprocedure Evaluation - Marva Burch MD - 09/25/2023 5:15 PM EDT Department of Anesthesiology Post-procedure Note Patient: Althea Salmon Procedure Summary Date: 09/25/23 Room / Location: [facility] ADULT RADIOLOGY / [facility] Anesthesia Start: 1411 Anesthesia Stop: 1512 Procedure: MRI WITH ANESTHESIA (WRVU *) (Brain) Diagnosis: (Newly diagnosed advanced stage primary lung cancer) Surgeons: RESOURCE, ANESTHESIA-LUIGI Responsible Provider: Marva Burch MD Anesthesia Type: general ASA Status: 3 All Anesthesia Providers: Anesthesiologist: Marva Burch MD SEMIAUTOMATIC TAPER OPERATOR: Lenka Engle CRNA Vitals Value Taken Time BP 124/86 09/25/23 1545 Temp 36.7 ??C (98.1 ??F) 09/25/23 1545 Pulse Resp 16 09/25/23 1545 SpO2 94 % 09/25/23 1547 Pain Level 0 09/25/23 1545 Vitals shown include unfiled device data. Patient Location: PACU/[facility] Level of Consciousness: Awake and Alert Pain Management: Satisfactory Analgesia PONV: None Cardiovascular Status: At Baseline and Hemodynamically Stable Respiratory Status: At Baseline and Room Air Postoperative Fluid Status: Intravascular EUvolemia Possible Anesthetic Complications: NONE apparent at time of evaluation Final Primary Anesthesia Type: General (The anesthetic type performed was the same as planned.) Comments: Marva Burch MD * Anesthesia Preprocedure Evaluation - Marva Burch MD - 09/24/2023 7:07 PM EDT Pre-Anesthesia Evaluation for: Althea Salmon a 67 y.o. female. Procedure(s): MRI WITH ANESTHESIA (WRVU *) There are no problems to display for this patient. No past medical history on file. Past Surgical History: Procedure Laterality Date ? ? PRO [facility] EBUS GUIDED SAMPL 3/> NODE STATION/STRUX N/A 08/10/2023 BRONCH, W ENDOBRONCHIAL ULTRASOUND (EBUS) GUIDED SAMPLING, 3+ NODES (WRVU 4.96) performed by Lenard Ramon MD at [facility] ENDOSCOPY ??? PRO [facility] EBUS DX/TX INTERVENTION PERPH LES N/A 08/10/2023 BRONCH, W EBUS DURING INTERVENTION FOR PERIPH LESION (WRVU 1.4) performed by Lenard Ramon MD at [facility] ENDOSCOPY ??? PRO BRONCHOSCOPY, TRANSBRON ASPIR BX N/A 08/10/2023 BRONCHOSCOPY W/TRANSBRONCHIAL NEEDLE ASPIRATION BX,FLEXIBLE (WRVU 3.75) performed by Yoseph Ramon MD at [facility] ENDOSCOPY ??? PRO BRONCHOSCOPY, TRANSBRONCH BIOPSY N/A 08/10/2023 BRONCHOSCOPY (FLEXIBLE OR RIGID) W\TRANSBRONC BX (WRVU 3.55) performed by Lenard Ramon MD at [facility] ENDOSCOPY ??? PRO BRONCHOSCOPY, TREAT STENOSIS 08/10/2023 BRONCHOSCOPY W/ DESTRUCTION TUMOR, RELIEF STENOSIS W/LASER, CRYOTHERAPY (WRVU 5.02) performed by Lenard Ramon MD at [facility] ENDOSCOPY ??? PRO [facility] ENDOSCOPY W/US FN BX N/A 09/07/2023 EGD, W US GUIDED FINE NEEDLE ASPIRATION/BIOPSY (WRVU 4.16) performed by Ming Eldridge MD at [facility] ENDOSCOPY Social History Tobacco Use ??? Smoking status: Former Types: Cigarettes ??? Smokeless tobacco: Never Substance Use Topics ??? Alcohol use: Not Currently Social History Substance and Sexual Activity Drug Use Never No Known Allergies Medications: MAR and/or home medications have been reviewed. Physical Exam: Preprocedure Vitals Current as of 09/24/23 1907 No BP, pulse, respiration, SpO2, or temperature recorded. Height: Weight: BMI: IBW: Airway Assessment: Mallampati: II TM distance: >3 FB Neck ROM: full Cardiovascular Assessment: Rhythm: regular Rate: normal Pulmonary Assessment: breath sounds clear to auscultation Dental Assessment: Misc Assessment: IV access: Peripheral line Last Filed Perioperative Cognitive Screening None Anesthesia Plan: ASA 3 general, with a(n) intravenous induction 67F w/ lung cancer presenting for MRI. On prednisone for rescue when getting COPD exacerbation. PMH: COPD: albuterol 3x/week, rescue prednisone and nebulizers; chronic productive cough - non colored. Laying flat worsens her coughs, unable to tolerate. Patient endorses SOB with exertion. Anes hx: GA without complications; airway: G1v CMAC Dblade (elective as used last time) METS 3-4, NPO appropriate. Pt denies any hx of cardiac disease, denies chest pain. She also states to have hypersensitive upper extremities unable to tolerate BP cuff on her arms. Requesting IV placement in her hand. Plan for GA LMA. Nebulizer given in [place]. Region - Other Informed Consent: Anesthetic plan and risks discussed with patient. Plan discussed with SEMIAUTOMATIC TAPER OPERATOR. Anesthesia Screening documented in this encounter Plan of Treatment Upcoming Encounters Date Type Department Care Team (Late st Contact Info) Description 01/08/2024 1:00 PM EDT Office Visit Hematology/Oncology at [address] [phone] Antolin Croft MD [facility] DR [place] [address] Candice Erickson APRN [address] [place] [address] DR [place] [address] Primary malignant neoplasm of right lower lobe of lung 01/08/2024 1:30 PM EDT Infusion Hematology Oncology at [address] [phone] 01/30/2024 9:[address] [place] [place] [phone] Soto Gilbert MD [facility] [place] [address] 01/30/2024 10:30 AM EST Appointment [place] [phone] Soto Gilbert MD [facility] [place] [address] 01/30/2024 11:00 AM EST Appointment [place] [phone] Soto Gilbert MD [facility] [place] [address] 01/30/2024 11:30 AM EST Appointment [place] [phone] Soto Gilbert MD [facility] [place] [address] 01/30/2024 12:00 PM EST Appointment [place] [phone] Soto Gilbert MD [facility] [place] [address] 01/30/2024 2:30 PM EST [place] [phone] documented as of this encounter Visit Diagnoses Not on filedocumented in this encounter Administered Medications Inactive Administered Medications - up to 3 most recent administrations Medication Order MAR Action Action Date Dose Rate Site ePHEDrine sulfate (5 mg/mL) multi-dose injection Intravenous, PRN, Starting on Mon09/25/23 at 1439, Until Mon09/25/23 at 1517, Anesthesia Intra-op, Routine Given 09/25/2023 2:54 PM EDT 5 mg Given 09/25/2023 2:41 PM EDT 5 mg Given 09/25/2023 2:39 PM EDT 5 mg lactated ringers infusion 1,000 mL, at 100 mL/hr, Intravenous, CONTINUOUS, Starting on Mon09/25/23 at 1330, Until Mon09/25/23 at 1554, Day of Surgery (Day of Procedure) Restarted 09/25/2023 2:12 PM EDT New Bag 09/25/2023 1:25 PM EDT 1,000 mLs 100 mL/hr lidocaine (pf) (Xylocaine) (20 mg/mL) 2% injection syringe Intravenous, PRN, Starting on Mon09/25/23 at 1415, Until Mon09/25/23 at 1517, Anesthesia Intra-op, Routine Given 09/25/2023 2:15 PM EDT 100 mg ondansetron (pf) (Zofran) (2 mg/mL) injection Intravenous, PRN, Starting on Mon09/25/23 at 1420, Until Mon09/25/23 at 1517, Anesthesia Intra-op, Routine Given 09/25/2023 2:20 PM EDT 4 mg PHENYLephrine in NS (PF) (NOREEN-SYNEPHRINE) 0.8 mg/10 mL (80 mcg/mL) multi-dose injection Syringe Intravenous, PRN, Starting on Mon09/25/23 at 1427, Until Mon09/25/23 at 1517, Anesthesia Intra-op, Routine Given 09/25/2023 2:54 PM EDT 80 mcg Given 09/25/2023 2:49 PM EDT 80 mcg Given 09/25/2023 2:38 PM EDT 80 mcg propofoL (Diprivan) 10 mg/mL bolus injection (Anesthesia) Intravenous, PRN, Starting on Mon09/25/23 at 1416, Until Mon09/25/23 at 1517, Anesthesia Intra-op Given 09/25/2023 2:16 PM EDT 200 mg documented in this encounter Care Teams Cath Lab Relationship Specialty Start Date End Date Avery Castro DO [address] [place] [phone] PCP - General Family Medicine 07/28/23 09/25/23 documented as of this encounter
--- OUTSIDE RECORDS SUMMARY | 2024-01-08 11:27 | XMS_ITS | Encounter Summary ---
[place] [address] Care Team Providers Care Senior Accountant Analyst Name Role Phone Ariella Hollis APRN Primary Care Provide r Reason for Referral * Diagnostic Test (Routine) - New Request Specialty Diagnoses / Procedures Referred By Contac t Referred To Contact Radiology Diagnoses Essential hypertension Dyspnea on exertion Procedures NM Pharmacologic Stress and Rest Myocardial Perfusion Latoya Lacy PA [facility] [place] [address] [place] [address] Referral ID Status Reason Start Date Expiration Date Visits Requested Visits Authorized [id number] New Request Specialty Service Requested 10/17/2023 04/17/2025 1 1 * Diagnostic Test (Routine) - New Request Specialty Diagnoses / Procedures Referred By Contac t Referred To Contact Radiology Diagnoses Essential hypertension Procedures NM Pharmacologic Stress CT Component Latoya Lacy PA [facility] [place] [address] [place] [address] Referral ID Status Reason Start Date Expiration Date Visits Requested Visits Authorized [id number] New Request Specialty Service Requested 10/17/2023 04/18/2025 1 1 Reason for Visit * Reason Comments Advice Only Lung Cancer Encounter Details Date Type Department Care Team (Late st Contact Info) Description 10/17/2023 2:00 PM EDT Office Visit Thoracic Surgery at [facility] [place] [address] Jg Antony MD [facility] [place] [address] Primary malignant neoplasm of right lower lobe [...] your doctor or pharmacy? Never 10/19/2023 [facility] Utilities Answer Date Recorded In the [...] time in the past 12 m [facility], were you homeless or living in a nursing home (including now)? No 10/19/2023 DH IPV [...] Sign Reading Time Taken Comments Blood Pressure 174/94 10/17/2023 1:59 PM EDT Pulse 89 10/17/2023 1:59 PM EDT Temperature 37.1 ??C (98.8 ??F) 10/17/2023 1:59 PM ED T Respiratory Rate 18 10/17/2023 1:59 PM EDT Oxygen Saturation 92% 10/17/2023 1:59 PM EDT Inhaled Oxygen Concentration - - Weight 93.3 kg (205 lb 11 oz) 10/17/2023 1:59 PM EDT Height 164.1 cm (5' 4.61) 10/17/2023 1:59 PM ED T Body Mass Index 34.65 10/17/2023 1:59 PM EDT documented in this encounter H&P Notes * Jg Antony MD - 10/17/2023 2:00 PM EDT Images from the original note were not included. 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 Her lung mass was originally identified after an acute onset of dyspnea and evaluation at [facility], where it was seen on CT Chest on 08/09/23. She underwent a EBUS-TBNA on 08/10/23 which demonstrated obstruction of the right lower lobe bronchus for which it was debulked. Cytology of the RLL was consistent with primary adenocarcinoma of the lung. Lymph nodes 11L and 7 were negative, 4R was nondiagnostic. A repeat EBUS was performed given concerning MARISSA nodule seen on PETscan. EBUS was again performed on 09/19/23 demonstrated adenocarcinoma of the MARISSA lesion. Lymph [id number], 4L, and 7 were negative for malignancy. Patient's case was presented at [facility] by IP with the impression that these two nodules are synchronous primary tumors. Recommendations were to consider induction chemoimmunotherapy followed by resection of the right sided tumor and then consider SBRT to the MARISSA lesion. Patient presents to thoracic surgery clinic to determine if she is a candidate for resection of the right lower lobe mass. She is a former smoker with a 50 pack year history. She quit in 2020. She does not exercise but does not note any significant limitations in her activity. She gets winded with exertion but would be able to climb two flights of stairs. She denies fever, chest pain with exertion, hemoptysis, weight loss. 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 09/30/2023 Past Medical History: Diagnosis Date Anemia COPD (chronic obstructive pulmonary disease) Past Surgical History: Past Surgical History: Procedure Laterality Date KNEE SURGERY PRG UNLISTED MRI PROCEDURE N/A 09/25/2023 MRI WITH ANESTHESIA (WRVU *) performed by MARA ANESTHESIA-LUIGI at [facility] LUIGI PRO [facility] EBUS GUIDED SAMPL 3/> NODE STATION/STRUX N/A 08/10/2023 BRONCH, W ENDOBRONCHIAL ULTRASOUND (EBUS) GUIDED SAMPLING, 3+ NODES (WRVU 4.96) performed by Lenard Ramon MD at [facility] ENDOSCOPY PRO [facility] EBUS GUIDED SAMPL 3/> NODE STATION/STRUX N/A 09/19/2023 BRONCH, W ENDOBRONCHIAL ULTRASOUND (EBUS) GUIDED SAMPLING, 3+ NODES (WRVU 4.96) performed by Lenard Ramon MD at [facility] MAIN OR PRO [facility] EBUS DX/TX INTERVENTION PERPH LES N/A 08/10/2023 BRONCH, W EBUS DURING INTERVENTION FOR PERIPH LESION (WRVU 1.4) performed by Lenard Ramon MD at [facility] ENDOSCOPY PRO BRONCHOSCOPY RIGID FLEX W COMPUTER ASSIST IMG NAVIGATION N/A 09/19/2023 BRONCHOSCOPY,RIGID OR FLEX,WITH IMAGE GUIDANCE ( ROBOT / ION ) (WRVU 2) performed by Yoseph Ramon MD at [facility] MAIN OR PRO BRONCHOSCOPY, TRANSBRON ASPIR BX N/A 08/10/2023 BRONCHOSCOPY W/TRANSBRONCHIAL NEEDLE ASPIRATION BX,FLEXIBLE (WRVU 3.75) performed by Yoseph Ramon MD at [facility] ENDOSCOPY PRO BRONCHOSCOPY, TRANSBRONCH BIOPSY N/A 08/10/2023 BRONCHOSCOPY (FLEXIBLE OR RIGID) W\TRANSBRONC BX (WRVU 3.55) performed by Lenard Ramon MD at [facility] ENDOSCOPY PRO BRONCHOSCOPY, TREAT STENOSIS 08/10/2023 BRONCHOSCOPY W/ DESTRUCTION TUMOR, RELIEF STENOSIS W/LASER, CRYOTHERAPY (WRVU 5.02) performed by Lenard Ramon MD at [facility] ENDOSCOPY PRO [facility] ENDOSCOPY W/US FN BX N/A 09/07/2023 EGD, W US GUIDED FINE NEEDLE ASPIRATION/BIOPSY (WRVU 4.16) performed by Ming Eldridge MD at [facility] ENDOSCOPY Medications: Outpatient Medications Marked as Taking for the 10/17/23 encounter (Office Visit) with Yvonne Antony MD Medication Sig Dispense Refill tiotropium-olodateroL (Stiolto Respimat) 2.5-2.5 mcg/actuation inhaler Inhale 2 puffs into the lungs daily. 1 each 3 predniSONE (Deltasone) 5 mg tablet Take 5 mg by mouth daily. Unsure of dosing off the top of her head Allergies: No Known Allergies Family History: Family History Problem Relation Age of Onset Myocardial Infarction Father Myocardial Infarction Sister Stomach Cancer Brother Brain Cancer Brother Social History: Social History Socioeconomic History Marital status: Single [...] Social Determinants of Health Financial Resource Strain: Not on file Food Insecurity: Not on file Transportation Needs: Not on file Physical Activity: Not on file Intimate Partner Violence: Not At Risk (09/25/2023) IPV Inpatient Questions Prevent Contact with Others: no Feels Threatened by Someone: no Feels Unsafe at Home: no Physical Signs of Abuse Present: no Housing Stability: Not on file REVIEW OF SYSTEMS: General: Denies fatigue, weight loss, chills, night sweats. Neuro: Denies seizure, TIA, CVA, SEQUEIRA, visual changes, diplopia, weakness/numbness in extremities Psychiatric: Denies psychiatric diagnoses Cardiovascular: Denies arrythmias, CAD, HTN, CHF, hyperlipidemia. Respiratory: +COPD. Denies asthma, cough, dyspnea, wheezing, stridor, hemoptysis, respiratory infection, GI: denies change in bowel habits : denies change in voiding habits Hematologic: Denies history of DVT, PE Endocrine: denies diabetes mellitus, denies thyroid disease. Musculoskeletal: Denies fractures, arthritis Integument: Denies skin cancer. Physical Exam: BP (!) 174/94 (Patient Position: Sitting) Pulse 89 Temp 37.1 ??C (98.8 ??F) (Temporal) Resp 18 Ht 164.1 cm (5' 4.61) Wt 93.3 kg (205 lb 11 oz) SpO2 92% BMI 34.65 kg/m?? General Appearance: Alert, pleasant, no distress, appears stated age HEENT: PERRL, MMM, non-icteric, EOMI Neck: Supple, symmetrical, trachea midline, no palpable cervical ora supraclavicular adenopathy; thyroid: not enlarged, symmetric, no tenderness/mass/nodules Lungs: Clear to auscultation bilaterally, respirations unlabored, no wheezes, crackles or ronchi. Heart: Regular rate and rhythm, S1 and S2 normal, no murmur, rub, or gallop Abdomen: Soft, non-tender, no masses, no organomegaly Extremities: Extremities normal, no cyanosis, clubbing. No edema Neurologic: A+Ox3, cranial nerves II-XII grossly intact Musculoskeletal: 5/5 throughout with normal gait Diagnostics: I have independently visualized all relevant imaging studies, including: MRI Brain (09/25/23): 1. No evidence of metastatic disease. 2. Small left temporal occipital developmental venous anomaly with a small cluster of chronic microbleeds which may reflect associated cavernous malformations with adjacent T2 bright signal which can also be seen in association with a developmental venous anomaly. CT Chest wo contrast (09/19/23): 1. Similar appearance of a large right lower lobe mass which partially encases and narrows the right lower lobe bronchus, highly suspicious for malignancy. 2. Similar size and appearance of a left upper lobe lesion, which is also suspicious for malignancy but it is unclear if this is a second primary versus a site of metastatic disease. 3. Additional sub-5 mm left upper lobe pulmonary nodules. 4. Scattered groundglass opacities throughout the right lower lobe, concerning for malignant spread or postobstructive infection. Unchanged size and number of previously seen nonenlarged subcarinal FDG avid lymph nodes which could represent metastatic disease versus reactive nodes. 5. Similar bilateral adrenal gland hypertrophy, left greater than right. The left adrenal hypertrophy/nodularity was previously FDG avid and is suspicious for metastatic disease. PET (08/24/23): 1. A large FDG-avid mass in the [...] Suggest correlation with pelvic ultrasound. Unexpected finding. PFTs (10/05/23): Assessment: This is a 67 y.o. 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 Pending a stress test, she appears to be a surgical candidate for right lower lobectomy. Plan of Management: Will obtain a pharmacologic stress test given her age and family history of cardiac disease to determine cardiac risk for surgery. Follow up with Dr. Croft/medical oncology to begin induction chemotherapy. She is eligible for the LEADER trial. Following completion of induction chemotherapy, she should RTC with a CT chest, PET, brain MRI, andPFTs to discuss proceeding with right lower lobectomy. Following surgical resection and recovery she would get SBRT to the MARISSA lesion. Encouraged 30 minutes of aerobic exercise daily and decreasing caloric intake by about 500 caloriesper day. We discussed that this is best done by decreasing calories from each meal instead of from one meal per day. With an increase in her exercise and decrease in her caloric intake, she should beable to lose 1-2 lbs per week and get back to a healthier weight Call with any questions Patient seen and examined with Dr. Antony. SATINDER Martínez 10/17/23 I have seen the patient and reviewed the PA/resident's above history and I agree with the details as written. The assessment and plan were formulated in discussion with me and I agree with them as documented. Assessment: This is a 67 y.o. 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 Pending a stress test, she appears to be a surgical candidate for right lower lobectomy. Plan of Management: 1. Will obtain a pharmacologic stress test given her age and family history of cardiac disease for pre-op risk stratification. 2. Follow up with Dr. Croft/medical oncology to begin induction chemotherapy. She is eligible for the LEADER trial though she is concerned about the government having her information. 3. Following completion of induction chemotherapy, she should RTC with a CT chest, PET, brain MRI, and PFTs to discuss proceeding with right lower lobectomy. Following surgical resection and recoveryshe would get SBRT to the MARISSA lesion. 4. Encouraged 30 minutes of aerobic exercise daily. She will need to start a formal exercise program and increase the intensity, frequency and duration of her exercise on a weekly basis. She should also increase her overall activity during the day, walking 2 minutes every 10 minutes while doing sedentary activities. This will not only help her overall functional status, but will allow her to tolerate her systemic treatment easier as well as surgery and decrease the time to recovery after surgery. 5. Weight loss program by decreasing caloric intake by about 500 calories per day. We discussed that this is best done by decreasing calories from each meal instead of from one meal per day. With an increase in her exercise and decrease in her caloric intake, she should be able to lose 1-2 lbs per week and get back to a healthier weight. 5. Call with any questions JG ANTONY MD documented in this encounter Plan of Treatment Upcoming Encounters Date Type Department Care Team (Late st Contact Info) Description 01/08/2024 1:00 PM EDT Office Visit Hematology/Oncology at [address] [phone] Antolin Croft MD [facility] DR HEMATOLOGY [place] [address] Candice Erickson APRN [address] [place] [address] DR [place] [address] Primary malignant neoplasm of right lower lobe of lung 01/08/2024 1:30 PM EDT Infusion Hematology Oncology at [address] [phone] 01/30/2024 9:[address] [place] [address] Jg Antony MD [facility] [place] [address] 01/30/2024 10:30 AM EST Appointment [place] [phone] Jg Antony MD [facility] [place] [address] 01/30/2024 11:00 AM EST Appointment [place] [phone] Jg Antony MD [facility] [place] [address] 01/30/2024 11:30 AM EST Appointment [place] [phone] Jg Antony MD [facility] [place] [address] 01/30/2024 12:00 PM EST Appointment [place] [phone] Jg Antony MD [facility] [place] [address] 01/30/2024 2:30 PM EST Appointment [place] [phone] Scheduled Orders Name Type Priority Associated Diagnoses Orde r Schedule NM Pharmacologic Stress CT Component Imaging Routine Essential hypertension Expected: 10/18/2023 (Approximate), Expires: 10/16/2024 Nuclear Pharmacologic Stress Cardiology Cardiac Services Routine Essential hypertension Expected: 10/18/2023 (Approximate), Expires: 10/16/2024 NM Pharmacologic Stress and Rest Myocardial Perfusion Imaging Routine Essential hypertension Dyspnea on exertion Expected: 10/18/2023 (Approximate), Expires: 10/16/2024 documented as of this encounter Visit Diagnoses Diagnosis Primary malignant neoplasm of right lower lobe of lung Malignant neoplasm of lower lobe, bronchus, or lung Essential hypertension Unspecified essential hypertension Dyspnea on exertion Other dyspnea and respiratory abnormality 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
--- OUTSIDE RECORDS SUMMARY | 2024-01-08 11:27 | XMS_ITS | Encounter Summary ---
Author Organization [facility] [place] [address] Care Team Providers Care Plodding Machine Operator Name Role Phone Bunny, Ariella Rodriguez APRN Primary Care Provide r Encounter Details Date Type Department Care Team (Late st Contact Info) Description 10/18/2023 Telephone Pulmonology at [facility] [place] [phone] Gay Wong RN Social History Tobacco Use Types Packs/Day [...] from your doctor or pharmacy? Never 10/19/2023 [facility] Utilities Answer Date Recorded In the past 12 months [facility] [employer], oil, or water [employer] threatened to shut off services in your [...] time in the past 12 m [facility], were you homeless or living in a prison (including now)? No 10/19/2023 DH IPV Inpatient [...] encounter Miscellaneous Notes * Telephone Encounter - Gay Wong RN - 10/18/2023 3:31 PM EDT Called pharmacy,confirmed that insurance covered Anoro with only a copay of $4.60. Should be ready for pt this afternoon. I have called pt to let her know. Pt informs me she already picked it up. I reviewed with pt the instructions and she is aware to call us if she has questions and to let us know in a few weeks if inhaler is effective. MARK Choudhury, RN [facility] Pager: [phone] * Telephone Encounter - Gay Wong RN - 10/18/2023 12:01 PM EDT Copied from CRM #[id number]. Topic: Specialty Dept CRMs - Medication Issues >> Oct 18, 2023 10:49 AM Kat Marks wrote: Medication Issues Specialist Campos Ramon Relationship (if other than patient-full name): Self Reason for call: Medication Issue (if symptom based used Triage Subtopic) Message/information for the nurse: Received letter from insurance stating medication is not covered. Name of Medication: tiotropium-olodateroL (Stiolto Respimat) 2.5-2.5 mcg/actuation inhaler Issue with the medication: Advised they will cover Anoro Ellipta. I have called pt's pharmacy again and confirmed pt picked up her Stiolto on 09/28/2023, insurance covered it, and pt paid only a copay of $4.60 for 1 inhaler. I have called pt to discuss. Pt confirmed with me that she picked up the Stiolto from the pharmacy on 09/27 and is currently out of it. I have told pt 1 inhaler should last her a month. Pt states she has been doing 2 puffs daily and 2 puffs again as needed throughout the day. I have informed pt thatthe Stiolto is a maintenance inhaler that is only being taken daily and she should use her albuterol as needed. I have informed pt that this is probably the issue why her insurance won't fill this too soon. Pt states she received a letter from her insurance stating that they are only providing her a 30-day temporary supply of the Stiolto (which she already consumed), and then after that, they will no longer cover this as this is not in their formulary. Insurance is recommending Anoro. I have informed pt I will send this message to Dr. Ramon and see if he is ok to switch to Anoro. Pt verbalized understanding and will await RN callback once Rx is sent to pharmacy. MARK Choudhury, RN [facility] Pager: [phone] documented in this encounter Plan of Treatment Upcoming Encounters Date Type Department Care Team (Late st Contact Info) Description 01/08/2024 1:00 PM EDT Office Visit Hematology/Oncology at [address] [phone] Antolin Croft MD [facility] DR [place] [address] Candice Erickson APRN [address] [place] [address] DR HEMATOLOGY AND ONCOLOGY [place], [place] [id number] Primary malignant neoplasm of right lower lobe of lung 01/08/2024 1:30 PM EDT Infusion Hematology Oncology at [address] [phone] 01/30/2024 9:[address] [place] [phone] Soto Gilbert MD [facility] [place] [address] 01/30/2024 10:30 AM EST Appointment [place] [phone] Soto Gilbert MD [facility] [place] [address] 01/30/2024 11:00 AM EST Appointment [place] [phone] Soto Gilbert MD [facility] [place] [address] 01/30/2024 11:30 AM EST Appointment [place] [phone] Soto Gilbert MD [facility] [place] [address] 01/30/2024 12:00 PM EST Appointment [place] [phone] Soto Gilbert MD [facility] [place] [address] 01/30/2024 2:30 PM EST Appointment [place] [phone] documented as of this encounter Visit Diagnoses Not on filedocumented in this encounter Care Teams Plodding Machine Operator Relationship Specialty Start Date End Date Ariella Hollis APRN [address] [place] [address] PCP - General Family Medicine 09/26/23 documented as of this encounter
--- OUTSIDE RECORDS SUMMARY | 2024-01-08 11:27 | XMS_ITS | Encounter Summary ---
Author Organization [facility] [place] [address] Care Team Providers Care Beekeeper Name Role Phone MatthewAvery lomax Primary Care Provider [phone] Reason for Visit * Auth/Cert (Routine) Specialty Diagnoses / Procedures Referred By Contberny t Referred To Contact Diagnoses Lung cancer Newly diagnosed advanced stage primary lung cancer Procedures PRG UNLISTED MRI PROCEDURE PRO ANES, CAT/MRI SCAN, RADIATN THERAPY MRI WITH ANESTHESIA (WRVU *) Marva Burch MD [facility] [place] [address] [facility] Referral ID Status Reason Start Date Expiration Date Visits Re quested Visits Authorized [id number] 1 1 Encounter Details Date Type Department Care Team (Latest Contact Info) Description 09/25/2023 11:47 AM EDT - 09/25/2023 3:58 PM EDT Hospital Encounter [place] [address] Marva Burch MD [facility] [place] [address] Discharge Disposition: Home Social History Tobacco Use Types Packs/Day Years Used Date Smoking Tobacco: Former Cigarettes Smokeless Tobacco: Never Alcohol Use Standard Drinks/Week Comments Not Currently 0 (1 standard drink = 0.6 oz pur e alcohol) ON LICENSE OF [facility] Inpatient Questions Answer Date Recorded Does Anyone Try to Keep You From Having Contact with Others or Doing Things Outside Your Home? no 09/25/2023 Feels Threatened by Someone no 0 10/2023 Feels Unsafe at Home or Work/School no 09/25/2023 Physical Signs of Abuse Present no 09/25/2023 Sex and Gender Information Value Date Recorded Sex Assigned at Not on file Gender Identity Not on file Sexual Orientation Not on file documented as of this encounter Last Filed Vital Signs Vital Sign Reading Time Taken Comments Blood Pressure 124/86 09/25/2023 3:45 PM EDT Pulse 74 09/25/2023 1:14 PM EDT Temperature 36.7 ??C (98.1 ??F) 09/25/2023 3:45 PM ED T Respiratory Rate 16 09/25/2023 3:45 PM EDT Oxygen Saturation 96% 09/25/2023 3:45 PM EDT Inhaled Oxygen Concentration - - Weight 92.5 kg (203 lb 14.4 oz) 09/25/2023 1:14 PM EDT Height 162.6 cm (5' 4) 09/25/2023 1:14 PM EDT Body Mass Index 35 09/25/2023 1:14 PM EDT documented in this encounter Medications at Time of Discharge Medication Sig Dispensed Refills Start Date End Date predniSONE (Deltasone) 5 mg tablet Take 5 [...] 1:00 PM EDT Office Visit Hematology/Oncology at [address] [phone] Antolin Croft MD [facility] DR HEMATOLOGY AND ONCOLOGY [place], [place] [address] Candice Erickson APRN [address] [place] [address] DR HEMATOLOGY AND ONCOLOGY [place], [place] [address] Primary malignant neoplasm of right lower lobe of lung 01/08/2024 1:30 PM EDT Infusion Hematology Oncology at [address] [phone] 01/30/2024 9:[address] [place] [place] [phone] Soto Gilbert MD [facility] [place] [address] 01/30/2024 10:30 AM EST Appointment Nuclear Medicine at [place] [phone] Soto Gilbert MD [facility] [place] [address] 01/30/2024 11:00 AM EST Appointment [place] [phone] Soto Gilbert MD [facility] [place] [address] 01/30/2024 11:30 AM EST Appointment [place] [phone] Soto Gilbert MD [facility] [place] [address] 01/30/2024 12:00 PM EST Appointment [place] [phone] Soto Gilbert MD [facility] [place] [address] 01/30/2024 2:30 PM EST [place] [address] documented as of this encounter Procedures Procedure Name Priority Date/Time Associated Diagnosis Comments Unlisted Mri Procedure (93472) 09/25/2023 2:12 PM EDT Newly diagnosed advanced stage primary lung cancer documented in this encounter Visit Diagnoses Not on filedocumented in this encounter Administered Medications Inactive Administered Medications - up to 3 most recent administrations Medication Order MAR Action Action Date Dose Rate Site ipratropium-albuteroL (Duoneb) 0.5 mg-3 mg(2.5 mg base)/3 mL nebulizer solution 3 mL 3 mL, Nebulization, ONCE, 1 dose, On Mon09/25/23 at 1315, Routine Given 09/25/2023 12:59 PM EDT 3 mLs lactated ringers infusion 1,000 mL, at 100 mL/hr, Intravenous, CONTINUOUS, Starting on Mon09/25/23 at 1330, Until Mon09/25/23 at 1554, Day of Surgery (Day of Procedure) Restarted 09/25/2023 2:12 PM EDT New Bag 09/25/2023 1:25 PM EDT 1,000 mLs 100 mL/hr documented in this encounter Active and Recently Administered Medications Times are shown in EDT. Scheduled Medication Order 09/23/2023 09/24/2023 09/25/2023 ipratropium-albuteroL (Duoneb) 0.5 mg-3 mg(2.5 mg base)/3 mL nebulizer solution 3 mL (COMPLETED) 3 mL, Nebulization, ONCE, 1 dose, On Mon09/25/23 at 1315, Routine 1259 (Given - Provid er: Benitez Mansfield RN) Continuous Medication Order 09/23/2023 09/24/2023 09/25/2023 lactated ringers infusion (CANCELED) 1,000 mL, at 100 mL/hr, Intravenous, CONTINUOUS, Starting on Mon09/25/23 at 1330, Until Mon09/25/23 at 1554, Day of Surgery (Day of Procedure) 1325 (New Bag - Prov ider: Benitez Mansfield RN)1411 (Paused - Provider: Lenka Engle CRNA - Comment: Switch to gravity)1412 (Restarted - Provider: Lenka Engle CRNA) documented in this encounter Care Teams Beekeeper Relationship Specialty Start Date End Date Avery Castro DO [address] [place] [phone] PCP - General Family Medicine 07/28/23 09/25/23 documented as of this encounter
--- OUTSIDE RECORDS SUMMARY | 2024-01-08 11:27 | XMS_ITS | Encounter Summary ---
Author Organization [facility] [place] [address] Care Team Providers Care Rd Manager Name Role Phone Bunny, Ariella Rodriguez APRN Primary Care Provide r Encounter Details Date Type Department Care Team (Late st Contact Info) Description 10/03/2023 Patient Outreach [place] [address] Mary Kay Palomino Social History Tobacco Use Types Packs/Day Years Used Date Smoking Tobacco: Former Cigarettes Smokeless Tobacco: Never Alcohol Use Standard Drinks/Week Comments Not Currently 0 (1 standard drink = 0.6 oz pur e alcohol) [facility] Inpatient Questions Answer Date Recorded Does Anyone [...] Telephone Encounter - Mary Kay Palomino - 10/03/2023 9:10 AM EDT [facility] Hoist Operator received referral from Lorena Elaine. Requesting I send Medicaid Transportation Reimbursement forms to patient. I have semi populated the forms x5 and mailed the patient instructions and reimbursement forms. Mary Kay Palomino documented in this encounter Plan of Treatment Upcoming Encounters Date Type Department Care Team (Late st Contact Info) Description 01/08/2024 1:00 PM EDT Office Visit Hematology/Oncology at [address] [phone] Antolin Croft MD [facility] DR [place] [address] Candice Erickson APRN [address] [place] [address] DR HEMATOLOGY AND ONCOLOGY [place], [place] [address] Primary malignant neoplasm of right lower lobe of lung 01/08/2024 1:30 PM EDT Infusion Hematology Oncology at [address] [phone] 01/30/2024 9:[address] [place] [place] [phone] Soto Gilbert MD [facility] [place] [address] 01/30/2024 10:30 AM EST Appointment [place] [phone] Soto Gilbert MD [facility] [place] [address] 01/30/2024 11:00 AM EST Appointment [place] [phone] Soto Gilbert MD [facility] [place] [address] 01/30/2024 11:30 AM EST Appointment [place] [phone] Soto Gilbert MD [facility] [place] [address] 01/30/2024 12:00 PM EST Appointment [place] [phone] Soto Gilbert MD [facility] [place] [address] 01/30/2024 2:30 PM EST [place] [phone] documented as of this encounter Visit Diagnoses Not on filedocumented in this encounter Care Teams Rd Manager Relationship Specialty Start Date End Date Ariella Hollis APRN [address] [place] [address] PCP - General Family Medicine 09/26/23 documented as of this encounter
--- OUTSIDE RECORDS SUMMARY | 2024-01-08 11:27 | XMS_ITS | Encounter Summary ---
Author Organization [facility] [place] [place] [address] Care Team Providers Care Patient Monitor Name Role Phone Ariella Hollis CAROLEE Primary Care Provide r Encounter Details Date Type Department Care Team (Late Contact Info) Description 09/26/2023 Orders [place] [address] Lenard Ramon MD [facility] [place] [address] NSCLC of right lung Social History Tobacco Use Types Packs/Day [...] no 09/25/2023 Feels Threatened by Someone no 0710/2023 Feels Unsafe at Home or Work/School no [...] PM EDT Office Visit Hematology/Oncology at [address] [phone] Antolin Croft MD [facility] DR HEMATOLOGY [place] [address] Candice Erickson APRN [address] [place] [address] DR [place]Y [place] [address] Primary malignant neoplasm of right lower lobe of lung 01/08/2024 1:30 PM EDT Infusion Hematology Oncology at [address] [phone] 01/30/2024 9:[address] [place] [phone] Soto Gilbert MD [facility] [place] [address] 01/30/2024 10:30 AM EST Appointment Nuclear Medicine at [place] [phone] Soto Gilbert MD [facility] [place] [address] 01/30/2024 11:00 AM EST Appointment Nuclear Medicine at [place] [phone] Soto Gilbert MD [facility] [place] [address] 01/30/2024 11:30 AM EST Appointment [place] [phone] Soto Gilbert MD [facility] [place] [address] 01/30/2024 12:00 PM EST Appointment [place] [phone] Soto Gilbert MD [facility] [place] [address] 01/30/2024 2:30 PM EST Appointment [place] [address] Scheduled Orders Name Type Priority Associated Diagnoses Orde r Schedule Common Pulmonary Function Test PFT Routine NSCLC of right lung Expected: 09/26/2023 (Approximate), Expires: 09/25/2024 documented as of this encounter Visit Diagnoses Diagnosis NSCLC of right lung Primary malignant neoplasm of right lower lobe of lung Malignant neoplasm of lower lobe, bronchus, or lung documented in this encounter Care Teams Patient Monitor Relationship Specialty Start Date End Date Ariella Hollis APRN [address] [place] [address] PCP - General Family Medicine 09/26/23 documented as of this encounter
--- OUTSIDE RECORDS SUMMARY | 2024-01-08 11:27 | XMS_ITS | Encounter Summary ---
Author Organization [facility] [place] [address] Care Team Providers Care Retaining Room Cutter Name Role Phone BunnyAriella APRN Primary Care Provide r Encounter Details Date Type Department Care Team (Late st Contact Info) Description 10/16/2023 Telephone Pulmonology at [facility] [place] [phone] Reema Byers Social History Tobacco Use Types Packs/Day Years Used Date Smoking Tobacco: Former Cigarettes Smokeless Tobacco: Never Alcohol Use Standard Drinks/Week Comments Not Currently 0 (1 standard drink = 0.6 oz pur e alcohol) [facility] Inpatient Questions Answer Date Recorded Does Anyone [...] Telephone Encounter - Gay Wong RN - 10/17/2023 4:06 PM EDT Called pt's pharmacy to inquire on the insurance coverage for pt's Stiolto. I spoke with the pharmacist who informs me that pt picked up her Stiolto on 09/28/2023, insurance covered it, and pt paid only a copay of $4.60. Will reach out to pt to confirm that she picked this up and see what the issue was. MARK Choudhury, RN Pulmonary [facility] Pager: [phone] * Telephone Encounter - Zeeshan Reema Tyree - 10/16/2023 11:37 AM EDT Pt LM stating her insurance is refusing to fill an RX & would like to discuss options, please call [phone] documented in this encounter Plan of Treatment Upcoming Encounters Date Type Department Care Team (Late st Contact Info) Description 01/08/2024 1:00 PM EDT Office Visit Hematology/Oncology at [address] [phone] Antolin Croft MD [facility] [place] [address] Candice Erickson APRN [address] [place] [address] DR HEMATOLOGY AND ONCOLOGY [place], [place] [address] Primary malignant neoplasm of right lower lobe of lung 01/08/2024 1:30 PM EDT Infusion Hematology Oncology at [address] [phone] 01/30/2024 9:[address] [place] [phone] Soto Gilbert MD [facility] [place] [address] 01/30/2024 10:30 AM EST Appointment [place] [phone] Soto Gilbert MD [facility] [place] [address] 01/30/2024 11:00 AM EST Appointment [place] [phone] Soto Gilbert MD [facility] [place] [address] 01/30/2024 11:30 AM EST Appointment [place] [phone] Soto Gilbert MD [facility] [place] [address] 01/30/2024 12:00 PM EST Appointment [place] [phone] Soto Gilbert MD [facility] [place] [address] 01/30/2024 2:30 PM EST Appointment [place] [phone] documented as of this encounter Visit Diagnoses Not on filedocumented in this encounter Care Teams Retaining Room Cutter Relationship Specialty Start Date End Date Ariella Hollis APRN [address] [place] [address] PCP - General Family Medicine 09/26/23 documented as of this encounter
--- OUTSIDE RECORDS SUMMARY | 2024-01-08 11:27 | XMS_ITS | Encounter Summary ---
Author Organization [facility]ly [facility] [place] [address] Care Team Providers Care Record Tabulating Clerk Name Role Phone Ariella Hollis Michael ZARCO Primary Care Provide r Encounter Details Date Type Department Care Team (Late st Contact Info) Description 09/26/2023 Telephone [place] [address] Lenard Ramon MD [facility] [place] [address] Social History Tobacco Use Types Packs/Day Years Used Date Smoking Tobacco: Former Cigarettes Smokeless Tobacco: Never Alcohol Use Standard Drinks/Week Comments Not Currently 0 (1 standard drink = 0.6 oz pur e alcohol) [facility] Inpatient Questions Answer Date Recorded [...] encounter Miscellaneous Notes * Telephone Encounter - Lenard Ramon MD - 09/26/2023 9:44 AM EDT Interventional Pulmonology Telephone Encounter: I called Ms. Althea Salmon on 09/26/2023 at 9:44 AM. 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 We discussed how her repeat EBUS- TBNA was alsoN0. Her case was discussed at CTOP with plan for referral to thoracic surgery to begin. We ordered PFT's for her many weeks ago which are still not scheduled at [place] and we will have theseexpedited. She was provided ample time to ask questions which were answered to her liking. She tells me she has been using Prednisone 1 tablet every 3-4 days (not prescribed through this office) and only has Albuterol Rx'd to her. I recommended she stop this strategy and I have prescribed her Stiolto respimat to use daily and to use her Albuterol on a PRN fashion with prednisone reservedfor bursts during exacerbations if prescribed by a provider. Lenard Ramon MD, 09/26/2023, 9:44 AM Interventional Pulmonology Section of Pulmonary & Critical Care Pager: [phone] documented in this encounter Plan of Treatment Upcoming Encounters Date Type Department Care Team (Late st Contact Info) Description 01/08/2024 1:00 PM EDT Office Visit Hematology/Oncology at [address] [phone] Antolin Croft MD [facility] [place] [address] Candice Erickson, CAROLEE [address] [place] [address] DR [place] [address] Primary malignant neoplasm of right lower lobe of lung 01/08/2024 1:30 PM EDT Infusion Hematology Oncology at [address] [phone] 01/30/2024 9:[address] Scan at [place] [phone] Soto Gilbert MD [facility] [place] [address] 01/30/2024 10:30 AM EST Appointment Nuclear Medicine at [address] Soto Gilbert MD [facility] [place] [address] 01/30/2024 11:00 AM EST Appointment Nuclear Medicine at [place] [address] Soto Gilbert MD [facility] [place] [address] 01/30/2024 11:30 AM EST Appointment Nuclear Medicine at [place] [phone] Soto Gilbert MD [facility] [place] [address] 01/30/2024 12:00 PM EST Appointment Nuclear Medicine at [place] [phone] Soto Gilbert MD [facility] [place] [address] 01/30/2024 2:30 PM EST Appointment Pulmonology at [place] [address] documented as of this encounter Visit Diagnoses Not on filedocumented in this encounter Care Teams Record Tabulating Clerk Relationship Specialty Start Date End Date Ariella Hollis APRN [address] [place] [address] PCP - General Family Medicine 09/26/23 documented as of this encounter
--- OUTSIDE RECORDS SUMMARY | 2024-01-08 11:27 | XMS_ITS | Encounter Summary ---
Author Organization [facility] [place] [address] Care Team Providers Care Tailor Fitter Name Role Phone BunnyAriella APRN Primary Care Provide r Reason for Referral * Consultation (Routine) - Closed Specialty Diagnoses / Procedures Referred By Jimbo t Referred To Contact Thoracic Surgery Diagnoses NSCLC of right lung Lung cancer right BackLenard delacruz MD [facility] [place] [address] [facility] Thoracic Surg [address] [place] [address] Referral ID Status Reason Start Date Expiration Date V isits Requested Visits Authorized [id number] Closed Consult, Test & Treat 09/26/2023 09/25/2024 1 1 Encounter Details Date Type Department Care Team (Late st Contact Info) Description 09/26/2023 Orders [place] [phone] Lenard Ramon MD [facility] [place] [address] NSCLC of right lung Social History Tobacco Use Types Packs/Day Years Used Date Smoking Tobacco: Former Cigarettes Smokeless Tobacco: Never Alcohol Use Standard Drinks/Week Comments Not Currently 0 (1 standard drink = 0.6 oz pur e alcohol) [facility] Inpatient Questions Answer Date Recorded [...] 1:00 PM EDT Office Visit Hematology/Oncology at [address] [phone] Antolin Croft MD [facility] DR HEMATOLOGY [place] [address] Candice Erickson APRN [address] [place] [address] DR HEMATOLOGY AND ONCOLOGY [place], [place] [phone] Primary malignant neoplasm of right lower lobe of lung 01/08/2024 1:30 PM EDT Infusion Hematology Oncology at [address] [phone] 01/30/2024 9:[address] [place] [place] [phone] Soto Gilbert MD [facility] [place] [address] 01/30/2024 10:30 AM EST Appointment [place] [phone] Soto Gilbert MD [facility] [place] [address] 01/30/2024 11:00 AM EST Appointment [place] [phone] Soto Gilbert MD [facility] [place] [address] 01/30/2024 11:30 AM EST Appointment [place] [phone] Soto Gilbert MD [facility] [place] [address] 01/30/2024 12:00 PM EST Appointment [place] [phone] Soto Gilbert MD [facility] [place] [address] 01/30/2024 2:30 PM EST Appointment [place] [phone] Scheduled Referrals Name Type Priority Associated Diagnoses Orde r Schedule Amb Ref To Thoracic Surgery Outpatient Referral Routine NSCLC of right lung Ordered: 09/26/2023 documented as of this encounter Visit Diagnoses Diagnosis NSCLC of right lung Primary malignant neoplasm of right lower lobe of lung Malignant neoplasm of lower lobe, bronchus, or lung documented in this encounter Care Teams Tailor Fitter Relationship Specialty Start Date End Date Ariella Hollis APRN [address] [place] [address] PCP - General Family Medicine 09/26/23 documented as of this encounter
--- OUTSIDE RECORDS SUMMARY | 2024-01-08 11:27 | XMS_ITS | Encounter Summary ---
[facility] [address] Care Team Providers Care Computerized Mill Mill Recorder Name Role Phone BunnyAriella mccarthy Michael ZARCO Primary Care Provide r Encounter Details Date Type Department Care Team (Late st Contact Info) Description 10/02/2023 [place] [address] Lorena Tai Social History Tobacco Use Types Packs/Day Years [...] as of this encounter Progress Notes * Lorena Tai - 10/02/2023 11:18 AM [place]: Financial Counselor I called the patient today to check on her. The patient stated that she is doing fine and he declined financial assistance. She did inform me that her family was helping with gas. I informed her thatI will have one of my co-workers send her a [place] Medicaid Milage reimbursement form she can apply andsee if she can get help with that. The patient was informed that if she has any questions, concerns, or needs financial assistance, she should contact me. No further action is required. documented in this encounter Plan of Treatment Upcoming Encounters Date Type Department Care Team (Late st Contact Info) Description 01/08/2024 1:00 PM EDT Office Visit Hematology/Oncology at [address] [phone] Antolin Croft MD [facility] DR HEMATOLOGY [place] [address] Candice Erickson APRN [address] [place] [address] DR HEMATOLOGY AND ONCOLOGY [place], [place] [id number] Primary malignant neoplasm of right lower lobe of lung 01/08/2024 1:30 PM EDT Infusion Hematology Oncology at [address] [phone] 01/30/2024 9:[address] [place] [phone] Soto Gilbert MD [facility] [place] [address] 01/30/2024 10:30 AM EST Appointment [place] [phone] Soto Gilbert MD [facility] [place] [address] 01/30/2024 11:00 AM EST Appointment [place] [phone] Soto Gilbert MD [facility] [place] [address] 01/30/2024 11:30 AM EST Appointment [place] [phone] Soto Gilbert MD [facility] DR THORACIC SURGERY [place], [place] [phone] 01/30/2024 12:00 PM EST Appointment [place] [phone] Soto Gilbert MD [facility] [place] [address] 01/30/2024 2:30 PM EST Appointment [place] [phone] documented as of this encounter Visit Diagnoses Not on filedocumented in this encounter Care Teams Computerized Mill Mill Recorder Relationship Specialty Start Date End Date Ariella Hollis APRN [address] [place] [id number] PCP - General Family Medicine 09/26/23 documented as of this encounter
--- OUTSIDE RECORDS SUMMARY | 2024-01-08 11:27 | XMS_ITS | Encounter Summary ---
Author Organization 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 Antolin Croft MD [facility] [address] [place] [address] [facility] Rad Onc Treatment [address] [place] [phone] Referral ID Status Reason Start Date Expiration Date V isits Requested Visits Authorized [id number] Closed Consult, Test & Treat 10/05/2023 10/04/2024 1 1 Encounter Details Date Type Department Care Team (Late st Contact Info) Description 10/03/2023 1:00 PM EDT TH Visit (TeleHealth) Hematology [place] [address] Antolin Croft MD [facility] DR [place] [address] Primary malignant neoplasm of right lower lobe [...] as of this encounter Progress Notes * Antolin Croft MD - 10/03/2023 1:00 PM EDT Images from the original note were not included. Thoracic Oncology [facility] [place] [address] [phone] Althea Salmon is being seen for the evaluation of lung cancer. Assessment & Plan: Althea Salmon is a 67 y.o. female patient with a past medical history significant for 85-tmpi-ycunltunade history having quit in 2020, and no [...] then on 09.19.23 an EBUS which identified a an adenocarcinoma(TPS PD-L1 <1%; NGS pending) in the MARISSA lesion with 11L, 4L and 7 sampled and negative for malignancy. Her case has been discussed at multidisciplinary tumor board and the impression is that these likely represent synchronous primaries given the lack of mediastinal anand involvement. The recommendation was to consider induction therapy with chemoimmunotherapy to address the right sided tumor and then consider SBRT to the MARISSA lesion. Alternatively if not felt to be resectable or medically operable could consider definitive chemotherapy/RT to the right and use SBRT to the MARISSA. I counseled the patient and her family about the diagnosis, pathology results, imaging findings, tumor staging and the implications of this information on the prognosis and the available treatment options. Plan: - Radiation oncology consultation at [facility] - Thoracic surgery referral at [facility] - Followup in [facility] once local therapy plan is in place (surgery vs radiation) Antolin Croft MD, MS 09/30/2023 Thoracic Oncology [facility] Cancer [facility] CC: HPI/Interval History/Subjective: 09.26.23 CTOP discussion Pathology review cannot confirm if the RLL and MARISSA lesions are synchronous primaries versus metastatic disease, moleculars are pending. They appear to by synchronous primaries on imaging. If they aresynchronous primaries then recommendation for a right lower lobe lobectomy (as long as PFTs do not prohibit surgery) and radiation therapy (SBRT) to the MARISSA lesion. Recommendations: Referral to thoracic surgery with PFTs prior, follow up medical oncology as already arranged Accompanied by her daughter Isabelle Has some dyspnea and cough and feels like this may be gradually worsening. Inhaler recently prescribed and they do help. Steroids also helped a lot when she was given a brief course Breathing better Waling on the treadmill'' Did not get COVID vaccine Has had mammograms in the past. Never had colonoscopy. Social History/Support Network: Home situation: . Lives in mobile home. Roommate. 3 daughters. 8 grandchidlren. Drives. Lives in [place]. Closer to [place] or [facility]. 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 Tobacco use:Quit 2020. 45 pk year Alcohol use: None Drug use: None Financial Distress: Social Determinants of Health Financial Resource Strain: Not on file Food Insecurity: Not on file Transportation Needs: Not on file Physical Activity: Not on file Housing Stability: Not on file Intimate Partner Violence: Not At Risk (09/25/2023) DH IPV Inpatient Questions Prevent Contact with Others: no Feels Threatened by Someone: no Feels Unsafe at Home: no Physical Signs of Abuse Present: no Utilities: Not on file Health Literacy: Not on file Likes coin collecting. Likes Fishing. Artwork. service: N/A Family History: Mother- Alive. 89 Father- Dscd. Heart attack. No history of lung cancer Brother of stomach cancer at age 65. No known history of lung cancer Oncology Overview: Staging in progress Presentation: Althea Salmon is a 67 y.o. female patient with a past medical history significant for 99-bfsm-iqln smoking history having quit in 2020, and [...] normal in appearance. EBUS-TBNA (4 sites): The Broadband Voice EBUS (EB-530US) scope was inserted, lymph node inspection undertaken and transbronchial needle aspiration obtained from the following sites using the Olympus ViziShot-1 22 gauge TBNA needle: 1) Station 11L (5-10 mm) with 3 passes obtained with KEVIN absent. 2) Station 4R (5 mm and poorly visualized) with 3 passes obtained with KEVNI absent. 3) Station 7 (5 mm) with [...] contiguous withthe right lung mass. Tumor/Tissue Debulking (71430): The superior segment of the right lower [...] adenocarcinoma. See also the concurrent surgical specimen, [id number]. Molecular testing and PD-L1 immunohistochemistry have been ordered on [id number]. 11L negative for malignancy, lymphocytes identified 4L negative for malignancy, lymphocytes identified 7 negative for malignancy, lymphocytes identified 6 Molecular Data: 08.10.23 RLL specimen Treatment Course: No data to display There are no problems to display for this patient. I reviewed the problem list, allergies, medications, past medical history, social history and family history within the EPIC encounter. Pertinent details are noted above. Pertinent positives and negative from the Review of Systems are as summarized above in the HPI. Physical Exam: Wt Readings from Last 3 Encounters: 09/25/23 92.5 kg (203 lb 14.4 oz) 09/19/23 92.7 kg (204 lb 6.4 oz) 09/07/23 90.7 kg (200 lb) Temp Readings from Last 3 Encounters: 09/25/23 36.7 ??C (98.1 ??F) (Temporal) 09/19/23 36 ??C (96.8 ??F) (Temporal) 08/29/23 36.2 ??C (97.2 ??F) (Temporal) BP Readings from Last 3 Encounters: 09/25/23 124/86 09/19/23 123/55 09/07/23 168/84 Pulse Readings from Last 3 Encounters: 09/25/23 74 09/19/23 83 09/07/23 80 There is no height or weight on file to calculate BSA. Wt Readings from Last 3 Encounters: 09/25/23 92.5 kg (203 lb 14.4 oz) 09/19/23 92.7 kg (204 lb 6.4 oz) 09/07/23 90.7 kg (200 lb) KPS Score ECOG Grade Definition 90-100 [...] Judgment: Judgment normal. Review of Laboratory Data: Last 5 CBC Recent Labs 08/29/23 1111 WBC 7.2 HGB 13.8 MCV 85.2 PLATELET 276 NEUTROABS 3.89 Last 5 Lytes Recent Labs 08/29/23 1111 NA 139 K 4.2 CL 103 CO2 25 BUN 14 CREATININE 1.02 Last 5 LFTs Recent Labs 08/29/23 1111 AST 17 ALT 16 ALKPHOS 99 BILITOT 0.3 Last 5 Ca, Mg, Phos Recent Labs 08/29/23 1111 CALCIUM 9.2 Last 3 Coags No results for input(s): PT, INR, PTT in the last 7068 hours. Last 3 TFT No results for input(s): TSH in the last 7068 hours. Invalid input(s): T4, FT4 No results found for this or any previous visit (from the past 72 hour(s)). Review of Imaging Data: I personally reviewed the reports and images in the studies as detailed in the oncology overview above. Review of Pathology Data: I personally reviewed the reports of the pathology as detailed in the oncology overview above. documented in this encounter Plan of Treatment Upcoming Encounters Date Type Department Care Team (Late st Contact Info) Description 01/08/2024 1:00 PM EDT Office Visit Hematology/Oncology at [address] [phone] Antolin Croft MD [facility] DR HEMATOLOGY [place] [address] Candice Erickson APRN [address] [place] [address] DR [place] [address] Primary malignant neoplasm of right lower lobe of lung 01/08/2024 1:30 PM EDT Infusion Hematology Oncology at [address] [phone] 01/30/2024 9:[address] [place] [phone] Soto Gilbert MD [facility] [place] [address] 01/30/2024 10:30 AM EST Appointment [place] [phone] Soto Gilbert MD [facility] [place] [address] 01/30/2024 11:00 AM EST Appointment [place] [phone] Soto Gilbert MD [facility] [place] [address] 01/30/2024 11:30 AM EST Appointment [place] [phone] Soto Gilbert MD [facility] [place] [address] 01/30/2024 12:00 PM EST Appointment [place] [phone] Soto Gilbert MD [facility] [place] [address] 01/30/2024 2:30 PM EST Appointment [place] [phone] Scheduled Referrals Name Type Priority Associated Diagnoses Orde r Schedule Referral to Radiation Oncology Outpatient Referral Routine 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
--- OUTSIDE RECORDS SUMMARY | 2024-01-08 11:27 | XMS_ITS | Encounter Summary ---
Author Organization [facility] Address [facility] [place] [address] Care Team Providers Care Surgical Instrument Repair Specialist Name Role Phone Bunny, Ariellamonie Rodriguez APRN Primary Care Provide r Encounter Details Date Type Department Care Team (Latest Contact Info) Description 10/17/2023 Travel Social History Tobacco Use Types Packs/Day [...] 1:00 PM EDT Office Visit Hematology/Oncology at [address] [phone] Antolin Croft MD [facility] DR [place] [address] Candice Erickson APRN [address] [place] [address] DR HEMATOLOGY AND ONCOLOGY [place], [place] [id number] Primary malignant neoplasm of right lower lobe of lung 01/08/2024 1:30 PM EDT Infusion Hematology Oncology at [address] [phone] 01/30/2024 9:[address] [place] [phone] Soto Gilbert MD [facility] [place] [address] 01/30/2024 10:30 AM EST Appointment Nuclear Medicine at [place] [phone] Soto Gilbert MD [facility] [place] [address] 01/30/2024 11:00 AM EST Appointment [place] [phone] Soto Gilbert MD [facility] [place] [address] 01/30/2024 11:30 AM EST Appointment [place] [phone] Soto Gilbert MD [facility] [place] [address] 01/30/2024 12:00 PM EST Appointment [place] [phone] Soto Gilbert MD [facility] [place] [address] 01/30/2024 2:30 PM EST Appointment [place] [phone] documented as of this encounter Visit Diagnoses Not on filedocumented in this encounter Care Teams Surgical Instrument Repair Specialist Relationship Specialty Start Date End Date Ariella Hollis APRN [address] [place] [address] PCP - General Family Medicine 09/26/23 documented as of this encounter
--- OUTSIDE RECORDS SUMMARY | 2024-01-08 11:27 | XMS_ITS | Encounter Summary ---
Author Organization [facility] [place] [address] Care Team Providers Care Agronomy Teacher Name Role Phone Bunny, Ariella Rodriguez APRN Primary Care Provide r Encounter Details Date Type Department Care Team (Latest Contact Info) Description 09/26/2023 Multidisciplinary Ca re [place] [address] Elsa Lopez APRN [facility] [place] [address] Social History Tobacco Use Types Packs/Day Years Used Date Smoking Tobacco: Former Cigarettes Smokeless Tobacco: Never Alcohol Use Standard Drinks/Week Comments Not Currently 0 (1 standard drink = 0.6 oz pur e alcohol) [facility] Inpatient Questions Answer Date Recorded Does Anyone [...] as of this encounter Progress Notes * Elsa Lopez APRN - 09/26/2023 9:09 AM EDT Thoracic - Tumor Board Note Date Presented: 09/26/2023 Presenting Physician: Elsa Lopez APRN Diagnosis/Tumor Site: Right lower lobe lung mass, left upper lobe lung nodule, adrenal nodule Is this Metastatic Disease: Yes Synopsis of History/HPI: Ms. Salmon is a 67 yr old female former smoker. She presented with a RLLmass extending up to the R hilum, adrenal nodule and MARISSA nodule. S/p 08/10/23 bronch of RLL mass with adenocarcinoma and lymphocytes from all sampled stations (4R was non-diagnostic but was <5 mm).She is also s/p EUS left adrenal biopsy 09/07/2023, which was negative for carcinoma. She then underw ent a robotic bronchoscopy 09/19/2023 of MARISSA nodule with repeat EBUS with lymphocytes from 7, 4L, and11L. 4R was <5 mm and did not require any biopsy. The RLL mass is contiguous with 11R. Imaging: CT chest, PET CT scan 08/24/23, Brain MRI 09/25/23 Pathology/Histology: RLL lung mass: adenocarcinoma MARISSA lung nodule: adenocarcinoma Adrenal nodule: adrenal cortical and medullary tissue present and metastatic carcinoma not seen Stage: RLL mass:[id number], MARISSA lung nodule [id number] Clinical Data (Exams, Labs, etc.): Former 45 pack year smoker (quit 3 years ago), PFTs pending Molecular Pathology Results: Pending Clinical Trial Availability: Not discussed Options Discussed: Pathology review cannot confirm if the RLL and MARISSA lesions are synchronous primaries versus metastatic disease, moleculars are pending. They appear to by synchronous primaries on imaging. If they are synchronous primaries then recommendation for a right lower lobe lobectomy (as long as PFTs do not prohibit surgery) and radiation therapy (SBRT) to the MARISSA lesion. Recommendations: Referral to thoracic surgery with PFTs prior, follow up medical oncology as already arranged DISCLAIMER: The patient was discussed and the tumor board made recommendations but it is ultimatelyup to the treatment provider(s) and the patient to determine the patient???s care. documented in this encounter Plan of Treatment Upcoming Encounters Date Type Department Care Team (Late st Contact Info) Description 01/08/2024 1:00 PM EDT Office Visit Hematology/Oncology at [address] [phone] Antolin Croft MD [facility] DR HEMATOLOGY [place] [address] Candice Erickson [address] [place] [address] Primary malignant neoplasm of right lower lobe of lung 01/08/2024 1:30 PM EDT Infusion Hematology Oncology at [address] [phone] 01/30/2024 9:[address] [place] [place] [phone] Soto Gilbert MD [facility] [place] [address] 01/30/2024 10:30 AM EST Appointment [place] [phone] Soto Gilbert MD [facility] [place] [address] 01/30/2024 11:00 AM EST Appointment [place] [phone] Soto Gilbert MD [facility] [place] [address] 01/30/2024 11:30 AM EST Appointment [place] [phone] Soto Gilbert MD [facility] [place] [address] 01/30/2024 12:00 PM EST Appointment [place] [phone] Soto Gilbert MD [facility] [place] [address] 01/30/2024 2:30 PM EST Appointment [place] [phone] documented as of this encounter Visit Diagnoses Not on filedocumented in this encounter Care Teams Agronomy Teacher Relationship Specialty Start Date End Date Ariella Hollis APRN [address] [place] [address] PCP - General Family Medicine 09/26/23 documented as of this encounter
--- OUTSIDE RECORDS SUMMARY | 2024-01-08 11:27 | XMS_ITS | Encounter Summary ---
[place] [address] Care Team Providers Care Dock Loader Name Role Phone Avery Castro Primary Care Provider [phone] Reason for Visit * Auth/Cert (Routine) Specialty Diagnoses / Procedures Referred By Jimbo t Referred To Contact Diagnoses Lung cancer Newly diagnosed advanced stage primary lung cancer Procedures PRG UNLISTED MRI PROCEDURE PRO ANES, CAT/MRI SCAN, RADIATN THERAPY MRI WITH ANESTHESIA (WRVU *) Marva Burch MD [facility] [place] [address] [facility] Referral ID Status Reason Start Date Expiration Date Visits Re quested Visits Authorized [id number] 1 1 Encounter Details Date Type Department Care Team (Late st Contact Info) Description 09/25/2023 1:30 PM EDT - 09/25/2023 2:50 [place] [address] RESOURCE, ANESTHESIA-LUIGI None MRI WITH ANESTHESIA (WRVU *) Social History Tobacco Use Types Packs/Day Years [...] Sign Reading Time Taken Comments Blood Pressure 112/86 09/25/2023 1:14 PM EDT Pulse 74 09/25/2023 1:14 PM EDT Temperature 36.9 ??C (98.4 ??F) 09/25/2023 1:14 PM ED T Respiratory Rate 16 09/25/2023 1:14 PM EDT Oxygen Saturation 93% 09/25/2023 1:14 PM EDT Inhaled Oxygen Concentration - - [...] 1:00 PM EDT Office Visit Hematology/Oncology at [address] [phone] Antolin Croft MD [facility] [place] [address] Candice Erickson APRN [address] [place] [address] DR HEMATOLOGY AND ONCOLOGY [place], [place] [phone] Primary malignant neoplasm of right lower lobe of lung 01/08/2024 1:30 PM EDT Infusion Hematology Oncology at [address] [phone] 01/30/2024 9:[address] [place] [phone] Soto Gilbert MD [facility] [place] [address] 01/30/2024 10:30 AM EST Appointment [place] [phone] Soto Gilbert MD [facility] [place] [address] 01/30/2024 11:00 AM EST Appointment [place] [phone] Soto Gilbert MD [facility] [place] [address] 01/30/2024 11:30 AM EST Appointment [place] [phone] Soto Gilbert MD [facility] [place] [address] 01/30/2024 12:00 PM EST Appointment [place] [phone] Soto Gilbert MD [facility] [place] [address] 01/30/2024 2:30 PM EST Appointment [place] [phone] documented as of this encounter Procedures Procedure Name Priority Date/Time Associated Diagnosis Comments Unlisted Mri Procedure (26551) 09/25/2023 2:12 PM EDT Newly diagnosed advanced [...] CRNA) documented in this encounter Care Teams Dock Loader Relationship Specialty Start Date End Date Avery Castro DO [address] [place] [address] PCP - General Family Medicine 07/28/23 09/25/23 documented as of this encounter
--- OUTSIDE RECORDS SUMMARY | 2024-01-08 11:27 | XMS_ITS | Encounter Summary ---
[facility] [address] Care Team Providers Care Python Java Developer Name Role Phone Avery Castro Primary Care Provider [phone] Reason for Referral * Diagnostic Test (STAT) - Closed Specialty Diagnoses / Procedures Referred By Jimbo moffett Referred To Contact Radiology Diagnoses NSCLC of right lung Pulmonary nodule, left Procedures MRI Brain wwo Contrast (Generic) Lenard Ramon MD [facility] [place] [address] [place] [address] Referral ID Status Reason Start Date Expiration Date V isits Requested Visits Authorized [id number] Closed Specialty Service Requested 08/25/2023 02/23/2025 1 1 Reason for Visit * Auth/Cert (Routine) Specialty Diagnoses / Procedures Referred By Jimbo moffett Referred To Contact Diagnoses Lung cancer Newly diagnosed advanced stage primary lung cancer Procedures PRG UNLISTED MRI PROCEDURE PRO ANES, CAT/MRI SCAN, RADIATN THERAPY MRI WITH ANESTHESIA (WRVU *) Marva Burch MD [facility] [place] [address] [facility] Referral ID Status Reason Start Date Expiration Date Visits Re quested Visits Authorized [id number] 1 1 Encounter Details Date Type Department Care Team (Latest Contact Info) Description 09/25/2023 1:30 PM EDT - 09/25/2023 11:59 PM EDT Hospital [place] [address] [facility] [place] [address] NSCLC of right lung; Pulmonary nodule, left Discharge Disposition: Home Social History Tobacco Use Types Packs/Day Years Used Date Smoking Tobacco: Former Cigarettes Smokeless Tobacco: Never Alcohol Use Standard Drinks/Week Comments Not Currently 0 (1 standard drink = 0.6 oz pur e alcohol) [facility] Inpatient Questions Answer Date Recorded Does Anyone [...] PM EDT Office Visit Hematology/Oncology at [address] [phone] [facility] DR HEMATOLOGY [place] [address] Candice Ericksno APRN [address] [place] [address] DR HEMATOLOGY [place] [address] Primary malignant neoplasm of right lower lobe of lung 01/08/2024 1:30 PM EDT Infusion Hematology Oncology at [address] [phone] 01/30/2024 9:[address] [place] [phone] [facility] [place] [address] 01/30/2024 10:30 AM EST Appointment [place] [phone] [facility] [place] [address] 01/30/2024 11:00 AM EST Appointment [place] [phone] [facility] [place] [address] 01/30/2024 11:30 AM EST Appointment [place] [phone] [facility] [place] [address] 01/30/2024 12:00 PM EST Appointment [place] [phone] [facility] [place] [address] 01/30/2024 2:30 PM EST Appointment [place] [address] documented as of this encounter Procedures Procedure Name Priority Date/Time Associated Diagnosis Comments MRI BRAIN WWO CONTRAST (GENERIC) STAT 09/25/2023 3:17 PM EDT NSCLC of right lung Pulmonary nodule, left documented in this encounter Results * MRI Brain wwo Contrast (Generic) (09/25/2023 3:17 PM EDT) [employer] WORKSTATION ID [id number] RAD Anatomical Region Laterality Modality Head Magnetic Resonan ce Impressions 09/25/2023 3:32 PM EDT 1. ??No evidence of metastatic disease. 2. ??Small left temporal occipital developmental venous anomaly with a small cluster of chronic microbleeds which may reflect associated cavernous malformations with adjacent T2 bright signal which can also be seen in association with a developmental venous anomaly. Thank you for letting us participate in the care of this patient. ??If you are a health care provider and have any questions regarding this report, please contact the number below. ??For patients who have questions please contact the health adult care provider that requested your imaging first. ? Electronically signed by: Maureen Kincaid MD, [facility] ([phone]), at 09/25/2023 3:32 PM Narrative 09/25/2023 3:32 PM EDT EXAMINATION: MRI BRAIN WWO CONTRAST (GENERIC) CLINICAL HISTORY: Newly diagnosed advanced stage primary lung cancer C34.91, Malignant neoplasm of unspecified part of right bronchus or lung - R91.1, Solitary pulmonary nodule TECHNIQUE: MRI of the brain was performed before and after the intravenous administration of 20cc Dotarem. COMPARISON: None FINDINGS: No focal enhancing lesions to suggest metastases. No abnormal intracranial enhancement overall. No marrow signal abnormality. No mass, mass effect, hydrocephalus, midline shift, acute infarct, or acute intracranial hemorrhage. There is a small cluster of chronic microbleeds in the left temporal occipital region where there is a small developmental venous anomaly and mild focal abnormal T2 bright signal. Minimal number of punctate T2 bright white matter foci elsewhere which are nonspecific but are most consistent with age-appropriate minimal chronic small vessel disease. Procedure Note Maureen Kincaid MD - 09/25/2023 EXAMINATION: MRI BRAIN WWO CONTRAST (GENERIC) CLINICAL HISTORY: Newly diagnosed advanced stage primary lung cancer C34.91, Malignant neoplasm of unspecified part of right bronchus or lung- R91.1, Solitary pulmonary nodule TECHNIQUE: MRI of the brain was performed before and after the intravenousadministration of 20cc Dotarem. COMPARISON: None FINDINGS: No focal enhancing lesions to suggest metastases. No abnormalintracranial enhancement overall. No marrow signal abnormality. No mass, mass effect, hydrocephalus, midline shift, acute infarct, or acute intracranialhemorrhage. There is a small cluster of chronic microbleeds in the left temporaloccipital region where there is a small developmental venous anomaly and mildfocal abnormal T2 bright signal. Minimal number of punctate T2 bright whitematter foci elsewhere which are nonspecific but are most consistent with age-appropriate minimal chronic small vessel disease. IMPRESSION 1. No evidence of metastatic disease. 2. Small left temporal occipital developmental venous anomaly with asmall cluster of chronic microbleeds which may reflect associated cavernous malformations with adjacent T2 bright signal which can also be seen in association with a developmental venous anomaly. Thank you for letting us participate in the care of this patient. If youare a health care provider and have any questions regarding this report,please contact the number below. For patients who have questions please contactthe health adult care provider that requested your imaging first. Electronically signed by: Maureen Kincaid MD, [facility]([phone]), at 09/25/2023 3:32 PM Lenard Ramon MD [facility] [place] documented in this encounter Visit Diagnoses Diagnosis NSCLC of right lung Pulmonary nodule, left Solitary pulmonary nodule Primary malignant neoplasm of right lower lobe of lung Malignant neoplasm of lower lobe, bronchus, or lung documented in this encounter Administered Medications Inactive Administered Medications - up to 3 most recent administrations Medication Order MAR Action Action Date Dose Rate Site gadoterate meglumine (Dotarem) (0.5 mMol/mL) injection solution 0-100 mL 0-100 mL, Intravenous, ONCE PRN, 1 dose, Starting on Mon09/25/23 at 1445, Until Mon09/25/23 at 1445, Per Protocol, Radiology Contrast, Routine Given 09/25/2023 2:45 PM EDT 20 mLs documented in this encounter Care Teams Python Java Developer Relationship Specialty Start Date End Date Avery Castro DO [address] [place], [place] [phone] PCP - General Family Medicine 07/28/23 09/25/23 documented as of this encounter
--- OUTSIDE RECORDS SUMMARY | 2024-01-08 11:27 | XMS_ITS | Encounter Summary ---
Author Organization [facility] [place] [address] Care Team Providers Care Equipment Operation Instructor Name Role Phone BunnyAriella APRN Primary Care Provide r Encounter Details Date Type Department Care Team (Late st Contact Info) Description 10/10/2023 Telephone Radiation Oncology at [address] [phone] Ashley Kruger Social History Tobacco Use Types Packs/Day Years [...] encounter Miscellaneous Notes * Telephone Encounter - Ashley Kruger - 10/10/2023 3:21 PM EDT Radiation Oncology New Patient Scheduling Note I called Althea to inform her that Dr. Croft has referred her to see Dr. King (covering for NK) for a radiation new patient consultation. I have confirmed her appointments on 10/19/23 will include a 30 minute visit at 1:30p to see our clinic nurse, followed by a [address] Wilkinson. I have requested that she arrive 15 minutes early in order to complete paperwork. I confirmed our address and answered all of her questions, and our contact information should any further questions or concerns arise. documented in this encounter Plan of Treatment Upcoming Encounters Date Type Department Care Team (Late st Contact Info) Description 01/08/2024 1:00 PM EDT Office Visit Hematology/Oncology at [address] [phone] Antolin Croft MD [facility] DR HEMATOLOGY [place] [address] Candice Erickson APRN [address] [place] [address] DR HEMATOLOGY AND ONCOLOGY [place], [place] [phone] Primary malignant neoplasm of right lower lobe of lung 01/08/2024 1:30 PM EDT Infusion Hematology Oncology at [address] [phone] 01/30/2024 9:[address] [place] [place] [phone] Soto Gilbert MD [facility] [place] [address] 01/30/2024 10:30 AM EST Appointment [place] [phone] Soto Gilbert MD [facility] [place] [address] 01/30/2024 11:00 AM EST Appointment [place] [phone] Soto Gilbert MD [facility] [place] [address] 01/30/2024 11:30 AM EST Appointment [place] [phone] Soto Gilbert MD [facility] [place] [address] 01/30/2024 12:00 PM EST Appointment [place] [phone] Soto Gilbert MD [facility] DR [place] [address] 01/30/2024 2:30 PM EST App[place] [phone] documented as of this encounter Visit Diagnoses Not on filedocumented in this encounter Care Teams Equipment Operation Instructor Relationship Specialty Start Date End Date Ariella Hollis APRN [address] [place] [address] PCP - General Family Medicine 09/26/23 documented as of this encounter
--- OUTSIDE RECORDS SUMMARY | 2024-01-08 11:28 | XMS_ITS | Encounter Summary ---
Author Organization [facility] [place] [address] Care Team Providers Care Tractor Trailer Driver Name Role Phone Avery Castro Primary Care Provider [phone] Reason for Visit * Auth/Cert (Routine) Specialty Diagnoses / Procedures Referred By Jimbo moffett Referred To Contact Diagnoses Left adrenal mass EUS to FNA left adrenal mass Procedures PRO ENDOSCOPIC US EXAM, ESOPH PRO ANES, COMBINED UPPER OR LOWER ENDOSCOPY UPPER EUS- ENDOSCOPIC ULTRASOUND (WRVU 3.47) Ming Eldridge MD [facility] [place] [address] [facility] Referral ID Status Reason Start Date Expiration Date Visits Re quested Visits Authorized [id number] 1 1 Encounter Details Date Type Department Care Team (Late st Contact Info) Description 09/07/2023 4:16 PM EDT Anesthesia [place] [address] Jacqueline Huff MD [facility] DR ANESTHESIOLOGY [place] [address] Ana Henderson CRNA [facility] DR [place]ESTHESIOLOGY [place] [address] Anesthesia Record Procedure Summary Procedure Name Responsible Anesthesiologist Anesthesia Start Time Anesthesia Stop Time EGD, W US GUIDED FINE NEEDLE ASPIRATION/BIOPSY (WRVU 4.16) (Trunk) Jacqueline Huff MD 09/07/23 1616 09/07/23 1659 Events Date Time Event Comment 09/07/2023 1559 1616 AN Verify 1616 Start 1616 An Start Data 1618 An Induction 161 Anesthesia Ready 1653 an stop data 1658 Recovery or ICU Handoff Izzy ent care was transferred to the destination unit staff after review of the patient's medical history, current anesthetic/surgical status and plan, according to the Provider Handoff Checklist. 1659 Stop Meds Name Total propofoL 50 mg propofol INF 505.05 mg lactated ringers infusion 400 mL * Agents Name O2 Air N2O O2 Auxiliary Flowmeter 1 * Blood No blood administrations on file. Lines, Drains, and Airways Type Details Placement Removal PIV 08/24/23; 1330; 24 g auge; dorsal arch vein (top of hand), left; 09/07/23; 18108/24/23 1330 by Reese Lujan 09/07/23 1816 by Jhoana Mistry RN PIV 09/07/23; 1520; [id number] catheter system; 22 gauge; metacarpal vein (top of hand), right; davey mitchell; 09/07/23; 18109/07/23 1520 by Davey Og LPN 09/07/23 181 by Jhoana Mistry RN documented in this encounter Social History Tobacco Use Types Packs/Day Years Used Date Smoking Tobacco: Former Cigarettes Smokeless Tobacco: Never Alcohol Use Standard Drinks/Week Comments Not Currently 0 (1 standard drink = 0.6 oz pur e alcohol) Sex and Gender Information Value Date Recorded Sex Assigned at Not on file Gender Identity Not on file Sexual Orientation Not on file documented as of this encounter OR Notes * Anesthesia Postprocedure Evaluation - Jacqueline Huff MD - 09/07/2023 5:15 PM EDT Department of Anesthesiology Post-procedure Note Patient: Althea Salmon Procedure Summary Date: 09/07/23 Room / Location: [facility] / [facility] Anesthesia Start: 1615 Anesthesia Stop: 1658 Procedure: EGD, W US GUIDED FINE NEEDLE ASPIRATION/BIOPSY (WRVU 4.16) (Trunk) Diagnosis: Left adrenal mass (EUS to FNA left adrenal mass) Surgeons: Ming Eldridge MD Responsible Provider: Jacqueline Huff MD Anesthesia Type: MAC ASA Status: 2 All Anesthesia Providers: Anesthesiologist: Jacqueline Huff MD HOME ECONOMIST CONSUMER SERVICE: Ana Henderson CRNA Vitals Value Taken Time BP 128/86 09/07/23 1710 Temp Pulse Resp 14 09/07/23 1657 SpO2 97 % 09/07/23 1714 Pain Level 0 09/07/23 1657 Vitals shown include unfiled device data. Patient Location: PACU/LOCATED WITHIN [facility] Level of Consciousness: Awake and Alert Pain Management: Satisfactory Analgesia PONV: None Cardiovascular Status: At Baseline Respiratory Status: At Baseline Postoperative Fluid Status: Intravascular EUvolemia Possible Anesthetic Complications: NONE apparent at time of evaluation Final Primary Anesthesia Type: MAC (The anesthetic type performed was the same as planned.) Comments: * Anesthesia Preprocedure Evaluation - Jacqueline Huff MD - 09/07/2023 7:22 AM EDT Images from the original note were not included. Pre-Anesthesia Evaluation for: Althea Salmon a 67 y.o. female. Procedure(s): UPPER EUS- ENDOSCOPIC ULTRASOUND (WRVU 3.47) There are no problems to display for this patient. No past medical history on file. Past Surgical History: Procedure Laterality Date PRO [facility] EBUS GUIDED SAMPL 3/> NODE STATION/STRUX N/A 08/10/2023 BRONCH, W ENDOBRONCHIAL ULTRASOUND (EBUS) GUIDED SAMPLING, 3+ NODES (WRVU 4.96) performed by Lenard Ramon MD at [facility] PRO [facility]NSCHSC [facility] EBUS DX/TX INTERVENTION PERPH LES N/A 08/10/2023 BRONCH, W EBUS DURING INTERVENTION FOR PERIPH LESION (WRVU 1.4) performed by Lenard Ramon MD at [facility] PRO BRONCHOSCOPY, TRANSBRON ASPIR BX N/A 08/10/2023 BRONCHOSCOPY W/TRANSBRONCHIAL NEEDLE ASPIRATION BX,FLEXIBLE (WRVU 3.75) performed by Yoseph Ramon MD at [facility] PRO BRONCHOSCOPY, TRANSBRONCH BIOPSY N/A 08/10/2023 BRONCHOSCOPY (FLEXIBLE OR RIGID) W\TRANSBRONC BX (WRVU 3.55) performed by Lenard Ramon MD at [facility] PRO BRONCHOSCOPY, TREAT STENOSIS 08/10/2023 BRONCHOSCOPY W/ DESTRUCTION TUMOR, RELIEF STENOSIS W/LASER, CRYOTHERAPY (WRVU 5.02) performed by Lenard Ramon MD at [facility] Social History Tobacco Use Smoking status: Former Types: Cigarettes Smokeless tobacco: Never Substance Use Topics Alcohol use: Not Currently Social History Substance and Sexual Activity Drug Use Never No Known Allergies Medications: MAR and/or home medications have been reviewed. Physical Exam: Preprocedure Vitals Current as of 09/07/23 0722 No BP, pulse, respiration, SpO2, or temperature recorded. Height: Weight: BMI: IBW: Airway Assessment: Mallampati: II TM distance: >3 FB Neck ROM: full Cardiovascular Assessment: system normal Pulmonary Assessment: pulmonary exam normal Dental Assessment: Misc Assessment: Patient is wearing No contact(s). IV access: Peripheral line Last Filed Perioperative Cognitive Screening None Anesthesia Plan: ASA 2 MAC, with a(n) intravenous induction 67 yo female with h/o left adrenal mass who presents for EUS for FNA. Prior anesthetic: D blade grade 1 view, 8.5 ETT (bronchoscopy) Patient denies CP, SOB or uncontrolled GERD. MAC with standard ASA monitors. Region - Other Informed Consent: Anesthetic plan and risks discussed with patient. Use of blood products discussed with patient who. Plan discussed with HOME ECONOMIST CONSUMER SERVICE. Anesthesia Screening documented in this encounter Plan of Treatment Upcoming Encounters Date Type Department Care Team (Late st Contact Info) Description 01/08/2024 1:00 PM EDT Office Visit Hematology/Oncology at [address] [phone] Antolin Croft MD [facility] DR HEMATOLOGY [place] [address] Candice Erickson APRN [address] [place] [address] DR HEMATOLOGY [place] [address] Primary malignant neoplasm of right lower lobe of lung 01/08/2024 1:30 PM EDT Infusion Hematology Oncology at [address] [phone] 01/30/2024 9:[address] [place] [phone] Soto Gilbert MD [facility] DR [place] [address] 01/30/2024 10:30 AM EST Appointment [place] [phone] Soto Gilbert MD [facility] DR [place] [address] 01/30/2024 11:00 AM EST Appointment [place] [phone] Soto Gilbert MD [facility] DR [place] [address] 01/30/2024 11:30 AM EST Appointment [place] [phone] Soto Gilbert MD [facility] DR [place] [address] 01/30/2024 12:00 PM EST Appointment [place] [phone] Soto Gilbert MD [facility] [place] [address] 01/30/2024 2:30 PM EST Appointment [place] [address] documented as of this encounter Visit Diagnoses Not on filedocumented in this encounter Administered Medications Inactive Administered Medications - up to 3 most recent administrations Medication Order MAR Action Action Date Dose Rate Site lactated ringers infusion 100 mL/hr, Intravenous, CONTINUOUS, Starting on Debbie 09/07/23 at 1530, Until Debbie 09/07/23 at 1816, Endoscopy (Day of Procedure) Restarted 09/07/2023 4:16 PM EDT New Bag 09/07/2023 3:30 PM EDT 100 mL/hr 100 mL/hr propofoL (Diprivan) (10 mg/mL) infusion Intravenous, CONTINUOUS PRN, Starting on Debbie 09/07/23 at 1618, Until Debbie 09/07/23 at 1659, Anesthesia Intra-op, Routine Rate/Dose Change 09/07/2023 4:27 PM EDT 150 mcg/kg/min 81.9 mL/hr New Bag 09/07/2023 4:18 PM EDT 200 mcg/kg/min 109.2 mL/ hr propofoL (Diprivan) 10 mg/mL bolus injection (Anesthesia) Intravenous, PRN, Starting on Debbie 09/07/23 at 1620, Until Debbie 09/07/23 at 1659, Anesthesia Intra-op Given 09/07/2023 4:20 PM EDT 50 mg documented in this encounter Care Teams Tractor Trailer Driver Relationship Specialty Start Date End Date Avery Castro DO [address] [place] [address] PCP - General Family Medicine 07/28/23 09/25/23 documented as of this encounter
--- OUTSIDE RECORDS SUMMARY | 2024-01-08 11:28 | XMS_ITS | Encounter Summary ---
Author Organization [facility] [place] [address] Care Team Providers Care Warper Tender Name Role Phone Avery Castro DO Primary Care Provider [phone] Encounter Details Date Type Department Care Team (Late st Contact Info) Description 09/01/2023 Telephone [place] [phone] Reema Byers Social History Tobacco Use Types [...] 1:00 PM EDT Office Visit Hematology/Oncology at [address] [phone] Antolin Croft MD [facility] DR H[place]AT[place] [address] Candice Erickson APRN [address] [place] [address] DR HEMATOLOGY AND ONCOLOGY [place], [place] [phone] Primary malignant neoplasm of right lower lobe of lung 01/08/2024 1:30 PM EDT Infusion Hematology Oncology at [address] [phone] 01/30/2024 9:[address] Scan at [place] [phone] Soto Gilbert MD [facility] [place] [address] 01/30/2024 10:30 AM EST Appointment Nuclear Medicine at [place] [phone] Soto Gilbert MD [facility] [place] [address] 01/30/2024 11:00 AM EST Appointment Nuclear Medicine at [place] [phone] Soto Gilbert MD [facility] [place] [address] 01/30/2024 11:30 AM EST Appointment [place] [phone] Soto Gilbert MD [facility] [place] [address] 01/30/2024 12:00 PM EST Appointment [place] [phone] Soto Gilbert MD [facility] [place] [address] 01/30/2024 2:30 PM EST Appointment [place] [phone] documented as of this encounter Visit Diagnoses Not on filedocumented in this encounter Care Teams Warper Tender Relationship Specialty Start Date End Date Avery Castro DO [address] [place] [address] PCP - General Family Medicine 07/28/23 09/25/23 documented as of this encounter
--- OUTSIDE RECORDS SUMMARY | 2024-01-08 11:28 | XMS_ITS | Encounter Summary ---
Author Organization Formerly [facility] [place] [address] Care Team Providers Care Blogs Manager Name Role Phone Avery Castro DO Primary Care Provider [phone] Reason for Visit * Auth/Cert (Routine) Specialty Diagnoses / Procedures Referred By Jimbo t Referred To Contact Diagnoses Pulmonary nodules Pulmonary nodule(s) / Robotic Bronch with EBUS / GA / Backer Procedures PRO BRONCHOSCOPY RIGID FLEX W COMPUTER ASSIST IMG NAVIGATION PRO [facility] EBUS GUIDED SAMPL 3/> NODE STATION/STRUX BRONCHOSCOPY,RIGID OR FLEX,WITH IMAGE GUIDANCE ( ROBOT / ION ) (WRVU 2) BRONCH, W ENDOBRONCHIAL ULTRASOUND (EBUS) GUIDED SAMPLING, 3+ NODES (WRVU 4.96) Lenard Ramon MD [facility] [place] [address] [facility] Referral ID Status Reason Start Date Expiration Date Visits Re quested Visits Authorized [id number] 1 1 Encounter Details Date Type Department Care Team (Late st Contact Info) Description 09/19/2023 9:08 AM EDT Anesthesia Event [place] [phone] Keiko Cali MD [facility] [place] [address] Lucy Owens CRNA [facility] [place] [address] Anesthesia Record Procedure Summary Procedure Name Responsible Anesthesiologist Anesthesia Start Time Anesthesia Stop Time BRONCHOSCOPY,RIGID OR FLEX,WITH IMAGE GUIDANCE ( ROBOT / ION ) (WRVU 2) Keiko Cali MD 09/19/23 0908 09/19/23 1023 Events Date Time Event Comment 09/19/2023 0855 0908 AN Verify 0908 Start 0908 An Start Data 0923 An Induction 0925 An Intubation 0928 Anesthesia Ready 0954 an ulises now 1005 Procedure Stop 1017 Extubation/LMA Out 1019 an stop data 1023 Recovery or ICU Handoff Izzy ent care was transferred to the destination unit staff after review of the patient's medical history, current anesthetic/surgical status and plan, according to the Provider Handoff Checklist. 1023 Stop Meds Name Total lidocaine IV 100 mg propofoL 200 mg propofol INF 258.63 mg dexmedeTOMIDine 4 mcg/mL 12 mcg rocuronium 50 mg sugammadex 190 mg ondansetron 4 mg dexAMETHasone 4 mg midazolam 2 mg lactated ringers infusion 500 mL * Agents Name O2 * Blood No blood administrations on file. Lines, Drains, and Airways Type Details Placement Removal Incision 09/19/23; 0931 09/19/23 0931 by Jane Edwards RN PIV 09/19/23; 0801; [id number] catheter system; 20 gauge; metacarpal vein (top of hand), right; Anatomical Landmarks; distraction, tolerated well, appears comfortable; 09/19/23; 1147 09/19/23 0801 by Amelia Dawn RN 09/19/23 1147 by Raymundo Frey RN ETT Mask Ventilation: Ad junct (2); ETT Type: Cuffed; ETT Size: 7 mm; Indirect: Video; Notes: Asleep, Pre-O2, Cricoid Pressure, Stylette; Attempts: 1; Laryngoscopy Grade: 1; ETT Placement Verified By: Auscultation, Capnometry, Visual; Secured at Teeth: 20 cm; Removal Date: 09/19/23; Removal Time: 1017 09/19/23 0925 by Lucy Owens CRNA 09/19/23 1017 by Lucy Owens CRNA documented in this encounter Social History Tobacco Use Types Packs/Day Years Used Date Smoking Tobacco: Former Cigarettes Smokeless Tobacco: Never Alcohol Use Standard Drinks/Week Comments Not Currently 0 (1 standard drink = 0.6 oz pur e alcohol) DH IPV Inpatient Questions Answer Date Recorded Does Anyone Try to Keep You From Having Contact with Others or Doing Things Outside Your Home? unable to answer (comment required) 09/19/2023 Feels Threatened by Someone unable to an swer (comment required) 09/19/2023 Feels Unsafe at Home or Work/School unab le to answer (comment required) 09/19/2023 Physical Signs of Abuse Present no 09/19/2023 Sex and Gender Information Value Date Recorded Sex Assigned at Not on file Gender Identity Not on file Sexual Orientation Not on file documented as of this encounter OR Notes * Anesthesia Postprocedure Evaluation - Keiko Cali MD - 09/19/2023 11:58 AM EDT Department of Anesthesiology Post-procedure Note Patient: Althea Salmon Procedure Summary Date: 09/19/23 Room / Location: [address] MAIN OR Anesthesia Start: 907 Anesthesia Stop: 1022 Procedures: BRONCHOSCOPY,RIGID OR FLEX,WITH IMAGE GUIDANCE ( ROBOT / ION ) (WRVU 2) BRONCH, W ENDOBRONCHIAL ULTRASOUND (EBUS) GUIDED SAMPLING, 3+ NODES (WRVU 4.96) Diagnosis: Pulmonary nodules (Pulmonary nodule(s) / Robotic Bronch with EBUS / GA / Backer) Surgeons: Lenard Ramon MD Responsible Provider: Keiko Cali MD Anesthesia Type: MAC ASA Status: 2 All Anesthesia Providers: Anesthesiologist: Keiko Cali MD BOTTOM CAGER: Lucy Owens CRNA Vitals Value Taken Time BP 123/55 09/19/23 1115 Temp 36 ??C (96.8 ??F) 09/19/23 1130 Pulse 78 09/19/23 1125 Resp 19 09/19/23 1125 SpO2 95 % 09/19/23 1125 Pain Level 0 09/19/23 1115 Vitals shown include unfiled device data. Patient Location: PACU/[facility] Level of Consciousness: Conscious but Sleepy Pain Management: Satisfactory Analgesia PONV: None Cardiovascular Status: At Baseline and Hemodynamically Stable Respiratory Status: Supplemental O2 (NC or FM) and Stable Respiratory Status Postoperative Fluid Status: Intravascular EUvolemia Possible Anesthetic Complications: NONE apparent at time of evaluation Final Primary Anesthesia Type: General (The anesthetic type performed was the same as planned.) Comments: * Anesthesia Preprocedure Evaluation - Keiko Cali MD - 09/19/2023 8:52 AM EDT Images from the original note were not included. Pre-Anesthesia Evaluation for: Althea Salmon a 67 y.o. female. Procedure(s): BRONCHOSCOPY,RIGID OR FLEX,WITH IMAGE GUIDANCE ( ROBOT / ION ) (WRVU 2) BRONCH, W ENDOBRONCHIAL ULTRASOUND (EBUS) GUIDED SAMPLING, 3+ NODES (WRVU 4.96) There are no problems to display for this patient. History reviewed. No pertinent past medical history. Past Surgical History: Procedure Laterality Date PRO [facility] EBUS GUIDED SAMPL 3/> NODE STATION/STRUX N/A 08/10/2023 BRONCH, W ENDOBRONCHIAL ULTRASOUND (EBUS) GUIDED SAMPLING, 3+ NODES (WRVU 4.96) performed by Lenard Ramon MD at [facility] ENDOSCOPY PRO [facility] EBUS DX/TX INTERVENTION PERPH LES N/A 08/10/2023 BRONCH, W EBUS DURING INTERVENTION FOR PERIPH LESION (WRVU 1.4) performed by Lenard Ramon MD at [facility] ENDOSCOPY PRO BRONCHOSCOPY, TRANSBRON ASPIR BX N/A 08/10/2023 BRONCHOSCOPY W/TRANSBRONCHIAL NEEDLE ASPIRATION BX,FLEXIBLE (WRVU 3.75) performed by Yoseph Ramon MD at [facility] ENDOSCOPY PRO BRONCHOSCOPY, TRANSBRONCH BIOPSY N/A 08/10/2023 BRONCHOSCOPY (FLEXIBLE OR RIGID) W\TRANSBRONC BX (WRVU 3.55) performed by Lenard Ramon MD at [facility] ENDOSCOPY PRO BRONCHOSCOPY, TREAT STENOSIS 08/10/2023 BRONCHOSCOPY W/ DESTRUCTION TUMOR, RELIEF STENOSIS W/LASER, CRYOTHERAPY (WRVU 5.02) performed by Lenard Ramon MD at [facility] ENDOSCOPY PRO [facility] ENDOSCOPY W/US FN BX N/A 09/07/2023 EGD, W US GUIDED FINE NEEDLE ASPIRATION/BIOPSY (WRVU 4.16) performed by Ming Eldridge MD at [facility] ENDOSCOPY Social History Tobacco Use Smoking status: Former Types: Cigarettes Smokeless tobacco: Never Substance Use Topics Alcohol use: Not Currently Social History Substance and Sexual Activity Drug Use Never No Known Allergies Medications: MAR and/or home medications have been reviewed. Physical Exam: Preprocedure Vitals Current as of 09/19/23 0852 BP: 141/98 Pulse: 90 Resp: 20 SpO2: 93 Temp: 36.8 ??C (98.2 ??F) Height: 162.6 cm (5' 4) (09/19/23) Weight: 92.7 kg (204 lb 6.4 oz) (09/19/23) BMI: 35.08 IBW: 54.7 kg (120 lb 10.7 oz) Last edited 09/19/23 0748 by Airway Assessment: Mallampati: II TM distance: >3 FB Neck ROM: full Cardiovascular Assessment: Rhythm: regular system normal Pulmonary Assessment: unlabored breathing pulmonary exam normal Dental Assessment: Misc Assessment: Patient is wearing No contact(s). IV access: Peripheral line Other exam findings: BP Readings from Last 3 Encounters: 09/19/23 : (!) 141/98 09/07/23 : 168/84 08/29/23 : 148/88 Labs Lab Results Component Value Date WBC 7.2 08/29/2023 HGB 13.8 08/29/2023 HCT 45.6 08/29/2023 MCV 85.2 08/29/2023 PLATELET 276 08/29/2023 Lab Results Component Value Date NA 139 08/29/2023 K 4.2 08/29/2023 CL 103 08/29/2023 CO2 25 08/29/2023 BUN 14 08/29/2023 CREATININE 1.02 08/29/2023 GLUCOSE 131 08/29/2023 CALCIUM 9.2 08/29/2023 Lab Results Component Value Date ALT 16 08/29/2023 AST 17 08/29/2023 ALKPHOS 99 08/29/2023 BILITOT 0.3 08/29/2023 ALBUMIN 3.9 08/29/2023 PROT 7.1 08/29/2023 No results found for: HA1C No results found for: PTT Estimated Creatinine Clearance: 59.9 mL/min (by Cockcroft-Gault based on SCr of 1.02 mg/dL). Last Filed Perioperative Cognitive Screening None Anesthesia Plan: ASA 2 MAC, with a(n) intravenous induction 67 y.o.female here for robot-assisted bronchoscopy and EBUS. MEDICAL HISTORY as above, reviewed MEDICATIONS & ALLERGIES No Known Allergies ANESTHESIA HISTORY: - Past GA without significant complications - Airway: D blade grade 1 view, 8.5 ETT (during her last bronchoscopy) ANESTHETIC PLAN - GA, ETT 8.5 - 10ml/kg IBW tidal volumes, NMBDs, PEEP 10cm h20 per surgical request - Multimodal analgesia and PONV prophylaxis Region - Other Informed Consent: Anesthetic plan and risks discussed with patient. Use of blood products discussed with patient who. Plan discussed with BOTTOM CAGER. Anesthesia Screening documented in this encounter Plan of Treatment Upcoming Encounters Date Type Department Care Team (Late st Contact Info) Description 01/08/2024 1:00 PM EDT Office Visit Hematology/Oncology at [address] [phone] Antolin Croft MD [facility] DR [place] [address] Candice Erickson APRN [address] [place] [address] DR HEMATOLOGY [place] [address] Primary malignant neoplasm of right lower lobe of lung 01/08/2024 1:30 PM EDT Infusion Hematology Oncology at [address] [phone] 01/30/2024 9:[address] [place] [phone] Soto Gilbert MD [facility] [place] [address] 01/30/2024 10:30 AM EST Appointment [place] [phone] Soto Gilbert MD [facility] [place] [address] 01/30/2024 11:00 AM EST Appointment [place] [phone] Soto Gilbert MD [facility] [place] [address] 01/30/2024 11:30 AM EST Appointment [place] [phone] Soto Gilbert MD [facility] [place] [address] 01/30/2024 12:00 PM EST Appointment [place] [phone] Soto Gilbert MD [facility] [place] [address] 01/30/2024 2:30 PM EST Appointment [place] [phone] documented as of this encounter Visit Diagnoses Not on filedocumented in this encounter Administered Medications Inactive Administered Medications - up to 3 most recent administrations Medication Order MAR Action Action Date Dose Rate Site dexAMETHasone (Decadron) injection Intravenous, PRN, Starting on Mon09/19/23 at 0923, Until Mon09/19/23 at 1019, Anesthesia Intra-op, Routine Given 09/19/2023 9:23 AM EDT 4 mg dexmedeTOMIDine (Precedex) (4 mcg/mL) bolus injection (Anesthsia) Intravenous, PRN, Starting on Mon09/19/23 at 0918, Until Mon09/19/23 at 1019, Anesthesia Intra-op, Routine Given 09/19/2023 9:18 AM EDT 12 mcg lactated ringers infusion 1,000 mL, at 100 mL/hr, Intravenous, CONTINUOUS, Starting on Mon09/19/23 at 0900, Until Mon09/19/23 at 1146, Day of Surgery (Day of Procedure) New Bag 09/19/2023 9:08 AM EDT lidocaine (pf) (Xylocaine) (20 mg/mL) 2% injection syringe Intravenous, PRN, Starting on Mon09/19/23 at 0923, Until Mon09/19/23 at 1019, Anesthesia Intra-op, Routine Given 09/19/2023 9:23 AM EDT 100 mg midazolam (pf) (Versed) (1 mg/mL) multi-dose injection Intravenous, PRN, Starting on Mon09/19/23 at 0918, Until Mon09/19/23 at 1019, Anesthesia Intra-op, Routine Given 09/19/2023 9:18 AM EDT 2 mg ondansetron (pf) (Zofran) (2 mg/mL) injection Intravenous, PRN, Starting on Mon09/19/23 at 1014, Until Mon09/19/23 at 1027, Anesthesia Intra-op, Routine Given 09/19/2023 10:14 AM EDT 4 mg propofoL (Diprivan) (10 mg/mL) infusion Intravenous, CONTINUOUS PRN, Starting on Mon09/19/23 at 0926, Until Mon09/19/23 at 1019, Anesthesia Intra-op, Routine New Bag 09/19/2023 9:26 AM EDT 100 mcg/kg/min 41.94 mL/hr propofoL (Diprivan) 10 mg/mL bolus injection (Anesthesia) Intravenous, PRN, Starting on Mon09/19/23 at 0923, Until Mon09/19/23 at 1019, Anesthesia Intra-op Given 09/19/2023 9:23 AM EDT 200 mg rocuronium (Zemuron) (10 mg/mL) multi-dose injection Intravenous, PRN, Starting on Mon09/19/23 at 0923, Until Mon09/19/23 at 1019, Anesthesia Intra-op, Routine Given 09/19/2023 9:23 AM EDT 50 mg sugammadex (Bridion) 100 mg/mL injection Intravenous, PRN, Starting on Mon09/19/23 at 1001, Until Mon09/19/23 at 1019, Anesthesia Intra-op, Routine Given 09/19/2023 10:01 AM EDT 190 mg documented in this encounter Care Teams Blogs Manager Relationship Specialty Start Date End Date Avery Castro DO [address] [place] [address] PCP - General Family Medicine 07/28/23 09/25/23 documented as of this encounter
--- OUTSIDE RECORDS SUMMARY | 2024-01-08 11:28 | XMS_ITS | Encounter Summary ---
Author Organization [facility] [place] [address] Care Team Providers Care Branch General Manager Name Role Phone Avery Castro DO Primary Care Provider [phone] Reason for Visit * Reason Onset Date Comments Establish Care 08/29/2023 Encounter Details Date Type Department Care Team (Late st Contact Info) Description 08/29/2023 Patient Outreach Hematology [place] [phone] Jihan Araujo, RN Establish Care Social History Tobacco Use Types Packs/Day [...] as of this encounter Progress Notes * Jihan Araujo, RN - 08/29/2023 12:22 PM EDT [facility] Oncology Nurse Navigation Patient Intake & Care Plan Met with Althea Salmon a 67 y.o. diagnosed with adeno ca of lung to assess for nurse navigation services. Present during this interview is pt's daughter Isabelle. Introduced the role of Thoracic Navigator as a point of contact for communication between different disciplines and a seafood specialist of timely access to care and resources. Reviewed symptoms, PMH, lifestyle choices, and patient understanding of plan of care. Assessed for transportation, financial, social, and practical barriers to care. Physical/Nutritional/Emotional: Pt states overall she is having minimal symptoms. Has pain R lung/rib area under her breast that she manages with ibuprofen. Has intermittent shortness of breath &states she was also recently dx with early stage COPD & she attributes the shortness of breath to this. Also reports that she had a fever & night sweats for a couple of days a few days ago. She did not check her temperature. She has no accompanying symptoms & fever/sweats resolved. Lifestyle/Living arrangements/Social: . Has 3 grown daughters & 8 grandchildren. Lives in a mobile home with a roommate. She is independent & active. She collects & researches oldcoins. Transportation: Pt drives & has a reliable vehicle. Daughter is also able to help with transportation. She lives in [place], [place] & it is a [address] to [facility]. She would prefer care closer to home ([facility] or [place]) if possible. Financial/Insurance/Employment: Retired about 2 yrs ago. 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 She has medicare/medicaid with prescription coverage. Denies any financial concerns or food insecurity at this time. Expressed interest in completing DPOA paperwork. They are working on doing this with her PCP's office. They will let us know if they are unable to get this done or need further assistance with this. Gave patient navigator contact information, advised to call for assistance coordinating care or with any questions or concerns. Outlined main ancillary services available to help support patient, including Social Work, Palliative Care, Psycho Onc, Nutrition and PT. Patient prefers treatment in [place] or [facility]. PLAN: Pt still needs brain MRI with sedation (scheduled in September) EBUS/Lanre bronch to re-evaluate the mediastinum and also sample the MARISSA nodule EUS to sample the left adrenal site Discuss at tumor board once bx results back. Pt will get treatment in [facility] Thoracic Oncology Nurse Navigator is MARK Aguirre, RN. documented in this encounter Plan of Treatment Upcoming Encounters Date Type Department Care Team (Late Contact Info) Description 01/08/2024 1:00 PM EDT Office Visit Hematology/Oncology at [address] [phone] Antolin Croft MD [facility] DR [place] [address] Candice Erickson APR[address] HEMATOLOGY [place] [address] Primary malignant neoplasm of right lower lobe of lung 01/08/2024 1:30 PM EDT Infusion Hematology Oncology at [address] [phone] 01/30/2024 9:[address] Scan at [place] [phone] Soto Gilbert MD [facility] [place] [address] 01/30/2024 10:30 AM EST Appointment Nuclear Medicine at [place] [phone] Soto Gilbert MD [facility] [place] [address] 01/30/2024 11:00 AM EST Appointment Nuclear Medicine at [place] [phone] Soto Gilbert MD [facility] [place] [address] 01/30/2024 11:30 AM EST Appointment [place] [phone] Soto Gilbert MD [facility] [place] [address] 01/30/2024 12:00 PM EST Appointment [place] [phone] Soto Gilbert MD [facility] [place] [address] 01/30/2024 2:30 PM EST Appointment [place] [phone] documented as of this encounter Visit Diagnoses Not on filedocumented in this encounter Care Teams Branch General Manager Relationship Specialty Start Date End Date Avery Castro DO [address] [place] [phone] PCP - General Family Medicine 07/28/23 09/25/23 documented as of this encounter
--- OUTSIDE RECORDS SUMMARY | 2024-01-08 11:28 | XMS_ITS | Encounter Summary ---
Author Organization [facility] [place] [address] Care Team Providers Care Production Estimator Name Role Phone Avery Castro DO Primary Care Provider [phone] Reason for Visit * Auth/Cert (Routine) Specialty Diagnoses / Procedures Referred By Jimbo t Referred To Contact Diagnoses Pulmonary nodules Pulmonary nodule(s) / Robotic Bronch with EBUS / GA / Backer Procedures PRO BRONCHOSCOPY RIGID FLEX W COMPUTER ASSIST IMG NAVIGATION PRO [facility] EBUS GUIDED SAMPL 3/> NODE STATION/STRUX BRONCHOSCOPY,RIGID OR FLEX,WITH IMAGE GUIDANCE ( ROBOT / ION ) (WRVU 2) BRONCH, W ENDOBRONCHIAL ULTRASOUND (EBUS) GUIDED SAMPLING, 3+ NODES (WRVU 4.96) Lenard Ramon MD [facility] [place] [address] [facility] Referral ID Status Reason Start Date Expiration Date Visits Re quested Visits Authorized [id number] 1 1 Encounter Details Date Type Department Care Team (Latest Contact Info) Description 09/19/2023 7:16 AM EDT - 09/19/2023 11:49 AM EDT Hospital Encounter [place] [id number] Lenard Ramon MD [facility] [place] [address] Discharge Disposition: Home Social History Tobacco Use [...] Sign Reading Time Taken Comments Blood Pressure 123/55 09/19/2023 11:15 AM EDT Pulse 83 09/19/2023 11:15 AM EDT Temperature 36 ??C (96.8 ??F) 09/19/2023 11:30 AM EDT Respiratory Rate 22 09/19/2023 11:15 AM EDT Oxygen Saturation 94% 09/19/2023 11:15 AM EDT Inhaled Oxygen Concentration - - Weight 92.7 kg (204 lb 6.4 oz) 09/19/2023 7:48 A M EDT Height 162.6 cm (5' 4) 09/19/2023 7:48 AM EDT Body Mass Index 35.09 09/19/2023 7:48 AM EDT documented in this encounter Discharge Instructions * Patient Instructions* Lenard Ramon MD - 09/19/2023 10:07 AM EDT Post-bronchoscopy patient instruction: Your procedure (Bronchoscopy with lymph node and lung biopsies) was completed successfully today (09/19/2023) by Dr. Lenard Ramon. If biopsies were obtained, you will be contacted to discuss your results as they return over the coming 3-5 business days. You may experience low grade fevers over the next 48 hours. You may cough up a small amount of blood over the next 72 hours. This is normal. You may have a sore throat, chest discomfort, hoarse voice, or a tickle in your throat or a dry cough for a day or two. This is normal and usually gets better quickly. Using cough drops, gargling with warm salt water, or drinking warm beverages may help. Call our office immediately or present to the nearest emergency room if you develop shortness of breath, pain in your chest, coughing up larger amounts of blood (over 1-2 tablespoons), or fever/chills last longer than [address], operate machinery, or sign legal documents until anesthesia wear off. If you have any questions, please call our office at . There is someone on-call to speak with you 10/10. Lenard Ramon MD Interventional Pulmonology Section of Pulmonary & Critical Care documented in this encounter Medications at Time [...] with Spacer documented as of this encounter Progress Notes * Raymundo Frey RN - 09/19/2023 11:48 AM EDT Patient discharge to home. IV removed, site benign. My assessment remains unchanged from my previous assessment. RN Discussed pain management with patient, pain tolerable. Patient has all belongings and supplies needed. Patient received After Visit Summary. AVS reviewed, patient verbalizes understanding of AVS. All questions answered. Patient encouraged to call with questions or concerns. Patientdischarged to home with family. * Lenard Ramon MD - 09/18/2023 3:21 PM EDT Interventional Pulmonology Pre-Procedure History & Physical SECTION OF PULMONARY/CRITICAL CARE MEDICIE Procedure: Robotic-assisted bronchoscopy, transbronchial lung biopsies, endobronchial ultrasound (EBUS) Reason for procedure: Lung nodule(s) See last note from Dr. Ramon PHYSICAL EXAM: To be reassessed at time of procedure Assessment & Plan: Consent to be signed Proceed with procedure as stated Lenard Ramon MD, 09/18/2023, 3:21 PM Interventional Pulmonology Section of Pulmonary & Critical Care Pager: [phone] documented in this encounter H&P Notes * Lenard Ramon MD - 09/19/2023 10:19 AM EDT Interventional Pulmonology Pre-Procedure History & Physical SECTION OF PULMONARY/CRITICAL CARE MEDICIE Procedure: Robotic-assisted bronchoscopy, transbronchial lung biopsies, endobronchial ultrasound (EBUS) Reason for procedure: Lung nodule(s) See last note from Dr. Ramon PHYSICAL EXAM: To be reassessed at time of procedure Assessment & Plan: Consent to be signed Proceed with procedure as stated Lenard Ramon MD, 09/18/2023, 3:21 PM Interventional Pulmonology Section of Pulmonary & Critical Care Pager: [phone] documented in this encounter Miscellaneous Notes * Op Note - Lenard Ramon MD - 09/19/2023 9:31 AM EDT Images from the original note were not included. INTERVENTIONAL PULMONOLOGY PROCEDURE NOTE SECTION OF PULMONARY & CRITICAL CARE MEDICINE Patient Name: Althea Salmon Patient Patient : 1955 Procedure Date: 09/19/2023 Procedure(s): A flexible bronchoscopy Airway examination EBUS-TBNA (3 sites(s)) Robotic-Assisted Bronchoscopy (Ion) (1 lobe(s)) Transbronchial forcep biopsies (1 lobe(s)) Transbronchial fine needle aspiration (1 lobe(s)) Radial EBUS navigation Fluoroscopic guidance Therapeutic suctioning Procedure Location: Operating room Indication: Lung nodule/mass Attending(s) of Record: Lenard Ramon MD Others Present: None Medications: General Anesthesia - See anesthesia flowsheet for details Sedation Time: Per anesthesia care provider Time Out: Performed The patient's medical record has been reviewed. The indication for the procedure was reviewed. The necessary history and physical examination was performed and reviewed. The risks, benefits and alternatives of the procedure were discussed with the patient in detail and she had the opportunity to ask questions. I discussed in particular the potential minor and major complications. All questions were answered to the best of my ability. Informed consent was obtained. The proposed procedure and thepatient's identification were verified prior to the procedure by the physician and the nurse. Afterclinical evaluation and reviewing the indication, risks, alternatives, and benefits of the procedure the patient was deemed to be in satisfactory condition to undergo the procedure. Procedure Descriptions: Airway Examination: An Olympus P190 flexible bronchoscope was used for the procedure. The bronchoscope was inserted through the endotracheal tube and inspection undertaken. A complete airway examination was performed from the distal trachea to the subsegmental level in each lobe of both lungs. Pertinent findings include endobronchial obstruction of the superior segment of the RLL as observe at the time of her 08/11/23/ bronchoscopy. No additional sites of endobronchial disease. No bleeding identified . Robotic-Assisted Bronchoscopy (number of lobes: 1): Navigation planning utilizing the Speakermix robotic bronchoscopy system by [employer] was first performed. The CT scan was used for planning purposes only. A virtual bronchoscopic image was generated using the planning software. The target was marked rasheed pathway created. The robotic system was docked appropriately. The bronchoscope was advanced and appropriate registration and verification of equipment performed. Navigation was next performed to the lesion in the lingula and proper alignment ensured. The Olympus 1.8mm 20MHz radial probe was used.The lesion was concentric by ultrasound. Fluoroscopy was used. Tissue sampling was obtained using the Speakermix 21 gauge cytology needle and Olympus 1.8 mm EndoJaw biopsy forceps. Abundant material was collected for cell block in 10% neutral buffered formalin and sent for cytology review and pathology. Samples obtained with KEVIN absent. Bleeding was minimal and the patient tolerated the procedure well.Of note, the combination of various biopsy tools in a multimodal fashion may have been implemented for this procedure as per the standard of care to increase diagnostic yield, obtain adequate tissue for mutation analysis, and/or if evaluation by KEVIN was inadequate intra-procedure with a single tool approach (Ethan et al. JOBIP 28.3 (2020): 174). EBUS-TBNA (3 sites): The Olympus EBUS ([id number]) scope was inserted, lymph node inspection undertaken and transbronchial needle aspiration obtained from the following sites using the Olympus ViziShot-1 22 gauge TBNA needle: 1) Station 7 (5-10 mm) with 3 passes obtained with KEVIN absent. 2) Eotbkei3U (5 mm) with 3 passes obtained with KEVIN absent. 3) Station 11L (5-10 mm) with 3 passes obtained with KEVIN absent. Abundant material was collected in 10% neutral buffered formalin and sent for cytology review. Note, all mediastinal, hilar, lobar and segmental stations are evaluated during the procedure and those not listed were not biopsied due to small lymph node diameter, positive KEVIN on high er anand staging, alternative diagnosis or inability to continue with the procedure. Specifically, Station 11Rs(superior) was contiguous with the right lung mass (previously biopsied on 08/11/23) and Station 4R was <5 mm and not warranting biopsy based on size. Therapeutic Suctioning (87862): A significant portion of operative time was spent clearing out the airway of debris, blood and secretions prior to or during the intervention. Any disposable equipment was visually inspected and deemed to be intact immediately post procedure. Estimated Blood Loss: 5 mL Complications: None Relevant Pictures Robotic assisted bronchoscopy lingula Recommendations: Successful robotic-assisted bronchoscopy, transbronchial biopsies (1 lobe(s)), and EBUS-TBNA (3 site(s)) A post-procedural chest radiograph has been ordered Await pending results in the next 3-5 business days Follow-up with referring provider as previously arranged Lenard Ramon MD, 09/19/2023, 10:07 AM Interventional Pulmonology Section of Pulmonary & Critical Care Pager: [phone] documented in this encounter Plan of Treatment Upcoming Encounters Date Type Department Care Team (Late st Contact Info) Description 01/08/2024 1:00 PM EDT Office Visit Hematology/Oncology at [address] [phone] Antolin Croft MD [facility] [place] [address] Cnadice Erickson APRN [address] [place] [address] DR [place] [address] Primary malignant neoplasm of right lower lobe of lung 01/08/2024 1:30 PM EDT Infusion Hematology Oncology at [address] [phone] 01/30/2024 9:[address] [place] [place] [phone] Soto Gilbert MD [facility] [place] [address] 01/30/2024 10:30 AM EST Appointment Nuclear Medicine at [place] [phone] Soto Gilbert MD [facility] [place] [address] 01/30/2024 11:00 AM EST Appointment [place] [phone] Soto Gilbert MD [facility] [place] [address] 01/30/2024 11:30 AM EST Appointment [place] [phone] Soto Gilbert MD [facility] [place] [address] 01/30/2024 12:00 PM EST Appointment [place] [phone] Soto Gilbert MD [facility] [place] [address] 01/30/2024 2:30 PM EST [place] [address] documented as of this encounter Procedures Procedure Name Priority Date/Time Associated Diagnosis Comments XR FLUORO NO RAD <1HR - OR USE Routine 09/19/2023 10:45 AM EDT XR CHEST ONE VIEW STAT 09/19/2023 10: 43 AM EDT NON-GRIDCAP MACHINE OPERATOR FINAL REPORT Routine 09/19/2023 9:59 AM EDT CYTOPATHOLOGY NON-GYNECOLOGICAL Routine 09/19/2023 9:59 AM EDT NON-GRIDCAP MACHINE OPERATOR FINAL REPORT Routine 09/19/2023 9:57 AM EDT CYTOPATHOLOGY NON-GYNECOLOGICAL Routine 09/19/2023 9:57 AM EDT NON-GRIDCAP MACHINE OPERATOR FINAL REPORT Routine 09/19/2023 9:56 AM EDT CYTOPATHOLOGY NON-GYNECOLOGICAL Routine 09/19/2023 9:56 AM EDT SPECIMEN TO PATHOLOGY Routine 09/19/2023 9:46 AM EDT SOLID TUMOR NGS PANEL Routine 09/19/2023 9:45 AM EDT SURGICAL PATHOLOGY REPORT Routine 09/19/2023 9:45 AM EDT NON-GRIDCAP MACHINE OPERATOR FINAL REPORT Routine 09/19/2023 9:43 AM EDT CYTOPATHOLOGY NON-GYNECOLOGICAL Routine 09/19/2023 9:43 AM EDT [facility] Ebus Guided Sampl 3/> Node Station/Strux ([id number]) 09/19/2023 9:05 AM EDT Pulmonary nodules Bronchoscopy Rigid Flex W Computer Assist Img Navigation ([id number]) 09/19/2023 9:05 AM EDT Pulmonary nodules documented in this encounter Results * XR Fluoro No Rad <1Hr - OR Use (09/19/2023 10:45 AM EDT) Narrative Dicom, Auditing User - 09/19/2023 11:01 AM EDT This exam is auto-finalizing. No interpretation was done. Lenard Ramon MD IMG FLUORO ORDERABLE S * XR Chest One View (09/19/2023 10:43 AM EDT) WORKSTATION ID [id number] RAD Anatomical Region Laterality Modality Chest N/A Digital Radiogra phy Impressions 09/19/2023 11:52 AM EDT No pneumothorax I have personally reviewed the image(s) and the resident's interpretation and agree with the findings, Noel Morgan MD at 09/19/2023 11:52 AM Thank you for letting us participate in the care of this patient. ??If you are a health care provider and have any questions regarding this report, please contact the number below. ??For patients who have questions please contact the health landcare officer that requested your imaging first. ? Narrative 09/19/2023 11:52 AM EDT EXAMINATION: XR CHEST ONE VIEW CLINICAL HISTORY: s/p MARISSA transbronchial biopsies, rule out pneumothorax (page 2364 if present) TECHNIQUE: 1 view of the chest COMPARISON: Chest radiograph 09/18/2021 FINDINGS: Unchanged 9.3 cm right lower lobe mass and nodule in the lingula. No pleural effusion. No pneumothorax. The cardiac silhouette is within normal limits. Procedure Note Noel Morgan MD - 09/19/2023 EXAMINATION: XR CHEST ONE VIEW CLINICAL HISTORY: s/p MARISSA transbronchial biopsies, rule out pneumothorax(page 2364 if present) TECHNIQUE: 1 view of the chest COMPARISON: Chest radiograph 09/18/2021 FINDINGS: Unchanged 9.3 cm right lower lobe mass and nodule in the lingula. Nopleural effusion. No pneumothorax. The cardiac silhouette is within normal limits. IMPRESSION No pneumothorax I have personally reviewed the image(s) and the resident's interpretationand agree with the findings, Noel Morgan MD at 09/19/2023 11:52 AM Thank you for letting us participate in the care of this patient. If youare a health care provider and have any questions regarding this report,please contact the number below. For patients who have questions please contactthe health landcare officer that requested your imaging first. Lenard Ramon MD IMG DX ORDERABLES * Non-Hammerer Helper Final Report (09/19/2023 9:59 AM EDT) Diagnosis Discussion [id number] ? Location: [facility]; A The signing pathologist has (i) examined the relevant preparation(s) for the specimen(s) and (ii) rendered or confirmed the diagnosis(es). . ? Non-Hammerer Helper Final DIAGNOSIS Negative for Malignancy Electronically signed by: ?Randolph BEST, Trevor Verified: ??09/22/2023 15:50 ??Pathologist Performed at: ??-[facility] [place], [place] [id number] Male Model: Janes Ritchie MD, FCAP, ??CLIA Certificate: [id number] DISCUSSION Lymph node, station 11L (EBUS-guided FNA): Fragments of lymphoid tissue, ?? compactible ??with lymph node sampling. No metastatic carcinoma seen. ?? Clinical and radiologic correlation is required to determine whether this sample is fully service liaison representative of a clinically suspected lesion. --- Immunohistochemistry Studies --- Interpretation: CD68 highlights histiocytes. ? Immunohistochemical assays were performed (on paraffin-embedded cell block sections fixed in 10% neutral buffered formalin for 6-72 hours) using the polymer technique with appropriate controls. The sections are studied for CD68. These immunohistochemical studies provide ancillary information and are used only in conjunction with standard diagnostic procedures. CLINICAL INFORMATION Specimen Source : Lymph node, station 11L (EBUS-guided FNA) Pertinent Clinical Data and Significant Therapy: Pulmonary nodule(s) / Robotic bronch with EBUS / GA / Backer Clinical Impression : Right lung cancer POSS met vs new primary Pertinent Radiologic Findings ??: (not provided) Gross Description: Received ??in Formalin approximately 50 mL total volume of ?? cloudy, bloody fluid, with clots. Total Preparation: Cell Block 1. 09/22/2023 3:50 PM EDT [facility] LYMPH NODE SPECIMEN / Unknown 09/19/2023 9:59 AM EDT 09/19/2023 9:59 AM EDT Lenard Ramon MD PATHOLOGY/CYTOLOGY O [place] Performing Organization Address [facility]/ZIP Co de Phone Number [facility] [place] [address] * Cytopathology Non-Gynecological (09/19/2023 9:59 AM EDT) AP Specimen 09/19/2023 9:59 AM EDT 09/19/2023 9:59 AM EDT Narrative [facility] - 09/19/2023 9:59 AM EDT Specimen requisition ordered. ??Separate Pathology report to follow Lenard Ramon MD PATHOLOGY/CYTOLOGY O [place] Performing Organization Address City/[facility]/ZIP Co de Phone Number [facility] [place] [address] * Non-Hammerer Helper Final Report (09/19/2023 9:57 AM EDT) Diagnosis Discussion [id number] ? Location: [facility]; A The signing pathologist has (i) examined the relevant preparation(s) for the specimen(s) and (ii) rendered or confirmed the diagnosis(es). . ? Non-Hammerer Helper Final DIAGNOSIS Negative for Malignancy Electronically signed by: ?Randolph BEST, Trevor Verified: ??09/22/2023 15:46 ??Pathologist Performed at: ??-[facility] [place], [place] [address] Male Model: Janes Ritchie MD, FCAP, ??CLIA Certificate: [id number] DISCUSSION Lymph node, station 4L (EBUS-guided FNA): Fragments of lymphoid tissue and lymphohistiocytic aggregates, ? compactible with lymph node sampling. No metastatic carcinoma seen. ?? Clinical and radiologic correlation is required to determine whether this sample is fully service liaison representative of a clinically suspected lesion. --- Immunohistochemistry Studies --- Interpretation: CD68 highlights histiocytes. ? Immunohistochemical assays were performed (on paraffin-embedded cell block sections fixed in 10% neutral buffered formalin for 6-72 hours) using the polymer technique with appropriate controls. The sections are studied for CD68. These immunohistochemical studies provide ancillary information and are used only in conjunction with standard diagnostic procedures. CLINICAL INFORMATION Specimen Source : Lymph node, station 4L (EBUS-guided FNA) Pertinent Clinical Data and Significant Therapy: Pulmonary nodule(s) / Robotic bronch with EBUS / GA / Backer Clinical Impression : Known right lung cancer POSS met vs new primary Pertinent Radiologic Findings ??: (not provided) Gross Description: Received ??in Formalin approximately 50 mL total volume of ?? cloudy, pink fluid, with dark flecks. Total Preparation: Cell Block 1. 09/22/2023 3:46 PM EDT [facility] LYMPH NODE SPECIMEN / Unknown 09/19/2023 9:57 AM EDT 09/19/2023 9:57 AM EDT Lenard Ramon MD PATHOLOGY/CYTOLOGY O [place] Performing Organization Address [facility]/[place] [address] * Cytopathology Non-Gynecological (09/19/2023 9:57 AM EDT) AP Specimen 09/19/2023 9:57 AM EDT 09/19/2023 9:57 AM EDT Narrative [facility] - 09/19/2023 9:57 AM EDT Specimen requisition ordered. ??Separate Pathology report to follow Lenard Ramon MD PATHOLOGY/CYTOLOGY O [place] Performing Organization Address City/[facility] Co de Phone Number [facility] [place] [address] * Non-Hammerer Helper Final Report (09/19/2023 9:56 AM EDT) Diagnosis Discussion [id number] ? Location: [facility]; The signing pathologist has (i) examined the relevant preparation(s) for the specimen(s) and (ii) rendered or confirmed the diagnosis(es). . ? Non-Hammerer Helper Final DIAGNOSIS Negative for Malignancy Electronically signed by: ?Randolph BEST, Trevor Verified: ??09/21/2023 11:07 ??Pathologist Performed at: ??-[facility] [place], [place] [address] Male Model: Janes Ritchie MD, FCAP, ??CLIA Certificate: [id number] DISCUSSION Lymph node, station 7 (EBUS-guided FNA): A few fragments of lymphoid tissue, ?? compactible ??with lymph node sampling. No metastatic carcinoma seen. ?? Clinical and radiologic correlation is required to determine whether this sample is fully service liaison representative of a clinically suspected lesion. CLINICAL INFORMATION Specimen Source : Lymph node, station 7 (EBUS-guided FNA) Pertinent Clinical Data and Significant Therapy: Pulmonary nodule(s) / Robotic bronch with EBUS / GA / Backer Clinical Impression : Known right lung cancer POSS met vs new primary Pertinent Radiologic Findings ??: (not provided) Gross Description: Received ??in Formalin approximately 50 mL total volume of ?? cloudy, bloody fluid, with clots. Total Preparation: Cell Block 1. 09/21/2023 11:07 AM EDT [facility] LYMPH NODE SPECIMEN / Unknown 09/19/2023 9:56 AM EDT 09/19/2023 9:56 AM EDT Lenard Ramon MD PATHOLOGY/CYTOLOGY O [place] [facility] [place] [address] * Cytopathology Non-Gynecological (09/19/2023 9:56 AM EDT) AP Specimen 09/19/2023 9:56 AM EDT 09/19/2023 9:56 AM EDT Narrative [facility] - 09/19/2023 9:56 AM EDT Specimen requisition ordered. ??Separate Pathology report to follow Lenard Ramon MD PATHOLOGY/[place] [address] * Specimen to Pathology (09/19/2023 9:46 AM EDT) AP Specimen 09/19/2023 9:46 AM EDT 09/19/2023 9:46 AM EDT Narrative [facility] - 09/19/2023 9:46 AM EDT Specimen requisition ordered. ??Separate Pathology report to follow Lenard Ramon MD PATHOLOGY/CYTOLOGY [facility] [place] [address] * Surgical Pathology Report (09/19/2023 9:45 AM EDT) Final Diagnosis [id number] ? Location: [facility]; A The signing pathologist has (i) examined the relevant preparation(s) for the specimen(s) and (ii) rendered or confirmed the diagnosis(es). . ? Addendum ADDENDUM DISCUSSION Tissue: ??Lung, left, forceps biopsy Tumor Proportion Score (TPS): ?% Expression: < 1 Interpretation Table: PD-L1 assay (22C3 pharmDX) for Keytruda Tumor Proportion Score (TPS): ? <1% ?PD-L1 Negative ? >=1% ? PD-L1 Expression Immunohistochemical assay was performed on paraffin-embedded tissue sections fixed in 10% neutral buffered formalin for 6-72 hours using the polymer system technique with appropriate controls. The assay was performed according to the headstart teacher's instructions using Anti-PD-L1 (22C3, pharmDX) antibody. Electronically signed by: ?Isa BEST, Alphonso Sebastian Verified: ??09/27/2023 16:05 ??Pathologist Performed at: ??-[facility] 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 (see Discussion.) Electronically signed by: ?Raghavnedra Karol SamLatesha Verified: ??09/22/2023 12:14 ??Pathologist Performed at: ??-[facility] [place], [place] [address] Male Model: Janes Ritchie MD, FCAP, ??CLIA Certificate: [id number] DISCUSSION The prior right lung biopsy (cytology case [id number]) was reviewed with Dr Dickson and compared to this biopsy. The tumors appear to have some similar features but are not identical. ??The former, right sided tumor shows higher nuclear grade features compared to this left sided tumor, in the biopsy sample. PDL1 has been ordered. Molecular testing is ordered. ADDITIONAL STUDIES Immunohistochemistry Studies: Formalin-fixed, paraffin-embedded tissue sections are studied using the polymer technique with appropriate positive and negative controls. ?These IHC studies provide the pathologist with adjunctive diagnostic information. Antibody specificity has been verified by testing antibodies on a series of in-house tissues with known immunohistochemical performance characteristics. The clinical interpretation of any antibody positive staining or its absence is evaluated within the context of . ADDITIONAL STUDIES clinical presentation, morphology, histopathological criteria and other diagnostic tests. Block ? Antibody ?Result (Positive/Negative) A1 ? TTF1 ? Positive in lesional cells. A1 ? P40 ?Negative in lesional cells. SPECIMEN(S) SUBMITTED A - left lung forceps biopsy, biopsy (1) CLINICAL INFORMATION Pulmonary nodules/robotic bronch with a EBUS/GA/Backar SPECIMEN PROCESSING A - Labeled/Fixative: Left lung forceps biopsy, formalin. Quantity/Size: Multiple, ranging from 0.3 to 0.8 cm. Tissue Description: Soft, pink-red tissues. Sections/Processing: Submitted in toto ??in 1 cassette labeled A1. ??SM 09/27/2023 4:05 PM EDT [facility] LUNG STRUCTURE / Unknown 09/19/2023 9:45 AM EDT 09/19/2023 9:45 AM EDT Lenard Ramon MD PATHOLOGY/CYTOLOGY O [place] Performing Organization Address [facility] Co de Phone Number [facility] [place] [address] * Solid Tumor NGS Panel (09/19/2023 9:45 AM EDT) Tissue 09/19/2023 9:45 AM EDT 09/27/2023 2:47 PM EDT Narrative Resulting Agency Comment Spec In Lab Lenard Ramon MD PATHOLOGY/CYTOLOGY O [place] Performing Organization Address [facility] Co de Phone Number [facility] [place] [address] * (ABNORMAL) Non-Hammerer Helper Final Report (09/19/2023 9:43 AM EDT) Diagnosis Discussion [id number] ? Location: [facility]; The signing pathologist has (i) examined the relevant preparation(s) for the specimen(s) and (ii) rendered or confirmed the diagnosis(es). . ? Non-Hammerer Helper Final DIAGNOSIS Positive for Malignancy Electronically signed by: ?Randolph BEST, Trevor Verified: ??09/22/2023 15:24 ??Pathologist Performed at: ??-[facility] [place], [place] [address] Male Model: Janes Ritchie MD, FCAP, ??CLIA Certificate: [id number] DISCUSSION Lung, left (EBUS-guided FNA): Compatible with adenocarcinoma. See also the concurrent surgical specimen, [id number]. Molecular testing and PD-L1 immunohistochemistry have been ordered on [id number]. Dr. Rodriguez has reviewed this case and concurs with the diagnosis. --- Immunohistochemistry Studies --- Interpretation: The lesional cells are immunoreactive for TTF1. ? Immunohistochemical assays were performed (on paraffin-embedded cell block sections fixed in 10% neutral buffered formalin for 6-72 hours) using the polymer technique with appropriate controls. The sections are studied for TTF1. These immunohistochemical studies provide ancillary information and are used only in conjunction with standard diagnostic procedures. THIS RESULT REQUIRES PHYSICIAN/A.P.P. FOLLOW UP CLINICAL INFORMATION Specimen Source : Lung, left (EBUS-guided FNA) Pertinent Clinical Data and Significant Therapy: Pulmonary nodule(s) / Robotic bronch with EBUS / GA / Backer Clinical Impression : Known right lung cancer POSS met vs new primary Pertinent Radiologic Findings ??: (not provided) Gross Description: Received ??in Formalin approximately 50 mL total volume of ?? cloudy, bloody fluid, with clots. Total Preparation: Cell Block 1.(A) 09/22/2023 3:24 PM EDT [facility] LEFT LUNG STRUCTURE / Unknown 09/19/2023 9:43 AM EDT 09/19/2023 9:43 AM EDT Lenard Ramon MD PATHOLOGY/CYTOLOGY [place] Performing Organization Address [facility]/[place] [address] * Cytopathology Non-Gynecological (09/19/2023 9:43 AM EDT) AP Specimen 09/19/2023 9:43 AM EDT 09/19/2023 9:43 AM EDT Narrative [facility] - 09/19/2023 9:43 AM EDT Specimen requisition ordered. ??Separate Pathology report to follow Lenard Ramon MD PATHOLOGY/CYTOLOGY O [place] Performing Organization Address City/[facility]/ZIP Co de [place] [address] documented in this encounter Visit Diagnoses Not on filedocumented in this encounter Administered Medications Inactive Administered Medications - up to 3 most recent administrations Medication Order MAR Action Action Date Dose Rate Site acetaminophen (Tylenol) tablet 975 mg 975 mg, Oral, ONCE, 1 dose, On Mon09/19/23 at 0900, Administer with a SIP of water only. Maximum dose of acetaminophen is 4,000 mg from all sources in 24 hours., Day of Surgery (Day of Procedure), Routine Given 09/19/2023 8:51 AM EDT 975 mg documented in this encounter Active and Recently Administered Medications Times are shown in EDT. Scheduled Medication Order 09/17/2023 09/18/2023 09/19/2023 acetaminophen (Tylenol) tablet 975 mg (COMPLETED) 975 mg, Oral, ONCE, 1 dose, On Mon09/19/23 at 0900, Administer with a SIP of water only. Maximum dose of acetaminophen is 4,000 mg from all sources in 24 hours., Day of Surgery (Day of Procedure), Routine 0851 (Given - Provid er: Amelia Dawn RN) Continuous Medication Order 09/17/2023 09/18/2023 09/19/2023 lactated ringers infusion (CANCELED) 1,000 mL, at 100 mL/hr, Intravenous, CONTINUOUS, Starting on Mon09/19/23 at 0900, Until Mon09/19/23 at 1146, Day of Surgery (Day of Procedure) 0908 (New Bag - Prov ider: Lucy Owens CRNA)1015 (Anesthesia Volume Adjustment - Provider: Lucy Owens CRNA) documented in this encounter Care Teams Production Estimator Relationship Specialty Start Date End Date Avery Castro DO [address] [place] [address] PCP - General Family Medicine 07/28/23 09/25/23 documented as of this encounter
--- OUTSIDE RECORDS SUMMARY | 2024-01-08 11:28 | XMS_ITS | Encounter Summary ---
Author Organization [facility]ly [facility] [place] [address] Care Team Providers Care Retail Sales Representative Name Role Phone Avery Castro DO Primary Care Provider [phone] Reason for Visit * Auth/Cert (Routine) Specialty Diagnoses / Procedures Referred By Jimbo moffett Referred To Contact Diagnoses Pulmonary nodules Pulmonary nodule(s) / Robotic Bronch with EBUS / GA / Backer Procedures PRO BRONCHOSCOPY RIGID FLEX W COMPUTER ASSIST IMG NAVIGATION PRO [facility] EBUS GUIDED SAMPL 3/> NODE STATION/STRUX BRONCHOSCOPY,RIGID OR FLEX,WITH IMAGE GUIDANCE ( ROBOT / ION ) (WRVU 2) BRONCH, W ENDOBRONCHIAL ULTRASOUND (EBUS) GUIDED SAMPLING, 3+ NODES (WRVU 4.96) Lenard Ramon MD [facility] [place] [address] [facility] Referral ID Status Reason Start Date Expiration Date Visits Re quested Visits Authorized [id number] 1 1 Encounter Details Date Type Department Care Team (Late st Contact Info) Description 09/19/2023 9:15 AM EDT - 09/19/2023 11:21 AM EDT Surgery [place] [phone] Lenard Ramon MD [facility] [place] [address] BRONCHOSCOPY,RIGID OR FLEX,WITH IMAGE GUIDANCE ( ROBOT / ION ) (WRVU 2) Social History Tobacco Use Types Packs/Day Years [...] Pulse 83 09/19/2023 11:15 AM EDT Temperature 36.1 ??C (97 ??F) 09/19/2023 10:22 AM EDT Respiratory Rate 22 09/19/2023 11:15 [...] Section of Pulmonary & Critical Care Pager: [phone] documented in this encounter H&P Notes * [...] Section of Pulmonary & Critical Care Pager: [phone] documented in this encounter Miscellaneous Notes * [...] of lobes: 1): Navigation planning utilizing the Bevvy robotic bronchoscopy system by [employer] was first performed. The CT scan was [...] used. Tissue sampling was obtained using the Bevvy 21 gauge cytology needle and Olympus 1.8 [...] 174). EBUS-TBNA (3 sites): The Olympus EBUS ([id number]) scope was inserted, lymph node inspection undertaken and transbronchial needle aspiration obtained from the following sites using the Olympus ViziShot-1 22 gauge TBNA needle: 1) Station 7 (5-10 mm) with 3 passes obtained with KEVIN absent. 2) Cnheikm5Q (5 mm) with 3 passes obtained with [...] warranting biopsy based on size. Therapeutic Suctioning (59462): A significant portion of operative time was [...] Section of Pulmonary & Critical Care Pager: [phone] documented in this encounter Plan of Treatment Upcoming Encounters Date Type Department Care Team (Late st Contact Info) Description 01/08/2024 1:00 PM EDT Office Visit Hematology/Oncology at [address] [phone] Antolin Croft MD [facility] [place] [address] Candice Erickson APRN [address] [place] [address] DR HEMATOLOGY AND ONCOLOGY [place], [place] [address] Primary malignant neoplasm of right lower lobe of lung 01/08/2024 1:30 PM EDT Infusion Hematology Oncology at [address] [phone] 01/30/2024 9:[address] [place] [phone] Soto Gilbert MD [facility] [place] [address] 01/30/2024 10:30 AM EST Appointment Nuclear Medicine at [place] [phone] Soto Gilbert MD [facility] [place] [address] 01/30/2024 11:00 AM EST Appointment [place] [phone] Soto Gilbert MD [facility] [place] [address] 01/30/2024 11:30 AM EST Appointment [place] [phone] Soto Gilbert MD [facility] [place] [address] 01/30/2024 12:00 PM EST Appointment [place] [phone] Soto Gilbert MD [facility] [place] [address] 01/30/2024 2:30 PM EST Appointment [place] [phone] documented as of this encounter Procedures Procedure Name Priority Date/Time Associated Diagnosis Comments XR FLUORO NO RAD <1HR - OR USE Routine 09/19/2023 10:45 AM EDT XR CHEST ONE VIEW STAT 09/19/2023 10: 43 AM EDT NON-WAISTBAND SETTER FINAL REPORT Routine 09/19/2023 9:59 AM EDT CYTOPATHOLOGY NON-GYNECOLOGICAL Routine 09/19/2023 9:59 AM EDT NON-WAISTBAND SETTER FINAL REPORT Routine 09/19/2023 9:57 AM EDT CYTOPATHOLOGY NON-GYNECOLOGICAL Routine 09/19/2023 9:57 AM EDT NON-WAISTBAND SETTER FINAL REPORT Routine 09/19/2023 9:56 AM EDT CYTOPATHOLOGY NON-GYNECOLOGICAL Routine 09/19/2023 9:56 AM EDT SPECIMEN TO PATHOLOGY Routine 09/19/2023 9:46 AM EDT SOLID TUMOR NGS PANEL Routine 09/19/2023 9:45 AM EDT SURGICAL PATHOLOGY REPORT Routine 09/19/2023 9:45 AM EDT NON-WAISTBAND SETTER FINAL REPORT Routine 09/19/2023 9:43 AM EDT CYTOPATHOLOGY NON-GYNECOLOGICAL Routine 09/19/2023 9:43 AM EDT [facility] Ebus Guided Sampl 3/> Node Station/Strux (43216) 09/19/2023 9:05 AM EDT Pulmonary nodules Bronchoscopy Rigid Flex W Computer Assist Img Navigation (54490) 09/19/2023 9:05 AM EDT Pulmonary nodules documented in this encounter Results * XR Fluoro No Rad <1Hr - OR Use (09/19/2023 10:45 AM EDT) Narrative Dicom, Auditing User - 09/19/2023 11:01 AM EDT This exam is auto-finalizing. No interpretation was done. Lenard Ramon MD IMFarooq FLUORO ORDERABLE S * XR Chest One View (09/19/2023 10:43 AM EDT) WORKSTATION ID [id number] RAD Anatomical Region Laterality Modality Chest N/A [...] who have questions please contact the health behavioral health care coordinator that requested your imaging first. ? Narrative [...] patients who have questions please contactthe health behavioral health care coordinator that requested your imaging first. Electronically signed by: Noel Morgan MD, [facility]([phone]), at 09/19/2023 11:52 AM Lenard Ramon MD IMG DX ORDERABLES * Non-Tetryl Wringer Operator Final Report (09/19/2023 9:59 AM EDT) Diagnosis Discussion [id number] ? Location: [facility]; [facility]; The signing pathologist has (i) examined the relevant preparation(s) for the specimen(s) and (ii) rendered or confirmed the diagnosis(es). . ? Non-Tetryl Wringer Operator Final DIAGNOSIS Negative for Malignancy Electronically signed by: ?Randolph BEST, [facility] Verified: ??09/22/2023 15:50 ??Pathologist Performed at: ??-[facility] [place], [place] [address] Curb Builder: Janes Ritchie MD, FCAP, ??CLIA Certificate: [id number] DISCUSSION Lymph node, station 11L (EBUS-guided FNA): Fragments of lymphoid tissue, ?? compactible ??with lymph node sampling. No metastatic carcinoma seen. ?? Clinical and radiologic correlation is required to determine whether this sample is fully publications sales representative of a clinically suspected lesion. --- [...] Cell Block 1. 09/22/2023 3:50 PM EDT [facility] LYMPH NODE SPECIMEN / Unknown 09/19/2023 9:59 AM EDT 09/19/2023 9:59 AM EDT Lenard Ramon MD PATHOLOGY/CYTOLOGY O [place] Performing Organization Address City/[facility]/ZIP Co de Phone Number [facility] [place] [address] * Cytopathology Non-Gynecological (09/19/2023 9:59 AM EDT) AP Specimen 09/19/2023 9:59 AM EDT 09/19/2023 9:59 AM EDT Narrative [facility] - 09/19/2023 9:59 AM EDT Specimen requisition ordered. ??Separate Pathology report to follow Lenard Ramon MD PATHOLOGY/CYTOLOGY O [place] [facility] [place] [address] * Non-Tetryl Wringer Operator Final Report (09/19/2023 9:57 AM EDT) Diagnosis Discussion [id number] ? Location: [facility]; [facility]; A The signing pathologist has (i) examined the relevant preparation(s) for the specimen(s) and (ii) rendered or confirmed the diagnosis(es). . ? Non-Tetryl Wringer Operator Final DIAGNOSIS Negative for Malignancy Electronically signed by: ?Randolph BEST, Trevor Verified: ??09/22/2023 15:46 ??Pathologist Performed at: ??-[facility] [place], [place] [address] Curb Builder: Janes Ritchie MD, FCAP, ??CLIA Certificate: [id number] DISCUSSION Lymph node, station 4L (EBUS-guided FNA): Fragments of lymphoid tissue and lymphohistiocytic aggregates, ? compactible with lymph node sampling. No metastatic carcinoma seen. ?? Clinical and radiologic correlation is required to determine whether this sample is fully publications sales representative of a clinically suspected lesion. --- [...] Cell Block 1. 09/22/2023 3:46 PM EDT [facility] LYMPH NODE SPECIMEN / Unknown 09/19/2023 9:57 AM EDT 09/19/2023 9:57 AM EDT Lenard Ramon MD PATHOLOGY/CYTOLOGY O [place] Performing Organization Address [facility] Co de Phone Number [facility] [place] [address] * Cytopathology Non-Gynecological (09/19/2023 9:57 AM EDT) AP Specimen 09/19/2023 9:57 AM EDT 09/19/2023 9:57 AM EDT Narrative [facility] - 09/19/2023 9:57 AM EDT Specimen requisition ordered. ??Separate Pathology report to follow Lenard Ramon MD PATHOLOGY/CYTOLOGY O [place] Performing Organization Address [facility] Co de Phone Number [facility] [place] [address] * Non-Tetryl Wringer Operator Final Report (09/19/2023 9:56 AM EDT) Diagnosis Discussion [id number] ? Location: [facility]; [facility]; The signing pathologist has (i) examined the relevant preparation(s) for the specimen(s) and (ii) rendered or confirmed the diagnosis(es). . ? Non-Tetryl Wringer Operator Final DIAGNOSIS Negative for Malignancy Electronically signed by: ?Randolph BEST, Trevor Verified: ??09/21/2023 11:07 ??Pathologist Performed at: ??-[facility] [place], [place] [address] Curb Builder: Janes Ritchie MD, FCAP, ??CLIA Certificate: [id number] DISCUSSION Lymph node, station 7 (EBUS-guided FNA): A few fragments of lymphoid tissue, ?? compactible ??with lymph node sampling. No metastatic carcinoma seen. ?? Clinical and radiologic correlation is required to determine whether this sample is fully publications sales representative of a clinically suspected lesion. CLINICAL [...] Cell Block 1. 09/21/2023 11:07 AM EDT [facility] LYMPH NODE SPECIMEN / Unknown 09/19/2023 9:56 AM EDT 09/19/2023 9:56 AM EDT Lenard Ramon MD PATHOLOGY/CYTOLOGY O [place] [facility] [place] [address] * Cytopathology Non-Gynecological (09/19/2023 9:56 AM EDT) AP Specimen 09/19/2023 9:56 AM EDT 09/19/2023 9:56 AM EDT Narrative [facility] - 09/19/2023 9:56 AM EDT Specimen requisition ordered. ??Separate Pathology report to follow Lenard Ramon MD PATHOLOGY/CYTOLOGY O [place] [facility] [place] [address] * Specimen to Pathology (09/19/2023 9:46 AM EDT) AP Specimen 09/19/2023 9:46 AM EDT 09/19/2023 9:46 AM EDT Narrative [facility] - 09/19/2023 9:46 AM EDT Specimen requisition ordered. ??Separate Pathology report to follow Lenard Ramon MD PATHOLOGY/CYTOLOGY O [place] [facility] [place] [address] * Surgical Pathology Report (09/19/2023 9:45 AM EDT) Final Diagnosis [id number] ? Location: [facility]; [facility]; The signing pathologist has (i) examined the [...] The assay was performed according to the web development manager's instructions using Anti-PD-L1 (22C3, pharmDX) antibody. Electronically signed by: ?Alphonso Moss MD Verified: ??09/27/2023 16:05 ??Pathologist Performed at: ??-[facility] [place], [place] [address] Curb Builder: Janes Ritchie MD, FCAP, ??CLIA Certificate: [id number] ?Surgical Pathology DIAGNOSIS Lung, left, forceps biopsy - - Positive for adenocarcinoma with glandular and focal papillary features, ? (see Discussion.) Electronically signed by: ?Tony Mabry DOice Kaden Verified: ??09/22/2023 12:14 ??Pathologist Performed at: ??-[facility] [place], [place] [address] Curb Builder: Janes Ritchie MD, FCAP, ??CLIA Certificate: [id number] DISCUSSION The prior right lung biopsy (cytology case [id number]) was reviewed with Dr Dickson and compared [...] labeled A1. ??SM 09/27/2023 4:05 PM EDT [facility] LUNG STRUCTURE / Unknown 09/19/2023 9:45 AM EDT 09/19/2023 9:45 AM EDT Lenard Ramon MD PATHOLOGY/CYTOLOGY O [place] Performing Organization Address [facility]/ZIP Co de Phone Number [facility] [place] [address] * Solid Tumor NGS Panel (09/19/2023 9:45 AM EDT) Tissue 09/19/2023 9:45 AM EDT 09/27/2023 2:47 PM EDT Narrative Resulting Agency Comment Spec In Lab Lenard Ramon MD PATHOLOGY/CYTOLOGY O [place] Performing Organization Address [facility] Co de Phone Number [facility] [place] [address] * (ABNORMAL) Non-Tetryl Wringer Operator Final Report (09/19/2023 9:43 AM EDT) Diagnosis Discussion [id number] ? Location: [facility]; The signing pathologist has (i) examined the relevant preparation(s) for the specimen(s) and (ii) rendered or confirmed the diagnosis(es). . ? Non-Tetryl Wringer Operator Final DIAGNOSIS Positive for Malignancy Electronically signed by: ?Randolph BEST, Trevor Verified: ??09/22/2023 15:24 ??Pathologist Performed at: ??-[facility] [place], [place] [address] Curb Builder: Janes Ritchie MD, FCAP, ??CLIA Certificate: [id number] DISCUSSION Lung, left (EBUS-guided FNA): Compatible with adenocarcinoma. See also the concurrent surgical specimen, [id number]. Molecular testing and PD-L1 immunohistochemistry have been ordered on [id number]. Dr. Rodriguez has reviewed this case and [...] Cell Block 1.(A) 09/22/2023 3:24 PM EDT [facility] LEFT LUNG STRUCTURE / Unknown 09/19/2023 9:43 AM EDT 09/19/2023 9:43 AM EDT Lenard Ramon MD PATHOLOGY/CYTOLOGY O [place] Performing Organization Address City/[facility]/ZIP Co de Phone Number [facility] [place] [address] * Cytopathology Non-Gynecological (09/19/2023 9:43 AM EDT) AP Specimen 09/19/2023 9:43 AM EDT 09/19/2023 9:43 AM EDT Narrative [facility] - 09/19/2023 9:43 AM EDT Specimen requisition ordered. ??Separate Pathology report to follow Lenard Ramon MD PATHOLOGY/CYTOLOGY O [place] [facility] [place] [address] documented in this encounter Visit Diagnoses Diagnosis Pulmonary nodules Other nonspecific abnormal finding of lung field Primary malignant neoplasm of right lower lobe [...] CRNA) documented in this encounter Care Teams Retail Sales Representative Relationship Specialty Start Date End Date Avery Castro DO [address] [place] [id number] PCP - General Family Medicine 07/28/23 09/25/23 documented as of this encounter
--- OUTSIDE RECORDS SUMMARY | 2024-01-08 11:28 | XMS_ITS | Encounter Summary ---
Author Organization [facility] [place] [address] Care Team Providers Care Warp Picker Name Role Phone Avery Castro DO Primary Care Provider [phone] Reason for Visit * Reason Onset Date Comments Other 09/08/2023 Chart review bef ore bronch Encounter Details Date Type Department Care Team (Late st Contact Info) Description 09/08/2023 Notes Only Pulmonology at [facility] [place] [address] Gay Wong RN Other (Chart review before bronch) Social History Tobacco Use Types Packs/Day Years [...] as of this encounter Progress Notes * Gay Wong RN - 09/08/2023 1:27 PM EDT I have reviewed pt's chart. Pt takes ASA 81 mg, ok to continue. Pt not on any other blood thinner at this time. Pt currently NOT on home oxygen. Same Day Program nurse to contact pt on 09/18/2023 for a more detailed instructions on her Bronchoscopy. MARK Choudhury, RN Pulmonary [facility] Pager: [phone] documented in this encounter Plan of Treatment Upcoming Encounters Date Type Department Care Team (Late st Contact Info) Description 01/08/2024 1:00 PM EDT Office Visit Hematology/Oncology at [address] [phone] Antolin Croft MD [facility] DR [place] [address] Candice Erickson APRN [address] [place] [address] DR HEMATOLOGY AND ONCOLOGY [place], [place] [address] Primary malignant neoplasm of right lower lobe of lung 01/08/2024 1:30 PM EDT Infusion Hematology Oncology at [address] [phone] 01/30/2024 9:[address] [place] [phone] Soto Gilbert MD [facility] [place] [address] 01/30/2024 10:30 AM EST Appointment [place] [phone] Soto Gilbert MD [facility] [address] 01/30/2024 11:00 AM EST Appointment [place] [phone] Soto Gilbert MD [facility] [place] [address] 01/30/2024 11:30 AM EST Appointment [place] [phone] Soto Gilbert MD [facility] [place] [address] 01/30/2024 12:00 PM EST Appointment [place] [phone] Soto Gilbert MD [facility] [place] [address] 01/30/2024 2:30 PM EST Appointment [place] [phone] documented as of this encounter Visit Diagnoses Not on filedocumented in this encounter Care Teams Warp Picker Relationship Specialty Start Date End Date Avery Castro DO [address] [place] [id number] PCP - General Family Medicine 07/28/23 09/25/23 documented as of this encounter
--- OUTSIDE RECORDS SUMMARY | 2024-01-08 11:28 | XMS_ITS | Encounter Summary ---
Author Organization [facility] [place] [address] Care Team Providers Care Polysomnographic Tech Name Role Phone Avery Castro DO Primary Care Provider [phone] Encounter Details Date Type Department Care Team (Latest Contact Info) Description 09/19/2023 Travel Social History Tobacco Use Types Packs/Day [...] PM EDT Office Visit Hematology/Oncology at [address] [phone] Antolin Croft MD [facility] DR H[place]AT[place] [address] Candice Erickson APRN [address] [place] [address] DR HEMATOLOGY AND ONCOLOGY [place], [place] [id number] Primary malignant neoplasm of right lower lobe of lung 01/08/2024 1:30 PM EDT Infusion Hematology Oncology at [address] [phone] 01/30/2024 9:[address] [place] [phone] Soto Gilbert MD [facility] [place] [address] 01/30/2024 10:30 AM EST Appointment Nuclear Medicine at [place] [phone] Soto Gilbert MD [facility] [place] [address] 01/30/2024 11:00 AM EST Appointment Nuclear Medicine at [place] [phone] Soto Gilbert MD [facility] [place] [address] 01/30/2024 11:30 AM EST Appointment [place] [phone] Soto Gilbert MD [facility] [place] [address] 01/30/2024 12:00 PM EST Appointment [place] [phone] Soto Gilbert MD [facility] [place] [address] 01/30/2024 2:30 PM EST Appointment [place] [address] documented as of this encounter Visit Diagnoses Not on filedocumented in this encounter Care Teams Polysomnographic Tech Relationship Specialty Start Date End Date Avery Castro DO [address] [place] [id number] PCP - General Family Medicine 07/28/23 09/25/23 documented as of this encounter
--- OUTSIDE RECORDS SUMMARY | 2024-01-08 11:28 | XMS_ITS | Encounter Summary ---
[place] [address] Care Team Providers Care Taper Operator Name Role Phone Avery Castro Primary Care Provider [phone] Reason for Visit * Reason Onset Date Comments Prior Authorization 09/13/2023 Accessed Raquel rt to see which colleague or department worked this visit as needed to rename fax received. Encounter Details Date Type Department Care Team (Late Contact Info) Description 09/13/2023 Telephone [place] [address] Yudelka Robbins Prior Authorization (Accessed Chart to see which colleague or department worked this visit as needed to rename fax received./) Social History Tobacco Use Types Packs/Day Years [...] encounter Miscellaneous Notes * Telephone Encounter - Yudelka Robbins - 09/13/2023 3:30 PM EDT Accessed Chart to see which colleague or department worked this visit as needed to rename fax received. documented in this encounter Plan of Treatment Upcoming Encounters Date Type Department Care Team (Late Contact Info) Description 01/08/2024 1:00 PM EDT Office Visit Hematology/Oncology at [address] [phone] Antolin Croft MD [facility] DR HEMATOLOGY [place] [address] Candice Erickson APRN [address] [place] [address] DR HEMATOLOGY AND ONCOLOGY [place], [place] [address] Primary malignant neoplasm of right lower lobe of lung 01/08/2024 1:30 PM EDT Infusion Hematology Oncology at [address] [phone] 01/30/2024 9:[address] [place] [phone] Soto Gilbert MD [facility] [place] [address] 01/30/2024 10:30 AM EST Appointment [place] [phone] Soto Gilbert MD [facility] [place] [address] 01/30/2024 11:00 AM EST Appointment [place] [phone] Soto Gilbert MD [facility] [place] [address] 01/30/2024 11:30 AM EST Appointment [place] [phone] Soto Gilbert MD [facility] [place] [address] 01/30/2024 12:00 PM EST Appointment Nuclear [place] [address] Soto Gilbert MD [facility] [address] THORACIC SURGERY [place], [place] [phone] 01/30/2024 2:30 PM EST Appointment [place] [phone] documented as of this encounter Visit Diagnoses Not on filedocumented in this encounter Care Teams Taper Operator Relationship Specialty Start Date End Date Avery Castro DO [address] [place] [phone] PCP - General Family Medicine 07/28/23 09/25/23 documented as of this encounter
--- OUTSIDE RECORDS SUMMARY | 2024-01-08 11:28 | XMS_ITS | Encounter Summary ---
[facility] [place] [address] Care Team Providers Care Clinical Rehabilitation Coordinator Name Role Phone Avery Castro Primary Care Provider [phone] Encounter Details Date Type Department Care Team (Latest Contact Info) Description 08/29/2023 11:00 AM EDT - 08/29/2023 11:59 PM EDT Hospital Encounter Hematology [place] [address] Adenocarcinoma of right lung Discharge Disposition: Home Social History Tobacco Use [...] or Shortness of Breath. Use with Spacer aspirin EC 81 mg EC (DR) tablet Take 81 mg by mouth daily. 09/18/2023 documented as of this encounter Plan of Treatment Upcoming Encounters Date Type Department Care Team (Late st Contact Info) Description 01/08/2024 1:00 PM EDT Office Visit Hematology/Oncology at [address] [phone] Antolin Croft MD [facility] DR [place] [address] Candice Erickson [address] [place] [address] Primary malignant neoplasm of right lower lobe of lung 01/08/2024 1:30 PM EDT Infusion Hematology Oncology at [address] [phone] 01/30/2024 9:[address] [place] [phone] Soto Gilbert MD [facility] [place] [address] 01/30/2024 10:30 AM EST Appointment [place] [phone] Soto Gilbert MD [facility] [place] [address] 01/30/2024 11:00 AM EST Appointment [place] [phone] Soto Gilbert MD [facility] [place] [address] 01/30/2024 11:30 AM EST Appointment [place] [phone] Soto Gilbert MD [facility] [place] [address] 01/30/2024 12:00 PM EST Appointment [place] [phone] Soto Gilbert MD [facility] [place] [address] 01/30/2024 2:30 PM EST Appointment Pulmonology at [facility] [place] [phone] documented as of this encounter Procedures Procedure Name Priority Date/Time Associated Diagnosis Comments HEMOGRAM STAT 08/29/2023 11:11 AM EDT Adenocarcinoma of right lung DIFFERENTIAL, AUTOMATED STAT 08/29/2023 11:11 AM EDT Adenocarcinoma of right lung CBC (WITH DIFF) STAT 08/29/2023 11:11 AM EDT Adenocarcinoma of right lung COMPREHENSIVE METABOLIC PANEL STAT 08/29/2023 11:11 AM EDT Adenocarcinoma of right lung documented in this encounter Results * Differential, Automated (08/29/2023 11:11 AM EDT) Neutrophil % 53.6 % [facility] Neutrophil Absolute 3.89 1.70 - 6.10 x10(3)/[facility] Lymph % 31.0 % [facility] Lymphocytes Abs 2.2 0.9 - 3.2 x10(3)/[facility] Monocyte % 9.1 % [facility] Monocyte Abs 0.7 0.3 - 0.9 x10(3)/[facility] Eos % 4.6 % [facility] Eosinophils Abs 0.3 0.0 - 0.4 x10(3)/[facility] Basophil % 1.4 % [facility] Baso Absolute 0.1 0.0 - 0.1 x10(3)/[facility] Immature Gran % 0.30 % [facility] Comment: Immature granulocytes(IG's)percentage and absolute count will include metamyelocytes, myelocytes, and promyelocytes. Blood smears from CBCs yielding IG's will be scanned manually for concordance. If this scan disagrees with the automated IG or if promyelocytes are noted, a manual differential will be performed. Immature Gran Absolute 0.02 0.00 - 0.04 x10(3)/[facility] Blood 08/29/2023 11:1 1 AM EDT 08/29/2023 11:27 AM EDT Narrative Resulting Agency Comment Spec In Lab Erlinda Barreto BANBUR[employer] MIXER OPERATOR HEMATOLOGY ORDERAB LES [facility] [place] [address] * (ABNORMAL) Hemogram (08/29/2023 11:11 AM EDT) White Blood Cell 7.2 4.0 - 9.5 x10(3)/[facility] Red Blood Cell 5.35(H) 4.00 - 5.21 x10(6)/[facility] Hemoglobin 13.8 11.7 - 15.5 g/dL [facility] Hematocrit 45.6 35.7 - 45.8 % [facility] Mean Cell Volume 85.2 82.6 - 94.4 [facility] Mean Cell Hemoglobin 25.8(L) 27.1 - 32.0 pg [facility] Mean Cell Hemoglobin Concentration 30.3(L) 31.7 - 35.0 g/dL [facility] Platelet 276 145 - 357 x10(3)/[facility] RDW Standard Deviation 45.1 37.0 - 46.0 [facility] RDW coefficient of variation 14.4(H) 11.5 - 14.1 % [facility] Mean Platelet Volume 10.4 7.6 - 12.9 [facility] NRBC% auto 0.0 % [facility] NRBC Absolute 0.000 0.000 - 0.000 x10(3)/[facility] Blood 08/29/2023 11:1 1 AM EDT 08/29/2023 11:27 AM EDT Narrative Resulting Agency Comment Spec In Lab Erlinda Barker Mary Lou ZARCO HEMATOLOGY ORDERAB LES [facility] [place] [address] * Comprehensive metabolic panel (non-fasting) (08/29/2023 11:11 AM EDT) Glucose 131 65 - 199 mg/dL [facility] Comment:Diabetes: >=200 mg/d L plus symptoms Blood Urea Nitrogen 14 8 - 18 mg/dL [facility] Creatinine 1.02 0.70 - 1.20 mg/dL [facility] Sodium 139 135 - 145 mmol/L [facility] Potassium 4.2 3.5 - 5.0 mmol/L [facility] Comment: Please note: ??Patients with WBC >100,000 may have falsely elevated Potassium levels. ??For accurate Potassium quantification in these patients send serum separator tube (gold top) for subsequent determinations. ??Contact the Clinical Chemistry Laboratory if there are any questions. Chloride 103 98 - 107 mmol/L [facility] Carbon Dioxide 25 22 - 31 mmol/L [facility] Anion Gap 11 5 - 15 mmol/L [facility] Calcium 9.2 8.5 - 10.5 mg/dL [facility] Protein, Total 7.1 6.1 - 8.0 g/dL [facility] Albumin 3.9 3.2 - 5.2 g/dL [facility] Aspartate Aminotransferase 17 0 - 30 unit/L [facility] Alanine Aminotransferase 16 0 - 30 unit/L [facility] Alkaline Phosphatase 99 35 - 105 unit/L [facility] Bilirubin, Total 0.3 0.2 - 1.3 mg/dL [facility] Est Glomerular Filtration Rate 61 >=60 mL/min/1. 73 m?? [facility] Comment: This patient's estimated GFR [...] Lab Erlinda Barreto APRN CHEMISTRY ORDERABL ES [facility] [place] [address] documented in this encounter Visit Diagnoses Diagnosis Adenocarcinoma of right lung Primary malignant neoplasm of right lower lobe of lung Malignant neoplasm of lower lobe, bronchus, or lung documented in this encounter Care Teams Clinical Rehabilitation Coordinator Relationship Specialty Start Date End Date Avery Castro DO [address] [place] [address] PCP - General Family Medicine 07/28/23 09/25/23 documented as of this encounter
--- OUTSIDE RECORDS SUMMARY | 2024-01-08 11:28 | XMS_ITS | Encounter Summary ---
Author Organization [facility] [place] [address] Care Team Providers Care Personnel Security Specialist Name Role Phone Avery Castro DO Primary Care Provider [phone] Encounter Details Date Type Department Care Team (Late st Contact Info) Description 08/25/2023 Orders [place] [address] Ming Eldridge MD [facility] [place] [address] Left adrenal mass (Primary Dx) Social History Tobacco Use Types Packs/Day Years [...] as of this encounter Progress Notes * Ming Eldridge MD - 08/25/2023 9:11 AM EDT Sure-I'll set up the EUS if you can lete her know. Mary Kay-EUS with me next 1-2 weeks. Ming ===View-only below this line=== ----- Message ----- From: Lenard Ramon MD Sent: 08/24/2023 5:22 PM EDT To: Ming Eldridge MD; Antolin Croft MD Subject: Biopsy Q Hi Tuan: Would you be able to hit the L adrenal gland on this lady? NSCLC from R lung, may have met vs synchronous lesion in her L lung, and then this FDG uptake on PET without other metastatic disease. Dipak: TERESA this is a lady you're scheduled to meet on 08/28. Dominant RLL mass which is contiguous with 11R which was NSCLC (N1 disease). Her station 4R was non-diagnostic but small, station 7 lymphocytes and station 11L lymphocytes. She also has a MARISSA nodular opacity which is FDG avid. I wanted to wait and see what we got from our EBUS and subsequent PET prior to formulating next steps. I think at this point we'll need to parse out if the L lung nodule is a synchronous primary (which I think it may be unless it skipped over her mediastinum) and we should probably confirm if the Ladrenal lesion is oligometastatic disease (vs hyperplasia - I think she had thickening on both adrenals). I'm going to speak to her tomorrow but my plan is going to be to offer her EUS of the L adrenal androbotic bronch of the MARISSA nodule if you think that makes sense. Thanks all, Lenard documented in this encounter Plan of Treatment Upcoming Encounters Date Type Department Care Team (Late st Contact Info) Description 01/08/2024 1:00 PM EDT Office Visit Hematology/Oncology at [address] [phone] Antolin Croft MD [facility] [place] [address] Candice Erickson APRN [address] [place] [address] DR HEMATOLOGY AND ONCOLOGY [place], [place] [address] Primary malignant neoplasm of right lower lobe of lung 01/08/2024 1:30 PM EDT Infusion Hematology Oncology at [address] [phone] 01/30/2024 9:[address] [place] [place] [phone] Soto Gilbert MD [facility] [place] [address] 01/30/2024 10:30 AM EST Appointment Nuclear Medicine at [place] [phone] Soto Gilbert MD [facility] [place] [address] 01/30/2024 11:00 AM EST Appointment Nuclear Medicine at [place] [phone] Soto Gilbert MD [facility] [place] [address] 01/30/2024 11:30 AM EST Appointment [place] [phone] Soto Gilbert MD [facility] [place] [address] 01/30/2024 12:00 PM EST Appointment [place] [phone] Soto Gilbert MD [facility] [place] [address] 01/30/2024 2:30 PM EST Appointment [place] [phone] Scheduled Orders Name Type Priority Associated Diagnoses Orde r Schedule ENDOSCOPY CASE REQUEST: UPPER EUS- ENDOSCOPIC ULTRASOUND (WRVU 3.47) Procedures Routine Left adrenal mass Ordered: 08/25/2023 documented as of this encounter Visit Diagnoses Diagnosis Left adrenal mass- Primary Unspecified disorder of adrenal glands Primary malignant neoplasm of right lower lobe of lung Malignant neoplasm of lower lobe, bronchus, or lung documented in this encounter Care Teams Personnel Security Specialist Relationship Specialty Start Date End Date Avery Castro DO [address] [place] [address] PCP - General Family Medicine 07/28/23 09/25/23 documented as of this encounter
--- OUTSIDE RECORDS SUMMARY | 2024-01-08 11:28 | XMS_ITS | Encounter Summary ---
[place] [address] Care Team Providers Care Jewelsmith Name Role Phone Avery Castro DO Primary Care Provider [phone] Reason for Visit * Reason Onset Date Comments Prior Authorization 09/08/2023 Molecular ca ncer testing CPT 69763 is a covered benefit. Encounter Details Date Type Department Care Team (Late st Contact Info) Description 09/08/2023 Telephone [place] [address] Deana Gibson Prior Authorization (Molecular cancer testing CPT 83048 is a covered benefit. ) Social History Tobacco Use Types Packs/Day Years [...] encounter Miscellaneous Notes * Telephone Encounter - Deana Gibson - 09/14/2023 12:27 PM EDTSummary: Molecular cancer testing authorization - Approval of CPT 67031 NO PATIENT ACTION NEEED_VOICEMAIL OR AUTHORIZATION_INFORMATIONAL ONLY Molecular cancer testing authorization: Approval of CPT 93602 by secondary [facility]: I received an e-mail from Jacklyn in [employer] ([id number]) requesting coverage review. Insurance Verified: TRADITIONAL MEDICARE A&B [id number] AND SECONDARY [employer] CARITAS [id number] Insurance Effective To/From Dates: 10/18/21 AND 08/04/23, RESPECTIVELY. Third Alliance Party Vendor: IBETH Authorization number: APPROVAL [id number]. Validity Dates: 09/08/23 TO 12/09/23 CGAT list date: 08/22/23 Tissue Obtained On: 08/10/23 Ordered On: 08/16/23 Lab: [facility] CPT/Description: 39685/SOLID TUMOR NGS EXTENDED PANEL ICD-10/Description: C34.91/ADENOCARCINOMA OF RIGHT LUNG. Ordering Provider: MAINOR WOODS MD/ . Call Reference Number: N/A - SEE HARDCOPY OF APPROVAL OBTAINED VIA [employer] SCANNED IN PATIENT'S MEDIA FOLDER. Spoke With: N/A - USED WEB Financially Cleared: YES PSC Insurance Contact Information PSC Insurance Name: [employer] CARITAS Insurance Insurance Additional Clinical Required Y/N?: NO Notes - Upon review discovered chart now has secondary [employer] policy added as of 08/04/23. The hardcopy of approval was obtained via [employer] and has been scanned in patient's Media folder. I will e-mail Jacklyn to let her know of the authorization approval. * Telephone Encounter - Deana Gibson - 09/12/2023 10:14 AM EDTSummary: Molecular cancer testing authorization - Submitted CPT 87970 to secondary [employer] ;NO PATIENT ACTION NEEED_VOICEMAIL OR AUTHORIZATION_INFORMATIONAL ONLY Molecular cancer testing authorization: Submitted CPT 32843 to secondary [employer]: I received an e-mail from Jacklyn in [employer] and [employer] ([id number]) requesting coverage review. Insurance Verified: TRADITIONAL MEDICARE A&B [id number] AND SECONDARY [employer] CARITAS [id number] Insurance Effective To/From Dates: 10/18/21 AND 08/04/23, RESPECTIVELY. Third Alliance Party Vendor: IB[employer] Authorization number: NO CASE GENERATED; IBETH ALCALA ON 09/07 SO QUEUED UP FAXING REQUEST. . Validity Dates: 09/08/23 CGAT list date: 08/22/23 Tissue Obtained On: 08/10/23 Ordered On: 08/16/23 Lab: [facility] CPT/Description: 19940/SOLID TUMOR NGS EXTENDED PANEL ICD-10/Description: C34.91/ADENOCARCINOMA OF RIGHT LUNG. Ordering Provider: MAINOR WOODS MD/ . Call Reference Number: N/A - FAXED. Spoke With: N/A - FAXED Financially Cleared: PENDING PSC Insurance Contact Information PSC Insurance Name: [employer] CARITAS Insurance Insurance Additional Clinical Required Y/N?: NO Notes - Upon review discovered chart now has secondary [employer] policy added as of 08/04/23. I e-mailed Jacklyn to ask for a letter for medical necessity to send in with notes and received letter via e-mail today. I will e-mail Jacklyn to let her know of the authorization submission. . * Telephone Encounter - Deana Gibson - 09/08/2023 8:48 AM EDTSummary: Molecular cancer testing authorization - Pending letter for CPT 46527 ;NO PATIENT ACTION NEEED_VOICEMAIL OR AUTHORIZATION_INFORMATIONAL ONLY Molecular cancer testing authorization: Pending letter for CPT 13716 to send to secondary [employer] Car[employer]: I received an e-mail from Jacklyn in [employer] and [employer] ([id number])requesting coverage review. Insurance Verified: TRADITIONAL MEDICARE A&B [id number] AND SECONDARY [employer] CARITAS [id number] Insurance Effective To/From Dates: 10/18/21 AND 08/04/23, RESPECTIVELY. Third Alliance Party Vendor: IBETH Authorization number: UPON REVIEW DISCOVERED SECONDARY [employer] POLICY. E- MAILED JACKLYN FOR LETTER. Validity Dates: 09/08/23 CGAT list date: 08/22/23 Tissue Obtained On: 08/10/23 Ordered On: 08/16/23 Lab: [facility] CPT/Description: 56078/SOLID TUMOR NGS EXTENDED PANEL ICD-10/Description: C34.91/ADENOCARCINOMA OF RIGHT LUNG. Ordering Provider: MAINOR WOODS MD/ . Call Reference Number: N/A - USED [employer] Spoke With: N/A - USED [employer] Financially Cleared: PENDING PSC Insurance Contact Information PSC Insurance Name: [employer] Insurance Insurance Additional Clinical Required Y/N?: NO Notes - Upon review discovered chart now has secondary [employer] policy added as of 08/04/23. I e-mailed Jacklyn to ask for a letter for medical necessity to send in with notes. We will be back in the office on 09/12/23. documented in this encounter Plan of Treatment Upcoming Encounters Date Type Department Care Team (Late st Contact Info) Description 01/08/2024 1:00 PM EDT Office Visit Hematology/Oncology at [address] [phone] Antolin Croft MD [facility] DR [place] [address] Candice Erickson APRN [address] [place] [address] [place] [address] Primary malignant neoplasm of right lower lobe of lung 01/08/2024 1:30 PM EDT Infusion Hematology Oncology at [address] [phone] 01/30/2024 9:[address] [place] [address] Soto Gilbert MD [facility] [place] [address] 01/30/2024 10:30 AM EST Appointment Nuclear Medicine at [place] [phone] Soto Gilbert MD [facility] [place] [address] 01/30/2024 11:00 AM EST Appointment [place] [address] Soto Gilbert MD [facility] [place] [address] 01/30/2024 11:30 AM EST Appointment [place] [address] Soto Gilbert MD [facility] [place] [address] 01/30/2024 12:00 PM EST Appointment [place] [address] Soto Gilbert MD [facility] [place] [address] 01/30/2024 2:30 PM EST Appointment [place] [address] documented as of this encounter Visit Diagnoses Not on filedocumented in this encounter Care Teams Jewelsmith Relationship Specialty Start Date End Date Avery Castro DO [address] [place] [address] PCP - General Family Medicine 07/28/23 09/25/23 documented as of this encounter
--- OUTSIDE RECORDS SUMMARY | 2024-01-08 11:28 | XMS_ITS | Encounter Summary ---
Author Organization [facility] [place] [address] Care Team Providers Care Finishing Lab Technician Name Role Phone Avery Castro Primary Care Provider [phone] Encounter Details Date Type Department Care Team (Late st Contact Info) Description 08/24/2023 Telephone [place] [phone] Lenard Ramon MD [facility] [place] [address] Social History Tobacco Use Types Packs/Day Years [...] Miscellaneous Notes * Telephone Encounter - Lenard Rmaon MD - 08/24/2023 5:14 PM EDT Interventional Pulmonology Telephone Encounter: I called Ms. Althea Salmon on 08/24/2023 at 5:15 PM. Spoke to her - Althea is not yet home from her PET/CT but will be around all day. Will plan to call back tomorrow to discuss PET/CT results. 08/24/23 PET/CT: 1. A large FDG-avid mass in the [...] Suggest correlation with pelvic ultrasound. Unexpected finding. Mobile Not on file. Lenard Ramon MD, 08/24/2023, 5:15 PM Interventional Pulmonology Section of Pulmonary & Critical Care Pager: [phone] documented in this encounter Plan of Treatment Upcoming Encounters Date Type Department Care Team (Late st Contact Info) Description 01/08/2024 1:00 PM EDT Office Visit Hematology/Oncology at [address] [phone] Antolin Croft MD [facility] DR HEMATOLOGY [place] [address] Candice Erickson APRN [address] [place] [address] [place] [address] Primary malignant neoplasm of right lower lobe of lung 01/08/2024 1:30 PM EDT Infusion Hematology Oncology at [address] [phone] 01/30/2024 9:[address] [place] [phone] Soto Gilbert MD [facility] [place] [address] 01/30/2024 10:30 AM EST Appointment [place] [phone] Soto Gilbert MD [facility] [place] [address] 01/30/2024 11:00 AM EST Appointment [place] [phone] Soto Gilbert MD [facility] [place] [address] 01/30/2024 11:30 AM EST Appointment [place] [phone] Soto Gilbert MD [facility] [place] [address] 01/30/2024 12:00 PM EST Appointment [place] [phone] Soto Gilbert MD [facility] [place] [address] 01/30/2024 2:30 PM EST Appointment [place] [phone] documented as of this encounter Visit Diagnoses Not on filedocumented in this encounter Care Teams Finishing Lab Technician Relationship Specialty Start Date End Date Avery Castro DO [address] [place] [address] PCP - General Family Medicine 07/28/23 09/25/23 documented as of this encounter
--- OUTSIDE RECORDS SUMMARY | 2024-01-08 11:28 | XMS_ITS | Encounter Summary ---
Author Organization [facility] [place] [address] Care Team Providers Care Road Supervisor Name Role Phone Avery Castro DO Primary Care Provider Encounter Details Date Type Department Care Team (Late st Contact Info) Description 09/22/2023 Telephone [place] [phone] Lenard Ramon MD [facility] DR [place] [address] Social History Tobacco Use Types Packs/Day Years Used Date Smoking Tobacco: Former Cigarettes Smokeless Tobacco: Never Alcohol Use Standard Drinks/Week Comments Not Currently 0 (1 standard drink = 0.6 oz pur e alcohol) [facility] Inpatient Questions Answer Date Recorded Does Anyone [...] Telephone Encounter - Lenard Ramon MD - 09/22/2023 12:15 PM EDT Interventional Pulmonology Telephone Encounter: I called Ms. Althea Salmon on 09/22/2023 at 12:18 PM. No answer and a voice mail was left to call our office at [phone] to discuss her recent robotic assisted bronchoscopy and EBUS results. Lenard Ramon MD, 09/22/2023, 12:18 PM Interventional Pulmonology Section of Pulmonary & Critical Care Pager: [phone] documented in this encounter Plan of Treatment Upcoming Encounters Date Type Department Care Team (Late st Contact Info) Description 01/08/2024 1:00 PM EDT Office Visit Hematology/Oncology at [address] [phone] Antolin Croft MD [facility] DR HEMATOLOGY [place] [address] Candice Erickson APRN [address] [place] [address] [place] [address] Primary malignant neoplasm of right lower lobe of lung 01/08/2024 1:30 PM EDT Infusion Hematology Oncology at [address] [phone] 01/30/2024 9:[address] [place] [address] Soto Gilbert MD [facility] [place] [address] 01/30/2024 10:30 AM EST Appointment [place] [phone] Soto Gilbert MD [facility] DR [place] [address] 01/30/2024 11:00 AM EST Appointment [place] [address] Soto Gilbert MD [facility] DR [place] [address] 01/30/2024 11:30 AM EST Appointment [place] [phone] Soto Gilbert MD [facility] DR [place] [address] 01/30/2024 12:00 PM EST Appointment [place] [phone] Soto Gilbert MD [facility] DR [place] [address] 01/30/2024 2:30 PM EST Appointment [place] [phone] documented as of this encounter Visit Diagnoses Not on filedocumented in this encounter Care Teams Road Supervisor Relationship Specialty Start Date End Date Avery Castro DO [address] [place] [address] PCP - General Family Medicine 07/28/23 09/25/23 documented as of this encounter
--- OUTSIDE RECORDS SUMMARY | 2024-01-08 11:28 | XMS_ITS | Encounter Summary ---
Author Organization [facility] [place] [address] Care Team Providers Care Air Traffic Supervisor Name Role Phone Avery Castro DO Primary Care Provider [phone] Reason for Visit * Reason Onset Date Comments Other 09/01/2023 Chart review bef ore bronch Encounter Details Date Type Department Care Team (Late st Contact Info) Description 09/01/2023 Notes Only Pulmonology at [facility] [place] [address] Gay Wong RN Other (Chart review before [...] Progress Notes * Gay Wong RN - 09/01/2023 12:14 PM EDT I have reviewed pt's chart. Pt takes ASA 81 mg, ok to continue. Pt not on any other blood thinner at this time. Pt currently NOT on home oxygen. [facility] Day Program nurse to contact pt on 09/18/2023 for a more detailed instructions on her Bronchoscopy. MARK Choudhury, RN Pulmonary [facility] Pager: [phone] documented in this encounter Plan of Treatment Upcoming Encounters Date Type Department Care Team (Late st Contact Info) Description 01/08/2024 1:00 PM EDT Office Visit Hematology/Oncology at [address] [phone] Antolin Croft MD [facility] DR [place] [address] Candice Erickson APRN [address] [place] [address] DR HEMATOLOGY AND ONCOLOGY [place], [place] [address] Primary malignant neoplasm of right lower lobe of lung 01/08/2024 1:30 PM EDT Infusion Hematology Oncology at [address] [phone] 01/30/2024 9:[address] [place] [phone] Soto Gilbert MD [facility] [place] [address] 01/30/2024 10:30 AM EST Appointment [place] [phone] Soto Gilbert MD [facility] [place] [address] 01/30/2024 11:00 AM EST Appointment [place] [phone] Soto Gilbert MD [facility] [place] [address] 01/30/2024 11:30 AM EST Appointment [place] [phone] Soto Gilbert MD [facility] [place] [address] 01/30/2024 12:00 PM EST Appointment [place] [phone] Soto Gilbert MD [facility] [place] [address] 01/30/2024 2:30 PM EST Appointment [place] [phone] documented as of this encounter Visit Diagnoses Not on filedocumented in this encounter Care Teams Air Traffic Supervisor Relationship Specialty Start Date End Date Avery Castro DO [address] [place] [address] PCP - General Family Medicine 07/28/23 09/25/23 documented as of this encounter
--- OUTSIDE RECORDS SUMMARY | 2024-01-08 11:28 | XMS_ITS | Encounter Summary ---
Author Organization [facility] [place] [address] Care Team Providers Care Explosives Mixer Operator Name Role Phone Avery Castro Primary Care Provider [phone] Reason for Referral * Diagnostic Test (Routine) - Closed Specialty Diagnoses / Procedures Referred By Jimbo moffett Referred To Contact Radiology Diagnoses NSCLC of right lung Pulmonary nodule, left Procedures CT Chest wo Contrast (Generic) Lenard Ramon MD [facility] [place] [address] [facility] [place] [address] Referral ID Status Reason Start Date Expiration Date V isits Requested Visits Authorized [id number] Closed Specialty Service Requested 09/01/2023 10/31/2023 1 1 Reason for Visit * Auth/Cert (Routine) Specialty Diagnoses / Procedures Referred By Jimbo moffett Referred To Contact Diagnoses Pulmonary nodules Pulmonary nodule(s) / Robotic Bronch with EBUS / GA / Backer Procedures PRO BRONCHOSCOPY RIGID FLEX W COMPUTER ASSIST IMG NAVIGATION PRO [facility] EBUS GUIDED SAMPL 3/> NODE STATION/STRUX BRONCHOSCOPY,RIGID OR FLEX,WITH IMAGE GUIDANCE ( ROBOT / ION ) (WRVU 2) BRONCH, W ENDOBRONCHIAL ULTRASOUND (EBUS) GUIDED SAMPLING, 3+ NODES (WRVU 4.96) Lenard Ramon MD [facility] [place] [address] [facility] Referral ID Status Reason Start Date Expiration Date Visits Re quested Visits Authorized [id number] 1 1 Encounter Details Date Type Department Care Team (Latest Contact Info) Description 09/19/2023 6:57 AM EDT - 09/19/2023 7:15 AM EDT Hospital [place] [address] Lenard Ramon MD [facility] [place] [address] NSCLC of right lung; Pulmonary nodule, left [...] 1:00 PM EDT Office Visit Hematology/Oncology at [address] [address] Antolin Croft MD [facility] DR HEMATOLOGY [place] [address] Candice Erickson [address] HEMATOLOGY AND ONCOLOGY [place], [place] [address] Primary malignant neoplasm of right lower lobe of lung 01/08/2024 1:30 PM EDT Infusion Hematology Oncology at [address] [phone] 01/30/2024 9:[address] Scan at [place] [phone] Soto Gilbert MD [facility] [place] [address] 01/30/2024 10:30 AM EST Appointment Nuclear Medicine at [place] [phone] Soto Gilbert MD [facility] [place] [address] 01/30/2024 11:00 AM EST Appointment Nuclear Medicine at [place] [phone] Soto Gilbert MD [facility] [place] [address] 01/30/2024 11:30 AM EST Appointment Nuclear Medicine at [place] [phone] Soto Gilbert MD [facility] [place] [address] 01/30/2024 12:00 PM EST Appointment Nuclear [place] [phone] Soto Gilbert MD [facility] [place] [address] 01/30/2024 2:30 PM EST Appointment Pulmonology at [place] [phone] documented as of this encounter Procedures Procedure Name Priority Date/Time Associated Diagnosis Comments CT CHEST WO CONTRAST (GENERIC) Routine 09/19/2023 7:11 AM EDT NSCLC of right lung Pulmonary nodule, left documented in this encounter Results * CT Chest wo Contrast (Generic) (09/19/2023 7:11 AM EDT) [employer] Signature WORKSTATION ID [id number] [facility] Anatomical Region Laterality Modality Chest Computed Tomogra phy Impressions 09/19/2023 8:17 PM EDT 1. ??Similar appearance of a large right lower lobe mass which partially encases and narrows the right lower lobe bronchus, highly suspicious for malignancy. 2. ??Similar size and appearance of a left upper lobe lesion, which is also suspicious for malignancy but it is unclear if this is a second primary versus a site of metastatic disease. 3. ??Additional sub-5 mm left upper lobe pulmonary nodules. 4. ??Scattered groundglass opacities throughout the right lower lobe, concerning for malignant spread or postobstructive infection. Unchanged size and number of previously seen nonenlarged subcarinal FDG avid lymph nodes which could represent metastatic disease versus reactive nodes. 5. ??Similar bilateral adrenal gland hypertrophy, left greater than right. The left adrenal hypertrophy/nodularity was previously FDG avid and is suspicious for metastatic disease. I have personally reviewed the image(s) and the resident's interpretation and agree with the findings, Margarette Reinoso MD at 09/19/2023 8:17 PM Thank you for letting us participate in the care of this patient. ??If you are a health care provider and have any questions regarding this report, please contact the number below. ??For patients who have questions please contact the health personal care aide that requested your imaging first. ? Electronically signed by: Margarette Reinoso MD, [facility] ([phone]), at 09/19/2023 8:17 PM Narrative 09/19/2023 8:17 PM EDT EXAMINATION: CT CHEST WO CONTRAST (GENERIC) CLINICAL HISTORY: Ion robotic bronchoscopy protocol CT chest (target is MARISSA Nodule) C34.91, Malignant neoplasm of unspecified part of right bronchus or lung - R91.1, Solitary pulmonary nodule TECHNIQUE: Helical CT of the chest without intravenous contrast administration. Thin-section reconstructions as well as coronal and sagittal reformatted images were generated. COMPARISON: PET/CT 08/24/2023 FINDINGS: Pulmonary parenchyma: Similar appearance of a large right lower lobe mass which abuts the right major fissure and extends into the right hilum. Additionally, there is a second lesion within the left upper lobe abutting the left fissure. There are additional sub-5 mm pulmonary nodules within the left upper lobe (for example series 301, images 67, 71 and 90). Similar scattered groundglass opacities throughout the right lung base. Upper lobe predominant emphysematous changes. Airways: The right lower lobe mass partially encases the right lower lobe bronchus resulting in mild narrowing. Pleura: No effusion. Lymph nodes: No abnormally enlarged lymph nodes. However, there is unchanged size and number of the previously described FDG avid subcarinal lymph nodes. Heart and vasculature: Normal size of the heart. Aortic and coronary calcifications. No significant pericardial effusion. Normal caliber of the thoracic aorta. Other mediastinal structures: No significant findings. Upper abdomen: Similar appearance of a left adrenal gland hypertrophy versus nodule. There is also mild right adrenal hypertrophy. Similar appearance of multiple non-FDG avid hepatic cysts. Skeletal structures: No suspicious osseous lesions. Procedure Note Margarette Rios MD - 09/19/2023 EXAMINATION: CT CHEST WO CONTRAST (GENERIC) CLINICAL HISTORY: Ion robotic bronchoscopy protocol CT chest (target isLUL Nodule) C34.91, Malignant neoplasm of unspecified part of right bronchus or lung- R91.1, Solitary pulmonary nodule TECHNIQUE: Helical CT of the chest without intravenous contrastadministration. Thin-section reconstructions as well as coronal and sagittal reformattedimages were generated. COMPARISON: PET/CT 08/24/2023 FINDINGS: Pulmonary parenchyma: Similar appearance of a large right lower lobe masswhich abuts the right major fissure and extends into the right hilum.Additionally, there is a second lesion within the left upper lobe abutting the leftfissure. There are additional sub-5 mm pulmonary nodules within the left upper lobe(for example series 301, images 67, 71 and 90). Similar scattered groundglass opacities throughout the right lung base. Upper lobe predominant emphysematous changes. Airways: The right lower lobe mass partially encases the right lowerlobe bronchus resulting in mild narrowing. Pleura: No effusion. Lymph nodes: No abnormally enlarged lymph nodes. However, there isunchanged size and number of the previously described FDG avid subcarinal lymphnodes. Heart and vasculature: Normal size of the heart. Aortic and coronary calcifications. No significant pericardial effusion. Normal caliber ofthe thoracic aorta. Other mediastinal structures: No significant findings. Upper abdomen: Similar appearance of a left adrenal gland hypertrophyversus nodule. There is also mild right adrenal hypertrophy. Similar appearanceof multiple non-FDG avid hepatic cysts. Skeletal structures: No suspicious osseous lesions. IMPRESSION 1. Similar appearance of a large right lower lobe mass which partiallyencases and narrows the right lower lobe bronchus, highly suspicious formalignancy. 2. Similar size and appearance of a left upper lobe lesion, which isalso suspicious for malignancy but it is unclear if this is a second primaryversus a site of metastatic disease. 3. Additional sub-5 mm left upper lobe pulmonary nodules. 4. Scattered groundglass opacities throughout the right lower lobe,concerning for malignant spread or postobstructive infection. Unchanged size andnumber of previously seen nonenlarged subcarinal FDG avid lymph nodes which could represent metastatic disease versus reactive nodes. 5. Similar bilateral adrenal gland hypertrophy, left greater than right.The left adrenal hypertrophy/nodularity was previously FDG avid and issuspicious for metastatic disease. I have personally reviewed the image(s) and the resident's interpretationand agree with the findings, Margarette Hoegemann Savellano, MD at 09/19/2023 8:17PM Thank you for letting us participate in the care of this patient. If youare a health care provider and have any questions regarding this report,please contact the number below. For patients who have questions please contactthe health personal care aide that requested your imaging first. Electronically signed by: Margarette Reinoso MD, [facility] ([phone]), at 09/19/2023 8:17 PM Lenard Ramon MD IMG CT ORDERABLES documented in this encounter Visit Diagnoses Diagnosis NSCLC of right lung Pulmonary nodule, left Solitary pulmonary nodule Primary malignant neoplasm of right lower lobe of lung Malignant neoplasm of lower lobe, bronchus, or lung documented in this encounter Care Teams Explosives Mixer Operator Relationship Specialty Start Date End Date Avery Castro DO [address] [place] [id number] PCP - General Family Medicine 07/28/23 09/25/23 documented as of this encounter
--- OUTSIDE RECORDS SUMMARY | 2024-01-08 11:28 | XMS_ITS | Encounter Summary ---
Author Organization [facility] [place] [address] Care Team Providers Care Machine Skiver Name Role Phone Avery Castro Primary Care Provider [phone] Reason for Visit * Diagnostic Test (STAT) - Closed Specialty Diagnoses / Procedures Referred By Contebrny t Referred To Contact Radiology Diagnoses Lung mass Procedures NM PET CT Skull Base to Mid-thigh Lenka Escalante MD [facility] [place] [address] [place] [address] Referral ID Status Reason Start Date Expiration Date V isits Requested Visits Authorized [id number] Closed Specialty Service Requested 08/09/2023 02/08/2025 1 1 Encounter Details Date Type Department Care Team (Latest Contact Info) Description 08/24/2023 1:02 PM EDT - 08/24/2023 11:59 PM EDT Hospital Encounter [place] [phone] Lenard Ramon MD [facility] [place] [address] Discharge Disposition: Home Social History Tobacco Use [...] with Spacer aspirin EC 81 mg EC () tablet Take 81 mg by mouth daily. 09/18/2023 documented as of this encounter Plan of Treatment Upcoming Encounters Date Type Department Care Team (Late st Contact Info) Description 01/08/2024 1:00 PM EDT Office Visit Hematology/Oncology at [address] [phone] Antolin Croft MD [facility] DR [place] [address] Candice Erickson APRN [address] [place] [address] [place] [address] Primary malignant neoplasm of right lower lobe of lung 01/08/2024 1:30 PM EDT Infusion Hematology Oncology at [address] [phone] 01/30/2024 9:[address] [place] [place] [phone] Soto Gilbert MD [facility] [place] [address] 01/30/2024 10:30 AM EST Appointment [place] [phone] Soto Gilbert MD [facility] [place] [address] 01/30/2024 11:00 AM EST Appointment [place] [phone] Soto Gilbert MD [facility] [place] [address] 01/30/2024 11:30 AM EST Appointment [place] [phone] Soto Gilbert MD [facility] DR THORACIC SURGERY [place], [place] [phone] 01/30/2024 12:00 PM EST Appointment [place] [phone] Soto Gilbert MD [facility] [place] [address] 01/30/2024 2:30 PM EST Appointment [place] [address] documented as of this encounter Procedures Procedure Name Priority Date/Time Associated Diagnosis Comments NM PET CT SKULL BASE TO MID-THIGH ([facility]) STAT 08/24/2023 2:58 PM EDT Lung mass POCT GLUCOSE Routine 08/24/2023 1:29 PM EDT documented in this encounter Results * POCT Glucose (08/24/2023 1:29 PM EDT) Glucose, POC 101 65 - 199 mg/dL [facility] Comment: Supplemental ranges: <140 mg/dL before meals <180 mg/dL all other times of the day Blood 08/24/2023 1:29 PM EDT 08/24/2023 1:29 PM EDT Lenard Ramon MD POINT OF CARE TEST O RDERABLES [facility] [place] [address] documented in this encounter Visit Diagnoses Not on filedocumented in this encounter Care Teams Machine Skiver Relationship Specialty Start Date End Date Avery Castro DO [address] [place] [address] PCP - General Family Medicine 07/28/23 09/25/23 documented as of this encounter
--- OUTSIDE RECORDS SUMMARY | 2024-01-08 11:28 | XMS_ITS | Encounter Summary ---
Author Organization [facility] [place] [address] Care Team Providers Care Generating Plant Superintendent Name Role Phone Avery Castro DO Primary Care Provider [phone] Encounter Details Date Type Department Care Team (Late st Contact Info) Description 08/28/2023 Telephone Gastroenterology at [facility] [place] [phone] Mary Kay Marquez Social History Tobacco Use Types Packs/Day Years [...] Notes * Telephone Encounter - Mary Kay Marquez - 08/28/2023 2:41 PM EDT Althea Luis Antonio [phone] Diagnosis/Indication: EUS to FNA left adrenal mass Please review patient chart to confirm if previous Endoscopy procedure was performed within system. If yes, take note of Anesthesia type used. If previous procedure found, and with MAC/propofol Anesthesia support was used, schedule this procedure with Anesthesia and skip the Anesthesia portion of questions. If not performed within system, not performed at all, or performed with IVCS, ask Anesthesia questions. SCHEDULING QUESTIONS (ask all patient these questions) Have you ever had a/an Upper EUS before? Unknown If yes, did you have any problems with the procedure (such as waking up during the procedure, pain or difficulties afterwards, etc.)? No What type of sedation was used: None (ASK ONLY FOR COLONOSCOPY PROCEDURES) Are you aware, or have you ever been told that you had a poor prep or failed prep with a previous colonoscopy? No If yes, assign the Extended MiraLAX Prep (ASK ONLY FOR COLONOSCOPY PROCEDURES) Do you have an ongoing history of constipation? (E.g., hard stools, >2 days without a bowel movement, straining or difficulty passing stool) No If yes, assign the Extended MiraLAX Prep Do you take any blood thinners or have you been diagnosed with a bleeding disorder that increases your risk of bleeding with procedures? No Do you have a Pacemaker or Defibrillator device? If yes, send pool message to Cardiology with patient information and date or procedure. No Do you have diabetes? If yes, call PCP/managing provider to discuss use of prep and any questions or concerns related to. No If yes, assign the Extended MiraLAX Prep Do you take any iron supplements or vitamins that contain iron? No Do you have a preference regarding the gender of your provider? Yes ADVANCED -ANGELES ANESTHESIA QUESTIONS (YES to any question, please book with Anesthesia support) Have you ever been diagnosed with Pulmonary Hypertension and/or Congential Heart Disease? No Have you been diagnosed with A-Fib (atrial fibrillation) that is NOT being well controled with medications? No Have you ever had an allergic or adverse reaction to Fentanyl or Versed? No Have you had a problem with sedation or anesthesia? (Waking up during procedure, extreme confusion after, etc.) No Do you have a diagnosis of Obstructive Sleep Apnea that requires the use of a c- pap machine? No Do you use an oxygen tank at home? No Do you use a rescue inhaler more than twice per day? (COPD, severe asthma) No Do you experience breathing problems when you lay flat for a period of time? Yes sometimes Do you regularly take prescription opioid pain medications on a daily basis? (Includes oxycodone, Percocet, Suboxone, methadone, etc.) No If yes, assign the Extended MiraLAX Prep SCHEDULING CONFIRMATIONS: Please note any and all parts of your conversation with the patient here. We offer all new patients an opportunity to have an appointment with one of our associate care providers to learn more about your upcoming procedure, ask questions and get answers. These appointmentsare offered via telehealth. Would you be interested in scheduling this appointment? (Only ask if NEW referral patient; skip this question if [facility] provider ordered the procedure.) No Is there any other information or concerns you would like to us to share with your care team in relation to your upcoming scheduled procedure? Yes: Hard stick and has a hard time with BP CUFF. Hx of using on the leg. You must have a responsible libertarian who will drive you to your procedure, stay on campus for the entire duration of your procedure, and drive you home from your procedure. Who will likely be your mixer driver for the procedure? *Please Verify the height and weight, and adjust if height and/or weight have changed* Estimated body mass index is 36.05 kg/m?? as calculated from the following: Height as of 08/10/23: 162.6 cm (5' 4). Weight as of 08/10/23: 95.3 kg (210 lb). *Patient must be scheduled for Anesthesia support if BMI is 40 or above* Height: 5'4 Weight: 200 BMI: 34.3 Age:67 y.o. documented in this encounter Plan of Treatment Upcoming Encounters Date Type Department Care Team (Late st Contact Info) Description 01/08/2024 1:00 PM EDT Office Visit Hematology/Oncology at [address] [phone] Antolin Croft MD [facility] DR [place] [address] Candice Erickson APRN [address] [address] DR [place] [address] Primary malignant neoplasm of right lower lobe of lung 01/08/2024 1:30 PM EDT Infusion Hematology Oncology at [address] [phone] 01/30/2024 9:[address] [place] [address] Soto Gilbert MD [facility] [place] [address] 01/30/2024 10:30 AM EST Appointment [place] [phone] Soto Gilbert MD [facility] [place] [address] 01/30/2024 11:00 AM EST Appointment [place] [phone] Soto Gilbert MD [facility] [place] [address] 01/30/2024 11:30 AM EST Appointment [place] [phone] Soto Gilbert MD [facility] [place] [address] 01/30/2024 12:00 PM EST Appointment [place] [phone] Soto Gilbert MD [facility] [place] [address] 01/30/2024 2:30 PM EST Appointment [place] [phone] documented as of this encounter Visit Diagnoses Not on filedocumented in this encounter Care Teams Generating Plant Superintendent Relationship Specialty Start Date End Date Avery Castro DO [address] [place] [id number] PCP - General Family Medicine 07/28/23 09/25/23 documented as of this encounter
--- OUTSIDE RECORDS SUMMARY | 2024-01-08 11:28 | XMS_ITS | Encounter Summary ---
Author Organization [facility] [place] [address] Care Team Providers Care Conference Services Manager Name Role Phone Avery Castro Primary Care Provider [phone] Reason for Visit * Auth/Cert (Routine) Specialty Diagnoses / Procedures Referred By Jimbo moffett Referred To Contact Diagnoses Left adrenal mass EUS to FNA left adrenal mass Procedures PRO ENDOSCOPIC US EXAM, ESOPH PRO ANES, COMBINED UPPER OR LOWER ENDOSCOPY UPPER EUS- ENDOSCOPIC ULTRASOUND (WRVU 3.47) Ming Eldridge MD [facility] [place] [address] [facility] Referral ID Status Reason Start Date Expiration Date Visits Re quested Visits Authorized [id number] 1 1 Encounter Details Date Type Department Care Team (Latest Contact Info) Description 09/07/2023 2:32 PM EDT - 09/07/2023 6:17 PM EDT Hospital Encounter [place] [address] Ming Eldridge MD [facility] [place] [address] Discharge Disposition: Home Social History Tobacco Use [...] Sign Reading Time Taken Comments Blood Pressure 168/84 09/07/2023 5:50 PM EDT Pulse 80 09/07/2023 3:10 PM EDT Temperature - - Respiratory Rate 16 09/07/2023 5:50 PM EDT Oxygen Saturation 97% 09/07/2023 5:51 PM EDT Inhaled Oxygen Concentration - - Weight 90.7 kg (200 lb) 09/07/2023 3:10 PM EDT Height 162.6 cm (5' 4) 09/07/2023 3:10 PM EDT Body Mass Index 34.33 09/07/2023 3:10 PM EDT documented in this encounter Discharge Instructions * Discharge Instructions* Jhoana Mistry RN - 09/07/2023 5:17 PM EDT Endoscopic Ultrasound (Oral): What to Expect At Home Your Recovery After you have an endoscopic ultrasound--a test to look for problems in the stomach, liver, gallbladder, and other organs--you will stay at the hospital or clinic for 1 to 2 hours. This will allow the medicine to wear off. You will be able to go home after your doctor or nurse checks to make sure you are not having any problems. You may have a sore throat for a day or two after the test. This care sheet gives you a general idea about what to expect after the test. How can you care for yourself at home? Activity Rest when you feel tired. You can do your normal activities when it feels okay to do so. Diet Follow your doctor's directions for eating. Unless your doctor has told you not to, drink plenty of fluids. Do not drink alcohol. Medicines Your doctor will tell you if and when you can restart your medicines. He or she will also give you instructions about taking any new medicines. If you take blood thinners, such as warfarin (Coumadin), clopidogrel (Plavix), or aspirin, be sure to talk to your doctor. He or she will tell you if and when to start taking those medicines again. Make sure that you understand exactly what your doctor wants you to do. If a biopsy was done during the test, your doctor may tell you not to take aspirin or other anti-inflammatory medicines for a few days. These include ibuprofen (Advil, Motrin) and naproxen (Aleve). If you have a sore throat the day after the procedure, use an rkqe-snb-mgpgzua spray to numb your throat. Sucking on throat lozenges and gargling with warm salt water may also help relieve your symptoms. Other instructions For your safety, do not drive or operate machinery until the medicine wears off and you can think clearly. Your doctor may tell you not to drive or operate machinery until the day after your test. Do not sign legal documents or make major decisions until the medicine wears off and you can think clearly. The anesthesia can make it hard for you to fully understand what you are agreeing to. Additional Information for Sedation Patients For patients who received sedation: You may have received medications before and/or during your procedure which effects your judgement and reaction time. Do not drive, operate machinery, drink alcoholic beverages or make important decisions for 24 hours. Be careful on stairs as you may be unsteady on your feet. You may eat a regular diet as tolerated. Do not smoke if you are alone. IV site: Slight redness or tenderness is normal, you can use a warm compress if you would like. If tenderness and/or redness increase or if foul drainage occurs, please contact your Doctor. Please call [phone] before 8pm Mon-Fri with problems, questions or concerns. If you call after 8pm or on weekends, call the Hospital at [phone] and ask to speak to the Roadability Machine Operator concrete finisher apprentice and the scouring train operator will contact that person for you. When should you call for help? Call [phone] anytime you think you may need emergency care. For example, call if: You passed out (lost consciousness). You pass maroon or bloody stools. You have trouble breathing. Call your doctor now or seek immediate medical care if: You have pain that does not get better after you take pain medicine. You are sick to your stomach or cannot drink fluids. You have new or worse belly pain. You have blood in your stools. You have a fever. You cannot pass stools or gas. Watch closely for changes in your health, and be sure to contact your doctor if you have any problems. Where can you learn more? [facility] View your After Visit Summary and more online at [email or web address] If you would like to provide feedback about your hospital experience, please call the Office of Patient and Family Relations at . If you have received this After Visit Summary in error, please immediately return it in person to the department, or notify the - Privacy Office by calling toll free at between the hours of 8AM and 5PM to arrange for our retrieval of the documents at no cost to you. Content Version: 12.2 ?? 5854-3079 [employer]. Care instructions adapted under license by [facility]. If you have questions about a medical condition or this instruction, always ask your healthcare professional. [employer] disclaims any warranty or liability for your use of this information.Endoscopic Ultrasound (Oral): What to Expect At Home Your Recovery After you have an endoscopic ultrasound--a test to look for problems in the stomach, liver, gallbladder, and other organs--you will stay at the hospital or clinic for 1 to 2 hours. This will allow the medicine to wear off. You will be able to go home after your doctor or nurse checks to make sure you are not having any problems. You may have a sore throat for a day or two after the test. This care sheet gives you a general idea about what to expect after the test. How can you care for yourself at home? Activity Rest when you feel tired. You can do your normal activities when it feels okay to do so. Diet Follow your doctor's directions for eating. Unless your doctor has told you not to, drink plenty of fluids. Do not drink alcohol. Medicines Your doctor will tell you if and when you can restart your medicines. He or she will also give you instructions about taking any new medicines. If you take blood thinners, such as warfarin (Coumadin), clopidogrel (Plavix), or aspirin, be sure to talk to your doctor. He or she will tell you if and when to start taking those medicines again. Make sure that you understand exactly what your doctor wants you to do. If a biopsy was done during the test, your doctor may tell you not to take aspirin or other anti-inflammatory medicines for a few days. These include ibuprofen (Advil, Motrin) and naproxen (Aleve). If you have a sore throat the day after the procedure, use an xnld-fth-zpvjtys spray to numb your throat. Sucking on throat lozenges and gargling with warm salt water may also help relieve your symptoms. Other instructions For your safety, do not drive or operate machinery until the medicine wears off and you can think clearly. Your doctor may tell you not to drive or operate machinery until the day after your test. Do not sign legal documents or make major decisions until the medicine wears off and you can think clearly. The anesthesia can make it hard for you to fully understand what you are agreeing to. Additional Information for Sedation Patients For patients who received sedation: You may have received medications before and/or during your procedure which effects your judgement and reaction time. Do not drive, operate machinery, drink alcoholic beverages or make important decisions for 24 hours. Be careful on stairs as you may be unsteady on your feet. You may eat a regular diet as tolerated. Do not smoke if you are alone. IV site: Slight redness or tenderness is normal, you can use a warm compress if you would like. If tenderness and/or redness increase or if foul drainage occurs, please contact your Doctor. Please call [phone] before 8pm Mon-Fri with problems, questions or concerns. If you call after 8pm or on weekends, call the Hospital at [phone] and ask to speak to the Roadability Machine Operator concrete finisher apprentice and the scouring train operator will contact that person for you. When should you call for help? Call 101 anytime you think you may need emergency care. For example, call if: You passed out (lost consciousness). You pass maroon or bloody stools. You have trouble breathing. Call your doctor now or seek immediate medical care if: You have pain that does not get better after you take pain medicine. You are sick to your stomach or cannot drink fluids. You have new or worse belly pain. You have blood in your stools. You have a fever. You cannot pass stools or gas. Watch closely for changes in your health, and be sure to contact your doctor if you have any problems. Where can you learn more? [facility] View your After Visit Summary and more online at [email or web address] If you would like to provide feedback about your hospital experience, please call the Office of Patient and Family Relations at . If you have received this After Visit Summary in error, please immediately return it in person to the department, or notify the [facility] Privacy Office by calling toll free at between the hours of 8AM and 5PM to arrange for our retrieval of the documents at no cost to you. Content Version: 12.2 ?? 0170-0659 [employer]. Care instructions adapted under license by [facility]. If you have questions about a medical condition or this instruction, always ask your healthcare professional. [employer] disclaims any warranty or liability for your use of this information. documented in this encounter Medications at Time [...] daily. 09/18/2023 documented as of this encounter Progress Notes * Ming Eldridge MD - 09/07/2023 6:17 PM EDT FYI-the left adrenal gland also had a relatively benign appearance and we took multiple passes intoit so I think this is reassuringly benign. Ming documented in this encounter H&P Notes * Joaquin Desouza MD - 09/07/2023 3:57 PM EDT Gastroenterology and Hepatology Pre-Procedure History and Physical Exam Procedure: EUS Indication: FDG-avid L adrenal lesion on recent PET, known RLL adenocarcinoma EXAM: HEENT: Airway examined, oropharynx clear Mallampati Score: per anesthesia LUNGS: Clear to auscultation HEART: Regular rate and rhythm, normal S1, S2 ABDOMEN: Normal bowel sounds, soft, non tender, non distended A/P: Proceed with the planned endoscopic procedure. ASA 3 - Patient with moderate systemic disease with functional limitations Sedation Plan: anesthesia Risks and benefits of the procedure explained to the patient. Consent form signed and included in the patient's chart. Joaquin Desouza MD Advanced Endoscopy Fellow Gastroenterology & Hepatology documented in this encounter Plan of Treatment Upcoming Encounters Date Type Department Care Team (Late st Contact Info) Description 01/08/2024 1:00 PM EDT Office Visit Hematology/Oncology at [address] [phone] Antolin Croft MD [facility] DR [place] [address] Candice Erickson APRN [address] [place] [address] DR HEMATOLOGY AND ONCOLOGY [place], [place] [address] Primary malignant neoplasm of right lower lobe of lung 01/08/2024 1:30 PM EDT Infusion Hematology Oncology at [address] [phone] 01/30/2024 9:[address] [place] [address] Soto Gilbert MD [facility] [place] [address] 01/30/2024 10:30 AM EST Appointment [place] [phone] Soto Gilbert MD [facility] [place] [address] 01/30/2024 11:00 AM EST Appointment [place] [phone] Soto Gilbert MD [facility] [place] [address] 01/30/2024 11:30 AM EST Appointment [place] [address] Soto Gilbert MD [facility] [place] [address] 01/30/2024 12:00 PM EST Appointment [place] [address] Soto Gilbert MD [facility] [place] [address] 01/30/2024 2:30 PM EST Appointment [place] [address] documented as of this encounter Procedures Procedure Name Priority Date/Time Associated Diagnosis Comments NON-OUTPATIENT ADMITTING CLERK FINAL REPORT Routine 09/07/2023 4:52 PM EDT CYTOPATHOLOGY NON-GYNECOLOGICAL Routine 09/07/2023 4:52 PM EDT [facility] Endoscopy W/Us Fn Bx ([id number]) 09/07/2023 4:16 PM EDT Left adrenal mass UPPER EUS-ENDOSCOPIC ULTRASOUND Routine 09/07/2023 3:58 PM EDT documented in this encounter Results * Non-Customer Acquisition Specialist Final Report (09/07/2023 4:52 PM EDT) Diagnosis Discussion [id number] ? Location: 4T; EA06; A The signing pathologist has (i) examined the relevant preparation(s) for the specimen(s) and (ii) rendered or confirmed the diagnosis(es). . ? Non-Customer Acquisition Specialist Final DIAGNOSIS See Discussion Electronically signed by: ?Letty BEST, Madi Barker Verified: ??09/11/2023 17:48 ??Cytopathologis t Performed at: ??-[facility] Dept. of Pathology, [place] [address] Auctioneer Art: Janes Ritchie MD, FCAP, ??CLIA Certificate: [id number] DISCUSSION Adrenal: left (EUS-guided FNA) - Adrenal cortical and medullary tissue present. Metastatic carcinoma is not seen. Sse note. Note: The possibility of a primary adrenal cortical or medullary neoplasm cannot be excluded on the basis of this small sample. The possibility of sampling of normal adrenal gland tissue is also not excluded. Recommend clinical and radiologic correlation. (Cell block was examined.) CLINICAL INFORMATION Specimen Source : Adrenal: left (EUS-guided FNA) Pertinent Clinical Data and Significant Therapy: Left adrenal lesion on recent PET scan hx of lung cancer, r/o metastatic cancer Clinical Impression : Left adrenal lesion, r/o metastatic cancer Pertinent Radiologic Findings ??: (not provided) Gross Description: Received ??in Formalin approximately 30 mL total volume of ?? cloudy, pink fluid, with clots. Total Preparation: Cell Block 1. 09/11/2023 5:48 PM EDT [facility] Misc. FNA 09/07/2023 4:52 PM EDT 09/07/2023 4:52 PM EDT Ming Eldridge MD PATHOLOGY/CYTOLOGY O RDERABLES [facility] [place] [id number] * Cytopathology Non-Gynecological (09/07/2023 4:52 PM EDT) AP Specimen 09/07/2023 4:52 PM EDT 09/07/2023 4:52 PM EDT Narrative [facility] - 09/07/2023 4:52 PM EDT Specimen requisition ordered. ??Separate Pathology report to follow Ming Eldridge MD PATHOLOGY/CYTOLOGY Deepak FELIX [facility] [place] [address] * UPPER EUS-ENDOSCOPIC ULTRASOUND (09/07/2023 3:58 PM EDT) UPPER ENDOSCOPIC ULTRASOUND [facility] Endoscopy Procedure Date: 09/07/2023 3:58 PM ? Patient Name: Althea Salmon ? Date of : 1955 ? Age: 67 ? Order #: [id number] ? Instrument Name: [id number] ? Procedure: ? Upper EUS Indications: ? FDG avid lesion on left adrenal ? gland on recent PET, known RLL ? adenocarcinoma Providers: ? Ming Eldridge MD, Joaquin Bhatt ? Harriet Desouza William ? Keren Lai MD: ?Antolin Croft MD Medicines: ? Monitored Anesthesia Care Complications: ? No immediate complications. Procedure: ? Pre-Anesthesia Assessment: ? - Prior to the procedure, a History ? and Physical was performed, and ? patient medications, allergies and ? sensitivities were reviewed. The ? patient's tolerance of previous ? anesthesia was reviewed. ? - The risks and benefits of the ? procedure and the sedation options ? and risks were discussed with the ? patient. All questions were ? answered and informed consent was ? obtained. ? - Patient identification and ? proposed procedure were verified ? prior to the procedure by the ? physician, the nurse, the ? purification operator helper and the geoscience technician. The ? procedure was verified in the ? pre-procedure area in the endoscopy ? suite. ? - Pre-procedure physical ? examination revealed no ? contraindications to sedation. ? - ASA Grade Assessment: III - A ? patient with severe systemic ? disease. ? - After reviewing the risks and ? benefits, the patient was deemed in ? satisfactory condition to undergo ? the procedure. ? - Monitored anesthesia care under ? the supervision of a ENGINEERING SURVEYOR was ? determined to be medically ? necessary for this procedure based ? on age 65 or older, severe ? comorbidity (greater than ASA Grade ? II) and complex procedure (ERCP, ? EUS). ? The procedure, indications, ? benefits, risks and alternatives ? were explained to the patient. ? Specifically discussed were ? potential complications including, ? but not limited to, bleeding, ? perforation, infection, missing a ? cancer, and adverse medication ? reactions.The Endoscope was ? introduced through the mouth, and ? advanced to the third part of ? duodenum. The upper EUS was ? accomplished without difficulty. ? The patient tolerated the procedure ? well. ? Findings: ? ENDOSCOPIC FINDING: : ? The examined esophagus was endoscopically normal. ? The stomach was endoscopically normal. ? The examined duodenum was endoscopically normal. ? ENDOSONOGRAPHIC FINDING: : ? The esophagus, stomach and duodenum and adjacent ? structures were examined endosonographically. ? On endosonographic examination, the left adrenal ? gland appeared prominent in size and asymmetric. Fine ? needle biopsy was performed. Color Doppler imaging ? was utilized prior to needle puncture to confirm a ? lack of significant vascular structures within the ? needle path. Four passes were made with the 22 gauge ? SharkCore biopsy needle using a transgastric ? approach. A visible core of tissue was obtained. ? Final pathology results are pending. ? An anechoic lesion suggestive of a cyst was ? identified in the pancreatic body. The lesion ? measured 3 mm in maximal cross-sectional diameter. ? There was a single compartment without septae. The ? outer wall of the lesion was thin. There was no ? associated mass. There was no internal debris within ? the fluid-filled cavity. The pancreas was otherwise ? normal-appearing with a non-dilated pancreatic duct. ? There was no sign of significant endosonographic ? abnormality in the common bile duct. The maximum ? diameter of the duct was 2 mm. An unremarkable ? gallbladder, no stones and no biliary sludge were ? identified. ? There was no sign of significant endosonographic ? abnormality in the visualized portion of the liver. ? Homogeneous parenchyma and no focal pathology were ? identified. ? Moderate Sedation: ? See anesthesia notes. Impression: ?- Slightly abnormal-apearing left ? adrenal gland. Fine needle biopsy ? performed. Path pending. ? 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 neoplasm (IPMN). ? - Otherwise normal and reassuring ? endoscopic and echoendoscopic exam. Recommendation: ?- Patient has a contact number ? available for emergencies. The ? signs and symptoms of potential ? delayed complications were ? discussed with the patient. Return ? to normal activities tomorrow. ? Written discharge instructions were ? provided to the patient. ? - Await path results. ? - Follow-up with Dr. Croft. ? Attending Participation: ? I was present and participated during the entire ? procedure, including non-lucas portions. ? Ming Eldridge MD 09/07/2023 5:05:56 PM This report has been signed electronically. Number of Addenda: 0 Note Initiated On: 09/07/2023 3:58 PM PROVATION 09/07/2023 3:58 PM EDT Avery Castro GENERAL SURGICAL ORD ERABLES PROVATION documented in this encounter Visit Diagnoses Not on filedocumented in this encounter Administered Medications Inactive Administered Medications - up to 3 most recent administrations Medication Order MAR Action Action Date Dose Rate Site acetaminophen (Tylenol) tablet 975 mg 975 mg, Oral, ONCE, 1 dose, On Debbie 09/07/23 at 1800, Maximum dose of acetaminophen is 4,000 mg from all sources in 24 hours. When ordered for pain, acetaminophen should be given even when other ordered pain medications are indicated., Endoscopy (Day of Procedure), Routine Given 09/07/2023 6:00 PM EDT 975 mg fentaNYL (PF) (50 mcg/mL) injection 50 mcg 50 mcg, Intravenous, ONCE, 1 dose, On Debbie 09/07/23 at 1800, Endoscopy (Recovery-Hospital Unit), STAT Given 09/07/2023 5:40 PM EDT 50 mcg lactated ringers infusion 100 mL/hr, Intravenous, CONTINUOUS, Starting on Debbie 09/07/23 at 1530, Until Debbie 09/07/23 at 1816, Endoscopy (Day of Procedure) Restarted 09/07/2023 4:16 PM EDT New Bag 09/07/2023 3:30 PM EDT 100 mL/hr 100 mL/hr documented in this encounter Active and Recently Administered Medications Times are shown in EDT. Scheduled Medication Order 09/05/2023 09/06/2023 09/07/2023 acetaminophen (Tylenol) tablet 975 mg (COMPLETED) 975 mg, Oral, ONCE, 1 dose, On Debbie 09/07/23 at 1800, Maximum dose of acetaminophen is 4,000 mg from all sources in 24 hours. When ordered for pain, acetaminophen should be given even when other ordered pain medications are indicated., Endoscopy (Day of Procedure), Routine 1800 (Given - Provid er: Jhoana R Pflanz, RN) fentaNYL (PF) (50 mcg/mL) injection 50 mcg (COMPLETED) 50 mcg, Intravenous, ONCE, 1 dose, On Debbie 09/07/23 at 1800, Endoscopy (Recovery-Hospital Unit), STAT 1740 (Given - Provid er: Jhoana Mistry, DONATO) Continuous Medication Order 09/05/2023 09/06/2023 09/07/2023 lactated ringers infusion (CANCELED) 100 mL/hr, Intravenous, CONTINUOUS, Starting on Debbie 09/07/23 at 1530, Until Debbie 09/07/23 at 1816, Endoscopy (Day of Procedure) 1530 (New Bag - Prov ider: Ariella Og LPN)1615 (Paused - Provider: Ana Henderson CRNA - Comment: Switch to gravity)1616 (Restarted - Provider: Ana Henderson CRNA)1655 (Anesthesia Volume Adjustment - Provider: Ana Henderson CRNA) documented in this encounter Care Teams Conference Services Manager Relationship Specialty Start Date End Date Avery Castro DO [address] [place] [id number] PCP - General Family Medicine 07/28/23 09/25/23 documented as of this encounter
--- OUTSIDE RECORDS SUMMARY | 2024-01-08 11:28 | XMS_ITS | Encounter Summary ---
[place] [address] Care Team Providers Care Audiology Director Name Role Phone Matthew Avery Sam Primary Care Provider Reason for Referral * Diagnostic Test (STAT) - Closed Specialty Diagnoses / Procedures Referred By Contac t Referred To Contact Radiology Diagnoses Lung mass Procedures NM PET CT Skull Base to Mid-thigh Lenka Escalante MD [facility] [place] [address] [place] [address] Referral ID Status Reason Start Date Expiration Date V isits Requested Visits Authorized [id number] Closed Specialty Service Requested 08/09/2023 02/08/2025 1 1 Reason for Visit * Diagnostic Test (STAT) - Closed Specialty Diagnoses / Procedures Referred By Contac t Referred To Contact Radiology Diagnoses Lung mass Procedures NM PET CT Skull Base to Mid-thigh Lenka Escalante MD [facility] [place] [address] [place] [address] Referral ID Status Reason Start Date Expiration Date V isits Requested Visits Authorized [id number] Closed Specialty Service Requested 08/09/2023 02/08/2025 1 1 Encounter Details Date Type Department Care Team (Latest Contact Info) Description 08/24/2023 1:01 PM EDT Hospital Encounter [place] [address] Lenard Ramon MD [facility] [place] [address] Lung mass Discharge Disposition: Home Social History Tobacco Use [...] PM EDT Office Visit Hematology/Oncology at [address] [phone] Antolin Croft MD [facility] DR HEMATOLOGY [place] [address] Candice Erickson APRN [address] [place] [address] DR HEMATOLOGY [place] [address] Primary malignant neoplasm of right lower lobe of lung 01/08/2024 1:30 PM EDT Infusion Hematology Oncology at [address] [phone] 01/30/2024 9:[address] [place] [address] Soto Gilbert MD [facility] [place] [address] 01/30/2024 10:30 AM EST Appointment [place] [phone] Soto Gilbert MD [facility] [place] [address] 01/30/2024 11:00 AM EST Appointment [place] [phone] Soto Gilbert MD [facility] [place] [address] 01/30/2024 11:30 AM EST Appointment [place] [phone] Soto Gilbert MD [facility] [place] [address] 01/30/2024 12:00 PM EST Appointment [place] [phone] Soto Gilbert MD [facility] [place] [address] 01/30/2024 2:30 PM EST Appointment [place] [phone] documented as of this encounter Procedures Procedure Name Priority Date/Time Associated Diagnosis Comments NM PET CT SKULL BASE TO MID-THIGH ([facility]) STAT 08/24/2023 2:58 PM EDT Lung mass documented in this encounter Results * (ABNORMAL) NM PET CT Skull Base to Mid-thigh (08/24/2023 2:58 PM EDT) WORKSTATION ID [id number] RAD Anatomical Region Laterality Modality Positron Emissio n Tomography (PET) Impressions 08/24/2023 4:06 PM EDT 1. ??A large FDG-avid mass in the right lower lobe, most likely malignant. An additional FDG-avid mass in the left upper lobe, also likely malignant. Possible metastatic adenopathy in the subcarinal/right infrahilar station. 2. ??FDG-avid nodular left adrenal thickening, suspicious for adrenal metastasis. Right adrenal nodular thickening is seen to better on prior CT, and is probably too small to be resolved on PET. 3. ??Misregistration and motion reduces sensitivity. 4. ??Fibrous appearance of the uterus. Nonavid soft tissue in the left adnexa, nonspecific. Suggest correlation with pelvic ultrasound. Unexpected finding. Thank you for letting us participate in the care of this patient. ??If you are a health care provider and have any questions regarding this report, please contact the number below. ??For patients who have questions please contact the health healthcare translator that requested your imaging first. ? Narrative 08/24/2023 4:06 PM EDT EXAMINATION: NM PET CT STANDARD SKULL BASE TO MID-THIGH CLINICAL HISTORY: lung mass, staging R91.8, Other nonspecific abnormal finding of lung field TECHNIQUE: Following IV injection of 77-vvexfl-4-deoxyglucose (FDG) a standard uptake of approximately 60 minutes, a noncontrast CT scan followed by a PET scan were acquired from the base of the skull to mid thighs. The noncontrast CT was used for anatomic localization and photon attenuation correction of the PET scan. Blood glucose level: 101 (mg/dL) FDG dose: 17.2 mCi COMPARISON: Chest CT from 07/14/2023. FINDINGS: Slight misregistration and motion artifact limiting assessment. HEAD AND NECK: BRAIN AND EXTRA-AXIAL SPACES (WHERE INCLUDED): No abnormal uptake. ORBITS: No abnormal uptake. PARANASAL SINUSES: No abnormal uptake. MASTOIDS: No abnormal uptake. AERODIGESTIVE TRACT: No abnormal uptake. SALIVARY GLANDS: No abnormal uptake. THYROID: No abnormal uptake. VASCULATURE: No abnormal uptake. LYMPH NODES: No abnormal uptake. THORAX: LUNGS: FDG-avid mass in the right lower lobe measuring 7.4 x 7.4 centimeter, with SUVmax 18.1. Central photopenia suggesting necrosis. Postobstructive pneumonia in the right lower lobe. Another mass in the left upper lobe measuring 2.5 x 1.8 cm, with SUVmax 3.0, likely underestimated because of motion artifact. Upper lung predominant centrilobular emphysema. PLEURA: No abnormal uptake. AIRWAYS: No abnormal uptake. MEDIASTINUM: No abnormal uptake. HEART AND VASCULATURE: No abnormal uptake. Pulmonary trunk is dilated, measuring 3.8 centimeter, may be seen in the setting of pulmonary hypertension. Multivessel coronary artery calcifications. Moderate vascular calcifications of the aortic arch and great vessels. LYMPH NODES: A subcentimeter subcarinal lymph node measuring SUVmax 3.3 (image 87), possibly metastatic. BREASTS/CHEST WALL: No abnormal uptake. ABDOMEN AND PELVIS: LIVER: No abnormal uptake. Multiple fluid densities and hypodensities which are too small to characterize, most likely representing cysts. BILIARY SYSTEM: No abnormal uptake. PANCREAS: No abnormal uptake. SPLEEN: No abnormal uptake. ADRENALS: A focus of uptake in the left adrenal measuring SUVmax 4.5 correlating with a thickened appearance. Nodular thickening of the right adrenal is seen to better advantage on prior CT. KIDNEYS AND URETERS: No abnormal uptake. A right parapelvic cyst is present. URINARY BLADDER: No abnormal uptake. REPRODUCTIVE: No abnormal uptake. Fibrous appearance of the uterus. A nonavid soft tissue density in the left adnexa measuring 2.4 x 2.0 cm, which can be better assessed with pelvic ultrasound. GI: No abnormal uptake. Ebjv-nd-csrlwfea colonic diverticulosis, most pronounced in the sigmoid. OMENTUM, MESENTERY, PERITONEUM, RETROPERITONEUM: No abnormal uptake. VASCULATURE: No abnormal uptake. Moderate vascular calcifications in the aorta and branch vessels. Ectatic infrarenal abdominal aorta measuring 2.7 cm. LYMPH NODES: No abnormal uptake. MUSCULOSKELETAL: No abnormal uptake. Resulting Agency Comment Unexpected Finding Lenard Ramon MD [facility] PET ORDERABLES documented in this encounter Visit Diagnoses Diagnosis Lung mass Swelling, mass, or lump in chest Primary malignant neoplasm of right lower lobe of lung Malignant neoplasm of lower lobe, bronchus, or lung documented in this encounter Administered Medications Inactive Administered Medications - up to 3 most recent administrations Medication Order MAR Action Action Date Dose Rate Site fludeoxyglucose (F-18) FDG injection 0-20 mCi 0-20 mCi, Intravenous, ONCE PRN, 1 dose, Starting on Debbie 08/24/23 at 1338, Until Debbie 08/24/23 at 1336, Per Protocol, Radiology Contrast, Routine Given 08/24/2023 1:36 PM EDT 17.2 mCi Left Arm documented in this encounter Care Teams Audiology Director Relationship Specialty Start Date End Date Avery Castro DO [address] [place] [address] PCP - General Family Medicine 07/28/23 09/25/23 documented as of this encounter
--- OUTSIDE RECORDS SUMMARY | 2024-01-08 11:28 | XMS_ITS | Encounter Summary ---
Author Organization [facility] [place] [address] Care Team Providers Care Feather Separator Name Role Phone MatthewAvery lomax Primary Care Provider [phone] Reason for Visit * Reason Comments Advice Only * Consultation (Routine) - Closed Specialty Diagnoses / Procedures Referred By Contac t Referred To Contact Hematology and Oncology Diagnoses NSCLC of right lung Backer, Lenard Palmer MD [facility] [place] [address] [facility] [address] [place] [address] Referral ID Status Reason Start Date Expiration Date V isits Requested Visits Authorized [id number] Closed Consult, Test & Treat 08/17/2023 08/16/2024 1 1 Encounter Details Date Type Department Care Team (Late st Contact Info) Description 08/29/2023 12:00 PM EDT Office Visit Hematology [place] [phone] Antolin Croft MD [facility] DR H[place] [address] Primary malignant neoplasm of right lower lobe [...] Sign Reading Time Taken Comments Blood Pressure 148/88 08/29/2023 11:56 AM EDT Manually taken Pulse 85 08/29/2023 11:56 AM EDT Temperature 36.2 ??C (97.2 ??F) 08/29/2023 1 1:56 AM EDT Respiratory Rate 20 08/29/2023 11:5 6 AM EDT Oxygen Saturation 95% 08/29/2023 11: 56 AM EDT Inhaled Oxygen Concentration - - Weight 92.3 kg (203 lb 7.8 oz) 08/29/2023 11:56 AM EDT Height 162.6 cm (5' 4) 08/29/2023 11:5 6 AM EDT Body Mass Index 34.93 08/29/2023 11:56 AM EDT documented in this encounter Progress Notes * Antolin Croft MD - 08/29/2023 12:00 PM EDT Images from the original note were not included. Thoracic Oncology [facility] [place] [place] [address] [phone] Althea Salmon is being seen for the evaluation of lung cancer. Assessment & Plan: Althea Salmon is a 67 y.o. female patient with a past medical history significant for 43-dwji-mylwnrtqwky history having quit in 2020, and no [...] was nondiagnostic, and station 7 was negative. Imaging notable for a left upper lobe lesion that is FDG avid the less intensely than the right-sided process and also some uptake in the adrenal glands particular on the left. In reviewing the imaging and discussing it with interventional pulmonology would want to sample the left upper lobe noduleand ideally the left-sided adrenal gland. Given the apparent lack of anand involvement would suspect that the left-sided process is a synchronous primary. I counseled the patient and her family about the diagnosis, pathology results, imaging findings, tumor staging and the implications of this information on the prognosis and the available treatment options. Discussed that we need to establish if possible whether this is metastatic disease vs synchronous primaries (Stage IIIA and a Stage I) and to guide additional treatment options Plan: - MRI to complete staging (requires sedation- schedule for September) - EBUS/Lanre bronch to re-evaluate the mediastinum and also sample the MARISSA nodule - EUS to sample the left adrenal site - Based on results and multidisciplinary tumor board discussion can then involve radiation and/or thoracic surgery to determine optimal local therapy modality if metastatic disease is felt unlikely Antolin Croft MD, MS 08/29/2023 Thoracic Oncology [facility] CC: DO Vonda Gleason APRN, MD HPI/Interval History/Subjective: Althea Salmon is a 67 y.o. female patient with a past medical history significant for 98-occg-qptiokuahis history having quit in 2020, and no other previously diagnosed chronic medical conditions who in the setting of progressive dyspnea and a cough in May presented to her local hospital with a chest x-ray which identified a right lower lobe abnormality which was revealed to be right lower lobe lung mass on subsequent imaging as detailed below. Accompanied by her daughter Isabelle Has some dyspnea and cough and feels like this may be gradually worsening. Inhaler recently prescribed and they do help. Steroids also helped a lot when she was given a brief course Couple days ago fever and night sweats No weight loss. No headaches Had COVID more than year ago. Did not get COVID vaccine Has had mammograms in the past. Never had colonoscopy. Social History/Support Network: Home situation: . Lives in mobile home. Roommate. 3 daughters. 8 grandchidlren. Drives. Lives in [place]. Closer to [place] or [place] 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 Tobacco use:Quit 2020. 45 pk year Alcohol use: None Drug use: None Financial Distress: Social Determinants of Health Financial Resource Strain: Not on file Food Insecurity: Not on file Transportation Needs: Not on file Physical Activity: Not on file Housing Stability: Not on file Intimate Partner Violence: Not on file Utilities: Not on file Health Literacy: Not [...] with a past medical history significant for 77-evcc-jdzb smoking history having quit in 2020, and [...] normal in appearance. EBUS-TBNA (4 sites): The [place] EBUS (EB-530US) scope was inserted, lymph node [...] contiguous withthe right lung mass. Tumor/Tissue Debulking (37227): The superior segment of the right lower [...] Suggest correlation with pelvic ultrasound. Unexpected finding. Pathology: 08/10/23 ADDENDUM DISCUSSION Tissue: Lung, right lower lobe (EBUS-guided FNA) Diagnosis: Adenocarcinoma, consistent with pulmonary primary Tumor Proportion Score (TPS): % Expression: 3-5% Non-Research Test Engine Evaluator Final DIAGNOSIS Positive for Malignancy DISCUSSION Adenocarcinoma, consistent with pulmonary primary. Cell block was examined. See note. Note: RLL mass which is contiguous with 11R which was NSCLC (N1 disease). Her station 4R was non-diagnostic but small, station 7 lymphocytes and station 11L lymphocytes. Molecular Data: Treatment Course: No data to display There are no problems to display for this patient. I reviewed the problem list, allergies, medications, past medical history, social history and family history within the EPIC encounter. Pertinent details are noted above. Pertinent positives and negative from the Review of Systems are as summarized above in the HPI. Physical Exam: Wt Readings from Last 3 Encounters: 08/29/23 92.3 kg (203 lb 7.8 oz) 08/10/23 95.3 kg (210 lb) 08/09/23 95.3 kg (210 lb) Temp Readings from Last 3 Encounters: 08/29/23 36.2 ??C (97.2 ??F) (Temporal) 08/10/23 36.7 ??C (98 ??F) (Tympanic) 08/09/23 36.6 ??C (97.9 ??F) (Temporal) BP Readings from Last 3 Encounters: 08/29/23 148/88 08/10/23 (!) 132/99 08/09/23 132/86 Pulse Readings from Last 3 Encounters: 08/29/23 85 08/10/23 74 08/09/23 75 Body surface area is 2.04 meters squared. Wt Readings from Last 3 Encounters: 08/29/23 92.3 kg (203 lb 7.8 oz) 08/10/23 95.3 kg (210 lb) 08/09/23 95.3 kg (210 lb) KPS Score ECOG Grade Definition 90-100 [...] last 7068 hours. Invalid input(s): T4, FT4 Recent Results (from the past 72 hour(s)) Comprehensive metabolic panel (non-fasting) Result Value Ref Range Glucose Lvl 131 65 - 199 mg/dL BUN 14 8 - 18 mg/dL Creatinine 1.02 0.70 - 1.20 mg/dL Sodium 139 135 - 145 mmol/L Potassium 4.2 3.5 - 5.0 mmol/L Chloride 103 98 - 107 mmol/L CO2 25 22 - 31 mmol/L Anion Gap 11 5 - 15 mmol/L Calcium 9.2 8.5 - 10.5 mg/dL Total Protein 7.1 6.1 - 8.0 g/dL Albumin 3.9 3.2 - 5.2 g/dL AST 17 0 - 30 unit/L ALT 16 0 - 30 unit/L Alk Phos 99 35 - 105 unit/L Total Bilirubin 0.3 0.2 - 1.3 mg/dL Estimated GFR 61 >=60 mL/min/1.73 m?? Hemogram Result Value Ref Range WBC 7.2 4.0 - 9.5 x10(3)/mcL RBC 5.35 (H) 4.00 - 5.21 x10(6)/mcL Hemoglobin 13.8 11.7 - 15.5 g/dL Hematocrit 45.6 35.7 - 45.8 % MCV 85.2 82.6 - 94.4 fL MCH 25.8 (L) 27.1 - 32.0 pg MCHC 30.3 (L) 31.7 - 35.0 g/dL Platelets 276 145 - 357 x10(3)/mcL RDWSD 45.1 37.0 - 46.0 fL RDWCV 14.4 (H) 11.5 - 14.1 % MPV 10.4 7.6 - 12.9 fL nRBC % Auto 0.0 % nRBC Abs Auto 0.000 0.000 - 0.000 x10(3)/mcL Differential, Automated Result Value Ref Range Neutrophils % 53.6 % Neutr Abs (ANC) 3.89 1.70 - 6.10 x10(3)/mcL Lymphocytes % 31.0 % Lymphocytes Abs 2.2 0.9 - 3.2 x10(3)/mcL Monocytes % 9.1 % Monocyte Abs 0.7 0.3 - 0.9 x10(3)/mcL Eosinophils % 4.6 % Eosinophils Abs 0.3 0.0 - 0.4 x10(3)/mcL Basophils % 1.4 % Basophils Abs 0.1 0.0 - 0.1 x10(3)/mcL Immature Gran % 0.30 % Sandra Gran Abs 0.02 0.00 - 0.04 x10(3)/mcL Review of Imaging Data: I personally reviewed [...] PM EDT Office Visit Hematology/Oncology at [address] [phone] Antolin Croft MD [facility] DR [place] [address] Candice Erickson [address] [place] [address] Primary malignant neoplasm of right lower lobe of lung 01/08/2024 1:30 PM EDT Infusion Hematology Oncology at [address] [phone] 01/30/2024 9:[address] [place] [phone] Soto Gilbert MD [facility] [place] [address] 01/30/2024 10:30 AM EST Appointment [place] [phone] Soto Gilbert MD [facility] [place] [address] 01/30/2024 11:00 AM EST Appointment [place] [phone] Soto Gilbert MD [facility] [place] [address] 01/30/2024 11:30 AM EST Appointment [place] [phone] Soto Gilbert MD [facility] [place] [address] 01/30/2024 12:00 PM EST Appointment [place] [phone] Soto Gilbert MD [facility] [place] [address] 01/30/2024 2:30 PM EST Appointment [place] [address] Scheduled Referrals Name Type Priority Associated Diagnoses Order Schedule Referral to Hematology and Oncology Outpatient Referral Routine NSCLC of right lung Ordered: 08/17/2023 documented as of this encounter Visit Diagnoses Diagnosis Primary malignant neoplasm of right lower lobe of lung Malignant neoplasm of lower lobe, bronchus, or lung Primary malignant neoplasm of right lower lobe of lung Malignant neoplasm of lower lobe, bronchus, or lung documented in this encounter Care Teams Feather Separator Relationship Specialty Start Date End Date Avery Castro DO [address] [place] [id number] PCP - General Family Medicine 07/28/23 09/25/23 documented as of this encounter
--- OUTSIDE RECORDS SUMMARY | 2024-01-08 11:28 | XMS_ITS | Encounter Summary ---
Author Organization [facility] [place] [address] Care Team Providers Care Beam Saw Operator Name Role Phone Avery Castro Primary Care Provider [phone] Reason for Visit * Auth/Cert (Routine) Specialty Diagnoses / Procedures Referred By Jimbo moffett Referred To Contact Diagnoses Left adrenal mass EUS to FNA left adrenal mass Procedures PRO ENDOSCOPIC US EXAM, ESOPH PRO ANES, COMBINED UPPER OR LOWER ENDOSCOPY UPPER EUS- ENDOSCOPIC ULTRASOUND (WRVU 3.47) Ming Eldridge MD [facility] GASTROENTEROLOGY [place] [address] [facility] Referral ID Status Reason Start Date Expiration Date Visits Re quested Visits Authorized [id number] 1 1 Encounter Details Date Type Department Care Team (Late st Contact Info) Description 09/07/2023 4:00 PM EDT - 09/07/2023 5:00 PM EDT [place] [address] Ming Eldridge MD [facility] GASTROENTEROLOGY [place] [address] EGD, W US GUIDED FINE NEEDLE ASPIRATION/BIOPSY (WRVU 4.16) Social History Tobacco Use Types Packs/Day Years [...] Sign Reading Time Taken Comments Blood Pressure 122/74 09/07/2023 5:00 PM EDT Pulse 80 09/07/2023 3:10 PM EDT Temperature - - Respiratory Rate 15 09/07/2023 5:00 PM EDT Oxygen Saturation 97% 09/07/2023 5:00 PM EDT Inhaled Oxygen Concentration - - [...] the day after the procedure, use an rbum-uty-eyrmdzz spray to numb your throat. Sucking on [...] occurs, please contact your Doctor. Please call [phone] before 8pm Mon-Fri with problems, questions or concerns. If you call after 8pm or on weekends, call the Hospital at [phone] and ask to speak to the Cinder Dump Crane Operator intermission coordinator and the coupling machine operator will contact that person for you. When should you call for help? Call [phone] anytime you think you may need emergency [...] any problems. Where can you learn more? myD- View your After Visit Summary and more online at [email or web address] If you would like to provide [...] cost to you. Content Version: 12.2 ?? 3426-7711 [employer]. Care instructions adapted under license by [facility]. If you have questions about a medical condition or this instruction, always ask your healthcare professional. [employer] disclaims any warranty or liability for your [...] the day after the procedure, use an mqfi-fac-czsxypb spray to numb your throat. Sucking on [...] occurs, please contact your Doctor. Please call [phone] before 8pm Mon-Fri with problems, questions or concerns. If you call after 8pm or on weekends, call the Hospital at [phone] and ask to speak to the Cinder Dump Crane Operator intermission coordinator and the coupling machine operator will contact that person for you. When should you call for help? Call [phone] anytime you think you may need emergency [...] any problems. Where can you learn more? [facility] View your After Visit Summary and more online at [email or web address] If you would like to provide [...] cost to you. Content Version: 12.2 ?? 3303-0084 [employer]. Care instructions adapted under license by [facility]. If you have questions about a medical condition or this instruction, always ask your healthcare professional. [employer] disclaims any warranty or liability for your [...] 1:00 PM EDT Office Visit Hematology/Oncology at [address] [phone] Antolin Croft MD [facility] DR HEMATOLOGY AND [place] [address] Candice Erickson APRN [address] [place] [address] [place] [address] Primary malignant neoplasm of right lower lobe of lung 01/08/2024 1:30 PM EDT Infusion Hematology Oncology at [address] [phone] 01/30/2024 9:[address] [place] [address] Soto Gilbert MD [facility] DR THORACIC [place]GERY [place] [address] 01/30/2024 10:30 AM EST Appointment [place] [address] Soto Gilbert MD [facility] DR THORACIC [place]GERY [place] [address] 01/30/2024 11:00 AM EST Appointment [place] [phone] Soto Gilbert MD [facility] DR THORACIC [place]ERY [place] [address] 01/30/2024 11:30 AM EST Appointment [place] [address] Soto Gilbert MD [facility] DR THORACIC SURGERY [place], [place] [phone] 01/30/2024 12:00 PM EST Appointment [place] [address] Soto Gilbert MD [facility] DR THORACIC [place]ERY [place] [address] 01/30/2024 2:30 PM EST Appointment [place] [address] documented as of this encounter Procedures Procedure Name Priority Date/Time Associated Diagnosis Comments NON-MECHANIC AND WELDER FINAL REPORT Routine 09/07/2023 4:52 PM EDT CYTOPATHOLOGY NON-GYNECOLOGICAL Routine 09/07/2023 4:52 PM EDT Upgi Endoscopy W/Us Fn Bx ([id number]) 09/07/2023 4:16 PM EDT Left adrenal mass UPPER EUS-ENDOSCOPIC ULTRASOUND Routine 09/07/2023 3:58 PM EDT documented in this encounter Results * Non-Consulting Services Manager Final Report (09/07/2023 4:52 PM EDT) Diagnosis Discussion [id number] ? Location: 4T; EA06; A The signing pathologist has (i) examined the relevant preparation(s) for the specimen(s) and (ii) rendered or confirmed the diagnosis(es). . ? Non-Consulting Services Manager Final DIAGNOSIS See Discussion Electronically signed by: ?Letty BEST, Madi Barker Verified: ??09/11/2023 17:48 ??Cytopathologis t Performed at: ??-[facility] Dept. of Pathology, [place] [address] Gas Appliance Servicer: Janes Ritchie MD, FCAP, ??CLIA Certificate: [id number] DISCUSSION Adrenal: left (EUS-guided FNA) - Adrenal [...] Cell Block 1. 09/11/2023 5:48 PM EDT [facility] Misc. FNA 09/07/2023 4:52 PM EDT 09/07/2023 4:52 PM EDT Ming [place]ridge MD PATHOLOGY/CYTOLOGY O RDERABLES [facility] [place] [address] * Cytopathology Non-Gynecological (09/07/2023 4:52 PM EDT) AP Specimen 09/07/2023 4:52 PM EDT 09/07/2023 4:52 PM EDT Narrative [facility] - 09/07/2023 4:52 PM EDT Specimen requisition ordered. ??Separate Pathology report to follow Ming Eldridge MD PATHOLOGY/CYTOLOGY Deepak FELIX [facility] [place] [address] * UPPER EUS-ENDOSCOPIC ULTRASOUND (09/07/2023 3:58 PM EDT) UPPER ENDOSCOPIC ULTRASOUND [facility] Endoscopy Procedure Date: 09/07/2023 3:58 PM ? Patient Name: Althea Salmon ? Date of : 1955 ? Age: 67 ? Order #: [id number] ? Instrument Name: [id number] ? Procedure: ? Upper EUS Indications: ? [...] the ? physician, the nurse, the ? supervisor inspection and testing and the tv technician. The ? procedure was verified in [...] care under ? the supervision of a ACID CUTTER was ? determined to be medically ? [...] PROVATION 09/07/2023 3:58 PM EDT Avery Castro DO GENERAL SURGICAL ORD ERABLES PROVATION documented in this encounter Visit Diagnoses Diagnosis Left adrenal mass Unspecified disorder of adrenal glands Primary malignant [...] Routine 1800 (Given - Provid er: Jhoana Mistry RN) fentaNYL (PF) (50 mcg/mL) injection 50 mcg (COMPLETED) 50 mcg, Intravenous, ONCE, 1 dose, On Debbie 09/07/23 at 1800, Endoscopy (Recovery-Hospital Unit), STAT 1740 (Given - Provid er: Jhoana Mistry RN) Continuous Medication Order 09/05/2023 09/06/2023 09/07/2023 lactated ringers infusion (CANCELED) 100 mL/hr, Intravenous, CONTINUOUS, Starting on Dbebie 09/07/23 at 1530, Until Debbie 09/07/23 at 1816, Endoscopy (Day of Procedure) 1530 (New Bag - Prov ider: Ariella Og LPN)1615 (Paused - Provider: Ana Henderson CRNA - Comment: Switch to gravity)1616 (Restarted - Provider: Ana Henderson CRNA)1655 (Anesthesia Volume Adjustment - Provider: Ana Henderson CRNA) documented in this encounter Care Teams Beam Saw Operator Relationship Specialty Start Date End Date Avery Castro DO [address] [place], [place] [phone] PCP - General Family Medicine 07/28/23 09/25/23 documented as of this encounter
--- OUTSIDE RECORDS SUMMARY | 2024-01-08 11:28 | XMS_ITS | Encounter Summary ---
Author Organization [facility] [place] [address] Care Team Providers Care Stoker Erector Name Role Phone Avery Castro DO Primary Care Provider [phone] Encounter Details Date Type Department Care Team (Late st Contact Info) Description 08/25/2023 Telephone [place] [phone] Lenard Ramon MD [facility] [place] [address] Social History Tobacco Use Types Packs/Day Years [...] Telephone Encounter - Lenard Ramon MD - 08/25/2023 9:31 AM EDT Interventional Pulmonology Telephone Encounter: I called Ms. Althea Salmon on 08/25/2023 at 9:31 AM. We discussed the results from her recent PET/CTimaging. The plan is to move forward with EUS of the L adrenal gland and robotic assisted bronchoscopy of the MARISSA nodule to determine M1a versus synchronous primaries. An EBUS-TBNA can be repeated with attention to the non-diagnostic 4R at that time. In addition, she could not complete the MR brainyesterday due to a combination of severe claustrophobia and inability to lay flat because of mucous in my throat. She tells me she will need to receive GA to complete the study and I have re-ordered the MRI with anesthesia support. She was provided ample time to ask questions which were answered to her liking. Mobile Not on file. Lenard Ramon MD, 08/25/2023, 9:31 AM Interventional Pulmonology Section of Pulmonary & Critical Care Pager: [phone] documented in this encounter Plan of Treatment Upcoming Encounters Date Type Department Care Team (Late st Contact Info) Description 01/08/2024 1:00 PM EDT Office Visit Hematology/Oncology at [address] [phone] Antolin Croft MD [facility] DR HEMATOLOGY [place] [address] Candice Erickson APRN [address] [place] [address] [place] [address] Primary malignant neoplasm of right lower lobe of lung 01/08/2024 1:30 PM EDT Infusion Hematology Oncology at [address] [phone] 01/30/2024 9:[address] [place] [phone] Soto Gilbert MD [facility] [place] [address] 01/30/2024 10:30 AM EST Appointment [place] [phone] Soto Gilbert MD [facility] [place] [address] 01/30/2024 11:00 AM EST Appointment [place] [address] Soto Gilbert MD [facility] [place] [address] 01/30/2024 11:30 AM EST Appointment [place] [phone] Soto Gilbert MD [facility] [place] [address] 01/30/2024 12:00 PM EST Appointment [place] [phone] Soto Gilbert MD [facility] [place] [address] 01/30/2024 2:30 PM EST Appointment [place] [phone] documented as of this encounter Visit Diagnoses Not on filedocumented in this encounter Care Teams Stoker Erector Relationship Specialty Start Date End Date Avery Castro DO [address] [place] [address] PCP - General Family Medicine 07/28/23 09/25/23 documented as of this encounter
--- OUTSIDE RECORDS SUMMARY | 2024-01-08 11:28 | XMS_ITS | Encounter Summary ---
Author Organization [facility] [place] [address] Care Team Providers Care China Decorator Name Role Phone Avery Castro DO Primary Care Provider [phone] Encounter Details Date Type Department Care Team (Latest Contact Info) Description 08/29/2023 Travel Social History Tobacco Use Types Packs/Day [...] PM EDT Office Visit Hematology/Oncology at [address] [phone] [facility] [address] [place] [address] Candice Erickson APRN [address] [place] [address] DR [place] [address] Primary malignant neoplasm of right lower lobe of lung 01/08/2024 1:30 PM EDT Infusion Hematology Oncology at [address] [phone] 01/30/2024 9:[address] [place] [address] [facility] [place] [address] 01/30/2024 10:30 AM EST Appointment Nuclear Medicine at [place] [phone] [facility] [place] [address] 01/30/2024 11:00 AM EST Appointment Nuclear Medicine at [place] [address] [facility] [place] [address] 01/30/2024 11:30 AM EST Appointment Nuclear Medicine at [place] [phone] [facility] [place] [address] 01/30/2024 12:00 PM EST Appointment Nuclear Medicine at [place] [phone] [facility] [place] [address] 01/30/2024 2:30 PM EST Appointment Pulmonology at [place] [address] documented as of this encounter Visit Diagnoses Not on filedocumented in this encounter Care Teams China Decorator Relationship Specialty Start Date End Date Avery Castro DO [address] [place] [address] PCP - General Family Medicine 07/28/23 09/25/23 documented as of this encounter
--- OUTSIDE RECORDS SUMMARY | 2024-01-08 11:28 | XMS_ITS | Encounter Summary ---
Author Organization [facility] [place] [address] Care Team Providers Care Swimming Coach Or Instructor Name Role Phone Avery Castro DO Primary Care Provider [phone] Encounter Details Date Type Department Care Team (Late st Contact Info) Description 09/08/2023 [place] [phone] Cindy Fuentes Social History Tobacco Use Types Packs/Day Years [...] PM EDT Office Visit Hematology/Oncology at [address] [phone] Antolin Croft MD [facility] DR HEMAT[place]Y [place] [address] Candice Erickson APRN [address] [place] [address] DR HEMATOLOGY AND ONCOLOGY [place], [place] [phone] Primary malignant neoplasm of right lower lobe of lung 01/08/2024 1:30 PM EDT Infusion Hematology Oncology at [address] [phone] 01/30/2024 9:[address] Scan at [place] [phone] Soto Gilbert MD [facility] [place] [address] 01/30/2024 10:30 AM EST Appointment Nuclear Medicine at [place] [phone] Soto Gilbert MD [facility] [place] [address] 01/30/2024 11:00 AM EST Appointment Nuclear Medicine at [place] [phone] Soto Gilbert MD [facility] [place] [address] 01/30/2024 11:30 AM EST Appointment Nuclear Medicine at [place] [phone] Soto Gilbert MD [facility] [place] [address] 01/30/2024 12:00 PM EST Appointment Nuclear Medicine at [place] [phone] Soto Gilbert MD [facility] [place] [address] 01/30/2024 2:30 PM EST Appointment Pulmonology at [place] [phone] documented as of this encounter Visit Diagnoses Not on filedocumented in this encounter Care Teams Swimming Coach Or Instructor Relationship Specialty Start Date End Date Avery Castro DO [address] [place] [address] PCP - General Family Medicine 07/28/23 09/25/23 documented as of this encounter
--- OUTSIDE RECORDS SUMMARY | 2024-01-08 11:28 | XMS_ITS | Encounter Summary ---
Author Organization [facility] [place] [address] Care Team Providers Care Health Science Instructor Name Role Phone Avery Castro DO Primary Care Provider [phone] Encounter Details Date Type Department Care Team (Latest Contact Info) Description 08/29/2023 6:15 AM EDT - 08/29/2023 10:59 AM EDT Hospital [place] [phone] Discharge Disposition: Home Social History Tobacco Use [...] 1:00 PM EDT Office Visit Hematology/Oncology at [address] [phone] Antolin Croft MD [facility] DR HEMATOLOGY [place] [address] Candice Erickson APRN [address] [place] [address] DR HEMATOLOGY [place] [address] Primary malignant neoplasm of right lower lobe of lung 01/08/2024 1:30 PM EDT Infusion Hematology Oncology at [address] [phone] 01/30/2024 9:[address] Scan at [place] [phone] Soto Gilbert MD [facility] [place] [address] 01/30/2024 10:30 AM EST Appointment Nuclear Medicine at [place] [phone] Soto Gilbert MD [facility] [place] [address] 01/30/2024 11:00 AM EST Appointment [place] [phone] Soto Gilbert MD [facility] [place] [address] 01/30/2024 11:30 AM EST Appointment [place] [phone] Soto Gilbert MD [facility] [place] [address] 01/30/2024 12:00 PM EST Appointment [place] [phone] Soto Gilbert MD [facility] [place] [address] 01/30/2024 2:30 PM EST App[place] [phone] documented as of this encounter Visit Diagnoses Not on filedocumented in this encounter Care Teams Health Science Instructor Relationship Specialty Start Date End Date Avery Castro DO [address] [place] [address] PCP - General Family Medicine 07/28/23 09/25/23 documented as of this encounter
--- OUTSIDE RECORDS SUMMARY | 2024-01-08 11:28 | XMS_ITS | Encounter Summary ---
[place] [address] Care Team Providers Care Garbage Depot Worker Name Role Phone Avery Castro Primary Care Provider [phone] Reason for Referral * Diagnostic Test (STAT) - Closed Specialty Diagnoses / Procedures Referred By Jimbo t Referred To Contact Radiology Diagnoses NSCLC of right lung Pulmonary nodule, left Procedures MRI Brain wwo Contrast (Generic) Lenard Ramon MD [facility] [place] [address] [facility] [place] [address] Referral ID Status Reason Start Date Expiration Date V isits Requested Visits Authorized [id number] Closed Specialty Service Requested 08/25/2023 02/23/2025 1 1 * Diagnostic Test (Routine) - Closed Specialty Diagnoses / Procedures Referred By Jimbo t Referred To Contact Radiology Diagnoses NSCLC of right lung Pulmonary nodule, left Procedures CT Chest wo Contrast (Generic) Lenard Ramon MD [facility] [address] [facility] [place] [address] Referral ID Status Reason Start Date Expiration Date V isits Requested Visits Authorized [id number] Closed Specialty Service Requested 09/01/2023 10/31/2023 1 1 Encounter Details Date Type Department Care Team (Late st Contact Info) Description 08/25/2023 Orders [place] [phone] Lenard Ramon MD [facility] [place] [address] NSCLC of right lung; Pulmonary nodule, left Social History Tobacco Use Types Packs/Day Years [...] 1:00 PM EDT Office Visit Hematology/Oncology at [address] [phone] Antolin Croft MD [facility] DR [place] [address] Candice Erickson APRN [address] [place] [address] [place] [address] Primary malignant neoplasm of right lower lobe of lung 01/08/2024 1:30 PM EDT Infusion Hematology Oncology at [address] [phone] 01/30/2024 9:[address] [place] [phone] Soto Gilbert MD [facility] [place] [address] 01/30/2024 10:30 AM EST Appointment [place] [phone] Soto Gilbert MD [facility] [place] [address] 01/30/2024 11:00 AM EST Appointment [place] [phone] Soto Gilbert MD [facility] DR THORACIC SURGERY [place], [place] [phone] 01/30/2024 11:30 AM EST Appointment [place] [phone] Soto Gilbert MD [facility] [place] [address] 01/30/2024 12:00 PM EST Appointment [place] [phone] Soto Gilbert MD [facility] [place] [address] 01/30/2024 2:30 PM EST Appointment [place] [phone] documented as of this encounter Results * MRI Brain wwo Contrast (Generic) (09/25/2023 3:17 PM EDT) WORKSTATION ID [id number] RAD Anatomical Region Laterality Modality Head Magnetic [...] who have questions please contact the health post acute care nurse practitioner that requested your imaging first. ? Narrative 09/25/2023 3:32 PM EDT EXAMINATION: MRI [...] patients who have questions please contactthe health post acute care nurse practitioner that requested your imaging first. Lenard Ramon MD IMG MRI ORDERABLES * CT Chest wo Contrast (Generic) (09/19/2023 7:11 AM EDT) WORKSTATION ID [id number] RAD Anatomical Region Laterality Modality Chest Computed Tomogra [...] who have questions please contact the health post acute care nurse practitioner that requested your imaging first. ? Electronically signed by: Margarette Reinoso MD, [facility] ([phone]), at 09/19/2023 8:17 PM Narrative 09/19/2023 8:17 [...] resident's interpretationand agree with the findings, Margarette Reinoso MD at 09/19/2023 8:17PM Thank you for letting us participate in the care of this patient. If youare a health care provider and have any questions regarding this report,please contact the number below. For patients who have questions please contactthe health post acute care nurse practitioner that requested your imaging first. Electronically signed by: Margarette Rienoso MD, [facility] ([phone]), at 09/19/2023 8:17 PM Lenard Ramon MD IMG CT ORDERABLES documented in this encounter Visit Diagnoses Diagnosis NSCLC of right lung Pulmonary nodule, left Solitary pulmonary nodule NSCLC of right lung Pulmonary nodule, left Solitary pulmonary nodule NSCLC of right lung Pulmonary nodule, left Solitary pulmonary nodule Primary malignant neoplasm of right lower lobe of lung Malignant neoplasm of lower lobe, bronchus, or lung documented in this encounter Care Teams Garbage Depot Worker Relationship Specialty Start Date End Date Avery Castro DO [address] [place] [address] PCP - General Family Medicine 07/28/23 09/25/23 documented as of this encounter
--- OUTSIDE RECORDS SUMMARY | 2024-01-08 11:28 | XMS_ITS | Encounter Summary ---
Author Organization Formerly [facility] [place] [address] Care Team Providers Care Etl Informatica Architect Name Role Phone Avery Castro DO Primary Care Provider [phone] Encounter Details Date Type Department Care Team (Late st Contact Info) Description 08/30/2023 Notes Only Clinical Research [facility] [place] [address] Lorena Tai Social History Tobacco Use Types [...] encounter Progress Notes * Lorena Tai - 08/30/2023 2:15 PM EDTSummary: Financial Counselor Ms. Salmon has been referred to me by Jihan Araujo RN, on August 30, 2023 I contacted the patient today and went over Medicare and Medicaid supplement insurance benefits. The patient understood that Medicare will pay 80% after the annual deductible has been met and that Medicaid will pay the reminder 20%. Financial Assistance was offered to the patient, but at this time, the patient declined. The patient did not have any questions or concerns at this time. My contact information was given to the patient should she need financial assistance or have any questions. The patient was made aware that I will check on him in a month. documented in this encounter Plan of Treatment Upcoming Encounters Date Type Department Care Team (Late st Contact Info) Description 01/08/2024 1:00 PM EDT Office Visit Hematology/Oncology at [address] [phone] Antolin Croft MD [facility] DR HEMATOLOGY [place] [address] Candice Erickson APRN [address] [place] [address] DR HEMATOLOGY AND ONCOLOGY [place], [place] [address] Primary malignant neoplasm of right lower lobe of lung 01/08/2024 1:30 PM EDT Infusion Hematology Oncology at [address] [phone] 01/30/2024 9:[address] [place] [place] [phone] Soto Gilbert MD [facility] [place] [address] 01/30/2024 10:30 AM EST Appointment [place] [phone] Soto Gilbert MD [facility] [place] [address] 01/30/2024 11:00 AM EST Appointment [place] [phone] Soto Gilbert MD [facility] [place] [address] 01/30/2024 11:30 AM EST Appointment [place] [phone] Soto Gilbert MD [facility] [place] [address] 01/30/2024 12:00 PM EST Appointment [place] [phone] Soto Gilbert MD [facility] [place] [address] 01/30/2024 2:30 PM EST [place] [phone] documented as of this encounter Visit Diagnoses Not on filedocumented in this encounter Care Teams Etl Informatica Architect Relationship Specialty Start Date End Date Avery Castro DO [address] [place] [address] PCP - General Family Medicine 07/28/23 09/25/23 documented as of this encounter
--- OUTSIDE RECORDS SUMMARY | 2024-01-08 11:28 | XMS_ITS | Encounter Summary ---
Author Organization [facility] [place] [address] Care Team Providers Care Roving Hand Name Role Phone Avery Castro DO Primary Care Provider [phone] Encounter Details Date Type Department Care Team (Latest Contact Info) Description 08/24/2023 Travel Social History Tobacco Use Types Packs/Day [...] PM EDT Office Visit Hematology/Oncology at [address] [phone] Antolin Croft MD [facility] [place] [address] Candice Erickson APRN [address] [place] [address] DR HEMATOLOGY [place] [address] Primary malignant neoplasm of right lower lobe of lung 01/08/2024 1:30 PM EDT Infusion Hematology Oncology at [address] [phone] 01/30/2024 9:[address] [place] [address] Soto Gilbert MD [facility] [place] [address] 01/30/2024 10:30 AM EST Appointment Nuclear Medicine at [place] [phone] Soto Gilbert MD [facility] [place] [address] 01/30/2024 11:00 AM EST Appointment Nuclear Medicine at [place] [address] Soto Gilbert MD [facility] [place] [address] 01/30/2024 11:30 AM EST Appointment Nuclear Medicine at [place] [phone] Soto Gilbert MD [facility] [place] [address] 01/30/2024 12:00 PM EST Appointment Nuclear Medicine at [place] [phone] Soto Gilbert MD [facility] [place] [address] 01/30/2024 2:30 PM EST Appointment Pulmonology at [place] [phone] documented as of this encounter Visit Diagnoses Not on filedocumented in this encounter Care Teams Roving Hand Relationship Specialty Start Date End Date Avery Castro DO [address] [place] [address] PCP - General Family Medicine 07/28/23 09/25/23 documented as of this encounter
--- OUTSIDE RECORDS SUMMARY | 2024-01-08 11:29 | XMS_ITS | Encounter Summary ---
[facility] [place] [address] Care Team Providers Care Shipwright Apprentice Name Role Phone MatthewAvery lomax Primary Care Provider [phone] Reason for Referral * Consultation (Routine) - Closed Specialty Diagnoses / Procedures Referred By Jimbo t Referred To Contact Hematology and Oncology Diagnoses NSCLC of right lung Lenard Ramon MD [facility] PULMONARY [place] [address] [facility] Hem Onc [address] [place] [address] Referral ID Status Reason Start Date Expiration Date V isits Requested Visits Authorized [id number] Closed Consult, Test & Treat 08/17/2023 08/16/2024 1 1 Encounter Details Date Type Department Care Team (Late st Contact Info) Description 08/17/2023 [place] [phone] Lenard Ramon MD [facility] PULMONARY [place] [address] Social History Tobacco Use Types Packs/Day Years [...] Telephone Encounter - Lenard Ramon MD - 08/17/2023 12:38 PM EDT Interventional Pulmonology Telephone Encounter: I called Ms. Althea Salmon on 08/17/2023 at 12:38 PM. We discussed the results from her recent bronchoscopy with EBUS notable for non-small cell lung cancer. We discussed how this was at a minimum stage IIIA, how her L lung nodule could represent metastatic disease versus a synchronous primary, andthat we would await the pending PET/CT and MR brain scheduled for 08/23/24. In the interim, I will place a referral to med/onc who she will need to meet with regardless and I have ordered PFT's to be performed locally at [facility] (she lives 2[place]5 hours away). She was provided ample timeto ask questions which were answered to her liking. Mobile Not on file. Lenard Ramon MD, 08/17/2023, 12:38 PM Interventional Pulmonology Section of Pulmonary & Critical Care Pager: [phone] documented in this encounter Plan of Treatment Upcoming Encounters Date Type Department Care Team (Late st Contact Info) Description 01/08/2024 1:00 PM EDT Office Visit Hematology/Oncology at [address] [phone] Antolin Croft MD [facility] DR HEMATOLOGY [place] [address] Candice Erickson APRN [address] [place] [address] DR HEMATOLOGY AND ONCOLOGY [place], [place] [address] Primary malignant neoplasm of right lower lobe of lung 01/08/2024 1:30 PM EDT Infusion Hematology Oncology at [address] [phone] 01/30/2024 9:[address] [place] [place] [address] Soto Gilbert MD [facility] DR THORACIC [place] [address] 01/30/2024 10:30 AM EST Appointment [place] [phone] Soto Gilbert MD [facility] DR THORACIC [place] [address] 01/30/2024 11:00 AM EST Appointment [place] [phone] Soto Gilbert MD [facility] DR THORACIC [place] [address] 01/30/2024 11:30 AM EST Appointment [place] [phone] Soto Gilbert MD [facility] DR THORACIC [place] [address] 01/30/2024 12:00 PM EST Appointment [place] [phone] Soto Gilbert MD [facility] DR THORACIC [place] [address] 01/30/2024 2:30 PM EST [place] [phone] Scheduled Referrals Name Type Priority Associated Diagnoses Order Schedule Referral to Hematology and Oncology Outpatient Referral Routine NSCLC of right lung Ordered: 08/17/2023 documented as of this encounter Visit Diagnoses Diagnosis NSCLC of right lung Primary malignant neoplasm of right lower lobe of lung Malignant neoplasm of lower lobe, bronchus, or lung documented in this encounter Care Teams Shipwright Apprentice Relationship Specialty Start Date End Date Avery Castro DO [address] [place] [address] PCP - General Family Medicine 07/28/23 09/25/23 documented as of this encounter
--- OUTSIDE RECORDS SUMMARY | 2024-01-08 11:29 | XMS_ITS | Encounter Summary ---
Author Organization [facility] [place] [address] Care Team Providers Care Ramp Service Man Name Role Phone Rose Carter Primary Care Provider Unavail able Encounter Details Date Type Department Care Team (Late st Contact Info) Description 07/14/2023 6:25 PM EDT Ancillary Procedure Radiology Library at [facility] [place] [phone] Valerio Steel MD Social History Tobacco Use Types Packs/Day Years [...] 1:00 PM EDT Office Visit Hematology/Oncology at [address] [phone] Antolin Croft MD [facility] DR [place] [address] Candice Erickson APRN [address] [place] [address] DR HEMATOLOGY AND ONCOLOGY [place], [place] [address] Primary malignant neoplasm of right lower lobe of lung 01/08/2024 1:30 PM EDT Infusion Hematology Oncology at [address] [phone] 01/30/2024 9:[address] [place] [phone] Soto Gilbert MD [facility] [place] [address] 01/30/2024 10:30 AM EST Appointment Nuclear Medicine at [place] [phone] Soto Gilbert MD [facility] [place] [address] 01/30/2024 11:00 AM EST Appointment Nuclear Medicine at [place] [phone] Soto Gilbert MD [facility] [place] [address] 01/30/2024 11:30 AM EST Appointment [place] [phone] Soto Gilbert MD [facility] [place] [address] 01/30/2024 12:00 PM EST Appointment [place] [phone] Soto Gilbert MD [facility] [place] [address] 01/30/2024 2:30 PM EST Appointment [place] [phone] documented as of this encounter Procedures Procedure Name Priority Date/Time Associated Diagnosis Comments FILM LIBRARY STORAGE ONLY CT CHEST Routine 07/14/2023 6:25 PM EDT documented in this encounter Results * Film Library- Storage Only CT Chest (07/14/2023 6:25 PM EDT) 07/26/2023 7:43 PM EDT Narrative RAD - 07/26/2023 7:43 PM EDT This exam is auto-finalizing. It's purpose is for storage only. Valerio Steel MD IMG FILM LIBRARY OR DERABLES [place], [place] documented in this encounter Visit Diagnoses Not on filedocumented in this encounter Care Teams Ramp Service Man Relationship Specialty Start Date End Date Rose Carter PA PCP - General 07/21/14 07/27/23 documented as of this encounter
--- OUTSIDE RECORDS SUMMARY | 2024-01-08 11:29 | XMS_ITS | Encounter Summary ---
Author Organization [facility] [place] [address] Care Team Providers Care Sinker Winder Name Role Phone Avery Castro Primary Care Provider [phone] Encounter Details Date Type Department Care Team (Late st Contact Info) Description 08/09/2023 Telephone [place] [phone] Gay Wong RN Social History Tobacco Use Types Packs/Day Years Used Date Smoking Tobacco: Former Cigarettes Smokeless Tobacco: Never Sex and Gender Information Value Date Recorded Sex Assigned at Not on file Gender Identity Not on file Sexual Orientation Not on file documented as of this encounter Miscellaneous Notes * Telephone Encounter - Gay Wong RN - 08/09/2023 8:11 AM EDT Made scheduled call to review instructions prior to interventional pulmonary procedure: [x] Informed patient of date, time, and location of procedure or pre-procedure imaging or tests as applicable. Scheduled bronchoscopy with EBUS, transbronchial bx, fine needle bx on 08/10/2023 at 7:30 in Endo under [place] with Dr. Ramon. Arrive at 4T at 6:30 to check in. Procedure is scheduled for 90 minutes. [x] Informed patient they must have local [place] truck driver who accompanies them into and to drive pt home safelyafter the procedure. Isabelle,daughter -Masking is now optional if you do not have COVID/ pulmonary symptoms but masks will continue to still be available at all entrance locations and throughout the building. [x] Reviewed home oxygen or ventilation use: [x] Patient not on home ventilator or oxygen [] Patient is on home oxygen and/or ventilator (document amount and type of oxygen device): [x] Patient confirms they will bring necessary supplies for transport to and from [] Patient identifies this potential supply issue: Will document and contact their DME for assistance. [x] Medication review: Confirm any new medications since last seen in Pulmonary. Only need to review blood thinners, insulin and rescue inhaler. [x] Patient has rescue inhaler (e.g., albuterol) and will bring to procedure [x] Anticoagulation and anti-platelet therapy reviewed: [] No anticoagulation or anti-platelet therapy [x] Patient will hold anticoagulation or anti-platelet therapy as directed (See IP job aid for standard instructions or MD note for special instructions) [x] Insulin use reviewed: [x] No insulin therapy [] Patient taking insulin: Instructed to take half of long acting dose, and NOT take short acting dose morning of procedure [x] Patient understands they are to take all other medications the day of procedure unless specifically addressed 5. [x] NPO instructions reviewed with patient: -Do not have anything to eat/ no solid food after midnight tonight. -Pt permitted to have any amount of clear liquids up to two hours before scheduled procedure. -Clear liquid allowed are: water, farhad estephanie, apple juice, black coffee or tea. Sugar or sugar substitutes are fine in coffee or tea, however pt not permitted to have any dairy products (or dairy substitutes) after midnight- No milk, cream, or creamers. -Okay to take small sips of water to take allowed medications within 2 hours of the procedure. -Failure to abide to these dietary instructions may result in cancellation of procedure. 6. [x] COVID screening [x] Patient denies current symptoms or exposures as per most recent COVID Screening Job Aid 7. Other questions addressed during this call: N/A MARK Choudhury, RN Pul[facility] Pager: [phone] documented in this encounter Plan of Treatment Upcoming Encounters Date Type Department Care Team (Late st Contact Info) Description 01/08/2024 1:00 PM EDT Office Visit Hematology/Oncology at [address] [phone] Antolin Croft MD [facility] DR HEMATOLOGY [place] [address] Candice Erickson APRN [address] [place] [address] DR HEMATOLOGY AND ONCOLOGY [place], [place] [address] Primary malignant neoplasm of right lower lobe of lung 01/08/2024 1:30 PM EDT Infusion Hematology Oncology at [address] [phone] 01/30/2024 9:[address] [place] [phone] Soto Gilbert MD [facility] [place] [address] 01/30/2024 10:30 AM EST Appointment [place] [address] Soto Gilbert MD [facility] [place] [address] 01/30/2024 11:00 AM EST Appointment [place] [phone] Soto Gilbert MD [facility] [place] [address] 01/30/2024 11:30 AM EST Appointment [place] [phone] Soto Gilbert MD [facility] [place] [address] 01/30/2024 12:00 PM EST Appointment Nuclear Medicine at [facility] [place] [address] Soto Gilbert MD [facility] DR THORACIC SURGERY [place], [place] [phone] 01/30/2024 2:30 PM EST Appointment [place] [phone] documented as of this encounter Visit Diagnoses Not on filedocumented in this encounter Care Teams Sinker Winder Relationship Specialty Start Date End Date Avery Castro DO [address] [place] [address] PCP - General Family Medicine 07/28/23 09/25/23 documented as of this encounter
--- OUTSIDE RECORDS SUMMARY | 2024-01-08 11:29 | XMS_ITS | Encounter Summary ---
Author Organization [facility] [place] [address] Care Team Providers Care Feed Mill Lab Technician Name Role Phone Avery Castro DO Primary Care Provider [phone] Encounter Details Date Type Department Care Team (Latest Contact Info) Description 08/10/2023 6:06 AM EDT - 08/10/2023 9:31 AM EDT Hospital En[place] [phone] Lenard Ramon MD [facility] [place] [address] Discharge Disposition: Home Social History Tobacco Use [...] Sign Reading Time Taken Comments Blood Pressure 132/99 08/10/2023 9:10 AM EDT Pulse 74 08/10/2023 7:05 AM EDT Temperature 36.7 ??C (98 ??F) 08/10/2023 7:03 AM EDT Respiratory Rate 18 08/10/2023 9:10 AM EDT Oxygen Saturation 93% 08/10/2023 9:10 AM EDT Inhaled Oxygen Concentration - - Weight 95.3 kg (210 lb) 08/10/2023 7:05 AM EDT Height 162.6 cm (5' 4) 08/10/2023 7:05 AM EDT Body Mass Index 36.05 08/10/2023 7:05 AM EDT documented in this encounter Discharge Instructions * Discharge Instructions* Karen Padilla RN - 08/10/2023 8:35 AM EDT Images from the original note were not included. Bronchoscopy: What to Expect at Home Your Recovery Bronchoscopy lets your doctor look at your airway through a tube called a bronchoscope. Afterward, you may feel tired for 1 or 2 days. Your mouth may feel very dry for several hours after the procedure. You may also have a sore throat and a hoarse voice for a few days. Sucking on throat lozenges orgargling with warm salt water may help soothe your sore throat. If a sample of tissue (biopsy) was taken, you may spit up a small amount of blood or have bloody saliva. This is normal. This care sheet gives you a general idea about how long it will take for you to recover. But each person recovers at a different pace. Follow the steps below to get better as quickly as possible. How can you care for yourself at home? Activity Rest when you feel tired. Getting enough sleep will help you recover. Avoid strenuous activities, such as bicycle riding, jogging, weight lifting, or aerobic exercise, until your doctor says it is okay. Diet You can eat your normal diet. If your stomach is upset, try bland, low-fat foods like plain rice, broiled chicken, toast, and yogurt. If it is painful to swallow, start out with cold drinks, flavored ice pops, and ice cream. Next, try soft foods like pudding, yogurt, canned or cooked fruit, scrambled eggs, and mashed potatoes. Avoid eating hard or scratchy foods like chips or raw vegetables. Avoid orange or tomato juice and otheracidic foods that can sting the throat. Drink plenty of fluids to avoid becoming dehydrated (unless your doctor tells you not to). Do not drink alcohol. Medicines Take pain medicines exactly as directed. If the doctor gave you a prescription medicine for pain, take it as prescribed. If you are not taking a prescription pain medicine, ask your doctor if you can take an dzgh-trp-tusgiyz medicine. If you think your pain medicine is making you sick to your stomach: Take your medicine after meals (unless your doctor has told you not to). Ask your doctor for a different pain medicine. If your doctor prescribed antibiotics, take them as directed. Do not stop taking them just because you feel better. You need to take the full course of antibiotics. Follow-up care is a lucas part of your treatment and safety. Be sure to make and go to all appointments, and call your doctor if you are having problems. It's also a good idea to know your test resultsand keep a list of the medicines you take. Other instructions For your safety, do not [...] you may be unsteady on your feet. Do not smoke if you are alone. IV site: Slight redness or tenderness is normal, you can use a warm compress if you would like. If tenderness and/or redness increase or if foul drainage occurs, please contact your Doctor. Please call [phone] before 8pm Mon-Fri with problems, questions or concerns. If you call after 8pm or on weekends, call the Hospital at [phone] and ask to speak to the Specimen Processor workers compensation examiner and the lie detector operator will contact that person for you. When should you call for help? Call 447 anytime you think you may need emergency care. For example, call if: You passed out (lost consciousness). You have sudden chest pain and shortness of breath. You cough up large amounts of bright red blood. You have severe pain in your chest. You have severe trouble breathing. Call your doctor now or seek immediate medical care if: You cough up more than a few tablespoons of blood. You have pain that does not get better after you take pain medicine. You have a fever over 100??F. You still sound hoarse after a few days. You have bubbles under the skin around the collarbone. These may crackle and pop when you press on them. Watch closely for changes in your health, and be sure to contact your doctor if you have any problems. Where can you learn more? [facility] View your After Visit Summary and more online at [email or web address] If you would like to provide feedback about your hospital experience, please call the Office of Patient and Family Relations at . If you have received this After Visit Summary in error, please immediately return it in person to the department, or notify the [facility] Privacy Office by calling toll free at between the hours of 8AM and 5PM to arrange for our retrieval of the documents at no cost to you. Content Version: 12.2 ?? 8218-5143 [email or web address]. Care instructions adapted under license by [facility]. If you have questions about a medical condition or this instruction, always ask your healthcare professional. [email or web address] disclaims any warranty or liability for your [...] daily. 09/18/2023 documented as of this encounter H&P Notes * Lenard Ramon MD - 08/09/2023 6:50 PM EDT Interventional Pulmonology Pre-Procedure History & Physical SECTION OF PULMONARY/CRITICAL CARE MEDICIE Procedure: Bronchoscopy, endobronchial ultrasound (EBUS) and biopsy Reason for procedure: Lung mass See last note from Dr. Ramon PHYSICAL EXAM: To be reassessed at time of procedure Assessment & Plan: Consent to be signed Proceed with procedure as stated Lenard Ramon MD, 08/09/2023, 6:50 PM Interventional Pulmonology Section of Pulmonary & Critical Care Pager: [phone] documented in this encounter Miscellaneous Notes * Op Note - Lenard Ramon MD - 08/10/2023 7:42 AM EDT Images from the original note were not included. INTERVENTIONAL PULMONOLOGY PROCEDURE NOTE SECTION OF PULMONARY & CRITICAL CARE MEDICINE Patient Name: Althea Salmon Patient Patient : 1955 Procedure Date: 08/10/2023 Procedure(s): A flexible bronchoscopy Airway examination EBUS-TBNA (4 sites(s)) Therapeutic suctioning Tumor debulking Procedure Location: Endoscopy unit Indication: Lung mass Attending(s) of Record: Lenard Ramon MD Others [...] undergo the procedure. Procedure Descriptions: Airway Examination: A Reksoft EB-580S (5.3 mm) flexible bronchoscope was used for the procedure. [...] superior segment of the RLL is 100% obstructed by friable, exophytic, fungating endobronchial tumor. The posterior basilar segment of the RLL is 100% obstructed by extrinsic compression. The remainder of the observed RLL is grossly normal in appearance. EBUS-TBNA (4 sites): The Reksoft EBUS (EB-530US) scope was inserted, lymph node [...] contiguous withthe right lung mass. Tumor/Tissue Debulking (68141): The superior segment of the right lower [...] administered. Topical cold saline was not administered. Therapeutic Suctioning (53019): A significant portion of operative time was spent clearing out the airway of debris, blood and secretions prior to or during the intervention. Any disposable equipment was visually inspected and deemed to be intact immediately post procedure. Estimated Blood Loss: <5 mL Complications: None Relevant Pictures Obstructed superior segment of RLL (right) Obstructed posterior basilar segment of RLL (bottom) EBUS-FNA RLL mass Recommendations: Successful flexible bronchoscopy, tumor debulking and EBUS-TBNA (4 site(s)) Await pending results in the next 3-5 business days PET/CT and MR brain wwo ordered/pending Lenard Ramon MD, 08/10/2023, 8:19 AM Interventional Pulmonology Section of Pulmonary & Critical Care Pager: [phone] documented in this encounter Plan of Treatment Upcoming Encounters Date Type Department Care Team (Late st Contact Info) Description 01/08/2024 1:00 PM EDT Office Visit Hematology/Oncology at [address] [phone] Antolin Croft MD [facility] [place] [address] Candice Erickson APRN [address] [place] [address] [place] [address] Primary malignant neoplasm of right lower lobe of lung 01/08/2024 1:30 PM EDT Infusion Hematology Oncology at [address] [phone] 01/30/2024 9:[address] [place] [phone] Soto Gilbert MD [facility] [place] [address] 01/30/2024 10:30 AM EST Appointment [place] [phone] Soto Gilbert MD [facility] [place] [address] 01/30/2024 11:00 AM EST Appointment [place] [phone] Soto Gilbert MD [facility] [place] [address] 01/30/2024 11:30 AM EST Appointment [place] [phone] Soto Gilbert MD [facility] [place] [address] 01/30/2024 12:00 PM EST Appointment [place] [phone] Soto Gilbert MD [facility] [place] [address] 01/30/2024 2:30 PM EST [place] [phone] documented as of this encounter Procedures Procedure Name Priority Date/Time Associated Diagnosis Comments NON-AMMONIA SOLUTION PREPARER FINAL REPORT Routine 08/10/2023 8:21 AM EDT NON-AMMONIA SOLUTION PREPARER FINAL REPORT Routine 08/10/2023 8:21 AM EDT NON-AMMONIA SOLUTION PREPARER FINAL REPORT Routine 08/10/2023 8:21 AM EDT CYTOPATHOLOGY NON-GYNECOLOGICAL Routine 08/10/2023 8:21 AM EDT CYTOPATHOLOGY NON-GYNECOLOGICAL Routine 08/10/2023 8:21 AM EDT CYTOPATHOLOGY NON-GYNECOLOGICAL Routine 08/10/2023 8:21 AM EDT IMMUNOPHENOTYPING FLOW CYTOMETRY (BLOOD) Routine 08/10/2023 8:15 AM EDT FLOW CYTOMETRY REPORT Routine 08/10/2023 8:15 AM EDT SOLID TUMOR NGS PANEL Routine 08/10/2023 7:44 AM EDT NON-AMMONIA SOLUTION PREPARER FINAL REPORT Routine 08/10/2023 7:44 AM EDT CYTOPATHOLOGY NON-GYNECOLOGICAL Routine 08/10/2023 7:44 AM EDT Bronchoscopy, Rx Stenosis (17108) 08/10/2023 7:27 AM EDT Lung mass Bronchoscopy, Transbron Aspir Bx (80963) 08/10/2023 7:27 AM EDT Lung mass [facility] Ebus Dx/Tx Intervention Perph Les (76087) 08/10/2023 7:27 AM EDT Lung mass [facility] Ebus Guided Sampl 3/> Node Station/Strux (70116) 08/10/2023 7:27 AM EDT Lung mass Bronchoscopy, Transbronch Biopsy (35237) 08/10/2023 7:27 AM EDT Lung mass documented in this encounter Results * Non-Player Development Executive Final Report (08/10/2023 8:21 AM EDT) Diagnosis Discussion [id number] ? Location: 4T; 06; A The signing pathologist has (i) examined the relevant preparation(s) for the specimen(s) and (ii) rendered or confirmed the diagnosis(es). . ? Non-Player Development Executive Final DIAGNOSIS Negative for Malignancy Electronically signed by: ?Carmella BEST PhD, Zac Barker Verified: ??08/16/2023 11:30 ??Pathologist Performed at: ??-[facility] Dept. of Pathology, [place] [id number] Aix Administrator: Janes Ritchie MD, FCAP, ??CLIA Certificate: [id number] DISCUSSION Lymph node, station 7 (EBUS-guided FNA): Consistent with benign lymph node sampling. Cell block was examined. CLINICAL INFORMATION Specimen Source : Lymph node, station 7 (EBUS-guided FNA) Pertinent Clinical Data and Significant Therapy: 67 yo with RLL lung mass Clinical Impression : ? malignancy Pertinent Radiologic Findings ??: (not provided) Gross Description: Received ??in Formalin approximately 20 mL total volume of ?? cloudy, red fluid, with clots. Total Preparation: Cell Block 1. 08/16/2023 11:30 AM EDT [facility] LYMPH NODE SPECIMEN / Unknown 08/10/2023 8:21 AM EDT 08/10/2023 8:21 AM EDT Lenard Ramon MD PATHOLOGY/CYTOLOGY O RDERAVALENTINO [facility] [place] [address] * (ABNORMAL) Non-Player Development Executive Final Report (08/10/2023 8:21 AM EDT) Diagnosis Discussion [id number] ? Location: 4T; EA06; A The signing pathologist has (i) examined the relevant preparation(s) for the specimen(s) and (ii) rendered or confirmed the diagnosis(es). . ? Non-Player Development Executive Final DIAGNOSIS Unsatisfactory Electronically signed by: ?Carmella BEST PhD, Zac Barker Verified: ??08/16/2023 11:29 ??Pathologist Performed at: ??-[facility] Dept. of Pathology, [place] [address] Aix Administrator: Janes Ritchie MD, FCAP, ??CLIA Certificate: [id number] DISCUSSION Predominantly blood and bronchial cells. THIS RESULT REQUIRES PHYSICIAN/A.P.P. FOLLOW UP CLINICAL INFORMATION Specimen Source : Lymph node, station 4R (EBUS-guided FNA) Pertinent Clinical Data and Significant Therapy: 67 yo with RLL lung mass Clinical Impression : ? malignancy Pertinent Radiologic Findings ??: (not provided) Gross Description: Received ??in Formalin approximately 20 mL total volume of ?? cloudy, pink fluid, with clots. Total Preparation: Cell Block 1.(A) 08/16/2023 11:29 AM EDT [facility] LYMPH NODE SPECIMEN / Unknown 08/10/2023 8:21 AM EDT 08/10/2023 8:21 AM EDT Lenard Ramon MD PATHOLOGY/CYTOLOGY Deepak FELIX [facility] [place] [address] * Non-Player Development Executive Final Report (08/10/2023 8:21 AM EDT) Diagnosis Discussion [id number] ? Location: 4T; EA06; A The signing pathologist has (i) examined the relevant preparation(s) for the specimen(s) and (ii) rendered or confirmed the diagnosis(es). . ? Non-Player Development Executive Final DIAGNOSIS Negative for Malignancy Electronically signed by: ?Carmella BEST PhD, Zac Barker Verified: ??08/16/2023 11:27 ??Pathologist Performed at: ??-[facility] Dept. of Pathology, [place] [address] Aix Administrator: Janes Ritchie MD, FCAP, ??CLIA Certificate: [id number] DISCUSSION Lymph node, station 11L (EBUS-guided FNA): Consistent with benign lymph node sampling. Cell block was examined. CLINICAL INFORMATION Specimen Source : Lymph node, station 11L (EBUS-guided FNA) Pertinent Clinical Data and Significant Therapy: 67 yo with RLL lung mass Clinical Impression : ? malignancy Pertinent Radiologic Findings ??: (not provided) Gross Description: Received ??in Formalin approximately 20 mL total volume of ?? cloudy, pink fluid, with dark flecks. Total Preparation: Cell Block 1. 08/16/2023 11:27 AM EDT [facility] LYMPH NODE SPECIMEN / Unknown 08/10/2023 8:21 AM EDT 08/10/2023 8:21 AM EDT Lenard Ramon MD PATHOLOGY/CYTOLOGY O ELVIRA Performing Organization Address City/[facility]/ZIP Co de Phone Number [facility] [place] [address] * Cytopathology Non-Gynecological (08/10/2023 8:21 AM EDT) AP Specimen 08/10/2023 8:21 AM EDT 08/10/2023 8:21 AM EDT Narrative [facility] - 08/10/2023 8:21 AM EDT Specimen requisition ordered. ??Separate Pathology report to follow Lenard aRmon MD PATHOLOGY/CYTOLOGY O ELVIRA Performing Organization Address [facility]/ZIP Co de Phone Number [facility] [place] [address] * Cytopathology Non-Gynecological (08/10/2023 8:21 AM EDT) AP Specimen 08/10/2023 8:21 AM EDT 08/10/2023 8:21 AM EDT Narrative [facility] - 08/10/2023 8:21 AM EDT Specimen requisition ordered. ??Separate Pathology report to follow Lenard Ramon MD PATHOLOGY/CYTOLOGY O RDJOANA Performing Organization Address [facility]/ZIP Co de Phone Number [facility] [place] [place] [address] * Cytopathology Non-Gynecological (08/10/2023 8:21 AM EDT) AP Specimen 08/10/2023 8:21 AM EDT 08/10/2023 8:21 AM EDT Narrative [facility] - 08/10/2023 8:21 AM EDT Specimen requisition ordered. ??Separate Pathology report to follow Lenard Ramon MD PATHOLOGY/CYTOLOGY O RDERABLES [facility] [place] [address] * Flow Cytometry Report (08/10/2023 8:15 AM EDT) Flow Cytometry Report [id number] ? Location: 4; 06; A The signing pathologist has (i) examined the relevant preparation(s) for the specimen(s) and (ii) rendered or confirmed the diagnosis(es). . ?Flow Cytometry DIAGNOSIS Flow cytometric diagnosis: ?? Normal immunophenotyping results. No monotypic B-cell population or phenotypically abnormal T-cell population or increase in blasts is detected. ?? Please see morphology report for final delineation. ?? NOTE: Some lymphomas are not detected by flow analysis. ??This analysis does not exclude nonhematologic malignancies . Electronically signed by: ?Guerda BEST, Viktor Verified: ??08/10/2023 17:22 ??Hematopathologist Performed at: ??-[facility] Dept. of Pathology, [place] [address] Aix Administrator: Janes Ritchie MD, FCAP, ??IA Certificate: [id number] DISCUSSION Blasts based on CD45 expression and orthogonal light scatter, are not increased. The CD19 positive B-cells have a polytypic expression of surface immunoglobulin light chain ([place]:Lambda ratio at 1.4). The T-cells are an admixture of CD4+ and CD8+ T lymphocytes (ratio of 1.7). No loss or atypical intensity distributions are seen for any hall T antigen (CD2, 3, 4+8, 5, 7). There is no increase in DC93-wjxcvbck/CD3-ne g NK cells. Flow analysis is an ancillary study. A definite diagnosis requires correlation with the morphologic features of this process and if necessary, correlation with other ancillary studies like immunohistochemistry , enzyme cytochemistry and/or cyto/ molecular genetics. This test was developed and its performance characteristics determined by the Clinical Flow Cytometry Laboratory at [facility]. It has not been cleared or approved by the U.S. Food and Drug Administration. ??The FDA has determined that such clearance or approval is not necessary. ??This test is used for clinical purposes. ??It should not be regarded as investigational or for research. This laboratory is certified under the Clinical Laboratory Improvement Act of 1988 (CLIA) as qualified to perform high complexity clinical laboratory testing. SPECIMEN PROCESSING [id number] Cells for immunophenotypic analysis were derived from R LOWER LOBE LUNG MASS. CD45 vs side scatter gating was utilized to identify a LYMPHOID analysis region that comprises approximately 21-22% of all cells. The following markers were assessed: CD2, CD3, CD4, CD5, CD7, CD8, CD10, CD19, CD45, CD56, kappa light chain, and lambda light chain. CLINICAL INFORMATION lung mass [facility] 08/10/2023 8:15 AM EDT Lenard Ramon MD PATHOLOGY/CYTOLOGY O RDERABLES [facility] [place] [address] * Immunophenotyping Flow Cytometry (08/10/2023 8:15 AM EDT) Immunophenotyping Flow See Comment [facility] Comment: When completed by the Pathologist, the Flow Cytometry Report ([id number]) will display under the Pathology Results section within eDH. Other 08/10/2023 8:15 AM EDT 08/10/2023 8:50 AM EDT Narrative Resulting Agency Comment Spec In Lab Lenard Ramon MD HEMATOLOGY ORDERABLE S Performing Organization Address [facility] de Phone Number [facility] [place] [place] [address] * Solid Tumor NGS Panel (08/10/2023 7:44 AM EDT) Tissue 08/10/2023 7:44 AM EDT 08/17/2023 7:26 AM EDT Narrative Resulting Agency Comment Spec In Lab Lenard Ramon MD PATHOLOGY/CYTOLOGY O RDERABLES Performing Organization Address [facility] Co de Phone Number [facility] [place] [place] [address] * (ABNORMAL) Non-Player Development Executive Final Report (08/10/2023 7:44 AM EDT) Diagnosis Discussion [id number] ? Location: 4T; EA06; A The signing pathologist has (i) examined the relevant preparation(s) for the specimen(s) and (ii) rendered or confirmed the diagnosis(es). . ? Addendum ADDENDUM DISCUSSION Tissue: ??Lung, right lower lobe (EBUS-guided FNA) Diagnosis: ??Adenocarcinoma, consistent with pulmonary primary Tumor Proportion Score (TPS): ?% Expression: 3-5% Interpretation Table: PD-L1 assay (22C3 pharmDX) for Keytruda Tumor Proportion Score (TPS): ? <1% ?PD-L1 Negative ? >=1% ? PD-L1 Expression Immunohistochemical assay was performed on paraffin-embedded tissue sections fixed in 10% neutral buffered formalin for 6-72 hours using the polymer system technique with appropriate controls. The assay was performed according to the accounting director's instructions using Anti-PD-L1 (22C3, pharmDX) antibody. Electronically signed by: ?Mae BEST, PhD, Leanne Verified: ??08/17/2023 10:59 ??Pathologist Performed at: ??-[facility] Dept. of Pathology, [place] [address] Aix Administrator: Janes Ritchie MD, FCAP, ??CLIA Certificate: [id number] ? Non-Player Development Executive Final DIAGNOSIS Positive for Malignancy Electronically signed by: ?Carmella BEST PhD, Zac Barker Verified: ??08/16/2023 11:25 ??Pathologist Performed at: ??-[facility] Dept. of Pathology, [place] [address] Aix Administrator: Janes Ritchie MD, AP, ??CLIA Certificate: [id number] DISCUSSION Adenocarcinoma, consistent with pulmonary primary. Cell block was examined. See note. Note: Special studies for NGS and PD-L1 have been ordered and will be reported in an addendum. --- Immunohistochemistry Studies --- Interpretation: ? Immunohistochemical assays were performed (on paraffin-embedded cell block sections fixed in 10% neutral buffered formalin for 6-72 hours) using the polymer technique with appropriate controls. These immunohistochemical studies provide ancillary information and are used only in conjunction with standard diagnostic procedures. Block ? Antibody ?Result (Positive/Negative) A1 ? TTF1 ? positive A1 ? p40 ?negative . DISCUSSION THIS RESULT REQUIRES PHYSICIAN/A.P.P. FOLLOW UP CLINICAL INFORMATION Specimen Source : Lung, right lower lobe (EBUS-guided FNA) Pertinent Clinical Data and Significant Therapy: Right lower lobe lung mass Clinical Impression : Suspected cancer Pertinent Radiologic Findings ??: (not provided) Gross Description: Received ??in Formalin approximately 20 mL total volume of ?? cloudy, red fluid, with clots. Total Preparation: Cell Block 1.(A) 08/17/2023 10:59 AM EDT [facility] LUNG STRUCTURE / Unknown 08/10/2023 7:44 AM EDT 08/10/2023 7:44 AM EDT Lenard Ramon MD PATHOLOGY/CYTOLOGY O [place] Performing Organization Address [facility] Co de Phone Number [facility] [place] [address] * Cytopathology Non-Gynecological (08/10/2023 7:44 AM EDT) AP Specimen 08/10/2023 7:44 AM EDT 08/10/2023 7:44 AM EDT Narrative [facility] - 08/10/2023 7:44 AM EDT Specimen requisition ordered. ??Separate Pathology report to follow Lenard Ramon MD PATHOLOGY/CYTOLOGY O [place] Performing Organization Address City/[facility] Co de Phone Number [facility] [place] [address] documented in this encounter Visit Diagnoses Not on filedocumented in this encounter Administered Medications Inactive Administered Medications - up to 3 most recent administrations Medication Order MAR Action Action Date Dose Rate Site ipratropium-albuteroL (Duoneb) 0.5 mg-3 mg(2.5 mg base)/3 mL nebulizer solution 3 mL 3 mL, Nebulization, EVERY 4 HOURS, First dose on Debbie 08/10/23 at 0730, Until Discontinued, Routine Given 08/10/2023 7:17 AM EDT 3 mLs lactated ringers infusion 100 mL/hr, Intravenous, CONTINUOUS, Starting on Debbie 08/10/23 at 0730, Until Debbie 08/10/23 at 0930, Endoscopy (Day of Procedure) New Bag 08/10/2023 7:17 AM EDT 100 mL/hr 100 mL/hr documented in this encounter Active and Recently Administered Medications Times are shown in EDT. Scheduled Medication Order 08/08/2023 08/09/2023 08/10/2023 ipratropium-albuteroL (Duoneb) 0.5 mg-3 mg(2.5 mg base)/3 mL nebulizer solution 3 mL 3 mL, Nebulization, EVERY 4 HOURS, First dose on Debbie 08/10/23 at 0730, Until Discontinued, Routine 0717 (Given - Provid er: Mitra Goncalves, RN) Continuous Medication Order 08/08/2023 08/09/2023 08/10/2023 lactated ringers infusion (CANCELED) 100 mL/hr, Intravenous, CONTINUOUS, Starting on Debbie 08/10/23 at 0730, Until Debbie 08/10/23 at 0930, Endoscopy (Day of Procedure) 0717 (New Bag - Prov ider: Mitra Goncalves RN)0731 (Anesthesia Volume Adjustment - Provider: Lenka Engle CRNA - Comment: switched to gravity)0752 (Anesthesia Volume Adjustment - Provider: Lenka Engle CRNA)0826 (Stopped - Provider: Lenka Engle CRNA) documented in this encounter Care Teams Feed Mill Lab Technician Relationship Specialty Start Date End Date Avery Castro DO [address] [place] [address] PCP - General Family Medicine 07/28/23 09/25/23 documented as of this encounter
--- OUTSIDE RECORDS SUMMARY | 2024-01-08 11:29 | XMS_ITS | Encounter Summary ---
Author Organization [facility] [place] [address] Care Team Providers Care Jig Builder Helper Name Role Phone Rose Carter Primary Care Provider Unavail able Encounter Details Date Type Department Care Team (Late st Contact Info) Description 07/14/2023 Interpretation Only Radiology Library at [facility] [place] [address] Valerio Steel MD Social History Tobacco Use [...] 1:00 PM EDT Office Visit Hematology/Oncology at [address] [phone] Antolin Croft MD [facility] DR HEMATOLOGY [place] [address] Candice Erickson APRN [address] [place] [address] DR [place] [address] Primary malignant neoplasm of right lower lobe of lung 01/08/2024 1:30 PM EDT Infusion Hematology Oncology at [address] [phone] 01/30/2024 9:[address] [place] [phone] Soto Gilbert MD [facility] DR [place] [address] 01/30/2024 10:30 AM EST Appointment [place] [phone] Soto Gilbert MD [facility] DR [place] [address] 01/30/2024 11:00 AM EST Appointment [place] [phone] Soto Gilbert MD [facility] DR [place] [address] 01/30/2024 11:30 AM EST Appointment [place] [phone] Soto Gilbert MD [facility] DR [place] [address] 01/30/2024 12:00 PM EST Appointment [place] [phone] Soto Gilbert MD [facility] DR [place] [address] 01/30/2024 2:30 PM EST App[place] [phone] documented as of this encounter Procedures Procedure [...] Steel MD IMG FILM LIBRARY OR DERABLES [place], [place] documented in this encounter Visit Diagnoses Not on filedocumented in this encounter Care Teams Jig Builder Helper Relationship Specialty Start Date End Date Rose Carter PA PCP - General 07/21/14 07/27/23 documented as of this encounter
--- OUTSIDE RECORDS SUMMARY | 2024-01-08 11:29 | XMS_ITS | Encounter Summary ---
Author Organization [facility] [place] [address] Care Team Providers Care Machine I Engraver Name Role Phone Rose Carter Primary Care Provider Unavail able Reason for Referral * Consultation (Routine) - Closed Specialty Diagnoses / Procedures Referred By Jimbo moffett Referred To Contact Thoracic Surgery Diagnoses Malignant neoplasm of bronchus and lung Malignant neoplasm of bronchus and lung Avery Castro DO [address] [place] [address] [facility] Thoracic Surg [address] [place] [phone] Referral ID Status Reason Start Date Expiration Date V isits Requested Visits Authorized [id number] Closed Consult, Test & Treat PCP Updated and/or Approved 07/21/2023 07/20/2024 12 12 Encounter Details Date Type Department Care Team (Latest Contact Info) Description 07/21/2023 Transcribe Orders eDH Incoming Referrals [phone] Avery Castro DO [address] [place] [address] Malignant neoplasm of bronchus and lung Social History Tobacco Use Types Packs/Day [...] 1:00 PM EDT Office Visit Hematology/Oncology at [address] [phone] Antolin Croft MD [facility] DR [place] [address] Candice Erickson APRN [address] [place] [address] DR HEMATOLOGY AND ONCOLOGY [place], [place] [address] Primary malignant neoplasm of right lower lobe of lung 01/08/2024 1:30 PM EDT Infusion Hematology Oncology at [address] [phone] 01/30/2024 9:[address] Scan at [place] [phone] Soto Gilbert MD [facility] [place] [address] 01/30/2024 10:30 AM EST Appointment Nuclear Medicine at [place] [phone] Soto Gilbert MD [facility] [place] [address] 01/30/2024 11:00 AM EST Appointment [place] [phone] Soto Gilbert MD [facility] [place] [address] 01/30/2024 11:30 AM EST Appointment [place] [phone] Soto Gilbert MD [facility] [place] [address] 01/30/2024 12:00 PM EST Appointment [place] [phone] Soto Gilbert MD [facility] [place] [address] 01/30/2024 2:30 PM EST [place] [phone] Scheduled Referrals Name Type Priority Associated Diagnoses Order Schedule Referral to Hematology and Oncology Outpatient Referral Routine Malignant neoplasm of bronchus and lung Ordered: 07/21/2023 documented as of this encounter Visit Diagnoses Diagnosis Malignant neoplasm of bronchus and lung Malignant neoplasm of bronchus and lung, unspecified site Primary malignant neoplasm of right lower lobe of lung Malignant neoplasm of lower lobe, bronchus, or lung documented in this encounter Care Teams Machine I Engraver Relationship Specialty Start Date End Date Rose Carter PA PCP - General 07/21/14 07/27/23 documented as of this encounter
--- OUTSIDE RECORDS SUMMARY | 2024-01-08 11:29 | XMS_ITS | Encounter Summary ---
Author Organization [facility] [place] [address] Care Team Providers Care Painter Shipyard Name Role Phone Rose Carter Primary Care Provider Unavail able Encounter Details Date Type Department Care Team (Late st Contact Info) Description 07/14/2023 Interpretation Only Radiology Library at [facility] [place] [address] Valerio Steel MD Social History Tobacco Use [...] PM EDT Office Visit Hematology/Oncology at [address] [phone] Antolin Croft MD [facility] DR HEMATOLOGY [place] [address] Candice Erickson APRN [address] [place] [address] DR [place]Y [place] [address] Primary malignant neoplasm of right lower lobe of lung 01/08/2024 1:30 PM EDT Infusion Hematology Oncology at [address] [phone] 01/30/2024 9:[address] [place] [place] [phone] Soto Gilbert MD [facility] [place] [address] 01/30/2024 10:30 AM EST Appointment [place] [phone] Soto Glibert MD [facility] [place] [address] 01/30/2024 11:00 AM EST Appointment [place] [phone] Soto Gilbert MD [facility] [place] [address] 01/30/2024 11:30 AM EST Appointment [place] [phone] Soto Gilbert MD [facility] [place] [address] 01/30/2024 12:00 PM EST Appointment [place] [phone] Soto Gilbert MD [facility] [place] [address] 01/30/2024 2:30 PM EST [place] [phone] documented as of this encounter Procedures Procedure Name Priority Date/Time Associated Diagnosis Comments FILM LIBRARY STORAGE ONLY DX CHEST Routine 07/14/2023 4:45 PM EDT documented in this encounter Results * Film Library- Storage Only DX Chest (07/14/2023 4:45 PM EDT) 07/26/2023 7:43 PM EDT Narrative RAD - 07/26/2023 7:43 PM EDT This exam is auto-finalizing. It's purpose is for storage only. Valerio Steel MD IMG FILM LIBRARY OR DERABLES [place], [place] documented in this encounter Visit Diagnoses Not on filedocumented in this encounter Care Teams Painter Shipyard Relationship Specialty Start Date End Date Rose Carter PA PCP - General 07/21/14 07/27/23 documented as of this encounter
--- OUTSIDE RECORDS SUMMARY | 2024-01-08 11:29 | XMS_ITS | Encounter Summary ---
Author Organization [facility] [place] [address] Care Team Providers Care Shot Peen Operator Name Role Phone Rose Carter Primary Care Provider Unavail able Encounter Details Date Type Department Care Team (Late st Contact Info) Description 07/14/2023 4:45 PM EDT Ancillary Procedure Radiology Library at [facility] [place] [phone] Valerio Steel MD Social History Tobacco Use [...] 1:00 PM EDT Office Visit Hematology/Oncology at [address] [phone] Antolin Croft MD [facility] DR HEMATOLOGY [place] [address] Candice rEickson APRN [address] [place] [address] DR HEMATOLOGY AND ONCOLOGY [place], [place] [address] Primary malignant neoplasm of right lower lobe of lung 01/08/2024 1:30 PM EDT Infusion Hematology Oncology at [address] [phone] 01/30/2024 9:[address] [place] [place] [phone] Soto Gilbert MD [facility] [place] [address] 01/30/2024 10:30 AM EST Appointment Nuclear Medicine at [place] [phone] Soto Gilbert MD [facility] [place] [address] 01/30/2024 11:00 AM EST Appointment Nuclear Medicine at [place] [phone] Soto Gilbert MD [facility] [place] [address] 01/30/2024 11:30 AM EST Appointment [place] [phone] Soto Gilbert MD [facility] [place] [address] 01/30/2024 12:00 PM EST Appointment [place] [phone] Soto Gilbert MD [facility] [place] [address] 01/30/2024 2:30 PM EST App[place] [phone] documented as of this encounter [...] Steel MD IMG FILM LIBRARY OR DERABLES [place], [place] documented in this encounter Visit Diagnoses Not on filedocumented in this encounter Care Teams Shot Peen Operator Relationship Specialty Start Date End Date Rose Carter PA PCP - General 07/21/14 07/27/23 documented as of this encounter
--- OUTSIDE RECORDS SUMMARY | 2024-01-08 11:29 | XMS_ITS | Encounter Summary ---
Author Organization [facility] [place] [address] Care Team Providers Care High Lift Mule Operator Name Role Phone Avery Castro DO Primary Care Provider [phone] Encounter Details Date Type Department Care Team (Late st Contact Info) Description 08/11/2023 Telephone [place] [phone] Cindy Fuentes Social History Tobacco Use Types [...] PM EDT Office Visit Hematology/Oncology at [address] [phone] Antolin Croft MD [facility] [place] [address] Candice Erickson APRN [address] [place] [address] DR HEMATOLOGY AND ONCOLOGY [place], [place] [phone] Primary malignant neoplasm of right lower lobe of lung 01/08/2024 1:30 PM EDT Infusion Hematology Oncology at [address] [phone] 01/30/2024 9:[address] Scan at [place] [phone] Soto Gilbert MD [facility] [place] [address] 01/30/2024 10:30 AM EST Appointment Nuclear Medicine at [place] [phone] Soto Gilbert MD [facility] [place] [address] 01/30/2024 11:00 AM EST Appointment Nuclear Medicine at [place] [phone] Soto Gilbert MD [facility] [place] [address] 01/30/2024 11:30 AM EST Appointment Nuclear Medicine at [place] [phone] Soto Gilbert MD [facility] [place] [address] 01/30/2024 12:00 PM EST Appointment Nuclear Medicine at [place] [phone] Soto Gilbert MD [facility] [place] [address] 01/30/2024 2:30 PM EST Appointment Pulmonology at [place] [phone] documented as of this encounter Visit Diagnoses Not on filedocumented in this encounter Care Teams High Lift Mule Operator Relationship Specialty Start Date End Date Avery Castro DO [address] [place] [address] PCP - General Family Medicine 07/28/23 09/25/23 documented as of this encounter
--- OUTSIDE RECORDS SUMMARY | 2024-01-08 11:29 | XMS_ITS | Encounter Summary ---
Author Organization [facility] [place] [address] Care Team Providers Care Transmissions Systems Operator Name Role Phone Avery Castro DO Primary Care Provider [phone] Encounter Details Date Type Department Care Team (Late Contact Info) Description 08/09/2023 Orders [place] [address] Inez Johnston MD [facility] [place] [address] Social History Tobacco Use Types Packs/Day Years [...] PM EDT Office Visit Hematology/Oncology at [address] [phone] Antolin Croft MD [facility] DR [place] [address] Candice Erickson APRN [address] [place] [address] DR HEMATOLOGY [place] [address] Primary malignant neoplasm of right lower lobe of lung 01/08/2024 1:30 PM EDT Infusion Hematology Oncology at [address] [phone] 01/30/2024 9:[address] [place] [phone] Soto Gilbert MD [facility] [place] [address] 01/30/2024 10:30 AM EST Appointment Nuclear Medicine at [place] [phone] Soto Gilbert MD [facility] [place] [address] 01/30/2024 11:00 AM EST Appointment [place] [phone] Soto Gilbert MD [facility] [place] [address] 01/30/2024 11:30 AM EST Appointment [place] [phone] Soto Gilbert MD [facility] [place] [address] 01/30/2024 12:00 PM EST Appointment [place] [phone] Soto Gilbert MD [facility] [place] [address] 01/30/2024 2:30 PM EST Appointment [place] [phone] documented as of this encounter Visit Diagnoses Not on filedocumented in this encounter Care Teams Transmissions Systems Operator Relationship Specialty Start Date End Date Avery Castro DO [address] [place] [address] PCP - General Family Medicine 07/28/23 09/25/23 documented as of this encounter
--- OUTSIDE RECORDS SUMMARY | 2024-01-08 11:29 | XMS_ITS | Encounter Summary ---
Author Organization [facility] [place] [address] Care Team Providers Care Business Intelligence Consultant Name Role Phone Avery Castro DO Primary Care Provider [phone] Encounter Details Date Type Department Care Team (Late st Contact Info) Description 08/02/2023 Orders [place] [address] Gay Wong RN Social History Tobacco Use [...] 1:00 PM EDT Office Visit Hematology/Oncology at [address] [phone] Antolin Croft MD [facility] DR HEMATOLOGY [place] [address] Candice Erickson APRN [address] [place] [address] DR [place] [address] Primary malignant neoplasm of right lower lobe of lung 01/08/2024 1:30 PM EDT Infusion Hematology Oncology at [address] [phone] 01/30/2024 9:[address] [place] [place] [address] Soto Gilbert MD [facility] [place] [address] 01/30/2024 10:30 AM EST Appointment Nuclear Medicine at [place] [phone] Soto Gilbert MD [facility] DR [place] [address] 01/30/2024 11:00 AM EST Appointment Nuclear Medicine at [address] Soto Gilbert MD [facility] DR [place] [address] 01/30/2024 11:30 AM EST Appointment Nuclear Medicine at [place] [phone] Soto Gilbert MD [facility] DR [place] [address] 01/30/2024 12:00 PM EST Appointment Nuclear Medicine at [place] [phone] Soto Gilbert MD [facility] DR [place] [address] 01/30/2024 2:30 PM EST Appointment Pulmonology at [place] [phone] documented as of this encounter Visit Diagnoses Not on filedocumented in this encounter Care Teams Business Intelligence Consultant Relationship Specialty Start Date End Date Avery Castro DO [address] [place] [address] PCP - General Family Medicine 07/28/23 09/25/23 documented as of this encounter
--- OUTSIDE RECORDS SUMMARY | 2024-01-08 11:29 | XMS_ITS | Encounter Summary ---
Author Organization [facility] [place] [address] Care Team Providers Care Ground Instructor Advanced Name Role Phone Avery Castro DO Primary Care Provider [phone] Encounter Details Date Type Department Care Team (Latest Contact Info) Description 08/09/2023 4:44 PM EDT - 08/09/2023 11:59 PM EDT Hospital Encounter XRay at [address] [place] [address] BackLenard delacruz MD [facility] [place] [address] Lung mass Discharge Disposition: Home Social History [...] PM EDT Office Visit Hematology/Oncology at [address] [phone] Antolin Croft MD [facility] DR [place] [address] Candice Erickson APRN [address] [place] [address] DR HEMATOLOGY AND ONCOLOGY [place], [place] [address] Primary malignant neoplasm of right lower lobe of lung 01/08/2024 1:30 PM EDT Infusion Hematology Oncology at [address] [phone] 01/30/2024 9:[address] [place] [phone] Soto Gilbert MD [facility] [place] [address] 01/30/2024 10:30 AM EST Appointment [place] [address] Soto Gilbert MD [facility] [place] [address] 01/30/2024 11:00 AM EST Appointment [place] [address] Soto Gilbert MD [facility] [place] [address] 01/30/2024 11:30 AM EST Appointment [place] [phone] Soto Gilbert MD [facility] [place] [address] 01/30/2024 12:00 PM EST Appointment [place] [phone] Soto Gilbert MD [facility] [place] [address] 01/30/2024 2:30 PM EST Appointment [place] [phone] documented as of this encounter Procedures Procedure Name Priority Date/Time Associated Diagnosis Comments XR CHEST PA AND LATERAL STAT 08/09/2023 4:51 PM EDT Lung mass documented in this encounter Results * XR Chest PA & Lateral (Generic) (08/09/2023 4:51 PM EDT) WORKSTATION ID [id number] RAD Anatomical Region Laterality Modality Chest N/A Digital Radiogra phy Impressions 08/09/2023 5:01 PM EDT Right lower lobe mass is highly concerning for malignancy. Thank you for letting us participate in the care of this patient. ??If you are a health care provider and have any questions regarding this report, please contact the number below. ??For patients who have questions please contact the health home care and home health aides teacher that requested your imaging first. ? Narrative 08/09/2023 5:01 PM EDT EXAMINATION: XR CHEST PA AND LATERAL (GENERIC) CLINICAL HISTORY: Dominant RLL lung mass scheduled for biopsy with IP on 08/10/23 - CXR to ensure there is persistence R91.8, Other nonspecific abnormal finding of lung field TECHNIQUE: PA and lateral views of the chest COMPARISON: Chest CT July 14, 2023 Chest radiograph July 14, 2023 FINDINGS: There is a right lower lobe mass again seen. This mass measures approximately 9.7 cm in its longest dimension in the PA view. No new mass or pulmonary nodules seen. The heart size is normal. Both costophrenic angles are sharp. There is no pneumothorax. No acute osseous pathology is present. Procedure Note Tavo Kiran MD - 08/09/2023 EXAMINATION: XR CHEST PA AND LATERAL (GENERIC) CLINICAL HISTORY: Dominant RLL lung mass scheduled for biopsy with IP on08/10/23 - CXR to ensure there is persistence R91.8, Other nonspecific abnormal finding of lung field TECHNIQUE: PA and lateral views of the chest COMPARISON: Chest CT July 14, 2023 Chest radiograph July 14, 2023 FINDINGS: There is a right lower lobe mass again seen. This mass measuresapproximately 9.7 cm in its longest dimension in the PA view. No new mass or pulmonarynodules seen. The heart size is normal. Both costophrenic angles are sharp. There isno pneumothorax. No acute osseous pathology is present. IMPRESSION Right lower lobe mass is highly concerning for malignancy. Thank you for letting us participate in the care of this patient. If youare a health care provider and have any questions regarding this report,please contact the number below. For patients who have questions please contactthe health home care and home health aides teacher that requested your imaging first. Lenard Ramon MD IMG DX ORDERABLES documented in this encounter Visit Diagnoses Diagnosis Lung mass Swelling, mass, or lump in chest Primary malignant neoplasm of right lower lobe of lung Malignant neoplasm of lower lobe, bronchus, or lung documented in this encounter Care Teams Ground Instructor Advanced Relationship Specialty Start Date End Date Avery Castro DO [address] [place] [address] PCP - General Family Medicine 07/28/23 09/25/23 documented as of this encounter
--- OUTSIDE RECORDS SUMMARY | 2024-01-08 11:29 | XMS_ITS | Encounter Summary ---
Author Organization [facility] [place] [address] Care Team Providers Care Machine Assistant Name Role Phone Rose Carter Primary Care Provider Unavail able Encounter Details Date Type Department Care Team (Latest Contact Info) Description 07/21/2014 10:44 PM EDT - 07/21/2014 11:59 PM EDT Hospital [place] [address] Rose Carter PA Discharge Disposition: Home Social History Tobacco Use [...] PM EDT Office Visit Hematology/Oncology at [address] [phone] [facility] DR [place] [address] Candice Erickson APRN [address] [place] [address] DR [place]Y [place] [address] Primary malignant neoplasm of right lower lobe of lung 01/08/2024 1:30 PM EDT Infusion Hematology Oncology at [address] [phone] 01/30/2024 9:[address] [place] [place] [address] [facility] [place] [address] 01/30/2024 10:30 AM EST Appointment Nuclear Medicine at [place] [phone] [facility] [place] [address] 01/30/2024 11:00 AM EST Appointment Nuclear Medicine at [place] [phone] [facility] [place] [address] 01/30/2024 11:30 AM EST Appointment [place] [phone] [facility] [place] [address] 01/30/2024 12:00 PM EST Appointment [place] [phone] [facility] [place] [address] 01/30/2024 2:30 PM EST Appointment [place] [phone] documented as of this encounter Procedures Procedure Name Priority Date/Time Associated Diagnosis Comments HPV Routine 07/21/2014 12:00 PM EDT FACILITY MANAGER HISTOLOGY CYTOLOGY FINAL REPORT Routine 07/21/2014 12:00 PM EDT documented in this encounter Results * Client Strategist Cytology Final Report (07/21/2014 12:00 PM EDT) Client Strategist Cytology Final Report ? [facility] ? Provider: ?? ROSE CARTER ? Pt. Name: ?? ALTHEA GALVAN ? Acc #: ?[id number] ?Pt. ? Col Date: ?? 07/21/2014 ?/Sex: ?1955,(58 years),Female ? Rec Date: ?? 07/21/2014 ?LOC: ?[facility] ? CYTOPATHOLOGY: ??FACILITY MANAGER HISTOLOGY ? ---Adequacy--- ? Specimen submitted is satisfactory. ? Endocervical component present. ? ---Cytopathologic Diagnosis--- ? NORMAL ? Negative for Intraepithelial Lesion or Malignancy (NILM). ? 07/25/14 ?? Screened by: ??REP ? 07/25/14 ?? Verified by: ??Proskovec, CT(ASCP), Marie E. - Manager Heart Failure ? ---Comment--- ? Please also see concurrent HPV test result. ? ---Clinical Information--- ? HPV Option: ? Concurrent HPV ? Preparation: ?Liquid Based Pap ? Specimen Source: ?Cervical Endocervical LBP ? LMP: ?DRY KILN WORKER-approx 7 yrs ago ? Hormones?: ?No ? Hysterectomy?: ?No ?: ?No ?: ?No ? I.U.D.?: ?No ? Pelvic Radiation: ? No ? Prior FACILITY MANAGER HISTOLOGY Therapy?: ? No ? Hist Abnl Pap/Biopsy?: [...] ??For further ? information please contact the [facility]. ? [facility] ? Provider: ?? ROSE CARTER ? Pt. Name: ?? ALTHEA GALVAN ? Acc #: ?[id number] ?Pt. ? Col Date: ?? 07/21/2014 ?/Sex: ?1955,(58 years),Female ? Rec Date: ?? 07/21/2014 ?LOC: ?[facility] ? CYTOPATHOLOGY: ??FACILITY MANAGER HISTOLOGY ? Reference: ??Abendroth CS. ??Dip Brazier of Pap Smear Results. ??In: ? Shaina BS, Melo [facility], ed. ??The Pap Smear. ??[place]: ??You 2002: ? 71-77. DIEGO CHANDLERIUM 07/21/2014 12:0 0 PM EDT Rose RAJAN PATHOLOGY/CYTOLOGY O ELVIRA Performing Organization Address City/[facility] Co de Phone Number DIEGO CHANDLERIUM * HPV (07/21/2014 12:00 PM EDT) HPV16 NEGATIVE CERNER MILLENNIUM HPV 18 NEGATIVE CERNER MILLENNIUM HPV Other HR NEGATIVE [facility] HPV Interpretation Mercedes Lisette?? HPV test NEGATIVE [...] HPV Testing - Cytology Liquid Based Prep DIEGO CHANDLERIUM Cervical swab (specimen) 07/21/2014 12:00 PM EDT 07/22/2014 2:21 PM EDT Narrative Resulting Agency Comment Spec In Lab Rose RAJAN PATHOLOGY/CYTOLOGY Deepak FELIX Performing Organization Address [facility] Co de Phone Number DIEGO KOCH documented in this encounter Visit Diagnoses Not on filedocumented in this encounter Care Teams Machine Assistant Relationship Specialty Start Date End Date Rose Carter PA PCP - General 07/21/14 07/27/23 documented as of this encounter
--- OUTSIDE RECORDS SUMMARY | 2024-01-08 11:29 | XMS_ITS | Encounter Summary ---
[place] [address] Care Team Providers Care Manager Multimedia Name Role Phone Avery Castro DO Primary Care Provider [phone] Reason for Referral * Consultation (Routine) - Closed Specialty Diagnoses / Procedures Referred By Jimbo moffett Referred To Contact Pulmonology Diagnoses Malignant neoplasm of bronchus and lung Avery Castro DO [address] [place] [address] [facility] Pulmonology [address] [place] [phone] Referral ID Status Reason Start Date Expiration Date V isits Requested Visits Authorized [id number] Closed Consult, Test & Treat PCP Updated and/or Approved 07/18/2023 07/17/2024 6 6 Encounter Details Date Type Department Care Team (Latest Contact Info) Description 07/28/2023 Transcribe Orders eDH Incoming Referrals [phone] Avery Castro DO [address] [place] [address] Malignant neoplasm of bronchus and lung Social [...] PM EDT Office Visit Hematology/Oncology at [address] [phone] Antolin Croft MD [facility] DR HEMATOLOGY [place] [address] Candice Erickson APRN [address] [place] [address] DR HEMATOLOGY AND ONCOLOGY [place], [place] [phone] Primary malignant neoplasm of right lower lobe of lung 01/08/2024 1:30 PM EDT Infusion Hematology Oncology at [address] [phone] 01/30/2024 9:[address] Scan at [place] [phone] Soto Gilbert MD [facility] [place] [address] 01/30/2024 10:30 AM EST Appointment Nuclear Medicine at [place] [phone] Soto Gilbert MD [facility] [place] [address] 01/30/2024 11:00 AM EST Appointment Nuclear Medicine at [place] [phone] Soto Gilbert MD [facility] [place] [address] 01/30/2024 11:30 AM EST Appointment [place] [phone] Soto Gilbert MD [facility] [place] [address] 01/30/2024 12:00 PM EST Appointment [place] [phone] Soto Gilbert MD [facility] [place] [address] 01/30/2024 2:30 PM EST [place] [phone] Scheduled Referrals Name Type Priority Associated Diagnoses Order Schedule Referral to Hematology and Oncology Outpatient Referral Routine Malignant neoplasm of bronchus and lung Ordered: 07/28/2023 documented as of this encounter Visit Diagnoses Diagnosis Malignant neoplasm of bronchus and lung Malignant neoplasm of bronchus and lung, unspecified site Primary malignant neoplasm of right lower lobe of lung Malignant neoplasm of lower lobe, bronchus, or lung documented in this encounter Care Teams Manager Multimedia Relationship Specialty Start Date End Date Avery Castro DO [address] [place] [address] PCP - General Family Medicine 07/28/23 09/25/23 documented as of this encounter
--- OUTSIDE RECORDS SUMMARY | 2024-01-08 11:29 | XMS_ITS | Encounter Summary ---
Author Organization [facility] [place] [address] Care Team Providers Care Sap Specialist Name Role Phone Avery Castro Primary Care Provider [phone] Encounter Details Date Type Department Care Team (Late st Contact Info) Description 08/01/2023 Telephone [place] [phone] Cindy Fuentes Social History Tobacco Use Types [...] PM EDT Office Visit Hematology/Oncology at [address] [phone] [facility] [address] HEMATOLOGY [place] [address] Candice Erickson APRN [address] [place] [address] DR HEMAT[place]Y [place] [address] Primary malignant neoplasm of right lower lobe of lung 01/08/2024 1:30 PM EDT Infusion Hematology Oncology at [address] [phone] 01/30/2024 9:[address] [place] [address] [facility] DR [place] [address] 01/30/2024 10:30 AM EST Appointment Nuclear Medicine at [place] [phone] [facility] DR [place] [address] 01/30/2024 11:00 AM EST Appointment Nuclear Medicine at [place] [phone] [facility] DR [place] [address] 01/30/2024 11:30 AM EST Appointment [place] [phone] [facility] DR [place] [address] 01/30/2024 12:00 PM EST Appointment [place] [phone] [facility] [place] [address] 01/30/2024 2:30 PM EST Appointment [place] [phone] documented as of this encounter Visit Diagnoses Not on filedocumented in this encounter Care Teams Sap Specialist Relationship Specialty Start Date End Date Avery Castro DO [address] [place] [address] PCP - General Family Medicine 07/28/23 09/25/23 documented as of this encounter
--- OUTSIDE RECORDS SUMMARY | 2024-01-08 11:29 | XMS_ITS | Encounter Summary ---
Author Organization [facility] [place] [address] Care Team Providers Care Flying Shear Operator Name Role Phone Avery Castro DO Primary Care Provider [phone] Encounter Details Date Type Department Care Team (Late Contact Info) Description 08/18/2023 Orders Only Hematology [place] [address] Jihan Araujo, RN Adenocarcinoma of right lung Social History Tobacco Use [...] PM EDT Office Visit Hematology/Oncology at [address] [phone] Antolin Croft MD [facility] DR HEMATOLOGY [place] [address] Candice Erickson APRN [address] [place] [address] DR HEMATOLOGY AND ONCOLOGY [place], [place] [phone] Primary malignant neoplasm of right lower lobe of lung 01/08/2024 1:30 PM EDT Infusion Hematology Oncology at [address] [phone] 01/30/2024 9:[address] Scan at [place] [phone] Soto Gilbert MD [facility] [place] [address] 01/30/2024 10:30 AM EST Appointment Nuclear Medicine at [place] [phone] Soto Gilbert MD [facility] DR THORACIC SURGERY [place], [place] [phone] 01/30/2024 11:00 AM EST Appointment Nuclear Medicine at [place] [phone] Soto Gilbert MD [facility] [place] [address] 01/30/2024 11:30 AM EST Appointment [place] [phone] Soto Gilbert MD [facility] [place] [address] 01/30/2024 12:00 PM EST Appointment [place] [phone] Soto Gilbert MD [facility] [place] [address] 01/30/2024 2:30 PM EST Appointment [place] [phone] documented as of this encounter Results * Comprehensive metabolic panel (non-fasting) (08/29/2023 11:11 AM EDT) [facility] Glucose 131 65 - 199 mg/dL [facility] Comment:Diabetes: >=200 mg/d L plus symptoms Blood Urea Nitrogen 14 8 - 18 mg/dL [facility] Creatinine 1.02 0.70 - 1.20 mg/dL [facility] Sodium 139 135 - 145 mmol/L [facility] Potassium 4.2 3.5 - 5.0 mmol/L [facility] Comment: Please note: ??Patients with WBC >100,000 may have falsely elevated Potassium levels. ??For accurate Potassium quantification in these patients send serum separator tube (gold top) for subsequent determinations. ??Contact the Clinical Chemistry Laboratory if there are any questions. Chloride 103 98 - 107 mmol/L [facility] Carbon Dioxide 25 22 - 31 mmol/L [facility] Anion Gap 11 5 - 15 mmol/L [facility] Calcium 9.2 8.5 - 10.5 mg/dL [facility] Protein, Total 7.1 6.1 - 8.0 g/dL [facility] Albumin 3.9 3.2 - 5.2 g/dL [facility] Aspartate Aminotransferase 17 0 - 30 unit/L [facility] Alanine Aminotransferase 16 0 - 30 unit/L [facility] Alkaline Phosphatase 99 35 - 105 unit/L [facility] Bilirubin, Total 0.3 0.2 - 1.3 mg/dL [facility] Est Glomerular Filtration Rate 61 >=60 mL/min/1. 73 m?? 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
--- OUTSIDE RECORDS SUMMARY | 2024-01-08 11:29 | XMS_ITS | Encounter Summary ---
Author Organization [facility] [address] Care Team Providers Care Ball Shagger Name Role Phone Avery Castro DO Primary Care Provider Encounter Details Date Type Department Care Team (Late st Contact Info) Description 08/10/2023 Telephone [place] [phone] Cindy Fuentes Social History Tobacco Use Types [...] PM EDT Office Visit Hematology/Oncology at [address] [phone] Antolin Croft MD [facility] DR HEMATOLOGY [place] [address] Candice Erickson APRN [address] [place] [address] DR HEMATOLOGY AND ONCOLOGY [place], [place] [phone] Primary malignant neoplasm of right lower lobe of lung 01/08/2024 1:30 PM EDT Infusion Hematology Oncology at [address] [phone] 01/30/2024 9:[address] Scan at [place] [phone] Soto Gilbert MD [facility] [place] [address] 01/30/2024 10:30 AM EST Appointment Nuclear Medicine at [place] [phone] Soto Gilbert MD [facility] [place] [address] 01/30/2024 11:00 AM EST Appointment Nuclear Medicine at [place] [phone] Soto Gilbert MD [facility] [place] [address] 01/30/2024 11:30 AM EST Appointment Nuclear Medicine at [place] [phone] Soto Gilbert MD [facility] [place] [address] 01/30/2024 12:00 PM EST Appointment Nuclear Medicine at [place] [phone] Soto Gilbert MD [facility] [place] [address] 01/30/2024 2:30 PM EST Appointment Pulmonology at [place] [phone] documented as of this encounter Visit Diagnoses Not on filedocumented in this encounter Care Teams Ball Shagger Relationship Specialty Start Date End Date Avery Castro DO [address] [place] [id number] PCP - General Family Medicine 07/28/23 09/25/23 documented as of this encounter
--- OUTSIDE RECORDS SUMMARY | 2024-01-08 11:29 | XMS_ITS | Encounter Summary ---
Author Organization [facility] [place] [address] Care Team Providers Care Telephoner Name Role Phone Rose Carter Primary Care Provider Unavail able Encounter Details Date Type Department Care Team (Late st Contact Info) Description 10/21/2014 [place] [address] Valerio Mazariegos MD [address] [place], [place] [address] [address] Social History Tobacco Use Types Packs/Day Years [...] PM EDT Office Visit Hematology/Oncology at [address] [phone] Antolin Croft MD [facility] DR [place] [address] Candice Erickson APRN [address] [place] [address] DR HEMATOLOGY AND ONCOLOGY [place], [place] [phone] Primary malignant neoplasm of right lower lobe of lung 01/08/2024 1:30 PM EDT Infusion Hematology Oncology at [address] [phone] 01/30/2024 9:[address] [place] [phone] Soto Gilbert MD [facility] [place] [address] 01/30/2024 10:30 AM EST Appointment [place] [phone] Soto Gilbert MD [facility] [place] [address] 01/30/2024 11:00 AM EST Appointment [place] [phone] Soto Gilbert MD [facility] [place] [address] 01/30/2024 11:30 AM EST Appointment [place] [phone] Soto Gilbert MD [facility] [place] [address] 01/30/2024 12:00 PM EST Appointment [place] [phone] Soto Gilbert MD [facility] [place] [address] 01/30/2024 2:30 PM EST Appointment [place] [phone] documented as of this encounter Procedures Procedure Name Priority Date/Time Associated Diagnosis Comments SURGICAL PATHOLOGY REPORT Routine 10/21/2014 9:10 PM EDT documented in this encounter Results * Surgical Pathology Report (10/21/2014 9:10 PM EDT) Final Diagnosis ? [facility] ? Provider: ?? VALERIO MAZARIEGOS ?? Pt. Name: ?? ANNIMABELELVIN Franco ? Acc #: ?[id number] ? Pt. ? Col Date: ?? 10/21/2014 ?/Sex: ?1955,(59 years),Female ? Rec Date: ?? 10/22/2014 ?LOC: ?[facility] ? SURGICAL PATHOLOGY ? DIAGNOSIS ? Skin, left nevus back, re-excision: ?- NO RESIDUAL of the previously diagnosed lentiginous compound ? dysplastic melanocytic nevus with severe atypia ?- REPARATIVE CHANGES CONSISTENT WITH PREVIOUS OPERATIVE SITE ? CR-0 ? 10/23/14 ? ANW ? 10/24/14 Verified by: ? Ho Darling MD ? Dermatopathologi st, Bone & Soft Tissue ? Pathologist ? (Electronic Signature) ? The attending pathologist whose signature appears on this report has ? reviewed all diagnostic slides and has edited the gross and/or ? microscopic portion of the report in rendering the final pathologic ? diagnosis. ? GROSS DESCRIPTION ? A - Labeled/Fixative : Reexcision left back, formalin. ? Quantity/Size: Single, 1.6 x 1.0 x 0.8 cm. ? Tissue Description: Unoriented ellipse of farias-white skin with a central 0.5 ? cm recent biopsy site. ? Sections/Process ing: The specimen is inked and serially sectioned. ? The ends are submitted in (1); the remainder in (2-4). (T4) ??pps ? CLINICAL INFORMATION ? Specimen Submitted: ? A - L nevus back, re-excision ? Clinical History: ? Dysplastic nevus with severe atypia ? Clinical Diagnosis: ? Same ? Referring Identifier: ??[id number] 10/24/2014 1:55 PM EDT [facility] SPECIMEN FROM SKIN / Unknown 10/21/2014 9:10 PM EDT 10/21/2014 9:10 PM EDT Valerio Mazariegos MD PATHOLOGY/CYTOLOGY Deepak FELIX Performing Organization Address City/State/[facility] Co de Phone Number DIEGO MILLENNIUM [facility] [place] [address] documented in this encounter Visit Diagnoses Not on filedocumented in this encounter Care Teams Telephoner Relationship Specialty Start Date End Date Rose Carter PA PCP - General 07/21/14 07/27/23 documented as of this encounter
--- OUTSIDE RECORDS SUMMARY | 2024-01-08 11:29 | XMS_ITS | Encounter Summary ---
Author Organization [facility] [place] [address] Care Team Providers Care Lumber Stacker Driver Name Role Phone Avery Castro DO Primary Care Provider [phone] Encounter Details Date Type Department Care Team (Late st Contact Info) Description 08/10/2023 7:30 AM EDT Anesthesia Event [place] [phone] Oleg, Vicente Palmer MD [facility] [place] [address] Anesthesia Record Procedure Summary Procedure Name Responsible Anesthesiologist Anesthesia Start Time Anesthesia Stop Time BRONCHOSCOPY (FLEXIBLE OR RIGID) W\TRANSBRONC BX (WRVU 3.55) Oleg, Vicente Palmer MD 08/10/23 0730 08/10/23 0831 Events Date Time Event Comment 08/10/2023 0711 0730 AN Verify 0730 Start 0730 An Start Data 0735 An Induction 0737 An Intubation 0738 Anesthesia Ready 0827 Extubation/LMA Out 0828 an stop data 0830 Recovery or ICU Handoff Izzy ent care was transferred to the destination unit staff after review of the patient's medical history, current anesthetic/surgical status and plan, according to the Provider Handoff Checklist. 0831 Stop Meds Name Total IV Lidocaine 80 mg Lidocaine 4% LTA 2 mL PropofoL 200 mg PropofoL INF 467.94 mg dexmedeTOMIDine 4 mcg fentaNYL 100 mcg Rocuronium 50 mg Succinylcholine 100 mg Sugammadex 190 mg PHENYLephrine 480 mcg Ondansetron 8 mg Dexamethasone 8 mg midazolam 2 mg lactated ringers infusion 800 mL * Agents Name O2 * Blood No blood administrations on file. Lines, Drains, and Airways Type Details Placement Removal PIV 08/10/23; 716; gybf-qbz-upsdbs catheter system; 20 gauge; median vein (underside of arm), right; GRANT RN; distraction; 0; 08/10/23; 0930 08/10/23 0717 by Mitra Goncalves RN 08/10/23 0930 by Karen Padilla RN ETT Mask Ventilation: Ad junct (2); ETT Type: Cuffed, Oral; ETT Size: 8.5 mm; Indirect: Video; Notes: Asleep, Stylette, Pre-O2; Attempts: 1; Laryngoscopy Grade: 1; ETT Placement Verified By: Auscultation, Capnometry, Visual; Secured at Teeth: 21 cm; Inserted by: Luz Engle CRNA; Removal Date: 08/10/23; Removal Time: 82608/10/23 07 by Lenka Engle CRNA 08/10/23 08 by Lenka Engle CRNA documented in this [...] OR Notes * Anesthesia Postprocedure Evaluation - Sites, Vicente Palmer MD - 08/10/2023 4:37 PM EDT Department of Anesthesiology Post-procedure Note Patient: Althea Salmon Procedure Summary Date: 08/10/23 Room / Location: [facility] ENDO 1 / [facility] ENDOSCOPY Anesthesia Start: 729 Anesthesia Stop: 830 Procedures: BRONCHOSCOPY (FLEXIBLE OR RIGID) W\TRANSBRONC BX (WRVU 3.55) BRONCH, W ENDOBRONCHIAL ULTRASOUND (EBUS) GUIDED SAMPLING, 3+ NODES (WRVU 4.96) BRONCH, W EBUS DURING INTERVENTION FOR PERIPH LESION (WRVU 1.4) BRONCHOSCOPY W/TRANSBRONCHIAL NEEDLE ASPIRATION BX,FLEXIBLE (WRVU 3.75) BRONCHOSCOPY W/ DESTRUCTION TUMOR, RELIEF STENOSIS W/LASER, CRYOTHERAPY (WRVU 5.02) Diagnosis: Lung mass (Lung mass/ Bronch with EBUS, transbronchial bx, needle bx/ GA/ Backer) Surgeons: Lenard Ramon MD Responsible Provider: Vicente Dejesus MD Anesthesia Type: general ASA Status: 3 All Anesthesia Providers: Anesthesiologist: Vicente Dejesus MD DIRECTOR OF WEB MARKETING: Lenka Engle CRNA Vitals Value Taken Time BP 132/99 08/10/23 0910 Temp Pulse Resp 18 08/10/23 0910 SpO2 92 % 08/10/23 0917 Pain Level 0 08/10/23 0910 Vitals shown include unfiled device data. Patient Location: PACU/[facility] Level of Consciousness: Awake and Alert Pain Management: Satisfactory Analgesia PONV: None Cardiovascular Status: At Baseline Respiratory Status: At Baseline Postoperative Fluid Status: Intravascular EUvolemia Possible Anesthetic Complications: NONE apparent at time of evaluation Final Primary Anesthesia Type: General (The anesthetic type performed was the same as planned.) Comments: * Anesthesia Preprocedure Evaluation - Vicente Dejesus MD - 08/10/2023 7:06 AM EDT Pre-Anesthesia Evaluation for: Althea Salmon a 67 y.o. female. Procedure(s): BRONCHOSCOPY (FLEXIBLE OR RIGID) W\TRANSBRONC BX (WRVU 3.55) BRONCH, W ENDOBRONCHIAL ULTRASOUND (EBUS) GUIDED SAMPLING, 3+ NODES (WRVU 4.96) BRONCH, W EBUS DURING INTERVENTION FOR PERIPH LESION (WRVU 1.4) BRONCHOSCOPY W/TRANSBRONCHIAL NEEDLE ASPIRATION BX,FLEXIBLE (WRVU 3.75) There are no problems to display for this patient. No past medical history on file. No past surgical history on file. Social History Tobacco Use Smoking status: Former Types: Cigarettes Smokeless tobacco: Never Substance Use Topics Alcohol use: Not on file Social History Substance and Sexual Activity Drug Use Not on file No Known Allergies Medications: MAR and/or home medications have been reviewed. Physical Exam: Preprocedure Vitals Current as of 08/10/23 0706 BP: Pulse: Resp: SpO2: Temp: 36.7 ??C (98 ??F) Height: Weight: BMI: IBW: Last edited 08/10/23 0703 by TYREE Airway Assessment: Mallampati: III TM distance: >3 FB Neck ROM: full Cardiovascular Assessment: Rhythm: regular Rate: normal Pulmonary Assessment: (+) decreased breath sounds Dental Assessment: Misc Assessment: IV access: Peripheral line None Anesthesia Plan: ASA 3 general, with a(n) intravenous induction I have seen and examined the patient. I have reviewed the medical record and pertinent laboratory information. I have noted the major medical issues as to include smoking history, elevated BMI, likely COPD, and work up for lung mass. There is a paucity of medical records on the patient in our EMR. She is appropriately NPO and denies active GERD. I have reviewed risks from minor to major as outlined in the anesthesia consent form. I have highlighted risks related to airway management and COPD. She is aware that our care model is based on a team and I will be working with either a DIRECTOR OF WEB MARKETING or resident physician. A resident physician means a physician who is in training to be an anesthesiologist. The patient acknowledged these risks and would like to proceed with the anesthesia plan. Balanced GA Addendum: Patient has elevated BP this am, normally runs with systolics in 150s. She is quite anxious which is likely contributing to readings. Region - Other Informed Consent: Anesthetic plan and risks discussed with patient. Plan discussed with DIRECTOR OF WEB MARKETING. Anesthesia Screening documented in this encounter Plan of Treatment Upcoming Encounters Date Type Department Care Team (Late st Contact Info) Description 01/08/2024 1:00 PM EDT Office Visit Hematology/Oncology at [address] [phone] Antolin Croft MD [facility] DR HEMATOLOGY [place] [address] Candice Erickson APRN [address] [place] [address] DR [place]Y [place] [address] Primary malignant neoplasm of right lower lobe of lung 01/08/2024 1:30 PM EDT Infusion Hematology Oncology at [address] [phone] 01/30/2024 9:[address] [place] [phone] Soto Gilbert MD [facility] [place] [address] 01/30/2024 10:30 AM EST Appointment [place] [phone] Soto Gilbert MD [facility] [place] [address] 01/30/2024 11:00 AM EST Appointment [place] [phone] Soto Gilbert MD [facility] [place] [address] 01/30/2024 11:30 AM EST Appointment [place] [phone] Soto Gilbert MD [facility] [place] [address] 01/30/2024 12:00 PM EST Appointment [place] [phone] Soto Gilbert MD [facility] [place] [address] 01/30/2024 2:30 PM EST Appointment [place] [phone] documented as of this encounter Visit Diagnoses Not on filedocumented in this encounter Administered Medications Inactive Administered Medications - up to 3 most recent administrations Medication Order MAR Action Action Date Dose Rate Site dexAMETHasone (Decadron) injection Intravenous, PRN, Starting on Debbie 08/10/23 at 0813, Until Debbie 08/10/23 at 0839, Anesthesia Intra-op, Routine Given 08/10/2023 8:13 AM EDT 8 mg dexmedeTOMIDine (Precedex) (4 mcg/mL) bolus injection (Anesthsia) Intravenous, PRN, Starting on Debbie 08/10/23 at 0730, Until Debbie 08/10/23 at 0839, Anesthesia Intra-op, Routine Given 08/10/2023 7:30 AM EDT 4 mcg fentaNYL (pf) (50 mcg/mL) multi-dose injection Intravenous, PRN, Starting on Debbie 08/10/23 at 0745, Until Debbie 08/10/23 at 0839, Anesthesia Intra-op, Routine Given 08/10/2023 7:55 AM EDT 50 mcg Given 08/10/2023 7:45 AM EDT 50 mcg lidocaine (pf) (Xylocaine) (20 mg/mL) 2% injection syringe Intravenous, PRN, Starting on Debbie 08/10/23 at 0735, Until Debbie 08/10/23 at 0839, Anesthesia Intra-op, Routine Given 08/10/2023 7:35 AM EDT 80 mg lidocaine (XYLOCAINE) 4 % external solution Intratracheal, PRN, Starting on Debbie 08/10/23 at 0736, Until Debbie 08/10/23 at 0839, Anesthesia Intra-op Given 08/10/2023 7:36 AM EDT 2 mLs midazolam (pf) (Versed) (1 mg/mL) multi-dose injection Intravenous, PRN, Starting on Debbie 08/10/23 at 0730, Until Debbie 08/10/23 at 0839, Anesthesia Intra-op, Routine Given 08/10/2023 7:30 AM EDT 2 mg ondansetron (pf) (Zofran) (2 mg/mL) injection Intravenous, PRN, Starting on Debbie 08/10/23 at 0759, Until Debbie 08/10/23 at 0839, Anesthesia Intra-op, Routine Given 08/10/2023 8:08 AM EDT 4 mg Given 08/10/2023 7:59 AM EDT 4 mg PHENYLephrine (Carroll-Synephrine) (10 mg/mL) injection Intravenous, PRN, Starting on Debbie 08/10/23 at 0741, Until Debbie 08/10/23 at 0839, Anesthesia Intra-op, Routine Given 08/10/2023 8:19 AM EDT 160 mcg Given 08/10/2023 8:09 AM EDT 80 mcg Given 08/10/2023 7:59 AM EDT 80 mcg propofoL (Diprivan) (10 mg/mL) infusion Intravenous, CONTINUOUS PRN, Starting on Debbie 08/10/23 at 0735, Until Debbie 08/10/23 at 0839, Anesthesia Intra-op, Routine New Bag 08/10/2023 7:35 AM EDT 150 mcg/kg/min 63.81 mL/hr propofoL (Diprivan) 10 mg/mL bolus injection (Anesthesia) Intravenous, PRN, Starting on Debbie 08/10/23 at 0735, Until Debbie 08/10/23 at 0839, Anesthesia Intra-op Given 08/10/2023 7:35 AM EDT 200 mg rocuronium (Zemuron) (10 mg/mL) multi-dose injection Intravenous, PRN, Starting on Debbie 08/10/23 at 0740, Until Debbie 08/10/23 at 0839, Anesthesia Intra-op, Routine Given 08/10/2023 8:03 AM EDT 20 mg Given 08/10/2023 7:40 AM EDT 30 mg succinylcholine (Anectine;Quelicin) (20 mg/mL) injection Intravenous, PRN, Starting on Debbie 08/10/23 at 0735, Until Debbie 08/10/23 at 0839, Anesthesia Intra-op, Routine Given 08/10/2023 7:35 AM EDT 100 mg sugammadex (Bridion) 100 mg/mL injection Intravenous, PRN, Starting on Debbie 08/10/23 at 0820, Until Debbie 08/10/23 at 0839, Anesthesia Intra-op, Routine Given 08/10/2023 8:20 AM EDT 190 mg documented in this encounter Care Teams Lumber Stacker Driver Relationship Specialty Start Date End Date Avery Castro DO [address] [place] [id number] PCP - General Family Medicine 07/28/23 09/25/23 documented as of this encounter
--- OUTSIDE RECORDS SUMMARY | 2024-01-08 11:29 | XMS_ITS | Encounter Summary ---
Author Organization [facility] [place] [address] Care Team Providers Care Grazing Examiner Name Role Phone Avery Castro DO Primary Care Provider [phone] Encounter Details Date Type Department Care Team (Late Contact Info) Description 08/10/2023 Orders [place] [phone] Lenard Ramon MD [facility] [place] [address] Lung mass Social History Tobacco Use Types Packs/Day Years [...] PM EDT Office Visit Hematology/Oncology at [address] [phone] Antolin Croft MD [facility] [place] [address] Candice Erickson APRN [address] [place] [address] DR HEMATOLOGY AND ONCOLOGY [place], [place] [phone] Primary malignant neoplasm of right lower lobe of lung 01/08/2024 1:30 PM EDT Infusion Hematology Oncology at [address] [phone] 01/30/2024 9:[address] [place] [phone] Soto Gilbert MD [facility] [place] [address] 01/30/2024 10:30 AM EST Appointment Nuclear Medicine at [place] [phone] Soto Gilbert MD [facility] [place] [address] 01/30/2024 11:00 AM EST Appointment [place] [phone] Soto Gilbert MD [facility] [place] [address] 01/30/2024 11:30 AM EST Appointment [place] [phone] Soto Gilbert MD [facility] [place] [address] 01/30/2024 12:00 PM EST Appointment [place] [phone] Soto Gilbert MD [facility] [address] 01/30/2024 2:30 PM EST Appointment [place] [phone] documented as of this encounter Visit Diagnoses Diagnosis Lung mass Swelling, mass, or lump in chest Primary malignant neoplasm of right lower lobe of lung Malignant neoplasm of lower lobe, bronchus, or lung documented in this encounter Care Teams Grazing Examiner Relationship Specialty Start Date End Date Avery Castro DO [address] [place] [id number] PCP - General Family Medicine 07/28/23 09/25/23 documented as of this encounter
--- OUTSIDE RECORDS SUMMARY | 2024-01-08 11:29 | XMS_ITS | Encounter Summary ---
[place] [address] Care Team Providers Care Parts Person Name Role Phone Avery Castro DO Primary Care Provider [phone] Reason for Referral * Diagnostic Test (STAT) - Closed Specialty Diagnoses / Procedures Referred By Contac t Referred To Contact Radiology Diagnoses Lung mass Procedures NM PET CT Skull Base to Mid-thigh Lenka Escalante MD [facility] DR PULMONARY [place] [address] [place] [address] Referral ID Status Reason Start Date Expiration Date V isits Requested Visits Authorized [id number] Closed Specialty Service Requested 08/09/2023 02/08/2025 1 1 Reason for Visit * Consultation (Routine) - Closed Specialty Diagnoses / Procedures Referred By Contac t Referred To Contact Pulmonology Diagnoses Malignant neoplasm of bronchus and lung Avery Castro DO [address] [place] [id number] [facility] [address] [place] [phone] Referral ID Status Reason Start Date Expiration Date V isits Requested Visits Authorized [id number] Closed Consult, Test & Treat PCP Updated and/or Approved 07/18/2023 07/17/2024 6 6 Encounter Details Date Type Department Care Team (Late st Contact Info) Description 08/09/2023 3:40 PM EDT [place] [address] Lenard Ramon MD [facility] DR PULMONARY [place] [address] Lung mass Social History Tobacco Use Types Packs/Day Years Used Date Smoking Tobacco: Former Cigarettes Smokeless Tobacco: Never Tobacco Cessation:Counseling Given: Not Answered Sex and Gender Information Value Date Recorded Sex Assigned at Not on file Gender Identity Not on file Sexual Orientation Not on file documented as of this encounter Last Filed Vital Signs Vital Sign Reading Time Taken Comments Blood Pressure 132/86 08/09/2023 3:24 PM EDT Pulse 75 08/09/2023 3:24 PM EDT Temperature 36.6 ??C (97.9 ??F) 08/09/2023 3:24 PM ED T Respiratory Rate 16 08/09/2023 3:24 PM EDT Oxygen Saturation 95% 08/09/2023 3:24 PM EDT Inhaled Oxygen Concentration - - Weight 95.3 kg (210 lb) 08/09/2023 3:24 PM EDT Height 162.6 cm (5' 4) 08/09/2023 3:24 PM EDT Body Mass Index 36.05 08/09/2023 3:24 PM EDT documented in this encounter Patient Instructions * Patient Instructions* Lenard Ramon MD - 08/09/2023 3:40 PM EDT Thank you for visiting Dr. Lenard Ramon in the Interventional Pulmonology clinic on 08/09/23 We would like to schedule you for your Bronchoscopy with Endobronchial Ultrasound (EBUS) and biopsies. You will receive a call soon from our cullet trucker to arrange this appointment with either Dr. Ramon or Dr. Briscoe depending upon availability. Our cullet trucker and nurse will confirm your arrival time, procedure time, review your medications (if taking any), and confirm when to stop eating and drinking. Your procedure will occur here at [facility] at either 4T or 4W. Bronchoscopy is the term for a procedure in which a scope (thin tube with a light source on the end) is placed through a breathing tube into your trachea and large airways. The removal of small pieces of tissue (such as lymph node or lung) using a needle or forceps may be performed and is called a biopsy. Endobronchial ultrasound or EBUS, is a procedure used to diagnose a number of different conditions in the lung. It is done using a flexible bronchoscope with a small ultrasound at its tip. The deviceis able to take pictures and biopsy nearby lymph nodes and other areas of interest within the lung.This is a less invasive alternative to some surgeries. Please read the following instructions carefully/these will be reviewed again with you when we call: You MUST arrange to have someone drive you home after the bronchoscopy. This requirement is for your safety. Although you will be observed for several hours after the procedure, you will still be affected by medications you will receive. If you do not have a responsible mechanic driver, the procedure will be cancelled. If you use home oxygen: please ensure you bring this with you as well as a back- up tank. You will be transitioned to our oxygen system after check-in, but you will need enough home oxygen to last youuntil then as well as for your trip home. Please plan in advance. Do not have anything to eat 8 hours prior to your procedure. You are permitted to have small amounts of clear liquids up to two hours before your scheduled procedure. This includes water, farhad estephanie,apple juice, black coffee or tea. Sugar or sugar substitutes are fine in your coffee or tea, however you are not permitted to have any dairy products (or dairy substitutes) after midnight. You cannothave any milk, cream, or creamers (regardless if dairy-free or not). Failure to abide to these instructions may result in cancellation of your procedure. Please call us immediately if you have been ill, had a fever, or have been exposed to any illness in the few days prior to the scheduled procedure. If you take any over the counter or prescribed blood thinners (including, but not limited to, Aspirin, Plavix, Coumadin, Eliquis, Pradaxa, or Xarelto) please alert us and we will provide you specificinstructions on whether to stop or continue these medications before your procedure. If you take insulin or any other diabetes medications, please alert us and we will provide you specific instructions on whether to stop or continue these medications before your procedure. If you are taking any other prescribed medications (such as blood pressure medications), you may take them with a small amount of water, just enough to safely swallow them. Please plan to check-in 1 hour before your procedure (or when instructed). Your procedure will be at [facility]. Please park/arrive at either the parking garage or main entrance. You will be asked to report to either 4T or 4W on the 4th floor. After being checked in, you will be brought back to the pre-procedure area. You will be asked to change into a gown, undergo a brief medical evaluation, and have an IV (intra-venous;into a vein) linestarted to give you the necessary medications during your procedure. You will then meet with your Slater Apprentice who will review the procedure with you prior to bringing you to the procedure room. Based on the type of procedure you are having, you may meet with an Anesthesiologist who will explain the sedation process to you. You will receive medications through your IV line during the procedure to make you sleepy. You should plan to be in the recovery area for about 1-2 hours after your procedure is over. If you have any questions before your procedure, do not hesitate to call us at to speak with your pulmonary physician, or the on-call provider at night or during weekends. Thank you for trusting us with your care, The Interventional Pulmonology team at [facility] 08/09/2023, 4:24 PM documented in this encounter Progress Notes * Lenka Escalante MD - 08/09/2023 3:40 PM EDT Images from the original note were not included. INTERVENTIONAL PULMONOLOGY OUTPATIENT CONSULT NOTE SECTION OF PULMONARY & CRITICAL CARE MEDICINE PATIENT NAME: Althea Salmon : 1955 MEDICAL RECORD: [id number] DATE OF SERVICE: 08/09/23 REFERRING PHYSICIAN: Avery Castro DO PRIMARY CARE PHYSICIAN: Avery Castro DO Chief Complaint: Lung mass History of Present Illness: Ms. Althea Salmon is a 67 y.o. woman with PMH of tobacco use who has been sent to Interventional Pulmonology for consultation regarding lung mass. Her lung mass was diagnosed a few weeks ago. She had acute onset of dyspnea and cough with sputum production. She went to [facility], where they did a chest xray. The chest xray showed a RLL abnormality. They ordered a CT chest which showed a RLL lung mass. Also a left sided lung nodule. She was treated for her dyspnea and cough with nebulizer treatments and steroids x 5 days. Was not admitted. She does not have a diagnosed history of COPD, has never had PFTs. She had an albuterol inhaler prescribed by her PCP but states that she uses it rarely. She notes that she had asimilar flare up approx 1 year ago. At that time they did a chest xray, but did not see any abnormalities. Had never had a CT chest before. In between these episodes, she feels well. She currently feels back to her baseline and has no breathing concerns. No dyspnea. No cough. No sputum production. 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 Past Medical History: There is no problem list on file for this patient. Medications: Prior to Admission medications Medication Sig Start Date End Date Taking? Authorizing Provider albuteroL 90 mcg/actuation inhaler (HFA) Inhale 2 puffs into the lungs every 6 hours as needed for Wheezing or Shortness of Breath. Use with Spacer PROVIDER, HISTORICAL aspirin EC 81 mg EC () tablet Take 81 mg by mouth daily. PROVIDER, HISTORICAL Objective: General: This is a 67 y.o. female, well appearing, ambulated into clinic off supplemental oxygen HEENT: Moist mucous membranes, sclera are white Neck: Supple, trachea is midline, no gross deformity Lymphatics: No obvious lymphadenopathy Cardiovascular: Nl s1/s2, rrr Respiratory: Clear to auscultation bilaterally GI: soft, nt, nd Extremities: no LE edema noted, no clubbing Family History: Her brother recently from stomach cancer, her other brother has brain cancer Social History: Smoking status: Quit 3 years ago Smoking history: 46 EtOH: Rare Other drugs: Reports none Employment: Retired Occupational exposures: None reported PFTS: None on file Pertinent Imaging: (Images personally reviewed) CT Chest: CT chest 07/14/23 with RLL lung mass, left sided lung nodule Assessment: Ms. Althea Salmon is a pleasant 67 y.o. woman with PMH of tobacco use (45 pack yrs) who has been sent for consultation in regards to R sided lung mass. It is interesting that she has minimal symptoms despite her lung mass. We obtained a repeat CXR today to ensure that the mass was still present, which it is. It is concerning for malignancy. She does have extensive smoking history with 45 pack years, and concerning family history with one brother having stomach cancer and the other brother having brain cancer. We will plan to proceed with EBUS for further diagnostics. Will also order PET scanand MRI brain to evaluate for mets and for staging. She was counseled on the possibility that this could be cancer, she expressed understanding. She was accompanied by her daughter who also provided moral support. Recommendations: EBUS tomorrow 08/09 at 7:30 am scheduled MRI brain and PET scan to be scheduled Note to be sent to Avery Castro, DO Follow-up with me at time of upcoming procedure Lenka Escalante MD * Lenard Ramon MD - 08/09/2023 3:40 PM EDT I have seen the patient in person and reviewed the fellow's below stated history and I agree with the details as written. The assessment and plan were formulated in discussion with me and I agree with them as documented. In addition, acute onset symptomatology in 06/2023 which led to current CT chest findings which include dominant RLL mass with surrounding ground glass changes, nodular opacity in the lingula and no lymphadenopathy. Currently asymptomatic. Extensive prior smoking history. Not enrolled in lung cancerscreening. We reviewed her imaging and discussed the elevated pre-test probability for malignancy and need to complete her diagnostic and staging work-up. Proceed with bronchoscopy with transbronchial biopsies and EBUS-TBNA tomorrow. PET/CT and MR brain ordered. Lenard Ramon MD, 08/09/2023, 4:04 PM Interventional Pulmonology Section of Pulmonary & Critical Care Pager: [phone] documented in this encounter Plan of Treatment Upcoming Encounters Date Type Department Care Team (Late st Contact Info) Description 01/08/2024 1:00 PM EDT Office Visit Hematology/Oncology at [address] [phone] Antolin Croft MD [facility] DR HEMATOLOGY [place] [address] Candice Erickson APRN [address] [place] [address] DR HEMATOLOGY AND ONCOLOGY [place], [place] [id number] Primary malignant neoplasm of right lower lobe of lung 01/08/2024 1:30 PM EDT Infusion Hematology Oncology at [address] [phone] 01/30/2024 9:[address] [place] [phone] Soto Gilbert MD [facility] DR THORACIC [place] [address] 01/30/2024 10:30 AM EST Appointment [place] [phone] Soto Gilbert MD [facility] DR THORACIC [place] [address] 01/30/2024 11:00 AM EST Appointment [place] [phone] Soto Gilbert MD [facility] DR THORACIC [place] [address] 01/30/2024 11:30 AM EST Appointment [place] [phone] Soto Gilbert MD [facility] DR THORACIC SURGERY [place], [place] [id number] 01/30/2024 12:00 PM EST Appointment [place] [phone] Soto Gilbert MD [facility] DR THORACIC [place] [address] 01/30/2024 2:30 PM EST [place]ment [place] [phone] documented as of this encounter Results * (ABNORMAL) NM PET CT Skull Base to Mid-thigh (08/24/2023 2:58 PM EDT) WORKSTATION ID [id number] [facility] Anatomical Region Laterality Modality Positron Emissio n [...] who have questions please contact the health career guidance technician that requested your imaging first. ? Electronically signed by: Mruphy Cantu [facility] ([phone]), at 08/24/2023 4:06 PM Narrative 08/24/2023 4:06 PM EDT EXAMINATION: NM PET CT STANDARD SKULL BASE TO MID-THIGH CLINICAL HISTORY: lung mass, staging R91.8, Other nonspecific abnormal finding of lung field TECHNIQUE: Following IV injection of 96-iznlpt-5-deoxyglucose (FDG) a standard uptake of approximately 60 [...] with pelvic ultrasound. GI: No abnormal uptake. Cerx-mp-scauafbr colonic diverticulosis, most pronounced in the sigmoid. OMENTUM, MESENTERY, PERITONEUM, RETROPERITONEUM: No abnormal uptake. VASCULATURE: No abnormal uptake. Moderate vascular calcifications in the aorta and branch vessels. Ectatic infrarenal abdominal aorta measuring 2.7 cm. LYMPH NODES: No abnormal uptake. MUSCULOSKELETAL: No abnormal uptake. Resulting Agency Comment Unexpected Finding Lenard Ramon MD IMG PET ORDERABLES * XR Chest PA & Lateral (Generic) (08/09/2023 4:51 PM EDT) WORKSTATION ID [id number] [facility] Anatomical Region Laterality Modality Chest N/A [...] who have questions please contact the health career guidance technician that requested your imaging first. ? Electronically signed by: Tavo Kiran MD, [facility] ([phone]), at 08/09/2023 5:01 PM Narrative 08/09/2023 5:01 PM EDT EXAMINATION: XR [...] patients who have questions please contactthe health career guidance technician that requested your imaging first. Lenard Ramon MD IMG DX ORDERABLES documented in this encounter Visit Diagnoses Diagnosis Lung mass Swelling, mass, or lump in chest Lung mass Swelling, mass, or lump in chest Lung mass Swelling, mass, or lump in chest Primary malignant neoplasm of right lower lobe of lung Malignant neoplasm of lower lobe, bronchus, or lung documented in this encounter Care Teams Parts Person Relationship Specialty Start Date End Date Avery Castro DO [address] [place] [id number] PCP - General Family Medicine 07/28/23 09/25/23 documented as of this encounter
--- OUTSIDE RECORDS SUMMARY | 2024-01-08 11:29 | XMS_ITS | Encounter Summary ---
Author Organization [facility] [place] [address] Care Team Providers Care Pararescue Craftsman Name Role Phone Avery Castro DO Primary Care Provider [phone] Encounter Details Date Type Department Care Team (Late st Contact Info) Description 08/10/2023 7:30 AM EDT - 08/10/2023 9:10 AM EDT [place] [phone] BackerLenard MD [facility] [place] [address] BRONCHOSCOPY (FLEXIBLE OR RIGID) W\TRANSBRONC BX (WRVU 3.55) Social History Tobacco Use Types Packs/Day Years [...] your doctor if you can take an tycw-vyj-zwmxgve medicine. If you think your pain medicine [...] occurs, please contact your Doctor. Please call [phone] before 8pm Mon-Fri with problems, questions or concerns. If you call after 8pm or on weekends, call the Hospital at [phone] and ask to speak to the Neonatal Intensive Care Nurse stone engraver and the wire coating machine operator will contact that person for you. When should you call for help? Call [phone] anytime you think you may need emergency [...] any problems. Where can you learn more? [facility] View your After Visit Summary and more online at [email or web address] If you would like to provide feedback about your hospital experience, please call the Office of Patient and Family Relations at . If you have received this After Visit Summary in error, please immediately return it in person to the department, or notify the [facility] Privacy Office by calling toll free at between the hours of 8AM and 5PM to arrange for our retrieval of the documents at no cost to you. Content Version: 12.2 ?? [phone] daysoft. Care instructions adapted under license by [facility]. If you have questions about a medical condition or this instruction, always ask your healthcare professional. [employer] disclaims any warranty or liability for your [...] Care Pager: [phone] documented in this encounter Miscellaneous Notes * [...] the procedure. Procedure Descriptions: Airway Examination: A TeeBeeDee EB-580S (5.3 mm) flexible bronchoscope was used [...] normal in appearance. EBUS-TBNA (4 sites): The TeeBeeDee EBUS (EB-530US) scope was inserted, lymph node [...] contiguous withthe right lung mass. Tumor/Tissue Debulking (80394): The superior segment of the right lower [...] cold saline was not administered. Therapeutic Suctioning (97765): A significant portion of operative time was [...] Section of Pulmonary & Critical Care Pager: [phone] documented in this encounter Plan of Treatment Upcoming Encounters Date Type Department Care Team (Late st Contact Info) Description 01/08/2024 1:00 PM EDT Office Visit Hematology/Oncology at [address] [phone] Antolin Croft MD [facility] [place] [address] Candice Erickson APRN [address] [place] [address] DR [place] [address] Primary malignant neoplasm of right lower lobe of lung 01/08/2024 1:30 PM EDT Infusion Hematology Oncology at [address] [phone] 01/30/2024 9:[address] [place] [phone] Soto Gilbert MD [facility] [place] [address] 01/30/2024 10:30 AM EST Appointment [place] [phone] Soto Gilbert MD [facility] [place] [address] 01/30/2024 11:00 AM EST Appointment [place] [address] Soto Gilbert MD [facility] [place] [address] 01/30/2024 11:30 AM EST Appointment [place] [phone] Soto Gilbert MD [facility] [place] [address] 01/30/2024 12:00 PM EST Appointment [place] [phone] Soto Gilbert MD [facility] [place] [address] 01/30/2024 2:30 PM EST Appoint[place] [phone] documented as of this encounter Procedures Procedure Name Priority Date/Time Associated Diagnosis Comments NON-CLINICAL SUPPORT ASSOCIATE FINAL REPORT Routine 08/10/2023 8:21 AM EDT NON-CLINICAL SUPPORT ASSOCIATE FINAL REPORT Routine 08/10/2023 8:21 AM EDT NON-CLINICAL SUPPORT ASSOCIATE FINAL REPORT Routine 08/10/2023 8:21 AM EDT CYTOPATHOLOGY NON-GYNECOLOGICAL Routine 08/10/2023 8:21 AM EDT CYTOPATHOLOGY NON-GYNECOLOGICAL Routine 08/10/2023 8:21 AM EDT CYTOPATHOLOGY NON-GYNECOLOGICAL Routine 08/10/2023 8:21 AM EDT IMMUNOPHENOTYPING FLOW CYTOMETRY (BLOOD) Routine 08/10/2023 8:15 AM EDT FLOW CYTOMETRY REPORT Routine 08/10/2023 8:15 AM EDT SOLID TUMOR NGS PANEL Routine 08/10/2023 7:44 AM EDT NON-CLINICAL SUPPORT ASSOCIATE FINAL REPORT Routine 08/10/2023 7:44 AM EDT CYTOPATHOLOGY NON-GYNECOLOGICAL Routine 08/10/2023 7:44 AM EDT Bronchoscopy, Rx Stenosis (85024) 08/10/2023 7:27 AM EDT Lung mass Bronchoscopy, Transbron Aspir Bx (81756) 08/10/2023 7:27 AM EDT [facility] Dx/Tx Intervention Perph Les (27117) 08/10/2023 7:27 AM EDT Lung mass [facility] Ebus Guided Sampl 3/> Node Station/Strux (46758) 08/10/2023 7:27 AM EDT Lung mass Bronchoscopy, Transbronch Biopsy (54984) 08/10/2023 7:27 AM EDT Lung mass documented in this encounter Results * Non-Electronics Test Engineer Final Report (08/10/2023 8:21 AM EDT) Diagnosis Discussion [id number] ? Location: 4T; 06; A The signing pathologist has (i) examined the relevant preparation(s) for the specimen(s) and (ii) rendered or confirmed the diagnosis(es). . ? Non-Electronics Test Engineer Final DIAGNOSIS Negative for Malignancy Electronically signed by: ?Carmella BEST PhD, Zac Barker Verified: ??08/16/2023 11:30 ??Pathologist Performed at: ??-[facility] Dept. of Pathology, [place] [address] Library Science Instructor: Janes Ritchie MD, FCAP, ??CLIA Certificate: [id number] DISCUSSION Lymph node, station 7 (EBUS-guided FNA): [...] Cell Block 1. 08/16/2023 11:30 AM EDT [facility] LYMPH NODE SPECIMEN / Unknown 08/10/2023 8:21 AM EDT 08/10/2023 8:21 AM EDT Lenard Ramon MD PATHOLOGY/CYTOLOGY O RDERAVALENTINO [facility] [place] [address] * (ABNORMAL) Non-Electronics Test Engineer Final Report (08/10/2023 8:21 AM EDT) Diagnosis Discussion [id number] ? Location: 4T; EA06; A The signing pathologist has (i) examined the relevant preparation(s) for the specimen(s) and (ii) rendered or confirmed the diagnosis(es). . ? Non-Electronics Test Engineer Final DIAGNOSIS Unsatisfactory Electronically signed by: ?Carmella BEST PhD, Zac Barker Verified: ??08/16/2023 11:29 ??Pathologist Performed at: ??-[facility] Dept. of Pathology, [place] [address] Library Science Instructor: Janes Ritchie MD, FCAP, ??CLIA Certificate: [id number] DISCUSSION Predominantly blood and bronchial cells. THIS [...] Cell Block 1.(A) 08/16/2023 11:29 AM EDT [facility] LYMPH NODE SPECIMEN / Unknown 08/10/2023 8:21 AM EDT 08/10/2023 8:21 AM EDT Lenard Ramon MD PATHOLOGY/CYTOLOGY O RDERABLES [facility] [place] [address] * Non-Electronics Test Engineer Final Report (08/10/2023 8:21 AM EDT) Diagnosis Discussion [id number] ? Location: 4T; EA06; A The signing pathologist has (i) examined the relevant preparation(s) for the specimen(s) and (ii) rendered or confirmed the diagnosis(es). . ? Non-Electronics Test Engineer Final DIAGNOSIS Negative for Malignancy Electronically signed by: ?Carmella BEST PhD, Zac Barker Verified: ??08/16/2023 11:27 ??Pathologist Performed at: ??-[facility] Dept. of Pathology, [place] [address] Library Science Instructor: Janes Ritchie MD, FCAP, ??CLIA Certificate: [id number] DISCUSSION Lymph node, station 11L (EBUS-guided FNA): [...] Cell Block 1. 08/16/2023 11:27 AM EDT [facility] LYMPH NODE SPECIMEN / Unknown 08/10/2023 8:21 AM EDT 08/10/2023 8:21 AM EDT Lenard Ramon MD PATHOLOGY/CYTOLOGY O ELVIRA Performing Organization Address [facility]/ZIP Co de Phone Number [facility] [place] [place] [address] * Cytopathology Non-Gynecological (08/10/2023 8:21 AM EDT) AP Specimen 08/10/2023 8:21 AM EDT 08/10/2023 8:21 AM EDT Narrative [facility] - 08/10/2023 8:21 AM EDT Specimen requisition ordered. ??Separate Pathology report to follow Lenard Ramon MD PATHOLOGY/CYTOLOGY O ELVIRA Performing Organization Address [facility] Co de Phone Number [facility] [place] [address] * Cytopathology Non-Gynecological (08/10/2023 8:21 AM EDT) AP Specimen 08/10/2023 8:21 AM EDT 08/10/2023 8:21 AM EDT Narrative [facility] - 08/10/2023 8:21 AM EDT Specimen requisition ordered. ??Separate Pathology report to follow Lenard Ramon MD PATHOLOGY/CYTOLOGY O ELVIRA Performing Organization Address [facility] Co de Phone Number [facility] [place] [address] * Cytopathology Non-Gynecological (08/10/2023 8:21 AM EDT) AP Specimen 08/10/2023 8:21 AM EDT 08/10/2023 8:21 AM EDT Narrative [facility] - 08/10/2023 8:21 AM EDT Specimen requisition ordered. ??Separate Pathology report to follow Lenard Ramon MD PATHOLOGY/CYTOLOGY O RDERABLES [facility] [place] [address] * Flow Cytometry Report (08/10/2023 8:15 AM EDT) Flow Cytometry Report [id number] ? Location: 4T; EA06; A The signing [...] Viktor Verified: ??08/10/2023 17:22 ??Hematopathologist Performed at: ??-[facility] Dept. of Pathology, [place] [address] Library Science Instructor: Janes Ritchie MD, FCAP, ??CLIA Certificate: [id number] DISCUSSION Blasts based on CD45 expression and orthogonal light scatter, are not increased. The CD19 positive B-cells have a polytypic expression of surface immunoglobulin light chain ([place]per[place]:Lambda ratio at 1.4). The T-cells are an admixture of CD4+ and CD8+ T lymphocytes (ratio of 1.7). No loss or atypical intensity distributions are seen for any hall T antigen (CD2, 3, 4+8, 5, 7). There is no increase in XW81-eodithps/CD3-ne g NK cells. Flow analysis is an ancillary study. A definite diagnosis requires correlation with the morphologic features of this process and if necessary, correlation with other ancillary studies like immunohistochemistry , enzyme cytochemistry and/or cyto/ molecular genetics. This test was developed and its performance characteristics determined by the Clinical Flow Cytometry Laboratory at [facility]. It has not been cleared or approved [...] high complexity clinical laboratory testing. SPECIMEN PROCESSING [id number] Cells for immunophenotypic analysis were derived from R LOWER LOBE LUNG MASS. CD45 vs side scatter gating was utilized to identify a LYMPHOID analysis region that comprises approximately 21-22% of all cells. The following markers were assessed: CD2, CD3, CD4, CD5, CD7, CD8, CD10, CD19, CD45, CD56, kappa light chain, and lambda light chain. CLINICAL INFORMATION lung mass [facility] 08/10/2023 8:15 AM EDT Lenard Ramon MD PATHOLOGY/CYTOLOGY Deepak FELIX [facility] [place] [address] * Immunophenotyping Flow Cytometry (08/10/2023 8:15 AM EDT) Immunophenotyping Flow See Comment [facility] Comment: When completed by the Pathologist, the Flow Cytometry Report ([id number]) will display under the Pathology Results section within eDH. Other 08/10/2023 8:15 AM EDT 08/10/2023 8:50 AM EDT Narrative Resulting Agency Comment Spec In Lab Lenard Rmaon MD HEMATOLOGY ORDERABLE S Performing Organization Address [facility] Co de Phone Number [facility] [place] [address] * Solid Tumor NGS Panel (08/10/2023 7:44 AM EDT) Tissue 08/10/2023 7:44 AM EDT 08/17/2023 7:26 AM EDT Narrative Resulting Agency Comment Spec In Lab Lenard Ramon MD PATHOLOGY/CYTOLOGY O RDERABLES Performing Organization Address [facility]/ZIP Co de Phone Number [facility] [place] [place] [address] * (ABNORMAL) Non-Electronics Test Engineer Final Report (08/10/2023 7:44 AM EDT) Diagnosis Discussion [id number] ? Location: 4T; EA06; A The signing [...] The assay was performed according to the utility sales and service manager's instructions using Anti-PD-L1 (22C3, pharmDX) antibody. Electronically signed by: ?Mae BEST, PhD, Leanne Verified: ??08/17/2023 10:59 ??Pathologist Performed at: ??-[facility] Dept. of Pathology, [place] [address] Library Science Instructor: Janes Ritchie MD, FCAP, ??CLIA Certificate: [id number] ? Non-Electronics Test Engineer Final DIAGNOSIS Positive for Malignancy Electronically signed by: ?Carmella BEST PhD, Zac Barker Verified: ??08/16/2023 11:25 ??Pathologist Performed at: ??-[facility] Dept. of Pathology, [place] [address] Library Science Instructor: Janes Ritchie MD, [facility], ??CLIA Certificate: [id number] DISCUSSION Adenocarcinoma, consistent with pulmonary primary. Cell [...] Cell Block 1.(A) 08/17/2023 10:59 AM EDT [facility] LUNG STRUCTURE / Unknown 08/10/2023 7:44 AM EDT 08/10/2023 7:44 AM EDT Lenard Ramon MD PATHOLOGY/CYTOLOGY O [place] Performing Organization Address City/[facility]/[place] [address] * Cytopathology Non-Gynecological (08/10/2023 7:44 AM EDT) AP Specimen 08/10/2023 7:44 AM EDT 08/10/2023 7:44 AM EDT Narrative [facility] - 08/10/2023 7:44 AM EDT Specimen requisition ordered. ??Separate Pathology report to follow Lenard Ramon MD PATHOLOGY/CYTOLOGY O EL[place]IR[place] Performing Organization Address City/[facility] [place] [address] documented in this encounter Visit Diagnoses Diagnosis [...] 0717 (Given - Provid er: Mitra Goncalves, DONATO) Continuous Medication Order 08/08/2023 08/09/2023 08/10/2023 lactated [...] CRNA) documented in this encounter Care Teams Pararescue Craftsman Relationship Specialty Start Date End Date Avery Castro DO [address] [place] [address] PCP - General Family Medicine 07/28/23 09/25/23 documented as of this encounter
--- OUTSIDE RECORDS SUMMARY | 2024-01-08 11:29 | XMS_ITS | Encounter Summary ---
Author Organization [facility] Address [facility] [place] [address] Care Team Providers Care Top Bottom Attaching Machine Operator Name Role Phone Rose Carter Primary Care Provider Unavail able Encounter Details Date Type Department Care Team (Latest Contact Info) Description 10/03/2014 8:47 PM EDT - 10/03/2014 11:59 PM EDT Hospital [place] [address] Valerio Mazariegos MD [facility] [place] [address] Discharge Disposition: Home Social History Tobacco Use [...] 1:00 PM EDT Office Visit Hematology/Oncology at [address] [phone] Antolin Croft MD [facility] [address] [place] [address] Candice Erickson APRN [address] [place] [address] DR HEMATOLOGY AND ONCOLOGY [place], [place] [address] Primary malignant neoplasm of right lower lobe of lung 01/08/2024 1:30 PM EDT Infusion Hematology Oncology at [address] [phone] 01/30/2024 9:[address] [place] [place] [phone] Soto Gilbert MD [facility] [place] [address] 01/30/2024 10:30 AM EST Appointment [place] [phone] Soto Gilbert MD [facility] [place] [address] 01/30/2024 11:00 AM EST Appointment [place] [phone] Soto Gilbert MD [facility] [place] [address] 01/30/2024 11:30 AM EST Appointment [place] [phone] Soto Gilbert MD [facility] [place] [address] 01/30/2024 12:00 PM EST Appointment [place] [phone] Soto Gilbert MD [facility] [place] [address] 01/30/2024 2:30 PM EST [place] [phone] documented as of this encounter Procedures Procedure Name Priority Date/Time Associated Diagnosis Comments SURGICAL PATHOLOGY REPORT Routine 10/03/2014 12:00 PM EDT documented in this encounter Results * Surgical Pathology Report (10/03/2014 12:00 PM EDT) Final Diagnosis ? [facility] ? Provider: ?? VALERIO MAZARIEGOS ?? Pt. Name: ?? ELVIN GALVAN ? Acc #: ?[id number] ? Pt. ? Col Date: ?? 10/03/2014 ? /Sex: ?1955,(58 years),Female ? Rec Date: ?? 10/03/2014 ? LOC: ?[facility] ? SURGICAL PATHOLOGY ? ---Pathologic Diagnosis--- ? 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 ?See Comment. ? CR-0 ? 10/06/14 ? [facility] ? 10/07/14 Verified by: ? Olegario Bean MD ? Dermatopathologist ? (Electronic Signature) ? The attending pathologist whose signature appears on this report has ? reviewed all diagnostic slides and has edited the gross and/or ? microscopic portion of the report in rendering the final pathologic ? diagnosis. ? ---Comment--- ? The lesion is asymmetrical and there are regions in which solitary ? melanocytes predominate overlying zones of partial regression. ??Thus, the ? complete, but conservative, excision of this lesion is recommended to more ? fully assess its nature and to ensure its total removal. ??A Melan-A ? immunohistochemical stain highlights the melanocytic proliferation. ??This ? case has been reviewed by Dr. Ramos, who concurs with the diagnosis. ? Multiple deeper levels have been examined. ? ---Microscopic Description--- ? Immunohistochemistry Studies: ? Formalin-fixed, paraffin-embedded tissue sections are studied using the ? polymer technique with appropriate positive and negative controls. ??These ? IHC studies provide the pathologist with adjunctive diagnostic information. ? Antibody specificity has been verified by testing antibodies on a series of ? in-house tissues with known immunohistochemical performance ? characteristics. The clinical interpretation of any antibody positive ? staining or its absence is evaluated within the context of clinical ? presentation, morphology, histopathological criteria and other diagnostic ? tests. ? Block ?Antibody ? Result (Positive/Negative) ? A1 ? Melan-A ?Highlights melanocytic lesion. ? ---Gross Description--- ? A - Labeled/Fixative: Nevi L. Back, formalin. ? [facility] ? Provider: ?? VALERIO MAZARIEGOS ?? Pt. Name: ?? ELVIN GALVAN ? Acc #: ?[id number] ? Pt. ? Col Date: ?? 10/03/2014 ? /Sex: ?1955,(58 years),Female ? Rec Date: ?? 10/03/2014 ? LOC: ?[facility] ? SURGICAL PATHOLOGY ? Quantity/Size: Single, 0.6 cm. ? Tissue Description: Punch of white skin with a 0.5 cm dark brown macule. ? Sections/Processing: Inked and bisected. (T1) ??sns ? ---Clinical Information--- ? Specimen Submitted: ? A - Nevi left back ? Clinical History: ? Nevi L. Back ? Clinical Diagnosis: ? Same 10/07/2014 11:56 AM EDT [facility] SPECIMEN FROM SKIN / Unknown 10/03/2014 12:00 PM EDT 10/03/2014 12:00 PM EDT Valerio Mazariegos MD PATHOLOGY/CYTOLOGY O RDERABLES [facility] [place] [address] documented in this encounter Visit Diagnoses Not on filedocumented in this encounter Care Teams Top Bottom Attaching Machine Operator Relationship Specialty Start Date End Date Rose Carter PA PCP - General 07/21/14 07/27/23 documented as of this encounter
--- OUTSIDE RECORDS SUMMARY | 2024-01-08 11:29 | XMS_ITS | Encounter Summary ---
Author Organization [facility] [place] [address] Care Team Providers Care Pianos And Organs Salesperson Name Role Phone Avery Castro DO Primary Care Provider [phone] Encounter Details Date Type Department Care Team (Latest Contact Info) Description 08/09/2023 Travel Social History Tobacco Use Types Packs/Day [...] 1:00 PM EDT Office Visit Hematology/Oncology at [address] [phone] Antolin Croft MD [facility] [place] [address] Candice Erickson APRN [address] [place] [address] DR HEMATOLOGY [place] [address] Primary malignant neoplasm of right lower lobe of lung 01/08/2024 1:30 PM EDT Infusion Hematology Oncology at [address] [phone] 01/30/2024 9:[address] [place] [place] [phone] Soto Giblert MD [facility] [place] [address] 01/30/2024 10:30 AM EST Appointment Nuclear Medicine at [place] [phone] Soto Gilbert MD [facility] [place] [address] 01/30/2024 11:00 AM EST Appointment Nuclear Medicine at [place] [phone] Soto Gilbert MD [facility] [place] [address] 01/30/2024 11:30 AM EST Appointment [place] [phone] Soto Gilbert MD [facility] [place] [address] 01/30/2024 12:00 PM EST Appointment [place] [phone] Soto Gilbert MD [facility] [place] [address] 01/30/2024 2:30 PM EST App[place] [phone] documented as of this encounter Visit Diagnoses Not on filedocumented in this encounter Care Teams Pianos And Organs Salesperson Relationship Specialty Start Date End Date Avery Castro DO [address] [place] [address] PCP - General Family Medicine 07/28/23 09/25/23 documented as of this encounter
[2024-01-08 12:13] LABS: Abs Immature Grans 0.07 10^3/uL (0.0-0.06); Absolute Basophil Count 0.03 10^3/uL (0.0-0.2); Absolute Eosinophil Count 0.05 10^3/uL (0.0-0.7); Absolute Lymphocyte Count 1.77 10^3/uL (1.2-3.4); Absolute Monocyte Count 0.68 10^3/uL (0.1-0.8); Absolute Neutrophil Count 3.55 10^3/uL (1.2-6.7); Basophils % 0.5 %; Eosinophils % 0.8 %; HCT 39.6 % (36.0-46.0); HGB 12.2 g/dL (11.2-15.7); Immature Grans % 1.1 %; Lymphocytes % 28.8 %; MCH 27.7 pg (27.0-33.0); MCHC 30.8 % (32.0-36.0); MCV 90 fL (80-95); MPV 8.7 fL (8.0-11.0); Monocytes % 11.1 %; Neutrophils % 57.7 %; Platelet Count 207 10^3/uL (130-400); RDW 19.9 % (11.7-14.6); RDW-SD 63.4 fL; WBC 6.15 10^3/uL (4.4-10.8)
[2024-01-08 12:38] LABS: ALT 72 U/L (14-59); AST 51 U/L (15-37); Albumin 3.2 g/dL (3.4-5.0); Alkaline Phosphatase 123 U/L (46-116); Anion Gap 6.5 mmol/L (3-11); BUN 16 mg/dL (7-18); Bilirubin, Total 0.26 mg/dL (0.2-1.0); CO2 27.5 mmol/L (21.0-32.0); CREATININE 1.1 mg/dL (0.55-1.02); Calcium 9.5 mg/dL (8.5-10.1); Chloride 107 mmol/L (98-107); Estimated GFR 55.07 (mL/min/1.73m2); FREE T4 1.02 ng/dL (0.76-1.46); Glucose 106 mg/dL (74-106); Potassium 4.2 mmol/L (3.5-5.1); Sodium 141 mmol/L (136-145); TSH 4.93 uIU/mL (0.36-3.74); Total Protein 7.5 g/dL (6.4-8.2)
== END 2024-01-08 11:23 | disposition home or self-care (01) ==
LOC: LBO 11:23
PROVIDERS: Visit Provider Internal Medicine Medical Oncology
DX: Z79.899 Other long term (current) drug therapy (principal)
CPT/HCPCS: 36415; 80053; 83735; 84439; 84443; 85025

== ENCOUNTER 2024-03-25 04:08 | Outpatient (CLI) | payer MEDICARE, SELFPAY ==
[2024-03-25 11:17] LABS: Abs Immature Grans 0.02 10^3/uL (0.0-0.06); Absolute Basophil Count 0.08 10^3/uL (0.0-0.2); Absolute Eosinophil Count 0.35 10^3/uL (0.0-0.7); Absolute Monocyte Count 0.58 10^3/uL (0.1-0.8); Basophils % 1.1 %; Eosinophils % 4.9 %; HCT 41.7 % (36.0-46.0); HGB 12.8 g/dL (11.2-15.7); Immature Grans % 0.3 %; Lymphocytes % 16.8 %; MCH 28.6 pg (27.0-33.0); MCHC 30.7 % (32.0-36.0); MCV 93 fL (80-95); MPV 10.2 fL (8.0-11.0); Monocytes % 8.1 %; Neutrophils % 68.8 %; Platelet Count 216 10^3/uL (130-400); RBC 4.47 10^6/uL (3.93-5.22); RDW 14.6 % (11.7-14.6); RDW-SD 50.5 fL; WBC 7.13 10^3/uL (4.4-10.8)
[2024-03-25 11:39] LABS: ALT 17 U/L (14-59); AST 22 U/L (15-37); Albumin 3.5 g/dL (3.4-5.0); Alkaline Phosphatase 125 U/L (46-116); Anion Gap 6.1 mmol/L (3-11); BUN 18 mg/dL (7-18); Bilirubin, Total 0.27 mg/dL (0.2-1.0); CO2 27.9 mmol/L (21.0-32.0); CREATININE 1.2 mg/dL (0.55-1.02); Calcium 9.5 mg/dL (8.5-10.1); Chloride 104 mmol/L (98-107); Estimated GFR 49.61 (mL/min/1.73m2); FREE T4 1.06 ng/dL (0.76-1.46); Glucose 106 mg/dL (74-106); Potassium 4.3 mmol/L (3.5-5.1); Sodium 138 mmol/L (136-145); TSH 3.21 uIU/mL (0.36-3.74); Total Protein 8.3 g/dL (6.4-8.2)
== END 2024-03-25 04:09 | disposition home or self-care (01) ==
PROVIDERS: Visit Provider Internal Medicine Medical Oncology
DX: Z79.899 Other long term (current) drug therapy (principal); C34.31 Malignant neoplasm of lower lobe, right bronchus or lung
CPT/HCPCS: 36415; 80053; 83735; 84439; 84443; 85025

== ENCOUNTER 2024-04-01 03:13 | Outpatient (CLI) | payer MEDICARE, SELFPAY ==
[2024-04-01 07:24] LABS: Abs Immature Grans 0.09 10^3/uL (0.0-0.06); Absolute Basophil Count 0.08 10^3/uL (0.0-0.2); Absolute Eosinophil Count 0.37 10^3/uL (0.0-0.7); Absolute Lymphocyte Count 0.84 10^3/uL (1.2-3.4); Absolute Monocyte Count 0.35 10^3/uL (0.1-0.8); Absolute Neutrophil Count 4.71 10^3/uL (1.2-6.7); Basophils % 1.2 %; Eosinophils % 5.7 %; HGB 12.6 g/dL (11.2-15.7); Immature Grans % 1.4 %; MCH 28.3 pg (27.0-33.0); MCHC 31.5 % (32.0-36.0); MCV 90 fL (80-95); Monocytes % 5.4 %; Neutrophils % 73.3 %; RBC 4.45 10^6/uL (3.93-5.22); RDW 14.2 % (11.7-14.6); RDW-SD 47.2 fL; WBC 6.44 10^3/uL (4.4-10.8)
[2024-04-01 07:35] LABS: Diff Comment PLT Morph Reviewed; RBC Morphology Normal
[2024-04-01 07:36] LABS: AST 19 U/L (15-37); Albumin 3.3 g/dL (3.4-5.0); Alkaline Phosphatase 113 U/L (46-116); Anion Gap 8.6 mmol/L (3-11); BUN 25 mg/dL (7-18); Bilirubin, Total 0.36 mg/dL (0.2-1.0); CO2 26.4 mmol/L (21.0-32.0); CREATININE 1.3 mg/dL (0.55-1.02); Calcium 9.3 mg/dL (8.5-10.1); Chloride 105 mmol/L (98-107); Estimated GFR 45.07 (mL/min/1.73m2); Glucose 121 mg/dL (74-106); Potassium 4.5 mmol/L (3.5-5.1); Sodium 140 mmol/L (136-145); Total Protein 7.8 g/dL (6.4-8.2)
[2024-04-01 07:39] LABS: ALT < 6 U/L (14-59)
== END 2024-04-01 03:14 | disposition home or self-care (01) ==
LOC: LBO 03:13
PROVIDERS: Visit Provider Internal Medicine Medical Oncology
DX: C34.31 Malignant neoplasm of lower lobe, right bronchus or lung (principal)
CPT/HCPCS: 36415; 80053; 83735; 85025

== ENCOUNTER 2024-04-08 03:21 | Outpatient (CLI) | payer MEDICARE, SELFPAY ==
[2024-04-08 10:04] LABS: Abs Immature Grans 0.02 10^3/uL (0.0-0.06); Absolute Basophil Count 0.04 10^3/uL (0.0-0.2); Absolute Eosinophil Count 0.11 10^3/uL (0.0-0.7); Absolute Lymphocyte Count 0.59 10^3/uL (1.2-3.4); Absolute Monocyte Count 0.33 10^3/uL (0.1-0.8); Absolute Neutrophil Count 2.51 10^3/uL (1.2-6.7); Basophils % 1.1 %; Eosinophils % 3.1 %; HCT 40.7 % (36.0-46.0); HGB 12.6 g/dL (11.2-15.7); Immature Grans % 0.6 %; Lymphocytes % 16.4 %; MCH 28.2 pg (27.0-33.0); MCV 91 fL (80-95); MPV 9.8 fL (8.0-11.0); Monocytes % 9.2 %; Neutrophils % 69.6 %; Platelet Count 200 10^3/uL (130-400); RBC 4.47 10^6/uL (3.93-5.22); RDW 14.5 % (11.7-14.6); RDW-SD 47.7 fL
[2024-04-08 10:19] LABS: ALT 14 U/L (14-59); AST 18 U/L (15-37); Albumin 3.4 g/dL (3.4-5.0); Alkaline Phosphatase 107 U/L (46-116); Anion Gap 6.9 mmol/L (3-11); BUN 24 mg/dL (7-18); Bilirubin, Total 0.23 mg/dL (0.2-1.0); CO2 28.1 mmol/L (21.0-32.0); CREATININE 1.2 mg/dL (0.55-1.02); Calcium 9.6 mg/dL (8.5-10.1); Chloride 105 mmol/L (98-107); Estimated GFR 49.61 (mL/min/1.73m2); Glucose 120 mg/dL (74-106); Magnesium 2.1 mg/dL (1.8-2.4); Potassium 4.5 mmol/L (3.5-5.1); Sodium 140 mmol/L (136-145); Total Protein 7.9 g/dL (6.4-8.2)
== END 2024-04-08 03:22 | disposition home or self-care (01) ==
LOC: LBO 03:21
PROVIDERS: Visit Provider Internal Medicine Medical Oncology
DX: C34.31 Malignant neoplasm of lower lobe, right bronchus or lung (principal)
CPT/HCPCS: 36415; 80053; 83735; 85025

== ENCOUNTER 2024-04-15 02:50 | Outpatient (CLI) | payer MEDICARE, SELFPAY ==
[2024-04-15 08:38] LABS: Abs Immature Grans 0.02 10^3/uL (0.0-0.06); Absolute Basophil Count 0.03 10^3/uL (0.0-0.2); Absolute Eosinophil Count 0.05 10^3/uL (0.0-0.7); Absolute Lymphocyte Count 0.44 10^3/uL (1.2-3.4); Absolute Monocyte Count 0.28 10^3/uL (0.1-0.8); Absolute Neutrophil Count 2.09 10^3/uL (1.2-6.7); Eosinophils % 1.7 %; HCT 40.1 % (36.0-46.0); HGB 12.3 g/dL (11.2-15.7); Immature Grans % 0.7 %; Lymphocytes % 15.1 %; MCH 28.4 pg (27.0-33.0); MCHC 30.7 % (32.0-36.0); MCV 93 fL (80-95); MPV 9.2 fL (8.0-11.0); Monocytes % 9.6 %; Neutrophils % 71.9 %; Platelet Count 168 10^3/uL (130-400); RBC 4.33 10^6/uL (3.93-5.22); RDW 14.8 % (11.7-14.6); RDW-SD 49.3 fL; WBC 2.91 10^3/uL (4.4-10.8)
[2024-04-15 09:01] LABS: ALT 20 U/L (14-59); AST 17 U/L (15-37); Albumin 3.2 g/dL (3.4-5.0); Alkaline Phosphatase 112 U/L (46-116); Anion Gap 6.5 mmol/L (3-11); BUN 15 mg/dL (7-18); Bilirubin, Total 0.33 mg/dL (0.2-1.0); CO2 29.5 mmol/L (21.0-32.0); CREATININE 1.2 mg/dL (0.55-1.02); Calcium 9.3 mg/dL (8.5-10.1); Chloride 104 mmol/L (98-107); Estimated GFR 49.61 (mL/min/1.73m2); FREE T4 1.13 ng/dL (0.76-1.46); Glucose 124 mg/dL (74-106); Magnesium 1.8 mg/dL (1.8-2.4); Potassium 4.2 mmol/L (3.5-5.1); Sodium 140 mmol/L (136-145); Total Protein 7.6 g/dL (6.4-8.2)
== END 2024-04-15 02:51 | disposition home or self-care (01) ==
PROVIDERS: Visit Provider Internal Medicine Medical Oncology
DX: Z79.899 Other long term (current) drug therapy (principal); C34.31 Malignant neoplasm of lower lobe, right bronchus or lung
CPT/HCPCS: 36415; 80053; 83735; 84439; 84443; 85025

== ENCOUNTER 2024-04-22 01:15 | Outpatient (CLI) | payer MEDICARE, SELFPAY ==
[2024-04-22 08:07] LABS: Abs Immature Grans 0.03 10^3/uL (0.0-0.06); Absolute Basophil Count 0.03 10^3/uL (0.0-0.2); Absolute Eosinophil Count 0.02 10^3/uL (0.0-0.7); Absolute Lymphocyte Count 0.84 10^3/uL (1.2-3.4); Absolute Monocyte Count 0.36 10^3/uL (0.1-0.8); Absolute Neutrophil Count 2.01 10^3/uL (1.2-6.7); Basophils % 0.9 %; Eosinophils % 0.6 %; HCT 39.9 % (36.0-46.0); HGB 12.3 g/dL (11.2-15.7); Immature Grans % 0.9 %; Lymphocytes % 25.5 %; MCH 28.4 pg (27.0-33.0); MCHC 30.8 % (32.0-36.0); MCV 92 fL (80-95); MPV 9.3 fL (8.0-11.0); Monocytes % 10.9 %; Neutrophils % 61.2 %; Platelet Count 129 10^3/uL (130-400); RBC 4.33 10^6/uL (3.93-5.22); RDW 15.4 % (11.7-14.6); RDW-SD 50.8 fL; WBC 3.29 10^3/uL (4.4-10.8)
[2024-04-22 08:29] LABS: ALT 13 U/L (14-59); AST 16 U/L (15-37); Albumin 3.2 g/dL (3.4-5.0); Alkaline Phosphatase 105 U/L (46-116); Anion Gap 8.5 mmol/L (3-11); BUN 24 mg/dL (7-18); Bilirubin, Total 0.34 mg/dL (0.2-1.0); CO2 27.5 mmol/L (21.0-32.0); CREATININE 1.3 mg/dL (0.55-1.02); Calcium 9.4 mg/dL (8.5-10.1); Chloride 105 mmol/L (98-107); Estimated GFR 45.07 (mL/min/1.73m2); Glucose 123 mg/dL (74-106); Magnesium 1.8 mg/dL (1.8-2.4); Potassium 4.8 mmol/L (3.5-5.1); Sodium 141 mmol/L (136-145); Total Protein 7.4 g/dL (6.4-8.2)
== END 2024-04-22 01:16 | disposition home or self-care (01) ==
PROVIDERS: Visit Provider Internal Medicine Medical Oncology
DX: C34.31 Malignant neoplasm of lower lobe, right bronchus or lung (principal)
CPT/HCPCS: 36415; 80053; 83735; 85025

== ENCOUNTER 2024-04-29 02:35 | Outpatient (CLI) | payer MEDICARE, SELFPAY ==
[2024-04-29 08:18] LABS: Abs Immature Grans 0.01 10^3/uL (0.0-0.06); Absolute Basophil Count 0.01 10^3/uL (0.0-0.2); Absolute Eosinophil Count 0.02 10^3/uL (0.0-0.7); Absolute Lymphocyte Count 0.69 10^3/uL (1.2-3.4); Absolute Monocyte Count 0.25 10^3/uL (0.1-0.8); Absolute Neutrophil Count 1.83 10^3/uL (1.2-6.7); Basophils % 0.4 %; Eosinophils % 0.7 %; HCT 40.6 % (36.0-46.0); HGB 12.6 g/dL (11.2-15.7); Immature Grans % 0.4 %; Lymphocytes % 24.6 %; MCH 28.6 pg (27.0-33.0); MCV 92 fL (80-95); MPV 8.8 fL (8.0-11.0); Monocytes % 8.9 %; Platelet Count 144 10^3/uL (130-400); RBC 4.41 10^6/uL (3.93-5.22); RDW-SD 53.4 fL; WBC 2.81 10^3/uL (4.4-10.8)
[2024-04-29 08:33] LABS: ALT 18 U/L (14-59); AST 17 U/L (15-37); Albumin 3.4 g/dL (3.4-5.0); Alkaline Phosphatase 105 U/L (46-116); Anion Gap 6.1 mmol/L (3-11); BUN 18 mg/dL (7-18); Bilirubin, Total 0.39 mg/dL (0.2-1.0); CO2 27.9 mmol/L (21.0-32.0); CREATININE 1.3 mg/dL (0.55-1.02); Calcium 9.8 mg/dL (8.5-10.1); Chloride 105 mmol/L (98-107); Estimated GFR 45.07 (mL/min/1.73m2); Glucose 114 mg/dL (74-106); Magnesium 1.7 mg/dL (1.8-2.4); Potassium 4.3 mmol/L (3.5-5.1); Sodium 139 mmol/L (136-145); Total Protein 7.9 g/dL (6.4-8.2)
== END 2024-04-29 02:36 | disposition home or self-care (01) ==
LOC: LBO 02:35
PROVIDERS: Visit Provider Internal Medicine Medical Oncology
DX: C34.31 Malignant neoplasm of lower lobe, right bronchus or lung (principal)
CPT/HCPCS: 36415; 80053; 83735; 85025

== ENCOUNTER 2024-06-17 01:31 | Outpatient (RCR) | payer MEDICARE, MEDICAID, SELFPAY ==
[2024-05-21] MEDS: Normal Saline Flush 10 ML SYR IVP (12:12)
[2024-05-21 12:28] LABS: Abs Immature Grans 0.04 10^3/uL (0.0-0.06); Absolute Basophil Count 0.05 10^3/uL (0.0-0.2); Absolute Eosinophil Count 0.04 10^3/uL (0.0-0.7); Absolute Lymphocyte Count 0.58 10^3/uL (1.2-3.4); Absolute Monocyte Count 0.73 10^3/uL (0.1-0.8); Absolute Neutrophil Count 3.92 10^3/uL (1.2-6.7); Basophils % 0.9 %; Eosinophils % 0.7 %; HCT 37.9 % (36.0-46.0); HGB 11.7 g/dL (11.2-15.7); Immature Grans % 0.7 %; Lymphocytes % 10.8 %; MCH 27.8 pg (27.0-33.0); MCHC 30.9 % (32.0-36.0); MCV 90 fL (80-95); MPV 9.5 fL (8.0-11.0); Monocytes % 13.6 %; Neutrophils % 73.3 %; Platelet Count 263 10^3/uL (130-400); RBC 4.21 10^6/uL (3.93-5.22); RDW 17.5 % (11.7-14.6); RDW-SD 57.9 fL; WBC 5.36 10^3/uL (4.4-10.8)
[2024-05-21 12:57] LABS: ALT 16 U/L (14-59); AST 17 U/L (15-37); Alkaline Phosphatase 108 U/L (46-116); Anion Gap 9.6 mmol/L (3-11); BUN 13 mg/dL (7-18); Bilirubin, Total 0.25 mg/dL (0.2-1.0); CO2 26.4 mmol/L (21.0-32.0); CREATININE 1.3 mg/dL (0.55-1.02); Calcium 9.4 mg/dL (8.5-10.1); Chloride 106 mmol/L (98-107); Estimated GFR 45.07 (mL/min/1.73m2); Glucose 111 mg/dL (74-106); Magnesium 1.8 mg/dL (1.8-2.4); Potassium 4.2 mmol/L (3.5-5.1); Sodium 142 mmol/L (136-145); TSH 2.54 uIU/mL (0.36-3.74); Total Protein 7.3 g/dL (6.4-8.2)
[2024-05-21 23:11] LABS: T4, Free 1.4 ng/dL (0.8-2.2)
== END 2024-06-17 23:59 | disposition home or self-care (01) ==
LOC: INF 01:31
PROVIDERS: Visit Provider Internal Medicine Medical Oncology
DX: C34.31 Malignant neoplasm of lower lobe, right bronchus or lung (principal); Z79.899 Other long term (current) drug therapy
CPT/HCPCS: 36591; 80053; 83735; 84439; 84443; 85025

== ENCOUNTER 2024-06-25 01:42 | Outpatient (RCR) | payer MEDICARE, MEDICAID, SELFPAY ==
[2024-06-25] MEDS: Normal Saline Flush 10 ML SYR IVP (12:53)
[2024-06-25 13:05] LABS: Abs Immature Grans 0.02 10^3/uL (0.0-0.06); Absolute Eosinophil Count 0.46 10^3/uL (0.0-0.7); Absolute Monocyte Count 0.63 10^3/uL (0.1-0.8); Absolute Neutrophil Count 4.31 10^3/uL (1.2-6.7); Basophils % 1.6 %; Eosinophils % 7.4 %; HCT 38.6 % (36.0-46.0); HGB 11.8 g/dL (11.2-15.7); Immature Grans % 0.3 %; Lymphocytes % 11.3 %; MCHC 30.6 % (32.0-36.0); MCV 92 fL (80-95); MPV 9.9 fL (8.0-11.0); Monocytes % 10.1 %; Neutrophils % 69.3 %; Platelet Count 196 10^3/uL (130-400); RBC 4.22 10^6/uL (3.93-5.22); RDW 17.8 % (11.7-14.6); WBC 6.22 10^3/uL (4.4-10.8)
[2024-06-25 13:30] LABS: ALT 18 U/L (14-59); AST 16 U/L (15-37); Albumin 3.1 g/dL (3.4-5.0); Alkaline Phosphatase 106 U/L (46-116); Anion Gap 7.4 mmol/L (3-11); BUN 19 mg/dL (7-18); Bilirubin, Total 0.3 mg/dL (0.2-1.0); CO2 27.6 mmol/L (21.0-32.0); CREATININE 1.1 mg/dL (0.55-1.02); Calcium 9.2 mg/dL (8.5-10.1); Chloride 106 mmol/L (98-107); Estimated GFR 55.07 (mL/min/1.73m2); FREE T4 0.98 ng/dL (0.76-1.46); Glucose 102 mg/dL (74-106); Potassium 4.1 mmol/L (3.5-5.1); Sodium 141 mmol/L (136-145); TSH 1.44 uIU/mL (0.36-3.74); Total Protein 7.2 g/dL (6.4-8.2)
== END 2024-07-17 23:59 | disposition home or self-care (01) ==
LOC: INF 01:42
PROVIDERS: Visit Provider Internal Medicine Medical Oncology
DX: C34.31 Malignant neoplasm of lower lobe, right bronchus or lung (principal); Z79.899 Other long term (current) drug therapy
CPT/HCPCS: 36591; 80053; 83735; 84439; 84443; 85025

== ENCOUNTER 2024-07-22 02:02 | Outpatient (RCR) | payer MEDICARE, MEDICAID, SELFPAY ==
[2024-07-22] MEDS: Normal Saline Flush 10 ML SYR IVP (12:40)
[2024-07-22 12:50] LABS: Abs Immature Grans 0.02 10^3/uL (0.0-0.06); Absolute Eosinophil Count 0.24 10^3/uL (0.0-0.7); Absolute Lymphocyte Count 0.78 10^3/uL (1.2-3.4); Absolute Neutrophil Count 5.14 10^3/uL (1.2-6.7); Basophils % 1.5 %; Eosinophils % 3.5 %; HCT 42.9 % (36.0-46.0); HGB 13.2 g/dL (11.2-15.7); Immature Grans % 0.3 %; Lymphocytes % 11.3 %; MCH 27.8 pg (27.0-33.0); MCHC 30.8 % (32.0-36.0); MCV 91 fL (80-95); MPV 9.5 fL (8.0-11.0); Monocytes % 8.7 %; Neutrophils % 74.7 %; Platelet Count 233 10^3/uL (130-400); RBC 4.74 10^6/uL (3.93-5.22); RDW 14.6 % (11.7-14.6); RDW-SD 48.7 fL; WBC 6.88 10^3/uL (4.4-10.8)
[2024-07-22 13:16] LABS: ALT 19 U/L (14-59); AST 19 U/L (15-37); Albumin 3.6 g/dL (3.4-5.0); Alkaline Phosphatase 122 U/L (46-116); Anion Gap 9.9 mmol/L (3-11); BUN 21 mg/dL (7-18); Bilirubin, Total 0.4 mg/dL (0.2-1.0); CO2 26.1 mmol/L (21.0-32.0); CREATININE 1.3 mg/dL (0.55-1.02); Calcium 9.9 mg/dL (8.5-10.1); Chloride 103 mmol/L (98-107); Estimated GFR 45.07 (mL/min/1.73m2); FREE T4 1.15 ng/dL (0.76-1.46); Glucose 122 mg/dL (74-106); Sodium 139 mmol/L (136-145); TSH 3.73 uIU/mL (0.36-3.74); Total Protein 7.9 g/dL (6.4-8.2)
== END 2024-08-17 23:59 | disposition home or self-care (01) ==
LOC: INF 02:02
PROVIDERS: Visit Provider Internal Medicine Medical Oncology
DX: C34.31 Malignant neoplasm of lower lobe, right bronchus or lung (principal); Z79.899 Other long term (current) drug therapy
CPT/HCPCS: 36591; 80053; 83735; 84439; 84443; 85025

== ENCOUNTER 2024-09-16 12:30 | Outpatient (RCR) | payer MEDICARE, MEDICAID, SELFPAY ==
[2024-08-19 12:22] LABS: Abs Immature Grans 0.03 10^3/uL (0.0-0.06); Absolute Eosinophil Count 0.28 10^3/uL (0.0-0.7); Absolute Lymphocyte Count 0.81 10^3/uL (1.2-3.4); Absolute Neutrophil Count 4.72 10^3/uL (1.2-6.7); Basophils % 1.5 %; Eosinophils % 4.3 %; HCT 41.9 % (36.0-46.0); HGB 13.3 g/dL (11.2-15.7); Immature Grans % 0.5 %; Lymphocytes % 12.4 %; MCH 27.8 pg (27.0-33.0); MCHC 31.7 % (32.0-36.0); MCV 88 fL (80-95); MPV 9.6 fL (8.0-11.0); Monocytes % 9.2 %; Neutrophils % 72.1 %; Platelet Count 235 10^3/uL (130-400); RBC 4.78 10^6/uL (3.93-5.22); RDW 13.5 % (11.7-14.6); RDW-SD 43.8 fL; WBC 6.54 10^3/uL (4.4-10.8)
[2024-08-19] MEDS: Normal Saline Flush 10 ML SYR IVP (12:49)
[2024-08-19 12:51] LABS: ALT 17 U/L (14-59); AST 18 U/L (15-37); Albumin 3.5 g/dL (3.4-5.0); Alkaline Phosphatase 112 U/L (46-116); Anion Gap 9.1 mmol/L (3-11); BUN 18 mg/dL (7-18); Bilirubin, Total 0.4 mg/dL (0.2-1.0); CO2 27.9 mmol/L (21.0-32.0); CREATININE 1.1 mg/dL (0.55-1.02); Calcium 9.3 mg/dL (8.5-10.1); Chloride 103 mmol/L (98-107); Estimated GFR 55.07 (mL/min/1.73m2); FREE T4 1.17 ng/dL (0.76-1.46); Glucose 113 mg/dL (74-106); Potassium 4.2 mmol/L (3.5-5.1); Sodium 140 mmol/L (136-145); TSH 3.47 uIU/mL (0.36-3.74); Total Protein 7.7 g/dL (6.4-8.2)
[2024-09-16 12:52] LABS: Abs Immature Grans 0.02 10^3/uL (0.0-0.06); Absolute Basophil Count 0.08 10^3/uL (0.0-0.2); Absolute Eosinophil Count 0.27 10^3/uL (0.0-0.7); Absolute Monocyte Count 0.65 10^3/uL (0.1-0.8); Absolute Neutrophil Count 5.06 10^3/uL (1.2-6.7); Basophils % 1.2 %; Eosinophils % 3.9 %; HCT 40.7 % (36.0-46.0); Immature Grans % 0.3 %; Lymphocytes % 11.6 %; MCH 27.3 pg (27.0-33.0); MCHC 31.9 % (32.0-36.0); MCV 85 fL (80-95); MPV 10.1 fL (8.0-11.0); Monocytes % 9.4 %; Neutrophils % 73.6 %; Platelet Count 223 10^3/uL (130-400); RBC 4.77 10^6/uL (3.93-5.22); RDW 13.7 % (11.7-14.6); RDW-SD 42.7 fL; WBC 6.88 10^3/uL (4.4-10.8)
[2024-09-16 13:29] LABS: ALT 21 U/L (14-59); AST 16 U/L (15-37); Albumin 3.4 g/dL (3.4-5.0); Alkaline Phosphatase 119 U/L (46-116); BUN 17 mg/dL (7-18); Bilirubin, Total 0.3 mg/dL (0.2-1.0); Calcium 9.3 mg/dL (8.5-10.1); Chloride 104 mmol/L (98-107); Estimated GFR 61.75 (mL/min/1.73m2); FREE T4 1.07 ng/dL (0.76-1.46); Glucose 100 mg/dL (74-106); Potassium 4.4 mmol/L (3.5-5.1); Sodium 140 mmol/L (136-145); TSH 2.74 uIU/mL (0.36-3.74); Total Protein 7.5 g/dL (6.4-8.2)
[2024-09-16] MEDS: Normal Saline Flush 10 ML SYR IVP (14:36)
== END 2024-09-16 23:59 | disposition home or self-care (01) ==
LOC: INF 12:30
PROVIDERS: Visit Provider Internal Medicine Medical Oncology
DX: C34.31 Malignant neoplasm of lower lobe, right bronchus or lung (principal); Z79.899 Other long term (current) drug therapy; Z45.2 Encounter for adjustment and management of vascular access device
CPT/HCPCS: 36591; 80053; 83735; 84439; 84443; 85025

== ENCOUNTER 2024-10-14 02:49 | Outpatient (RCR) | payer MEDICARE, MEDICAID, SELFPAY ==
[2024-10-14] MEDS: Normal Saline Flush 10 ML SYR IVP (08:50)
[2024-10-14 09:02] LABS: Abs Immature Grans 0.03 10^3/uL (0.0-0.06); HCT 40.2 % (36.0-46.0); HGB 12.8 g/dL (11.2-15.7); Immature Grans % 0.4 %; MCH 27.0 pg (27.0-33.0); MCHC 31.8 % (32.0-36.0); MCV 85 fL (80-95); MPV 9.8 fL (8.0-11.0); Platelet Count 240 10^3/uL (130-400); RBC 4.74 10^6/uL (3.93-5.22); RDW 13.9 % (11.7-14.6); RDW-SD 43.0 fL; WBC 6.93 10^3/uL (4.4-10.8)
[2024-10-14 09:32] LABS: ALT 18 U/L (14-59); AST 15 U/L (15-37); Albumin 3.3 g/dL (3.4-5.0); Alkaline Phosphatase 117 U/L (46-116); Anion Gap 7.8 mmol/L (3-11); BUN 19 mg/dL (7-18); Bilirubin, Total 0.3 mg/dL (0.2-1.0); CO2 28.2 mmol/L (21.0-32.0); Calcium 9.2 mg/dL (8.5-10.1); Chloride 104 mmol/L (98-107); Estimated GFR 55.07 (mL/min/1.73m2); Glucose 119 mg/dL (74-106); Magnesium 2.1 mg/dL (1.8-2.4); Potassium 4.4 mmol/L (3.5-5.1); Sodium 140 mmol/L (136-145); TSH 3.55 uIU/mL (0.36-3.74); Total Protein 7.5 g/dL (6.4-8.2)
== END 2024-10-17 23:59 | disposition home or self-care (01) ==
LOC: INF 02:49
PROVIDERS: Visit Provider Internal Medicine Medical Oncology
DX: C34.31 Malignant neoplasm of lower lobe, right bronchus or lung (principal); Z79.899 Other long term (current) drug therapy; Z45.2 Encounter for adjustment and management of vascular access device
CPT/HCPCS: 36591; 80053; 83735; 84439; 84443; 85025

== ENCOUNTER 2024-11-11 03:39 | Outpatient (RCR) | payer MEDICARE, MEDICAID, SELFPAY ==
[2024-11-11] MEDS: Normal Saline Flush 10 ML SYR IVP (12:26)
[2024-11-11 12:36] LABS: Abs Immature Grans 0.04 10^3/uL (0.0-0.06); HCT 40.0 % (36.0-46.0); HGB 12.6 g/dL (11.2-15.7); Immature Grans % 0.6 %; MCH 26.7 pg (27.0-33.0); MCHC 31.5 % (32.0-36.0); MCV 85 fL (80-95); MPV 9.7 fL (8.0-11.0); Platelet Count 240 10^3/uL (130-400); RBC 4.72 10^6/uL (3.93-5.22); RDW 14.8 % (11.7-14.6); RDW-SD 45.8 fL; WBC 6.84 10^3/uL (4.4-10.8)
[2024-11-11 13:19] LABS: ALT 17 U/L (14-59); AST 16 U/L (15-37); Albumin 3.4 g/dL (3.4-5.0); Alkaline Phosphatase 122 U/L (46-116); Anion Gap 8.7 mmol/L (3-11); BUN 15 mg/dL (7-18); Bilirubin, Total 0.3 mg/dL (0.2-1.0); CO2 27.3 mmol/L (21.0-32.0); Calcium 9.5 mg/dL (8.5-10.1); Chloride 105 mmol/L (98-107); Estimated GFR 54.73 (mL/min/1.73m2); Glucose 104 mg/dL (74-106); Magnesium 2.2 mg/dL (1.8-2.4); Potassium 4.4 mmol/L (3.5-5.1); Sodium 141 mmol/L (136-145); TSH 3.97 uIU/mL (0.36-3.74); Total Protein 7.5 g/dL (6.4-8.2)
== END 2024-11-17 23:59 | disposition home or self-care (01) ==
LOC: INF 03:39
PROVIDERS: Visit Provider Internal Medicine Medical Oncology
DX: C34.31 Malignant neoplasm of lower lobe, right bronchus or lung (principal); Z79.899 Other long term (current) drug therapy; Z45.2 Encounter for adjustment and management of vascular access device
CPT/HCPCS: 36591; 80053; 83735; 84439; 84443; 85025

== ENCOUNTER 2025-01-07 00:33 | Outpatient (RCR) | payer MEDICARE, SELFPAY ==
[2025-01-07] MEDS: Normal Saline Flush 10 ML SYR IVP (10:20)
[2025-01-07 10:29] LABS: Abs Immature Grans 0.02 10^3/uL (0.0-0.06); HCT 40.7 % (36.0-46.0); HGB 12.7 g/dL (11.2-15.7); Immature Grans % 0.3 %; MCH 27.0 pg (27.0-33.0); MCHC 31.2 % (32.0-36.0); MCV 87 fL (80-95); MPV 9.5 fL (8.0-11.0); Platelet Count 250 10^3/uL (130-400); RBC 4.70 10^6/uL (3.93-5.22); RDW 14.6 % (11.7-14.6); RDW-SD 46.1 fL; WBC 7.14 10^3/uL (4.4-10.8)
[2025-01-07 10:52] LABS: ALT 16 U/L (14-59); AST 15 U/L (15-37); Albumin 3.2 g/dL (3.4-5.0); Alkaline Phosphatase 170 U/L (46-116); Anion Gap 7.6 mmol/L (3-11); BUN 17 mg/dL (7-18); Bilirubin, Total 0.3 mg/dL (0.2-1.0); CO2 28.4 mmol/L (21.0-32.0); Calcium 9.3 mg/dL (8.5-10.1); Chloride 105 mmol/L (98-107); Estimated GFR 54.73 (mL/min/1.73m2); Glucose 105 mg/dL (74-106); Magnesium 2.1 mg/dL (1.8-2.4); Potassium 4.0 mmol/L (3.5-5.1); Sodium 141 mmol/L (136-145); TSH 4.32 uIU/mL (0.36-3.74); Total Protein 7.6 g/dL (6.4-8.2)
== END 2025-01-17 23:59 | disposition home or self-care (01) ==
LOC: INF 00:33
PROVIDERS: Visit Provider Internal Medicine Medical Oncology
DX: C34.31 Malignant neoplasm of lower lobe, right bronchus or lung (principal); Z79.899 Other long term (current) drug therapy
CPT/HCPCS: 36591; 80053; 83735; 84439; 84443; 85025